=== PATIENT | female | born 1955 | race Caucasian/White ===

== ENCOUNTER 2022-09-10 12:12 | Outpatient (CLI) | payer MEDICARE, OTHER, SELFPAY ==
--- NOTE | 2022-09-10 12:33 | XR_ITS ---
WS: [id number] Lateral views of cervical spine in the flexion, extension and neutral positions. 09/10/2022 Clinical Data: CERVIALGIA Comparison: None. Findings: There is a posterior cervicothoracic fusion with pedicle screws at C4, C5, C6 T1 on T2 with connectin g rods. There is an anterior cervical fusion at C6-C7. On flexion and extension the fusion is stable. XR/XR cervical spine fl/ex [id number] Impression: 1. Intact anterior and posterior cervical fusions. 2. No instability on flexion or extension.
== END 2022-09-10 12:13 | disposition home or self-care (01) ==
PROVIDERS: PCP Family Medicine; Visit Provider Nurse Practitioner
DX: M54.2 Cervicalgia (principal)
CPT/HCPCS: 72040

== ENCOUNTER 2022-09-19 10:15 | Outpatient (CLI) | payer MEDICARE, OTHER, SELFPAY ==
--- NOTE | 2022-09-19 10:27 | XRR_ITS ---
PROCEDURE INFORMATION: Exam: XR Right Hand Exam date and time: 09/19/2022 10:33 AM Age: 66 years old Clinical indication: Pain and injury or trauma; Other: Jammed it; Blunt trauma (contusions or hematomas); Hand and finger; Right; Thumb; Finger(s) and hand; Additional info: Thumb injury TECHNIQUE: Imaging protocol: Radiologic exam of the Right hand. Views: 3 or more views. COMPARISON: No relevant prior studies available. FINDINGS: Bones/joints: Osseous structures are intact. No fracture or malalignment. Visualized joint surfaces are preserved. Soft tissues: Unremarkable. XR/XR hand RT min 3V* [id number] IMPRESSION: Negative exam. No acute bony abnormalities.
== END 2022-09-19 10:16 | disposition home or self-care (01) ==
LOC: RAD 10:19
PROVIDERS: PCP Family Medicine; Visit Provider Family Medicine
DX: S69.91XA Unspecified injury of right wrist, hand and finger(s), initial encounter (principal); X58.XXXA Exposure to other specified factors, initial encounter; F32.A Depression, unspecified; R61 Generalized hyperhidrosis
CPT/HCPCS: 73130; 80053; 82670; 84443; 85025

== ENCOUNTER → 2022-10-03 08:54 | Outpatient (BNVA) | payer MEDICARE, OTHER, SELFPAY | PROVIDERS: PCP Family Medicine; Visit Provider Internal Medicine Pulmonary Disease | DX: J44.9 Chronic obstructive pulmonary disease, unspecified (principal); F17.210 Nicotine dependence, cigarettes, uncomplicated; M54.2 Cervicalgia; G89.29 Other chronic pain; R06.09 Other forms of dyspnea; R91.1 Solitary pulmonary nodule | CPT/HCPCS: 99204 ==

== ENCOUNTER 2022-10-10 07:10 | Outpatient (CLI) | payer MEDICARE, OTHER, SELFPAY | END 2022-10-10 07:11 | disposition home or self-care (01) | LOC: RT 07:13 | PROVIDERS: PCP Family Medicine; Visit Provider Internal Medicine Pulmonary Disease | DX: F17.210 Nicotine dependence, cigarettes, uncomplicated (principal); J44.9 Chronic obstructive pulmonary disease, unspecified | CPT/HCPCS: 94060; 94618; 94726; 94729; J7613 ==

== ENCOUNTER → 2022-10-21 08:37 | Outpatient (BNVA) | payer MEDICARE, OTHER, SELFPAY | PROVIDERS: PCP Family Medicine; Visit Provider Anesthesiology Pain Medicine | DX: M47.812 Spondylosis without myelopathy or radiculopathy, cervical region (principal); M79.601 Pain in right arm; M79.602 Pain in left arm | CPT/HCPCS: 99204 ==

== ENCOUNTER → 2022-11-07 08:45 | Outpatient (BNVA) | payer MEDICARE, OTHER, SELFPAY | PROVIDERS: PCP Family Medicine; Visit Provider Anesthesiology Pain Medicine | DX: M47.812 Spondylosis without myelopathy or radiculopathy, cervical region (principal); R22.1 Localized swelling, mass and lump, neck; M79.18 Myalgia, other site | CPT/HCPCS: 20553; 99213; J1030; J3490 ==

== ENCOUNTER → 2022-11-12 14:36 | Outpatient (BNVA) | payer MEDICARE, OTHER, SELFPAY | PROVIDERS: PCP Family Medicine; Referring Provider Family Medicine; Visit Provider Internal Medicine | DX: R63.4 Abnormal weight loss (principal); R23.2 Flushing; Z68.1 Body mass index [BMI] 19.9 or less, adult | CPT/HCPCS: 99204 ==

== ENCOUNTER 2022-11-14 07:14 | Outpatient (CLI) | payer MEDICARE, OTHER, SELFPAY ==
--- NOTE | 2022-11-14 07:30 | CT_ITS ---
WS: [email or web address] CT CHEST TECHNIQUE: Noncontrast CT of the chest with coronal and sagittal reformatted images. CLINICAL INFORMATION: lung screening COMPARISON: None. DLP: 205.[address] scans at [facility] use at least one of these dose optimization techniques: automated e xposure control; mA and/or kV adjustment per patient size (includes targeted exams where dose is matc hed to clinical indication); or iterative reconstruction. FINDINGS: Normal caliber thoracic aorta. Aortic calcification. Coronary calcification. No mediastinal or hilar lymphadenopathy. No axillary lymphadenopathy. Adrenal glands are normal. RIGHT renal cyst measuring 1 2 mm. Adrenal glands are normal. Moderate chronic emphysematous changes. No focal pneumonia or pleura l fluid. Hazy groundglass opacity in the super segment LEFT lower lobe laterally may be infectious or inflamma tory. Recommend 3 month follow-up. This measures approximately 2.0 CM. Postoperative changes cervical thoracic junction. Tiny subpleural nodule RIGHT middle lobe measuring [address]/CT chest [facility] [id number] IMPRESSION: 1. Hazy 2.0 cm opacity in the super segment LEFT lower lobe laterally is nonsp ecific but may be infectious or inflammatory. Recommend [address] follow -up. 2. Tiny 3 mm nodule RIGHT middle lobe subpleural. 3. Moderate chronic emphysematous changes. 4. No other suspicious findings.
== END 2022-11-14 07:15 | disposition home or self-care (01) ==
LOC: RAD 07:16
PROVIDERS: PCP Family Medicine; Visit Provider Internal Medicine Pulmonary Disease
DX: F17.210 Nicotine dependence, cigarettes, uncomplicated (principal); J44.9 Chronic obstructive pulmonary disease, unspecified
CPT/HCPCS: 71250

== ENCOUNTER 2022-11-14 07:18 | Outpatient (CLI) | payer MEDICARE, OTHER, SELFPAY ==
[2022-11-14 08:04] LABS: Cortisol Random 8.18 ug/dL (2.47-19.5); Free T4 Free Thyroxine 1.19 ng/dL (0.82-1.77); Thyroid Stimulating Hormone 0.97 uIU/mL (0.27-4.20)
[2022-11-16 01:30] LABS: T3 Total 111 ng/dL (76-181)
== END 2022-11-14 07:19 | disposition home or self-care (01) ==
LOC: LAB 07:19
PROVIDERS: PCP Family Medicine; Visit Provider Internal Medicine
DX: R23.2 Flushing (principal); R63.4 Abnormal weight loss
CPT/HCPCS: 36415; 82533; 84439; 84443; 84480

== ENCOUNTER → 2022-11-26 13:02 | Outpatient (BNVA) | payer MEDICARE, OTHER, SELFPAY | PROVIDERS: PCP Family Medicine; Visit Provider Internal Medicine | DX: R63.4 Abnormal weight loss (principal); R23.2 Flushing; Z68.1 Body mass index [BMI] 19.9 or less, adult | CPT/HCPCS: 99214 ==

== ENCOUNTER → 2022-12-02 13:44 | Outpatient (BNVA) | payer MEDICARE, OTHER, SELFPAY | PROVIDERS: PCP Family Medicine; Visit Provider Internal Medicine Pulmonary Disease | DX: J44.9 Chronic obstructive pulmonary disease, unspecified (principal); M54.2 Cervicalgia; G89.29 Other chronic pain; R06.09 Other forms of dyspnea; R91.8 Other nonspecific abnormal finding of lung field; F17.210 Nicotine dependence, cigarettes, uncomplicated | CPT/HCPCS: 99214 ==

== ENCOUNTER → 2022-12-05 09:43 | Outpatient (BNVA) | payer MEDICARE, OTHER, SELFPAY | PROVIDERS: PCP Family Medicine; Visit Provider Anesthesiology Pain Medicine | DX: G89.29 Other chronic pain; Z98.1 Arthrodesis status; M47.812 Spondylosis without myelopathy or radiculopathy, cervical region; M43.6 Torticollis; M54.9 Dorsalgia, unspecified | CPT/HCPCS: 72074; 99214 ==

== ENCOUNTER → 2023-01-06 08:33 | Outpatient (BNVA) | payer MEDICARE, OTHER, SELFPAY | PROVIDERS: PCP Family Medicine; Visit Provider Anesthesiology Pain Medicine | DX: M79.18 Myalgia, other site (principal); M47.812 Spondylosis without myelopathy or radiculopathy, cervical region; M43.6 Torticollis; R22.1 Localized swelling, mass and lump, neck | CPT/HCPCS: 20553; 99213 ==

== ENCOUNTER 2023-01-28 07:49 | Outpatient (CLI) | payer MEDICARE, OTHER, SELFPAY ==
--- NOTE | 2023-01-28 08:00 | MR_ITS ---
WS: [id number] MRI THORACIC SPINE noncontrast HISTORY: Mid back pain for several months. No injury. COMPARISON: Radiographs 12/05/2022 TECHNIQUE: Multiplanar sequences are performed in sagittal and axial planes. Anterior cervical fusion at C6-7. Posterior thoracic alignment is normal. No fractures or marrow edema. Signal within the cord is tra l. No cord atrophy or enlargement. Conus tapers normally at L1. No disc protrusions or stenosis. Ther e is mild facet joint arthritis beginning at the T8-9 level without significant encroachment upon the thecal sac. Paraspinal soft tissues are normal. MR/MR thoracic spin wo con* [id number] IMPRESSION: 1. Unremarkable MRI thoracic spine. No significant stenosis and no disc protru anand. 2. Mild facet joint arthritis beginning at T8-9 through the lower thoracic spi ne. 3. Normal thoracic cord.
== END 2023-01-28 07:50 | disposition home or self-care (01) ==
PROVIDERS: PCP Family Medicine; Visit Provider Family Medicine
DX: M54.6 Pain in thoracic spine (principal); M47.814 Spondylosis without myelopathy or radiculopathy, thoracic region
CPT/HCPCS: 72146

== ENCOUNTER 2023-02-19 08:43 | Outpatient (CLI) | payer MEDICARE, OTHER, SELFPAY ==
--- NOTE | 2023-02-19 09:00 | CT_ITS ---
WS: [email or web address] CT chest wo con [id number] HISTORY: f/u Hazy 2.0 cm opacity TECHNIQUE: Axial imaging performed through the thorax. Coronal and sagittal reformats are submitted. All CT scans at [facility] use at least one of these dose optimization techniques: automated exposure control; mA and/or kV adjustment per patient size (includes targeted exams where dose is mat ched to clinical indication); or iterative reconstruction. CONTRAST: None DLP: 166.34 mGy.cm COMPARISON: 11/14/2022, 04/15/2022 Lungs and central airway: Mild pulmonary hyperexpansion. Reidentified is a 15 mm irregular shaped mahendra undglass attenuation superior segment LEFT lower lobe which is unchanged since 04/15/2022. Additional subpleural nodule in the RIGHT middle lobe 3 mm. Subpleural nodule LEFT upper lobe 3 mm also. No susp icious or enlarging masses are identified. Pleura: Normal. No pleural effusion. Heart and pericardium: Normal size heart with no pericardial effusion. Mediastinum and chidi: No mediastinum or hilar adenopathy. Vessels: Mild atherosclerosis aorta. Normal size pulmonary artery. Chest wall and lower neck: No soft tissue masses. Upper abdomen: Normal adrenal glands. Osseous structures: No destructive process. CT/CT chest wo con [id number] IMPRESSION: 1. No interval change in the hazy 15 mm opacification LEFT lower lobe since 08/2022. Recommend additional 6-[address] follow-up. 2. Additional subpleural nodules are stable. 3. Chronic emphysema.
== END 2023-02-19 08:44 | disposition home or self-care (01) ==
LOC: RAD 08:48
PROVIDERS: PCP Family Medicine; Visit Provider Internal Medicine Pulmonary Disease
DX: R91.8 Other nonspecific abnormal finding of lung field (principal); J43.9 Emphysema, unspecified
CPT/HCPCS: 71250

== ENCOUNTER 2023-02-26 12:23 | Outpatient (CLI) | payer MEDICARE, OTHER, SELFPAY ==
--- NOTE | 2023-02-26 13:14 | MM_ITS ---
WS: [email or web address] Bilateral screening 3D tomosynthesis digital mammogram, 02/26/2023 Clinical Data: Z78.0 - Asymptomatic menopausal state Comparison: 07/21/2021 Findings: The breast parenchymal pattern shows heterogeneous density. No spiculated masses or clustered calcifi cations are seen. There are no secondary signs of carcinoma. There is a benign calcification in the c entral portion of the right breast. MM/[place] [id number] Impression: 1. Negative bilateral mammogram unchanged. 2. Recommend annual screening mammograms. BIRADS: 1-Negative FOLLOW UP: 1 Year Follow-up The CAD fitting room checker was used.
--- NOTE | 2023-02-26 13:30 | XR_ITS ---
WS: [email or web address] SCREENING DEXA SCAN [employer] CLINICAL INFORMATION: Z78.0 - Asymptomatic menopausal state COMPARISON: None. FINDINGS: LEFT forearm bone mineral density measures 0.72. This corresponds to a T score score of -1.7 and Z sc ore of 0.0. Left femoral neck bone mineral density measures 0.773 g/cm2. This corresponds to a T score of -1.9 an d Z score of 0.1. Right femoral neck bone mineral density measures 0.794 g/cm2. This corresponds to a T score -1.7of an d Z score of 0.3. Mean femoral neck bone mineral density measures 0.784 g/cm2. This corresponds to a T score of -1.8 an d Z score of 0.2. XR/XR DEXA axial skeleton* [id number] IMPRESSION: Osteopenia LEFT forearm. Osteopenia femoral necks. Patient's FRAX calculated 10 year probability for major osteoporotic fracture is 9.5 % and osteoporotic hip fracture is 2.9%.
== END 2023-02-26 12:24 | disposition home or self-care (01) ==
PROVIDERS: PCP Family Medicine; Visit Provider Obstetrics & Gynecology
DX: Z13.820 Encounter for screening for osteoporosis (principal); Z78.0 Asymptomatic menopausal state; M85.832 Other specified disorders of bone density and structure, left forearm; Z12.31 Encounter for screening mammogram for malignant neoplasm of breast
CPT/HCPCS: 77063; 77067; 77080

== ENCOUNTER 2023-03-02 13:35 | Emergency (ER) | payer MEDICARE, SELFPAY ==
[2023-03-02 13:56] VITALS: BP 131/84; PULSE 92; RESP 16; TEMP 36.7; O2SAT 96; BMI 16.9
== END 2023-03-02 15:18 | disposition left against medical advice (07) ==
PROVIDERS: Emergency Provider Family Medicine; PCP Family Medicine
DX: Z53.21 Procedure and treatment not carried out due to patient leaving prior to being seen by health care provider (principal)

== ENCOUNTER → 2023-03-04 11:01 | Outpatient (BNVA) | payer MEDICARE, OTHER, SELFPAY | PROVIDERS: PCP Family Medicine; Visit Provider Obstetrics & Gynecology | DX: Z90.410 Acquired total absence of pancreas (principal); Z90.722 Acquired absence of ovaries, bilateral | CPT/HCPCS: 76830 ==

== ENCOUNTER → 2023-03-06 17:00 | Outpatient (BNVA) | payer MEDICARE, SELFPAY | PROVIDERS: PCP Family Medicine; Visit Provider Family Medicine | DX: M85.80 Other specified disorders of bone density and structure, unspecified site (principal); M54.2 Cervicalgia | CPT/HCPCS: 82306 ==

== ENCOUNTER → 2023-03-10 09:02 | Outpatient (BNVA) | payer MEDICARE, OTHER, SELFPAY | PROVIDERS: PCP Family Medicine; Visit Provider Anesthesiology Pain Medicine | DX: M54.12 Radiculopathy, cervical region (principal); M47.812 Spondylosis without myelopathy or radiculopathy, cervical region; M47.814 Spondylosis without myelopathy or radiculopathy, thoracic region | CPT/HCPCS: 99215 ==

== ENCOUNTER → 2023-03-19 08:41 | Outpatient (BNVA) | payer MEDICARE, OTHER, SELFPAY | PROVIDERS: PCP Family Medicine; Visit Provider Psychiatry & Neurology Neurology | DX: R25.1 Tremor, unspecified (principal); Z98.890 Other specified postprocedural states | CPT/HCPCS: 99203 ==

== ENCOUNTER → 2023-03-19 13:11 | Outpatient (BNVA) | payer MEDICARE, OTHER, SELFPAY | PROVIDERS: PCP Family Medicine; Visit Provider Anesthesiology Pain Medicine | DX: M47.812 Spondylosis without myelopathy or radiculopathy, cervical region (principal) | CPT/HCPCS: 64490; 64491; 64492; J3490 ==

== ENCOUNTER 2023-03-25 08:36 | Outpatient (CLI) | payer MEDICARE, OTHER, SELFPAY ==
--- NOTE | 2023-03-25 09:30 | MR_ITS ---
WS: [email or web address] MRI CERVICAL SPINE with and without contrast. HISTORY: M54.12 - Radiculopathy, cervical region, prior surgery. COMPARISON: None available. Technique: Multiplanar, multisequence pre and postcontrast imaging of the cervical spine. MultiHance 10 mL. Prior anterior cervical fusion at C6-7. Extensive posterior cervical fusion hardware extends from the upper cervical spine into the upper thoracic spine. Multilevel posterior laminectomy defects. There is significant artifact through the cervical spine secondary to the hardware. Disc spaces are narrowe d throughout the cervical spine. C3 anterolisthesis by 3.3 mm. No fracture or marrow edema. Signal within the cervical cord is normal. Visualized posterior fossa is unremarkable. Craniocervical junction, C1 and C2 relationship, odontoid process and soft tissues are normal. C2-C3: Normal. C3-C4: Moderate osteophytic ridging and facet arthritis. Facet joint arthritis encroaching into the p osterior thecal sac causing deformity and loss of CSF. There is mild central and moderate foraminal s tenosis. C4-C5: Mild osteophytic ridging and facet disease. There is significant artifact obscuring this disc level. C5-C6: Significant artifact on the axial imaging. There is no central stenosis or foraminal stenosis on the sagittal sequence. C6-C7: Significantly limited on the axial imaging by the artifact. No stenosis is apparent on the sag ittal sequence. C7-T1: Negative. There is a large amount of artifact throughout the cervical spine on the postcontrast imaging obscuri ng detail at multiple levels. MR/MR cervical spine wo/w [id number] IMPRESSION: 1. Prior anterior cervical fusion at C6-7 with extensive posterior fusion hard hernandez from the upper cervical spine to the upper thoracic spine. 2. C3 anterolisthesis by 3.3 mm. 3. Mild central and moderate bilateral foraminal stenosis at C3-4.
[2023-03-25] MEDS: gadobenate dimeglumine 20 mL vial IV (10:46)
== END 2023-03-25 08:37 | disposition home or self-care (01) ==
LOC: RAD 08:36
PROVIDERS: PCP Family Medicine; Visit Provider Anesthesiology Pain Medicine
DX: M47.22 Other spondylosis with radiculopathy, cervical region (principal); M48.02 Spinal stenosis, cervical region; Z98.1 Arthrodesis status
CPT/HCPCS: 72156; 99215; A9577

== ENCOUNTER → 2023-04-01 13:51 | Outpatient (BNVA) | payer MEDICARE, OTHER, SELFPAY | PROVIDERS: PCP Family Medicine; Visit Provider Anesthesiology Pain Medicine | DX: M47.812 Spondylosis without myelopathy or radiculopathy, cervical region (principal); R49.9 Unspecified voice and resonance disorder; R13.10 Dysphagia, unspecified; R63.4 Abnormal weight loss; Z68.1 Body mass index [BMI] 19.9 or less, adult; F17.210 Nicotine dependence, cigarettes, uncomplicated | CPT/HCPCS: 31575; 64490; 64491; 64492; 99204; J3490 ==

== ENCOUNTER 2023-04-04 08:25 | Outpatient (CLI) | payer MEDICARE, OTHER, SELFPAY ==
--- NOTE | 2023-04-04 08:45 | MR_ITS ---
WS: [email or web address] MRI HEAD WITH CONTRAST TECHNIQUE: Sagittal T1, T2 axial, T2 axial FLAIR, axial susceptibility weighted imaging, axial diffus ion weighted images, and coronal T2 images were obtained. Pre and post-T1 axial and post T1 coronal i mages. ADC and FSPGR images. CLINICAL INFORMATION: R25.1 - Tremor, unspecified COMPARISON: None. FINDINGS: No evidence of restricted diffusion to suggest acute ischemia. Ventricular system and basal cisterns are patent. Prior postoperative changes fusion partially visualized in the cervical spine. Slight ant erolisthesis C3 on C4. No hemosiderin on susceptibly weighted images. Normal optic chiasm and pituitary infundibulum. Temporal lobes and hippocampal formations are normal in appearance. Normal posterior fossa. Normal vascular flow voids at the skull base. No extra-axial f luid collections. No evidence of mass or mass effect. Paranasal sinuses and mastoid air cells are wel l aerated. Moderate patchy supratentorial white matter changes compatible small vessel disease in a patient this age. Mild parenchymal volume loss. No abnormal gadolinium enhancement. Normal visualized dural venou s sinuses. MR/MR head wo/w con [id number] IMPRESSION: 1. No evidence of restricted diffusion to suggest acute ischemia. 2. Moderate patchy small vessel changes. Mild parenchymal volume loss. 3. No hemosiderin on the susceptibly weighted images. 4. No abnormal gadolinium enhancement. 5. No other suspicious findings.
[2023-04-04] MEDS: gadobenate dimeglumine 20 mL vial IV (10:17)
== END 2023-04-04 08:26 | disposition home or self-care (01) ==
PROVIDERS: PCP Family Medicine; Visit Provider Psychiatry & Neurology Neurology
DX: R25.1 Tremor, unspecified (principal); I67.89 Other cerebrovascular disease
CPT/HCPCS: 64490; 70553; A9577; J3490

== ENCOUNTER → 2023-04-22 08:39 | Outpatient (BNVA) | payer MEDICARE, OTHER, SELFPAY | PROVIDERS: PCP Family Medicine; Visit Provider Anesthesiology Pain Medicine | DX: M47.812 Spondylosis without myelopathy or radiculopathy, cervical region (principal); M79.601 Pain in right arm; M79.602 Pain in left arm; R22.1 Localized swelling, mass and lump, neck; M43.6 Torticollis | CPT/HCPCS: 99214 ==

== ENCOUNTER → 2023-04-28 14:11 | Outpatient (BNVA) | payer MEDICARE, OTHER, SELFPAY | PROVIDERS: PCP Family Medicine; Visit Provider Psychiatry & Neurology Neurology | DX: R25.1 Tremor, unspecified (principal); Z98.890 Other specified postprocedural states | CPT/HCPCS: 99212 ==

== ENCOUNTER → 2023-05-29 11:18 | Outpatient (BNVA) | payer MEDICARE, OTHER, SELFPAY | PROVIDERS: PCP Family Medicine; Visit Provider Family Medicine | DX: E55.9 Vitamin D deficiency, unspecified (principal) | CPT/HCPCS: 82306 ==

== ENCOUNTER → 2023-06-02 10:24 | Outpatient (BNVA) | payer MEDICARE, OTHER, SELFPAY | PROVIDERS: PCP Family Medicine; Visit Provider Internal Medicine Pulmonary Disease | DX: J44.9 Chronic obstructive pulmonary disease, unspecified (principal); R91.8 Other nonspecific abnormal finding of lung field; F17.210 Nicotine dependence, cigarettes, uncomplicated | CPT/HCPCS: 99214 ==

== ENCOUNTER 2023-06-10 07:17 | Outpatient (CLI) | payer MEDICARE, OTHER, SELFPAY ==
[2023-06-10 08:07] VITALS: BMI 17.7
--- NOTE | 2023-06-10 08:15 | ECG_ITS ---
[facility] Test Date: 2023-06-10 Pat Name: Shayy Mann Department: Room: Gender: Female Wrister: : 1955 Requested By: Cecil Urena Order Number: [id number] Sandra MD: Rina Kay M.D. Interpretive Statements NAME OF STUDY: EXERCISE SESTAMIBI STRESS TEST INDICATION: Dyspnea on Exertion, PROCEDURE: The baseline electrocardiogram showed normal sinus rhythm with normal ST-Ts. Possible left atrial enlargement. At the baseline, the patient's blood pressure was 130/71 mm Hg with a heart rate of 80. The patient exercised for 4 minutes and 29 seconds on a standard Remy protocol. Patient attained a maximum heart rate of 133 beats per minute( 88 % of the maximum predicted heart rate) with a blood pressure at the peak exercise of 172/82 mm Hg. The EKG at the peak exercise revealed some nonspecific ST changes. Patient did not have any chest pain or any significant arrhythmis with the exercise Sestamibi was injected 1 minute prior to the peak exercise During the recovery phase, there were no new changes. Blood pressure at the end of the recovery phase was 132/80 mm Hg with a heart rate of 93 per minute. CONCLUSION: 1. Nonspecific EKG changes of the [treadmill exercise 2. No exercise-induced chest pain or cardiac arrhythmia 3. Impaired exercise tolerance, attained a maximum of 7.0 METs 4. Sestamibi/Sestamibi perfusion results pending; see separate report. Electronically Signed On 06-13-2023 9:47:40 CDT by Rina Kay M.D. [id number]
--- NOTE | 2023-06-10 08:16 | NMCV_ITS ---
NM khang perf SPECT r/s* [id number] Shayy Mann Age: 67 Gender: F : 1955 Exam Date: 06/10/2023 08:50 Ordering Phys: Cecil Miles MD Technologist: BECK Brantley Exam Location: [facility] Indications: SHORTNESS OF BREATH STRESS TEST Please see separate stress test report in [facility] for full findings IMAGE PROTOCOL Rest/Stress 1 Exercise Day Radiopharmaceutical Dose (mCi) Administration Site Administered by Rest: Tc-99m 10.8 IV BECK Brantley Sestamibi Stress:Tc-99m 32.6 IV BECK Mooney Sestamibi Rest: 10-Jun-2023 60 Discovery 630 Stress: 10-Jun-2023 15 Discovery 630 Radiopharmaceutical was injected at 85 % maximum heart rate. Images obtained in supine and prone position. SPECT RESULTS Technical Quality: Excellent Raw Data Analysis: Normal Image Corrections: No attenuation or motion correction applied Summed Stress Score: 1 Summed Rest Score: 0 Summed Difference Score: 1 PERFUSION FINDINGS A small area of slightly decreased tracer uptake was noted in the apical septal segment. Some reversibility was noted at rest. However with the SPECT imaging, no significant reversibility was noted FUNCTIONAL RESULTS (calculated via Gated SPECT) Stress Image LV EF (%): 77 Stress EDV (mL):48 TID: 0.92 Stress ESV (mL):11 FUNCTIONAL FINDINGS: Segmental wall motion analysis revealing no gross wall motion abnormalities IMPRESSIONS 1. Myocardial perfusion imaging revealing a small area of inconsistent reversible defect, in the apical septal region, most likely artifactual. 2. Normal LV ejection fraction 77%. 3. LV wall motion analysis revealing no gross wall motion abnormalities. 4. Normal LV volume Low probability for coronary ischemia, based on the above findings Dr Rina Kay MD FAC (Electronically Signed) Final Date: 10 June 2023 14:45 S
[2023-06-10 09:51] VITALS: BP 132/50; PULSE 89
== END 2023-06-10 07:18 | disposition home or self-care (01) ==
LOC: CDL 07:18
PROVIDERS: PCP Family Medicine; Visit Provider Internal Medicine Pulmonary Disease
DX: R06.00 Dyspnea, unspecified (principal); R06.02 Shortness of breath
CPT/HCPCS: 36415; 78452; 93017; A9500

== ENCOUNTER → 2023-06-30 11:49 | Outpatient (BNVA) | payer MEDICARE, SELFPAY | PROVIDERS: PCP Family Medicine; Visit Provider Family Medicine | DX: R53.83 Other fatigue (principal); M85.80 Other specified disorders of bone density and structure, unspecified site | CPT/HCPCS: 80053; 82306; 82607; 84443; 85025 ==

== ENCOUNTER 2023-07-25 12:17 | Outpatient (CLI) | payer MEDICARE, OTHER, SELFPAY ==
--- NOTE | 2023-07-25 13:00 | CTR_ITS ---
PROCEDURE INFORMATION: Exam: CT Chest Without Contrast; Diagnostic Exam date and time: 07/25/2023 12:38 PM Age: 67 years old Clinical indication: Abnormal findings; Abnormal radiologic exam of lung or chest; Additional info: 6 month f/u TECHNIQUE: Imaging protocol: Diagnostic computed tomography of the chest without contrast. Radiation optimization: All CT scans at this facility use at least one of these dose optimization techniques: automated exposure control; mA and/or kV adjustment per patient size (includes targeted exams where dose is matched to clinical indication); or iterative reconstruction. REPORTING DATA: Count of CT and Cardiac NM exams in prior 12 months: This patient has received 3 known CTs and 0 known cardiac nuclear medicine studies in the 12 months prior to the current study. COMPARISON: CT chest wo con [id number] 02/19/2023 9:12 AM RADIATION DOSE METRICS: Total DLP (mGy-cm): 221.03 FINDINGS: Lungs: Redemonstration of indistinct focal ground-glass opacity superior segment left lower lobe unchanged from April 2022 favoring benign etiology. COPD with scattered emphysematous changes, stable. Pleural spaces: Unremarkable. No pneumothorax. No pleural effusion. Heart: Heart is not significantly enlarged. There are mild calcifications of the coronary arteries. No significant pericardial effusion. Lymph nodes: Unremarkable. No enlarged lymph nodes. Vasculature: Scattered atherosclerotic changes of the abdominal aorta and iliac vessels. No aortic aneurysm. Bones/joints: Unremarkable. No acute fracture. Soft tissues: Unremarkable. CT/CT chest wo con [id number] IMPRESSION: Stable focal indistinct ground-glass opacity superior segment left lower lobe unchanged from April 2022 favoring benign etiology. Continued yearly surveillance suggested. COMMENTS: In the absence of a history or active diagnosis of lung cancer, it is recommended that this patient with emphysema be evaluated for enrollment in a low dose CT lung cancer screening program.
== END 2023-07-25 12:18 | disposition home or self-care (01) ==
LOC: RAD 12:17
PROVIDERS: PCP Family Medicine; Visit Provider Internal Medicine Pulmonary Disease
DX: R91.8 Other nonspecific abnormal finding of lung field (principal)
CPT/HCPCS: 71250

== ENCOUNTER → 2023-07-28 14:05 | Outpatient (BNVA) | payer MEDICARE, OTHER, SELFPAY | PROVIDERS: PCP Family Medicine; Visit Provider Psychiatry & Neurology Neurology | DX: G25.0 Essential tremor (principal) | CPT/HCPCS: 99212 ==

== ENCOUNTER 2023-09-15 10:19 | Outpatient (CLI) | payer MEDICARE, OTHER, SELFPAY ==
--- NOTE | 2023-09-15 10:30 | CT_ITS ---
WS: [email or web address] CT CHEST TECHNIQUE: Noncontrast CT of the chest with coronal and sagittal reformatted images. CLINICAL INFORMATION: J44.9 - Chronic obstructive pulmonary disease, unspecified COMPARISON: CT chest 07/25/2023 DLP: 214.[address] scans at [facility] use at least one of these dose optimization techniques: automated e xposure control; mA and/or kV adjustment per patient size (includes targeted exams where dose is matc hed to clinical indication); or iterative reconstruction. FINDINGS: Previously described hazy groundglass opacity in the superior segment LEFT lower lobe is un changed compared to 07/25/2023 and 02/19/2023. This measures approximately 15 mm unchanged. No new isac picious pulmonary parenchymal opacities. Chronic emphysematous changes. Aortic calcification. Coronary calcification. LEFT thyroid nodule akilah suring 8 mm. No mediastinal or hilar lymphadenopathy. No axillary lymphadenopathy. Adrenal glands are normal. Postoperative changes lower cervical and upper thoracic spine. IMPRESSION: Previously described groundglass opacity in the superior segment LEFT lower lobe is unchanged compare d to 07/25/2023 and 02/19/2023. Recommend 12-month follow-up.
== END 2023-09-15 10:20 | disposition home or self-care (01) ==
PROVIDERS: PCP Family Medicine; Visit Provider Internal Medicine Pulmonary Disease
DX: J44.9 Chronic obstructive pulmonary disease, unspecified (principal); R91.1 Solitary pulmonary nodule; R91.8 Other nonspecific abnormal finding of lung field
CPT/HCPCS: 71250

== ENCOUNTER → 2023-11-19 14:11 | Outpatient (BNVA) | payer MEDICARE, OTHER, SELFPAY | PROVIDERS: PCP Family Medicine; Visit Provider Psychiatry & Neurology Neurology | DX: G25.0 Essential tremor (principal) | CPT/HCPCS: 99212 ==

== ENCOUNTER → 2024-01-26 08:05 | Outpatient (BNVA) | payer MEDICARE, SELFPAY | PROVIDERS: PCP Family Medicine; Visit Provider Internal Medicine Pulmonary Disease | DX: J44.9 Chronic obstructive pulmonary disease, unspecified (principal); J43.2 Centrilobular emphysema; M54.2 Cervicalgia; G89.29 Other chronic pain; R06.09 Other forms of dyspnea; R91.1 Solitary pulmonary nodule; R91.8 Other nonspecific abnormal finding of lung field; F17.210 Nicotine dependence, cigarettes, uncomplicated | CPT/HCPCS: 99214 ==

== ENCOUNTER → 2024-02-04 13:57 | Outpatient (BNVA) | payer MEDICARE, OTHER, SELFPAY | PROVIDERS: PCP Family Medicine; Visit Provider Psychiatry & Neurology Neurology | DX: G25.0 Essential tremor (principal); F17.210 Nicotine dependence, cigarettes, uncomplicated | CPT/HCPCS: 99212 ==

== ENCOUNTER 2024-02-27 18:14 | Inpatient (IN) | payer MEDICARE, SELFPAY ==
[2024-02-27] VITALS (7 sets, daily range): BP systolic 125–151; BP diastolic 65–100; PULSE 83–107; RESP 20–30; TEMP 36.4–37.2; O2SAT 94–100; BMI 16.4
--- NOTE | 2024-02-27 18:22 | ECG_ITS ---
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 Measurements Intervals [place] Rate: 104 P: 83 NE: 142 QRS: 94 QRSD: 78 T: 64 QT: 326 QTc: 429 Interpretive Statements SINUS TACHYCARDIA POSSIBLE RIGHT ATRIAL ENLARGEMENT [0.25mV P-WAVE] POSSIBLE LEFT ATRIAL ENLARGEMENT [-0.1mV P-WAVE IN V1/V2] BORDERLINE RIGHT AXIS DEVIATION [QRS AXIS > 90] No previous ECG available for comparison Electronically Signed On 02-27-2024 20:19:49 CDT by Randy Lopez M.D. [id number]
--- NOTE | 2024-02-27 18:22 | XRR_ITS ---
PROCEDURE INFORMATION: Exam: XR Chest Exam date and time: 02/27/2024 7:05 PM Age: 68 years old Clinical indication: Dyspnea; Patient HX: Cervical 3-5 fusion surgery TECHNIQUE: Imaging protocol: Radiologic exam of the chest. Views: 1 view. COMPARISON: CT chest con [id number] 09/15/2023 10:39 AM FINDINGS: Lungs: Emphysematous changes. No focal consolidation. Pleural spaces: No pleural effusion. No pneumothorax. Heart/Mediastinum: No cardiomegaly. Bones/joints: No acute findings. XR/XR chest 1V portable [id number] IMPRESSION: No acute findings.
--- NOTE | 2024-02-27 18:25 | ED_ITS ---
HPI - SOB/Dyspnea 2 General: Chief Complaint: Shortness of Breath/Dyspnea Stated Complaint: shortness of breath Time Seen by Provider: 02/27/24 18:15 History of Present Illness: HPI Narrative: Patient resents to the ER by EMS with complaints of shortness of breath. Patient says she has been going downhill the last 2 to 3 days. But it got worse today. Patient denies any fever or chills, says today she has developed some chest tightness, does take multiple home nebulizers routinely. EMS gave her nebulizer en route. Patient does not wear oxygen at home nor does have oxygen at home. Patient requiring approximately 6 L of oxygen per oxime mask to keep her sat upwards of about 96%. Patient does have a diagnosis of COPD and still is a smoker. Review of Systems 2 General: Reports: 10 or more systems reviewed and unremarkable except in HPI and below PFSH ED 2 PFSH: Medical History Osteopenia History of colon polyps hyperplastic polyp x 2 in 2021 Depression Chronic back pain Weight loss, unintentional COPD (chronic obstructive pulmonary disease) Hyperlipidemia GERD (gastroesophageal reflux disease) Surgical History History of cataract extraction with lens replacement History of esophageal surgery benign polyp removed History of bunionectomy of both great toes History of hysterectomy still has one ovary History of cholecystectomy History of fusion of cervical spine History of lumbar spinal fusion Family History Other Adopted Social History Smoking and tobacco/nicotine status: current every day tobacco/nicotine user cigarettes Packs smoked per day: 0.5 [ Other cigarette details: started at 14; currently smokes 0.5 to 1 pack daily] Alcohol intake: current Alcohol intake frequency: holidays/special occasions only Substance/Drug Use: never Adopted: Yes Household members: spouse Marital status: Number of children: 1 Number of grandchildren: 2 Current occupational status: retired 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 [employer] Physical Exam 2 Const: COMMON NORMALS: no acute distress, average body habitus, patient oriented x3, no limitations, healthy appearing, alert and well nourished HENMT: COMMON NORMALS: normocephalic, atraumatic, hearing grossly normal bilaterally, external ears normal, Normal external nose present, moist oral mucous membranes and oropharynx normal HEAD & SCALP: normocephalic and atraumatic NOSE: Normal external nose present EXTERNAL EAR: Yes external ears normal Neck/C-Spine: COMMON NORMALS: full ROM, no lymphadenopathy, supple, no meningeal signs, no JVD and Thyroid normal THYROID: Thyroid normal Chest: COMMONS NORMALS: normal inspection of the chest and normal palpation of entire chest wall Resp: COMMON NORMALS: No retractions and No use of accessory muscles; negative for normal respiratory effort (Tachypneic with increased work of breathing no retractions) and negative for clear to auscultation bilaterally (Decreased breath sounds with wheezing bilaterally) AUSCULTATION: not clear to auscultation bilaterally (Decreased breath sounds with wheezing bilaterally) Cardio: COMMON NORMALS: no JVD, regular rate, regular rhythm, S1 normal heart sound present, S2 normal heart sound present, No gallops present (Cardio), No clicks present (Cardio), No murmurs present (Cardio) and No rub (Cardio) R ATE: regular rate RHYTHM: regular rhythm HEART SOUNDS: S1 normal heart sound present and S2 normal heart sound present GI: COMMON NORMALS: Normal to inspection, nondistended, normoactive bowel sounds present, Soft to palpation, non-tender, No hepatosplenomegaly present and no masses PALPATION: Yes Soft to palpation and Yes No hepatosplenomegaly present Neuro: COMMON NORMALS: patient oriented x3 SENSORIUM/ORIENTATION: Yes alert MENINGEAL SIGNS: Yes no meningeal signs Course 2 Vital Signs: Vital signs: Vital Signs Temperature 99.0 F 02/27/24 18:15 Pulse Rate 83 02/27/24 21:00 Respiratory Rate 30 H 02/27/24 18:15 Blood Pressure 125/81 02/27/24 21:00 Pulse Oximetry 94 02/27/24 21:00 Oxygen Delivery Me thod Nasal Cannula 02/27/24 21:00 Oxygen Flow Rate 2 02/27/24 21:00 MDM - SOB/Dyspnea Medical Decision Making Patient was worked up with chest x-ray, serial EKGs serial troponins and lab work, all of which started out as essentially benign. But when we get the 2- hour delta troponin back first troponin was 11-second troponin was approximate 97 for delta of approximately 86. Patient was not having chest pain at this time there is no significant EKG changes, patient is been weaned down to approximately 4 L per nasal cannula and her oxygen from 6 L of anoxia mask. Patient is given Solu-Medrol 125 mg IV. I discussed these labs with the patient and her need to stay due to her elevated troponin. Patient is willing. Hospitalist will be called anticipate admission to [facility]. Dr. Kay was consulted and he said he will do a cath in the morning and would like an echo ordered. Dr. Gan was consulted who agreed to place patient in [facility] for further evaluation and treatment. Differential Diagnosis Likely acute exacerbation of chronic obstructive airways disease; Unlikely congestive heart failure, community acquired pneumonia, asthma with exacerbation or pulmonary embolism Medical Records I reviewed the patient's medical records. Lab Data I reviewed the patient's lab results. 02/27/24 18:00 02/27/24 18:00 Labs/Radiology: Radiology Impressions Chest X-Ray 02/27/24 18:22 IMPRESSION: No acute findings. Laboratory Results WBC 6.98 10^3/uL (3.29-11.43) 02/27/24 18:00 RBC 4.96 10^6/uL (3.85-5.65) 02/27/24 18:00 Hgb 15.10 g/dL (11.27-16.99) 02/27/24 18:00 Hct 46.2 % (36-47) 02/27/24 18:00 MCV 93.1 fl (85-98) 02/27/24 18:00 MCH 30.4 pg (27-33) 02/27/24 18:00 MCHC 32.7 g/dL (30-55) 02/27/24 18:00 RDW 12.7 % (12.1-15.1) 02/27/24 18:00 Plt Count 302 10^3/cmm (157-399) 02/27/24 18:00 MPV 10.0 fL (7.4-10.4) 02/27/24 18:00 Neut % (Auto) 52.7 % 02/27/24 18:00 Lymph % (Auto) 34.2 % 02/27/24 18:00 [place] % (Auto) 9.7 % 02/27/24 18:00 Eos % (Auto) 2.4 % 02/27/24 18:00 Baso % (Auto) 0.9 % 02/27/24 18:00 Neut # (Auto) 3.67 10^3/uL (1.8-7.7) 02/27/24 18:00 Lymph # (Auto) 2.4 10^3/uL (0.8-4.8) 02/27/24 18:00 [place] # (Auto) 0.7 10^3/uL (0.2-0.9) 02/27/24 18:00 Eos # (Auto) 0.2 10^3/uL (0.0-0.8) 02/27/24 18:00 Baso # (Auto) 0.1 10^3/uL (0.0-0.1) 02/27/24 18:00 Nucleated RBC % (auto) 0 % 02/27/24 18:00 Nucleated RBCs # 0.0 /100WBC 02/27/24 18:00 Specimen Type Arterial 02/27/24 18:29 Sample Site Brachial, right 02/27/24 18:29 ABG pH 7.36 (7.35-7.45) 02/27/24 18: ABG pCO2 43.5 mmHg (35-45) 02/27/24 18: ABG pO2 160.0 mmHg (80.0-100.0) H 02/27/24 18: ABG PO2/FiO2 Ratio 0 02/27/24: ABG HCO3 24.5 mmol/L (22-26) 02/27/24 18: ABG O2 Saturation 99.7 02/27/24 18: ABG Base Excess -1.2 mmol/L (-2.0-2.0) 02/27/24 18: Sumit Test Pos 02/27/24 18: A-a O2 Gradient 13.2 mmHg (5-10) H 02/27/24 18: Hematocrit 44.9 % (37-47) 02/27/24 18: Hgb O2 Saturation 94.2 % (95-100) L 02/27/24 18: Carboxyhemoglobin 5.2 %THgb (0.4-20.1) 02/27/24 18: Methemoglobin 0.3 % (0.4-1.5) L 02/27/24 18:29 Total Hemoglobin 14.6 g/dL (12-16) 02/27/24 18:29 Sodium 143.0 mmol/L (131-143) 02/27/24 18:29 Potassium 3.7 mmol/L (3.5-5.0) 02/27/24 18:29 Glucose 95.0 mg/dL (70-115) 02/27/24 18:29 Ionized Calcium 1.3 mmol/L (1.1-1.4) 02/27/24 18:29 O2 Delivery Device Simple mask 02/27/24 18:29 O2 Liters/Min 5.0 % 02/27/24 18:29 FiO2 45.0 % 02/27/24 18: Range Conservationist ID Calderonro 02/27/24 18:29 Sodium 137 mmol/L (136-145) 02/27/24 18:00 Potassium 3.8 mmol/L (3.5-5.1) 02/27/24 18:00 Chloride 101 mmol/L (98-107) 02/27/24 18:00 Carbon Dioxide 24 mmol/L (22-29) 02/27/24 18:00 Anion Gap 15.8 (5-19) 02/27/24 18:00 BUN 8 mg/dL (8-23) 02/27/24 18:00 Creatinine 0.9 mg/dL (0.5-0.9) 02/27/24 18:00 GFR Calculation 61.9 mL/min (90-130) L 02/27/24 18:00 Glucose 94 mg/dL (65-115) 02/27/24 18:00 Calculated Osmolality 282 mOsm/kg (285-295) L 02/27/24 18:00 Lactic Acid 1.3 mmol/L (0.5-2.2) 02/27/24 18:00 Calcium 9.2 mg/dL (8.5-10.5) 02/27/24 18:00 Total Bilirubin 0.2 mg/dL (0.15-1.2) 02/27/24 18:00 AST 17 U/L (0-32) 02/27/24 18:00 ALT 12 U/L (0-33) 02/27/24 18:00 Alkaline Phosphatase 91 U/L (35-105) 02/27/24 18:00 Troponin T Baseline 11 ng/L (0-10) H 02/27/24 18:00 Troponin T 120 Minute 97.35 ng/L (0-10) H 02/27/24 20:03 Delta Troponin T 86.35 ABS# (0-10) H* 02/27/24 20:03 NT-Pro-B Natriuret Pep 140 pg/mL (0-125) H 02/27/24 18:00 Total Protein 7.4 g/dL (6.6-8.7) 02/27/24 18:00 Albumin 4.5 g/dL (3.5-5.2) 02/27/24 18:00 Globulin 2.9 g/dL (1.3-4.6) 02/27/24 18:00 Procalcitonin 0.03 ng/mL (0-0.5) 02/27/24 18:00 Influenza Type A Ag negative (Negative) 02/27/24 18:35 Influenza Type B Ag negative (Negative) 02/27/24 18:35 SARS-CoV-2 Ag (Rapid) negative (Negative) 02/27/24 18:35 All radiology interpretation(s) finalized by discharge EKG Data EKG 1: I personally reviewed and interpreted this EKG as follows: EKG Interpretation Date: 02/27/24 EKG interpretation time: 14:00 Interpretation: Ventricular rate 104 bpm, DC interval 142, QRS duration 78, QTc of 386, sinus tach Discharge Plan Discharge Patient Disposition: Admitted As Inpatient Admit Provider: Analia Gan Clinical Impression: Acute non-ST elevation myocardial infarction (NSTEMI), Acute exacerbation of chronic obstructive pulmonary disease Condition: Stable Coding Level of Care Code ED Dispatcher Maintenance Service for Chg Deng
[2024-02-27 18:38] LABS: ABG PCO2 43.5 mmHg (35-45); ABG PH Result 7.36 (7.35-7.45); Arterial Blood Gas Hematocrit 44.9 % (37-47); Base Excess ABG -1.2 mmol/L (-2.0-2.0); Blood Gas Allen Test Pos; Blood Gas Sample Type Arterial; Carboxyhemoglobin 5.2 %THgb (0.4-20.1); HCO3 ABG 24.5 mmol/L (22-26); HGB O2 Sat 94.2 % (95-100); Ionized Calcium Level - ABG 1.3 mmol/L (1.1-1.4); Methemoglobin 0.3 % (0.4-1.5); Oxygen Saturation ABG 99.7; Potassium Level - ABG 3.7 mmol/L (3.5-5.0); Total Hemoglobin 14.6 g/dL (12-16)
[2024-02-27 18:39] LABS: Alveolar-Arterial Oxygen Gradi 13.2 mmHg (5-10); Blood Gas Operator Identificat MONRO; Blood Gas Sample Site Brachial, right; Oxygen Device SIMPLE MASK; PO2 FiO2 Ratio Arterial Blood 0
[2024-02-27 18:52] LABS: Basophils # 0.1 10^3/uL (0.0-0.1); Basophils % 0.9 %; Eosinophils # 0.2 10^3/uL (0.0-0.8); Eosinophils % 2.4 %; Hematocrit 46.2 % (36-47); Lymphocytes # 2.4 10^3/uL (0.8-4.8); Lymphocytes % 34.2 %; Mean Corpuscular HGB Conc 32.7 g/dL (30-55); Mean Corpuscular Hemoglobin 30.4 pg (27-33); Mean Corpuscular Volume 93.1 fl (85-98); Monocytes # 0.7 10^3/uL (0.2-0.9); Monocytes % 9.7 %; Neutrophils # 3.67 10^3/uL (1.8-7.7); Neutrophils % 52.7 %; Nucleated Red Blood Cells % 0 %; Platelet Count 302 10^3/cmm (157-399); Red Blood Count 4.96 10^6/uL (3.85-5.65); Red Cell Distribution Width 12.7 % (12.1-15.1); White Blood Count 6.98 10^3/uL (3.29-11.43)
[2024-02-27] MEDS: methylPREDNISolone sod succ 125 mg/2 mL INJ IVP (18:57)
[2024-02-27 18:58] LABS: Influenza A by IFA negative (Negative); Influenza B by IFA negative (Negative); SARS Covid-2 Antigen negative (Negative)
[2024-02-27] MEDS: sodium chloride 0.9% 1,000 ML 999 ML IV (18:59)
[2024-02-27 19:02] LABS: Lactic Sepsis W/Reflex 1.3 mmol/L (0.5-2.2)
[2024-02-27 19:04] LABS: Troponin(5th) Baseline 11 ng/L (0-10)
[2024-02-27 19:13] LABS: NT Pro B Type Natriuretic Pept 140 pg/mL (0-125); Procalcitonin 0.03 ng/mL (0-0.5)
[2024-02-27 19:25] LABS: Alanine Aminotransferase 12 U/L (0-33); Albumin Level 4.5 g/dL (3.5-5.2); Alkaline Phosphatase 91 U/L (35-105); Anion Gap 15.8 (5-19); Aspartate Amino Transferase 17 U/L (0-32); Blood Urea Nitrogen 8 mg/dL (8-23); Calcium 9.2 mg/dL (8.5-10.5); Carbon Dioxide 24 mmol/L (22-29); Chloride 101 mmol/L (98-107); Creatinine Clr Calc Pharmacy 39.0614; Globulin 2.9 g/dL (1.3-4.6); Glomerular Filtration Rate 61.9 mL/min (90-130); Glucose 94 mg/dL (65-115); Osmolality Calculated 282 mOsm/kg (285-295); Potassium 3.8 mmol/L (3.5-5.1); Sodium 137 mmol/L (136-145); Total Bilirubin 0.2 mg/dL (0.15-1.2); Total Protein 7.4 g/dL (6.6-8.7)
--- NOTE | 2024-02-27 20:22 | ECG_ITS ---
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 Measurements Intervals [place] Rate: 86 P: 81 [place]: 138 QRS: 85 QRSD: 80 T: 76 QT: 360 QTc: 433 Interpretive Statements SINUS RHYTHM POSSIBLE LEFT ATRIAL ENLARGEMENT [-0.1mV P-WAVE IN V1/V2] Compared to ECG 02/27/2024 18:24:14 Sinus tachycardia no longer present Electronically Signed On 02-28-2024 20:26:12 CDT by Rina Kay M.D. [email or web address] [id number]
[2024-02-27 20:38] LABS: Troponin 5 2HR 97.35 ng/L (0-10)
[2024-02-27 20:42] LABS: Troponin 5 2HR Delta 86.35 ABS# (0-10)
[2024-02-27] MEDS: ketorolac 30 mg/mL INJ IVP (21:13)
[2024-02-27] MEDS: aspirin 81 mg Chew Tablet 324 MG PO (21:13)
[2024-02-27] MEDS: heparin 5,000 unit/mL INJ 1 mL 2700 UNIT IVP (21:18)
--- NOTE | 2024-02-27 21:40 | P.HP_ITS ---
Providers/Chief Complaint 2 Primary Care Provider: Peyton Gibson MD Chief Complaint: shortness of breath History of Present Illness Shayy Mann is a 68 year old female With past medical history of cervical and lumbar disc disease, smoker, COPD, hyperlipidemia, GERD who presented to the hospital today with complaint of shortness of breath. She says she has been going downhill since last 2 to 3 days and today she has worsened. She has developed chest tightness which feels like a pressure and difficulty breathing. She says she is taking multiple nebulizers at home however is not getting better. She is requiring 6 L nasal cannula on arrival to ER and was titrated down to 4 L after getting steroids and a DuoNeb. Initial troponin 11, normal troponin 97.35 with a delta of 86.35. BNP 140. Patient states she was adopted does not know any biological family history of heart disease. Does not know chronological parents. Patient says she would like to be DNR/DNI because she does not want to live on machines however he is okay with going for cardiac angiogram. At the time of my evaluation she says her chest pain has improved however still feels tightness in her chest. Lactic acid 1.3, sodium 143, potassium 3.7, creatinine 0.9, hemoglobin 15.0. Medications/Allergies Home Medications Medication Instructions Recorded Confirmed Last Taken Type albuterol sulfate 90 mcg/actuation 2 puff inhalation 6XD PRN 09/19/22 02/04/24 Unknown Rx aerosol inhaler shortness of breath or wheezing 30 days #17 grams lidocaine 5 % topical patch 1 patch topical DAILY PRN pain #30 04/04/23 02/04/24 Unknown Rx ea ipratropium 0.5 mg-albuterol 3 mg 3 ml inhalation Q6H PRN COPD J44.9 06/20/23 02/04/24 Unknown Rx (2.5 mg base)/3 mL nebulization #180 mL soln ibuprofen 800 mg tablet See Rx Instructions .Route 01/15/24 02/04/24 Unknown Rx .COMPLEX #30 tabs budesonide 160 mcg-glycopyr 9 2 inh inhalation BID 30 days #10.7 02/02/24 02/04/24 Unknown Rx mcg-formot 4.8 mcg/actuation HFA grams inhaler (Breztri Aerosphere) lamotrigine 150 mg tablet 150 mg PO BID #60 tabs 02/04/24 02/04/24 Unknown Rx baclofen 5 mg tablet See Rx Instructions .Route 02/09/24 Unknown Rx .COMPLEX #60 tabs duloxetine 20 mg capsule,delayed 20 mg PO BID #60 caps 02/17/24 Unknown Rx release (Cymbalta) Allergies Allergy/AdvReac Type Severity Reaction Status Date / Time gabapentin Allergy Intermediate Unknown Verified 02/27/24 18:25 Opioids - Morphine Analogues Allergy Unknown Unknown Verified 02/27/24 18:25 pregabalin [From Lyrica] Allergy Unknown Unknown Verified 02/27/24 18:25 tramadol Allergy Unknown Unknown Verified 02/27/24 18:25 venlafaxine Allergy tremor Verified 02/27/24 18:25 PFSH Acute 2 PFSH: Medical History Osteopenia History of colon polyps hyperplastic polyp x 2 in 2021 Depression Chronic back pain Weight loss, unintentional COPD (chronic obstructive pulmonary disease) Hyperlipidemia GERD (gastroesophageal reflux disease) Surgical History History of cataract extraction with lens replacement History of esophageal surgery benign polyp removed History of bunionectomy of both great toes History of hysterectomy still has one ovary History of cholecystectomy History of fusion of cervical spine History of lumbar spinal fusion Family History Other Adopted Social History Smoking and tobacco/nicotine status: current every day tobacco/nicotine user cigarettes Packs smoked per day: 0.5 [ Other cigarette details: started at 14; currently smokes 0.5 to 1 pack daily] Alcohol intake: current Alcohol intake frequency: holidays/special occasions only Substance/Drug Use: never Adopted: Yes Household members: spouse Marital status: Number of children: 1 Number of grandchildren: 2 Current occupational status: retired 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 Frail-appearing female HEENT: Normocephalic, atraumatic, EOMI, breathing comfortably on room air. Nasal cannula present morning 4 L however it is by patient's cheek and not in the nose. She is saturating 95%. Cardio: Regular rate rhythm, normal S1-S2 Respiratory: Fair bilateral air entry, no gross wheezes or rhonchi. GI: Abdomen soft, nontender, nondistended, bowel sounds + Extremities: No edema bilateral lower extremities Data 02/27/24 18:00 02/27/24 18:00 A&P Assessment and plan (1) Depression: (2) Acute non-ST elevation myocardial infarction (NSTEMI): (3) Hyperlipidemia: (4) GERD (gastroesophageal reflux disease): (5) Chronic back pain: (6) Cervical pain (neck): (7) COPD (chronic obstructive pulmonary disease): Qualifiers: COPD type: emphysema Emphysema type: centrilobular Qualified Code(s): J43.2 - Centrilobular emphysema (8) Smoker: Plan #NSTEMI, chest pain #Hyperlipidemia #GERD # COPD #Chronic cervical lumbar disc disease #Former smoker ? Check echo ? Start ACS protocol aspirin, loaded Plavix, atorvastatin 80, ? Start heparin drip ? DuoNeb every 6 hours as needed ? Solu-Medrol 40 IV twice daily ? Morphine 4 mg every 4 hours as needed for pain ? Protonix 40 IV daily ? Check hemoglobin A1c, TSH, lipid profile ? Admit patient to csu -Ordered Nitropaste half inch every 6 hours DNR/DNI DVT prophylaxis: SCDs, on heparin drip Attestations 2 Medical Necessity Statement*: Greater than 2 midnight stay for management of NSTEMI Diagnoses Depression F32.A Acute non-ST elevation myocardial infarction (NSTEMI) I21.4 Hyperlipidemia E78.5 GERD (gastroesophageal reflux disease) K21.9 Chronic back pain M54.9; G89.29 Cervical pain (neck) M54.2 Centrilobular emphysema J43.2 COPD type: emphysema Emphysema type: centrilobular Smoker F17.200
[2024-02-27 22:17] LABS: Estmated Average Glucose 117; Hemoglobin A1C 5.7 % (4.0-6.0)
[2024-02-27 22:23] LABS: Procalcitonin 0.03 ng/mL (0-0.5)
[2024-02-27 22:34] LABS: Chol HDL Ratio 2.63 mg/dL (0.0-4.40); Cholesterol 231 mg/dL (0-200); HDL Cholesterol 88 mg/dL (60-100); LDL Cholesterol Calculated 111 mg/dL (50-129); LDL HDL Ratio 1.26 RATIO (0.00-3.22); Triglycerides 158 mg/dL (0-150)
--- NOTE | 2024-02-27 22:50 | P.CONIM_ITS ---
Providers/Reason For Consult 2 Consulting Physician/Specialty*: DAVID Kay MD/cardiology Reason for Consult*: Patient with chest pain and elevated troponin T Requesting Physician: Dr. Gan Attending Physician: Analia Gan MD Primary Care Provider: Peyton Gibson MD History of Present Illness History of Present Illness Shayy Mann is a 68 year old female with a history of COPD and smoking abuse, presenting with complaints of worsening shortness of breath. She was found an elevated troponin T with a Significant delta at 2 hours. Cardiology consult is requested for further cardiac evaluation recommendations. This patient has no previous history for any cardiac illness. She has a history of severe COPD. She been smoking a pack a day for the last 50 years or so. She continues to smoke. She has been using inhalers including nebulizer at home. For the last 3 days, she been having increasing shortness of breath. Today she also started having some heaviness in the chest. Denies any palpitation, dizziness or syncopal episode. No fever or chills. She does not use any home oxygen. She was found to be requiring around 6 L of oxygen to maintain the oxygen saturation in the emergency room. Her initial troponin T was 11 which went up to 97 at 2 hours with a delta of 86. He has no history for any hypertension, diabetes or dyslipidemia. She has a history of GERD/gastric ulcer. No history of early GI bleed. She had multiple back surgeries and cervical spine surgeries. She has chronic pain and has been taking pain medications. She is adopted and does not know the family history. She denies any alcohol abuse or any other substance abuse. She is and has 1 son, who is healthy. Review of Systems 2 Narrative: CONSTITUTIONAL: No fever or chills. EYES: No blurring of vision or other visual disturbances lately. ENT: No hoarseness of voice, auditory disturbances or sore throat. CARDIOVASCULAR: As mentioned above. RESPIRATORY: Shortness of breath as mentioned above. GASTROINTESTINAL: No hematemesis or melena. GENITOURINARY: No dysuria or hematuria. INTEGUMENTARY: No skin rashes or history of skin cancer. NEURO: No transient ischemic attacks or amaurosis. PSYCHIATRIC: No history of psychosis or major depression. HEMATOLOGIC: No bleeding disorders or significant anemia. ENDOCRINE: No history of polyuria or polydipsia. MUSCULOSKELETAL: Multiple back surgeries/cervical spine surgery and chronic pain ALLERGY/IMMUNOLOGY: As mentioned above. Medications/Allergies Home Medications Medication Instructions Recorded Confirmed Last Taken Type albuterol sulfate 90 mcg/actuation 2 puff inhalation 6XD PRN 09/19/22 02/27/24 Unknown Rx aerosol inhaler shortness of breath or wheezing 30 days #17 grams lidocaine 5 % topical patch 1 patch topical DAILY PRN pain #30 04/04/23 02/04/24 Unknown Rx ea ipratropium 0.5 mg-albuterol 3 mg 3 ml inhalation Q6H PRN COPD J44.9 06/20/23 02/27/24 Unknown Rx (2.5 mg base)/3 mL nebulization #180 mL soln ibuprofen 800 mg tablet See Rx Instructions .Route 01/15/24 02/27/24 Unknown Rx .COMPLEX #30 tabs budesonide 160 mcg-glycopyr 9 2 inh inhalation BID 30 days #10.7 02/02/24 02/27/24 Unknown Rx mcg-formot 4.8 mcg/actuation HFA grams inhaler (Breztri Aerosphere) lamotrigine 150 mg tablet 150 mg PO BID #60 tabs 02/04/24 02/27/24 Unknown Rx baclofen 5 mg tablet See Rx Instructions .Route 02/09/24 02/27/24 Unknown Rx .COMPLEX #60 tabs duloxetine 20 mg capsule,delayed 20 mg PO BID #60 caps 02/17/24 02/27/24 Unknown Rx release (Cymbalta) estradiol 1 mg tablet 1 mg PO DAILY 02/27/24 02/27/24 Unknown History Allergies Allergy/AdvReac Type Severity Reaction Status Date / Time gabapentin Allergy Intermediate Unknown Verified 02/27/24 18:25 Opioids - Morphine Analogues Allergy Unknown Unknown Verified 02/27/24 18:25 pregabalin [From Lyrica] Allergy Unknown Unknown Verified 02/27/24 18:25 tramadol Allergy Unknown Unknown Verified 02/27/24 18:25 venlafaxine Allergy tremor Verified 02/27/24 18:25 PFSH Acute 2 PFSH: Medical History Osteopenia History of colon polyps hyperplastic polyp x 2 in 2021 Depression Chronic back pain Weight loss, unintentional COPD (chronic obstructive pulmonary disease) Hyperlipidemia GERD (gastroesophageal reflux disease) Surgical History History of cataract extraction with lens replacement History of esophageal surgery benign polyp removed History of bunionectomy of both great toes History of hysterectomy still has one ovary History of cholecystectomy History of fusion of cervical spine History of lumbar spinal fusion Family History Other Adopted Social History Smoking and tobacco/nicotine status: current every day tobacco/nicotine user cigarettes Packs smoked per day: 0.5 [ Other cigarette details: started at 14; currently smokes 0.5 to 1 pack daily] Alcohol intake: current Alcohol intake frequency: holidays/special occasions only Substance/Drug Use: never Adopted: Yes Household members: spouse Marital status: Number of children: 1 Number of grandchildren: 2 Current occupational status: retired 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 . Patient is in minimal respiratory distress. She is using accessory muscles. Thin frame somewhat emaciated HEENT: No significant pallor, icterus or lymphadenopathy.Oral cavity: There are no mucous membrane lesions. NECK: Trachea appears to be central. No masses noted. No JVD or thyromegaly appreciated. RESPIRATORY: Chest is symmetrical. Chest is emphysematous. Expiratory wheezing and coarse crackles bilaterally. BREASTS: Deferred. HEART: The heart sounds are normal. No S3 or S4. No significant murmurs. No pericardial rub ABDOMEN: No vessel pulsations or distention. No tenderness. No organomegaly appreciated. Bowel sounds are normally heard. : Deferred. RECTAL: Deferred. LYMPHATIC: No lymphadenopathy noted in the neck. EXTREMITIES: No edema or cyanosis. No clubbing. The peripheral pulses are palpable but of low amplitude bilaterally. MUSCULOSKELETAL: No acute joint deformities or swelling SKIN: There are no significant rashes or ecchymosis NEUROPSYCHIATRIC: The patient is alert and oriented x3. Appears to be in a good mood. No tremors or rigidity noted. Data 02/27/24 18:00 02/27/24 18:00 Other Labs: Laboratory Last Values WBC 6.98 10^3/uL (3.29-11.43) 02/27/24 18:00 RBC 4.96 10^6/uL (3.85-5.65) 02/27/24 18:00 Hgb 15.10 g/dL (11.27-16.99) 02/27/24 18:00 Hct 46.2 % (36-47) 02/27/24 18:00 MCV 93.1 fl (85-98) 02/27/24 18:00 MCH 30.4 pg (27-33) 02/27/24 18:00 MCHC 32.7 g/dL (30-55) 02/27/24 18:00 RDW 12.7 % (12.1-15.1) 02/27/24 18:00 Plt Count 302 10^3/cmm (157-399) 02/27/24 18:00 MPV 10.0 fL (7.4-10.4) 02/27/24 18:00 Neut % (Auto) 52.7 % 02/27/24 18:00 Lymph % (Auto) 34.2 % 02/27/24 18:00 [place] % (Auto) 9.7 % 02/27/24 18:00 Eos % (Auto) 2.4 % 02/27/24 18:00 Baso % (Auto) 0.9 % 02/27/24 18:00 Neut # (Auto) 3.67 10^3/uL (1.8-7.7) 02/27/24 18:00 Lymph # (Auto) 2.4 10^3/uL (0.8-4.8) 02/27/24 18:00 [place] # (Auto) 0.7 10^3/uL (0.2-0.9) 02/27/24 18:00 Eos # (Auto) 0.2 10^3/uL (0.0-0.8) 02/27/24 18:00 Baso # (Auto) 0.1 10^3/uL (0.0-0.1) 02/27/24 18:00 Nucleated RBC % (auto) 0 % 02/27/24 18:00 Nucleated RBCs # 0.0 /100WBC 02/27/24 18:00 Specimen Type Arterial 02/27/24 18:29 Sample Site Brachial, right 02/27/24 18: ABG pH 7.36 (7.35-7.45) 02/27/24 18: ABG pCO2 43.5 mmHg (35-45) 02/27/24 18: ABG pO2 160.0 mmHg (80.0-100.0) H 02/27/24 18: ABG PO2/FiO2 Ratio 0 02/27/24 18: ABG HCO3 24.5 mmol/L (22-26) 02/27/24 18: ABG O2 Saturation 99.7 02/27/24 18: ABG Base Excess -1.2 mmol/L (-2.0-2.0) 02/27/24 18: Sumit Test Pos 02/27/24 18: A-a O2 Gradient 13.2 mmHg (5-10) H 02/27/24 18:29 Hematocrit 44.9 % (37-47) 02/27/24 18: Hgb O2 Saturation 94.2 % (95-100) L 02/27/24 18: Carboxyhemoglobin 5.2 %THgb (0.4-20.1) 02/27/24 18: Methemoglobin 0.3 % (0.4-1.5) L 02/27/24 18: Total Hemoglobin 14.6 g/dL (12-16) 02/27/24 18: Sodium 143.0 mmol/L (131-143) 02/27/24 18: Potassium 3.7 mmol/L (3.5-5.0) 02/27/24 18: Glucose 95.0 mg/dL (70-115) 02/27/24 18: Ionized Calcium 1.3 mmol/L (1.1-1.4) 02/27/24 18:29 O2 Delivery Device Simple mask 02/27/24 18:29 O2 Liters/Min 5.0 % 02/27/24 18:29 FiO2 45.0 % 02/27/24 18:29 School Photograph Editor ID Madelyn 02/27/24 18:29 Sodium 137 mmol/L (136-145) 02/27/24 18:00 Potassium 3.8 mmol/L (3.5-5.1) 02/27/24 18:00 Chloride 101 mmol/L (98-107) 02/27/24 18:00 Carbon Dioxide 24 mmol/L (22-29) 02/27/24 18:00 Anion Gap 15.8 (5-19) 02/27/24 18:00 BUN 8 mg/dL (8-23) 02/27/24 18:00 Creatinine 0.9 mg/dL (0.5-0.9) 02/27/24 18:00 GFR Calculation 61.9 mL/min (90-130) L 02/27/24 18:00 Glucose 94 mg/dL (65-115) 02/27/24 18:00 Estimat Average Glucose 117 02/27/24 18:00 Hemoglobin A1c 5.7 % (4.0-6.0) 02/27/24 18:00 Calculated Osmolality 282 mOsm/kg (285-295) L 02/27/24 18:00 Lactic Acid 1.3 mmol/L (0.5-2.2) 02/27/24 18:00 Calcium 9.2 mg/dL (8.5-10.5) 02/27/24 18:00 Total Bilirubin 0.2 mg/dL (0.15-1.2) 02/27/24 18:00 AST 17 U/L (0-32) 02/27/24 18:00 ALT 12 U/L (0-33) 02/27/24 18:00 Alkaline Phosphatase 91 U/L (35-105) 02/27/24 18:00 Troponin T Baseline 11 ng/L (0-10) H 02/27/24 18:00 Troponin T 120 Minute 97.35 ng/L (0-10) H 02/27/24 20:03 Delta Troponin T 86.35 ABS# (0-10) H* 02/27/24 20:03 NT-Pro-B Natriuret Pep 140 pg/mL (0-125) H 02/27/24 18:00 Total Protein 7.4 g/dL (6.6-8.7) 02/27/24 18:00 Albumin 4.5 g/dL (3.5-5.2) 02/27/24 18:00 Globulin 2.9 g/dL (1.3-4.6) 02/27/24 18:00 Triglycerides 158 mg/dL (0-150) H 02/27/24 18:00 Cholesterol 231 mg/dL (0-200) H 02/27/24 18:00 LDL Cholesterol, Calc 111 mg/dL (50-129) 02/27/24 18:00 HDL Cholesterol 88 mg/dL (60-100) 02/27/24 18:00 LDL/HDL Ratio 1.26 RATIO (0.00-3.22) 02/27/24 18:00 Cholesterol/HDL Ratio 2.63 mg/dL (0.0-4.40) 02/27/24 18:00 Procalcitonin 0.03 ng/mL (0-0.5) 02/27/24 18:00 Procalcitonin 0.03 ng/mL (0-0.5) 02/27/24 18:00 TSH 1.70 uIU/mL (0.27-4.20) 02/27/24 18:00 Influenza Type A Ag negative (Negative) 02/27/24 18:35 Influenza Type B Ag negative (Negative) 02/27/24 18:35 SARS-CoV-2 Ag (Rapid) negative (Negative) 02/27/24 18:35 EKG 1: My Interpretation: The EKG showed a normal sinus rhythm with poor R wave progression. Possible left atrial enlargement. Other data: Chest x-ray from today Normal cardiac silhouette with no lung infiltrate Myocardial perfusion imaging on 06/10/2023 showed 1. Myocardial perfusion imaging revealing a small area of inconsistent reversible defect, in the apical septal region, most likely artifactual. 2. Normal LV ejection fraction 77%. 3. LV wall motion analysis revealing no gross wall motion abnormalities. 4. Normal LV volume Low probability for coronary ischemia, based on the above findings A&P Assessment and plan (1) Acute non-ST elevation myocardial infarction (NSTEMI): The EKG is unremarkable. Patient be treated with subcu Lovenox, aspirin, Plavix, beta-terry and statin. Also may start her on a statin. (2) Heavy cigarette smoker (20-39 per day): The cardiovascular implications of smoking abuse were discussed with the patient. She is strongly advised to quit smoking. (3) Acute diastolic heart failure: Patient may be carefully treated with IV diuretics. (4) Acute exacerbation of chronic obstructive pulmonary disease: Management as per the primary. Plan Echocardiogram would be helpful to evaluate LV function and rule out renal pathology. Currently respiratory status is stable, we may consider doing a cardiac catheterization to further evaluate the coronary status and decide on further management. I may start the patient on metoprolol 25 mg p.o. twice daily, aspirin 81 mg p.o. daily, Plavix 70 mg p.o. now followed by 75 mg p.o. daily and statin. Based on the clinical progress, further recommendations will be made. Patient may benefit from a cardiac catheterization which will be decided once her respiratory status is stable. Consult Attestations 2 Medical Necessity Statement: Patient requires continued hospital stay for close monitoring and further management Coding Level of Care Code 67648 Diagnoses Acute non-ST elevation myocardial infarction (NSTEMI) I21.4 Heavy cigarette smoker (20-39 per day) F17.210 Acute diastolic heart failure I50.31 Acute exacerbation of chronic obstructive pulmonary disease J44.1
[2024-02-27] MEDS: acetaminophen 325 mg Tablet 650 MG PO (22:53)
[2024-02-27] MEDS: clopidogrel 300 mg Tablet PO (22:54)
[2024-02-27] MEDS: atorvastatin 40 mg Tablet 80 MG PO (22:54)
[2024-02-27] MEDS: sodium chloride 0.9% 1,000 ML 75 ML IV (22:56)
[2024-02-27] MEDS: pantoprazole 40 mg SDV IVP (23:15)
[2024-02-27] MEDS: FUROsemide 10 mg/mL SDV 4mL 40 MG IVP (23:20)
[2024-02-27] MEDS: azithromycin 500 MG in sodium chloride 0.9% 250 ML 250 MG IV (23:22)
[2024-02-27] MEDS: nitroglycerin 1 gm/inch oint Pkt 0.5 INCH TOPICAL (23:25)
[2024-02-27] MEDS: heparin drip 25,000 UNIT/500 ML PREMIX 11 UNIT IV (23:33)
[2024-02-28] VITALS (57 sets, daily range): BP systolic 89–130; BP diastolic 55–92; PULSE 72–94; RESP 13–31; TEMP 36.4–36.7; O2SAT 93–100
[2024-02-28] MEDS: ipratropium-albuterol 3 mL Neb INHALATION ×4 (00:14→19:45)
--- NOTE | 2024-02-28 00:22 | ECG_ITS ---
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 Measurements Intervals [place] Rate: 87 P: 83 WV: 137 QRS: 86 QRSD: 83 T: 78 QT: 382 QTc: 460 Interpretive Statements SINUS RHYTHM POSSIBLE ANTERIOR MYOCARDIAL INFARCTION , OF INDETERMINATE AGE [30 ms Q WAVE IN V3/V4, OR R < 0.2 mV IN V4] Compared to ECG 02/27/2024 20:46:51 Myocardial infarct finding now present Electronically Signed On 02-28-2024 20:26:23 CDT by Rina Kay M.D. [email or web address]
[2024-02-28 01:30] LABS: Troponin 5 6HR 122.7 ng/L (0-10); Troponin 5 6HR Delta 111.7 ng/L (0-12)
[2024-02-28] MEDS: nitroglycerin 1 gm/inch oint Pkt 0.5 INCH TOPICAL (05:28)
[2024-02-28] MEDS: methylPREDNISolone sod succ 40 mg/mL INJ IVP ×2 (05:30→17:28)
[2024-02-28] MEDS: ketorolac 30 mg/mL INJ 15 MG IVP (05:36)
[2024-02-28 05:45] LABS: Basophils % 0.2 %; Hematocrit 38.5 % (36-47); Lymphocytes # 0.4 10^3/uL (0.8-4.8); Lymphocytes % 8.3 %; Mean Corpuscular HGB Conc 32.7 g/dL (30-55); Mean Corpuscular Hemoglobin 30.7 pg (27-33); Mean Corpuscular Volume 93.7 fl (85-98); Monocytes # 0.1 10^3/uL (0.2-0.9); Monocytes % 1.4 %; Neutrophils # 4.57 10^3/uL (1.8-7.7); Neutrophils % 89.7 %; Nucleated Red Blood Cells % 0 %; Platelet Count 331 10^3/cmm (157-399); Red Blood Count 4.11 10^6/uL (3.85-5.65); Red Cell Distribution Width 12.8 % (12.1-15.1); White Blood Count 5.09 10^3/uL (3.29-11.43)
[2024-02-28 06:03] LABS: INR 1.03 (0.8-1.2)
[2024-02-28 07:53] LABS: Partial Thromboplastin Time 96.7 SECONDS (23.9-36.7)
[2024-02-28 07:54] LABS: Albumin Level 3.9 g/dL (3.5-5.2); Alkaline Phosphatase 81 U/L (35-105); Blood Urea Nitrogen 9 mg/dL (8-23); Calcium 8.8 mg/dL (8.5-10.5); Carbon Dioxide 21 mmol/L (22-29); Chloride 105 mmol/L (98-107); Creatinine Clr Calc Pharmacy 44.8436; Globulin 2.2 g/dL (1.3-4.6); Glomerular Filtration Rate 70.9 mL/min (90-130); Glucose 133 mg/dL (65-115); Magnesium 1.9 mg/dL (1.7-2.3); Osmolality Calculated 289 mOsm/kg (285-295); Sodium 139 mmol/L (136-145); Total Bilirubin 0.4 mg/dL (0.15-1.2); Total Protein 6.1 g/dL (6.6-8.7)
[2024-02-28 07:58] LABS: Alanine Aminotransferase 12 U/L (0-33); Anion Gap 17.6 (5-19); Aspartate Amino Transferase 22 U/L (0-32); Potassium 4.6 mmol/L (3.5-5.1)
[2024-02-28] MEDS: baclofen 10 mg Tablet 5 MG PO ×2 (08:43→17:28)
[2024-02-28] MEDS: atorvastatin 40 mg Tablet 80 MG PO (08:44)
[2024-02-28] MEDS: aspirin 81 mg EC Tablet PO (08:44)
[2024-02-28] MEDS: clopidogrel 75 mg Tablet PO (08:44)
[2024-02-28] MEDS: duloxetine 20 mg Capsule PO ×2 (08:45→17:29)
--- NOTE | 2024-02-28 10:54 | P.PN_ITS ---
Subjective 2 Subjective: The patient is feeling okay. Her breathing is much better this morning. Denies any chest pain. Medications: Medication Review Details: Current Medications Acetaminophen (Acetaminophen 325 Mg Tablet) 650 mg PO Q6H PRN PRN Reason: Mild/Mod Pain Or Temp >/= 101 Last Admin: 02/27/24 22:53 Dose: 650 mg Albuterol/Ipratropium (Ipratropium-Albuterol 3 Ml Neb) 3 ml INHALATION Q6H.RESP [facility] Last Admin: 02/28/24 08:09 Dose: 3 ml Aspirin (Aspirin 81 Mg Ec Tablet) 81 mg PO DAILY [facility] Last Admin: 02/28/24 08:44 Dose: 81 mg Atorvastatin Calcium (Atorvastatin 40 Mg Tablet) 80 mg PO DAILY [facility] Last Admin: 02/28/24 08:44 Dose: 80 mg Baclofen (Baclofen 10 Mg Tablet) 5 mg PO BID [facility] Last Admin: 02/28/24 08:43 Dose: 5 mg Clopidogrel Bisulfate (Clopidogrel 75 Mg Tablet) 75 mg PO DAILY [facility] Last Admin: 02/28/24 08:44 Dose: 75 mg Docusate Sodium (Docusate Sodium 100 Mg Capsule) 100 mg PO BID [facility] Last Admin: 02/28/24 08:45 Dose: Not Given Duloxetine HCl (Duloxetine 20 Mg Capsule) 20 mg PO BID [facility] Last Admin: 02/28/24 08:45 Dose: 20 mg Heparin Sodium (Porcine) (Heparin 5,000 Unit/Ml Inj 1 Ml) 0 unit IV PRN PRN; Protocol PRN Reason: Heparin weight-base protocol Heparin Sodium/Sodium Chloride (Heparin Drip) 25,000 unit in 500 mls @ 0 mls/hr IV .Q0M [facility]; Protocol Last Titration: 02/28/24 08:02 Dose: 11.81 unit/kg/hr, 9 mls/hr Azithromycin 500 mg/ Sodium (Chloride) 250 mls @ 250 mls/hr IV Q24H [facility]; Protocol Last Titration: 02/28/24 00:23 Dose: 0 mls/hr Sodium Chloride (Sodium Chloride 0.9%) 1,000 mls @ 75 mls/hr IV .[id number] [facility] Last Admin: 02/27/24 22:56 Dose: 75 mls/hr Ketorolac Tromethamine (Ketorolac 30 Mg/Ml Inj) 15 mg IVP Q6H PRN PRN Reason: MODERATE PAIN Stop: 03/03/24 21:44 Last Admin: 02/28/24 05:36 Dose: 15 mg Methylprednisolone Sodium Succinate (Methylprednisolone Sod Succ 40 Mg/Ml Inj) 40 mg IVP Q12H [facility] Last Admin: 02/28/24 05:30 Dose: 40 mg Nitroglycerin (Nitroglycerin 1 Gm/Inch Oint Pkt) 0.5 inch TOPICAL Q6H [facility] Last Admin: 02/28/24 10:24 Dose: Not Given Ondansetron HCl (Ondansetron 2 Mg/Ml Sdv 2 Ml) 4 mg IVP Q8H PRN PRN Reason: vomiting, or N/V if npo Pantoprazole Sodium (Pantoprazole 40 Mg Sdv) 40 mg IVP Q24H [facility] Last Admin: 02/27/24 23:15 Dose: 40 mg Vitals/I&O/Wt Last Vital Signs Temp 97.9 F 02/28/24 07:23 Pulse 72 02/28/24 08:18 Resp 22 H 02/28/24 08:09 BP 93/62 02/28/24 07:23 Pulse Ox 96 02/28/24 08:09 O2 Del Method Oxymask 02/28/24 08:09 O2 Flow Rate 2 02/28/24 08:09 02/27/24 02/28/24 02/28/24 22:59 06:59 14:59 Intake Total 1000 / 1000 500 / 1500 93.317 / 93.317 Output Total 800 / 800 Balance 1000 / 1000 -300 / 700 93.317 / 93.317 Weight last 48 hrs Weight 88 lb 12.8 oz Weight 84 lb Weight 84 lb Physical Exam 2 Narrative: GENERAL: The patient is alert and oriented times three. . Not in any distress. HEENT: No significant pallor, icterus or lymphadenopathy.Oral cavity: There are no mucous membrane lesions. NECK: Trachea appears to be central. No masses noted. No JVD or thyromegaly appreciated. RESPIRATORY: Chest is symmetrical. Chest is emphysematous. Occasional expiratory wheezing. BREASTS: Deferred. HEART: The heart sounds are normal. No S3 or S4. No significant murmurs. No pericardial rub ABDOMEN: No vessel pulsations or distention. No tenderness. No organomegaly appreciated. Bowel sounds are normally heard. : Deferred. RECTAL: Deferred. LYMPHATIC: No lymphadenopathy noted in the neck. EXTREMITIES: No edema or cyanosis. No clubbing. The peripheral pulses are palpable but of low amplitude bilaterally. MUSCULOSKELETAL: No acute joint deformities or swelling SKIN: There are no significant rashes or ecchymosis NEUROPSYCHIATRIC: The patient is alert and oriented x3. Appears to be in a good mood. No tremors or rigidity noted. Data 02/28/24 03:56 02/28/24 07:00 Other Labs: Laboratory Last Values WBC 5.09 10^3/uL (3.29-11.43) 02/28/24 03:56 RBC 4.11 10^6/uL (3.85-5.65) 02/28/24 03:56 Hgb 12.60 g/dL (11.27-16.99) 02/28/24 03:56 Hct 38.5 % (36-47) 02/28/24 03:56 MCV 93.7 fl (85-98) 02/28/24 03:56 MCH 30.7 pg (27-33) 02/28/24 03:56 MCHC 32.7 g/dL (30-55) 02/28/24 03:56 RDW 12.8 % (12.1-15.1) 02/28/24 03:56 Plt Count 331 10^3/cmm (157-399) 02/28/24 03:56 MPV 11.0 fL (7.4-10.4) H 02/28/24 03:56 Neut % (Auto) 89.7 % 02/28/24 03:56 Lymph % (Auto) 8.3 % 02/28/24 03:56 [place] % (Auto) 1.4 % 02/28/24 03:56 Eos % (Auto) 0.0 % 02/28/24 03:56 Baso % (Auto) 0.2 % 02/28/24 03:56 Neut # (Auto) 4.57 10^3/uL (1.8-7.7) 02/28/24 03:56 Lymph # (Auto) 0.4 10^3/uL (0.8-4.8) L 02/28/24 03:56 [place] # (Auto) 0.1 10^3/uL (0.2-0.9) L 02/28/24 03:56 Eos # (Auto) 0.0 10^3/uL (0.0-0.8) 02/28/24 03:56 Baso # (Auto) 0.0 10^3/uL (0.0-0.1) 02/28/24 03:56 Nucleated RBC % (auto) 0 % 02/28/24 03:56 Nucleated RBCs # 0.0 /100WBC 02/28/24 03:56 PT 13.80 SECONDS (12.1-14.9) 02/28/24 03:56 INR 1.03 (0.8-1.2) 02/28/24 03:56 APTT 96.7 SECONDS (23.9-36.7) H 02/28/24 07:00 Specimen Type Arterial 02/27/24 18:29 Sample Site Brachial, right 02/27/24 18:29 ABG pH 7.36 (7.35-7.45) 02/27/24 18:29 ABG pCO2 43.5 mmHg (35-45) 02/27/24 18:29 ABG pO2 160.0 mmHg (80.0-100.0) H 02/27/24 18:29 ABG PO2/FiO2 Ratio 0 02/27/24 18:29 ABG HCO3 24.5 mmol/L (22-26) 02/27/24 18:29 ABG O2 Saturation 99.7 02/27/24 18:29 ABG Base Excess -1.2 mmol/L (-2.0-2.0) 02/27/24 18:29 Sumit Test Pos 02/27/24 18:29 A-a O2 Gradient 13.2 mmHg (5-10) H 02/27/24 18:29 Hematocrit 44.9 % (37-47) 02/27/24 18:29 Hgb O2 Saturation 94.2 % (95-100) L 02/27/24 18:29 Carboxyhemoglobin 5.2 %THgb (0.4-20.1) 02/27/24 18:29 Methemoglobin 0.3 % (0.4-1.5) L 02/27/24 18:29 Total Hemoglobin 14.6 g/dL (12-16) 02/27/24 18:29 Sodium 143.0 mmol/L (131-143) 02/27/24 18:29 Potassium 3.7 mmol/L (3.5-5.0) 02/27/24 18:29 Glucose 95.0 mg/dL (70-115) 02/27/24 18:29 Ionized Calcium 1.3 mmol/L (1.1-1.4) 02/27/24 18:29 O2 Delivery Device Simple mask 02/27/24 18: O2 Liters/Min 5.0 % 02/27/24 18: FiO2 45.0 % 02/27/24 18:29 Faucet Polisher ID [place] 02/27/24 18:29 Sodium 139 mmol/L (136-145) 02/28/24 07:00 Potassium 4.6 mmol/L (3.5-5.1) 02/28/24 07:00 Chloride 105 mmol/L (98-107) 02/28/24 07:00 Carbon Dioxide 21 mmol/L (22-29) L 02/28/24 07:00 Anion Gap 17.6 (5-19) 02/28/24 07:00 BUN 9 mg/dL (8-23) 02/28/24 07:00 Creatinine 0.8 mg/dL (0.5-0.9) 02/28/24 07:00 GFR Calculation 70.9 mL/min (90-130) L 02/28/24 07:00 Glucose 133 mg/dL (65-115) H 02/28/24 07:00 Estimat Average Glucose 117 02/27/24 18:00 Hemoglobin A1c 5.7 % (4.0-6.0) 02/27/24 18:00 Calculated Osmolality 289 mOsm/kg (285-295) 02/28/24 07:00 Lactic Acid 1.3 mmol/L (0.5-2.2) 02/27/24 18:00 Calcium 8.8 mg/dL (8.5-10.5) 02/28/24 07:00 Magnesium 1.9 mg/dL (1.7-2.3) 02/28/24 07:00 Total Bilirubin 0.4 mg/dL (0.15-1.2) 02/28/24 07:00 AST 22 U/L (0-32) 02/28/24 07:00 ALT 12 U/L (0-33) 02/28/24 07:00 Alkaline Phosphatase 81 U/L (35-105) 02/28/24 07:00 Troponin T Baseline 11 ng/L (0-10) H 02/27/24 18:00 Troponin T 120 Minute 97.35 ng/L (0-10) H 02/27/24 20:03 Delta Troponin T 86.35 ABS# (0-10) H* 02/27/24 20:03 Troponin T Hi Sens 6Hr 122.7 ng/L (0-10) H 02/28/24 00:59 Troponin T Hi Sens 6Hr Delta 111.7 ng/L (0-12) H* 02/28/24 00:59 NT-Pro-B Natriuret Pep 140 pg/mL (0-125) H 02/27/24 18:00 Total Protein 6.1 g/dL (6.6-8.7) L 02/28/24 07:00 Albumin 3.9 g/dL (3.5-5.2) 02/28/24 07:00 Globulin 2.2 g/dL (1.3-4.6) 02/28/24 07:00 Triglycerides 158 mg/dL (0-150) H 02/27/24 18:00 Cholesterol 231 mg/dL (0-200) H 02/27/24 18:00 LDL Cholesterol, Calc 111 mg/dL (50-129) 02/27/24 18:00 HDL Cholesterol 88 mg/dL (60-100) 02/27/24 18:00 LDL/HDL Ratio 1.26 RATIO (0.00-3.22) 02/27/24 18:00 Cholesterol/HDL Ratio 2.63 mg/dL (0.0-4.40) 02/27/24 18:00 Procalcitonin 0.03 ng/mL (0-0.5) 02/27/24 18:00 Procalcitonin 0.03 ng/mL (0-0.5) 02/27/24 18:00 TSH 1.70 uIU/mL (0.27-4.20) 02/27/24 18:00 Influenza Type A Ag negative (Negative) 02/27/24 18:35 Influenza Type B Ag negative (Negative) 02/27/24 18:35 SARS-CoV-2 Ag (Rapid) negative (Negative) 05/24/24 18:35 A&P Assessment and plan (1) Acute non-ST elevation myocardial infarction (NSTEMI): The EKG is unremarkable. Patient be treated with subcu Lovenox, aspirin, Plavix, beta-terry and statin. Also may start her on a statin. In view of the patient's presenting symptoms and the abnormal objective findings, in order to further evaluate the coronary status, a cardiac catheterization would be appropriate. (2) Heavy cigarette smoker (20-39 per day): The cardiovascular implications of smoking abuse were discussed with the patient. She is strongly advised to quit smoking. (3) Acute diastolic heart failure: Patient may be carefully treated with IV diuretics. Currently the heart failure is compensated. (4) Acute exacerbation of chronic obstructive pulmonary disease: Management as per the primary. Clinically improving. She is currently on 2 L of oxygen by nasal cannula. Plan The risk and benefits of the cardiac catheterization were discussed in detail with the patient. The risk of bleeding, hematoma, vascular injury, myocardial infarction, myocardial perforation, malignant cardiac arrhythmias ,CVA, renal failure and other concomitant complications were explained in detail. Patient understood this well and consented to proceed. Based on the angiogram findings, further recommendations will be made. Attestations 2 Medical Necessity Statement*: Patient requires continued hospital stay for close monitoring and further management Coding Level of Care Code 83741 Diagnoses Acute non-ST elevation myocardial infarction (NSTEMI) I21.4 Heavy cigarette smoker (20-39 per day) F17.210 Acute diastolic heart failure I50.31 Acute exacerbation of chronic obstructive pulmonary disease J44.1
--- NOTE | 2024-02-28 10:57 | XACV_ITS ---
Exam Room: 2 Ht: 152 cm Wt: 40 kg BSA: 1.29 m2 Gender: Female : 1955 Any Known Allergies: Other Exam Priority: Routine Procedure(s): Procedure Description: Diagnostic procedure Procedure Description: PCI procedure Procedure Description: Left Heart Catheterization Procedure Description: Left ventriculography Procedure Description: Drug Eluting Coronary Stent Procedure Description: PTCA Procedure Description: Miscellaneous Procedure Description: ACT Procedure Description: Coronary Angiography Procedure Description: Pressure Wire Rahul DIAZ; Diagnostic Cath Status: Urgent Diagnostic Findings * The left main is a medium caliber vessel with a 20 to 30% eccentric narrowing. * The left anterior descending artery is a medium caliber vessel which appears to wraparound the LV apex. The proximal LAD was found to have a segment of ectasia followed by 30% stenosis just before the takeoff of the first diagonal branch. The first diagonal branch is of equal caliber as the LAD and was found to have minimal intimal irregularities.. * The left circumflex artery is a small to medium caliber nondominant vessel. The mid circumflex artery was found to have severe diffuse disease of 70 to 99%. It continues as the third obtuse marginal branch. The proximal circumflex artery gives of multiple small obtuse marginal branches with no significant stenotic lesions.. * The right coronary artery is a medium to large caliber dominant vessel which was found to have diffuse to bumpy lumpy lesions throughout the proximal and mid segment. Right after the first artery branch, there was a 50% stenosis. Just before its terminal bifurcation, there was another 50 to 60% lesion. The PDA branche is a relatively small caliber vessel with a 50 to 60% diffuse narrowing in the midsegment. The PLV branch was found to have minimal intimal irregularities.. PCI Status: Urgent PCI Indication: NSTE - ACS Interventional Findings * Mid Circumflex: 99% stenosis treated with a AB TREK 2.25X15 RX BALLOON, and BC Clement GRETEL 2.5X30 YESENIA. 0% residual stenosis, CECI: 3 flow. * Procedure detail: We engaged left main artery with XB 3.0 guide catheter. IV heparin was administered to maintain anticoagulation. 0.04 run-through guidewire was used to cross the subtotally occluded left circumflex artery. We predilated the circumflex artery stenosis with 2.25 x 15 mm semicompliant balloon. This was followed by placement of a 2.5 x 30 mm resolute Gretel drug-eluting stent. At this time final angiogram was performed that showed excellent stent expansion and no residual stenosis. Guidewire and guide catheter were removed. We then turned attention to RCA. JR4 guide catheter was used to engage the vessel. After normalization, IFR wire was advanced into distal vessel that showed IFR value was 0.92. As this was nonischemic, medical therapy for RCA was decided. Patient left the Customer Service Cashier in a stable condition. Conclusions 1. 68-year-old white female with history of smoking abuse, COPD, presenting with acute COPD exacerbation and some chest tightness. She has clinical features of a non-ST elevation myocardial infarction. For further evaluation of the coronary status, a cardiac catheterization was recommended. Patient underwent left heart catheterization with a left and right coronary angiogram and LV angiogram today. The findings are as follows. 2. 20 to 30% left main stenosis. 30% proximal LAD lesion. Subtotal occlusion of the mid circumflex artery. Dominant right coronary artery with 50 to 60% lesion in the distal segment and in the mid PDA. LV ejection fraction of 45%. LVEDP of 16 mmHg. LV gram. Revealing mid cavity ballooning. 3. I reviewed and discussed the cardiac catheterization data with Dr. Lopez. It was thought to be appropriate to consider PCI of the circumflex lesion and possible IFR of the distal RCA lesion. Dr. Lopez took over further management of this patient at this point. 4. Successful revascularization of left circumflex artery with 1 stent. 5. iFR is non ischemic for RCA. Medical therapy. 6. Mid Circumflex was treated with a Balloon, and Drug Eluting Stent. Recommendations * Dual antiplatelet therapy with aspirin and plavix for atleast 1 year. * High intensity statin therapy. * Outpatient cardiology follow up in 2 weeks. Interventional RX Recommendation: PCI w/o planned CABG Diagnostic RX Recommendation: PCI w/o planned CABG Anticoagulation: Heparin Ventriculography Ejection Fraction: 45.0 % Left Ventriculography Findings: * LV gram was performed in the VEGAS projection. The mid cavity of the ventricle was found to be hypokinetic and mildly dilated with good contractility of the apex and the base of the heart. LVEDP of 16 mmHg. LV ejection fraction was around 45%. Pressures Phase:Rest AO : 104 / 57 ( 77 ) @ 12:22:00 PM 111 / 56 ( 77 ) @ 12:28:00 PM 112 / 56 ( 79 ) @ 12:46:00 PM 113 / 56 ( 79 ) @ 12:46:00 PM 122 / 69 ( 87 ) @ 12:58:00 PM 128 / 65 ( 91 ) @ 1:11:00 PM 132 / 62 ( 89 ) @ 1:17:00 PM LV : 116 / -5 / 13 @ 12:44:00 PM 110 / -2 / 16 @ 12:46:00 PM 114 / -2 / 14 @ 12:46:00 PM Valves Phase:DefaultPhase AV : 3.0 @ 12:36:34 PM 3.0 @ 12:36:34 PM AV Mean Gradient: 8.0 @ 12:36:34 PM 8.0 @ 12:36:34 PM Clinical Evaluation EBL: 5mL-10mL Procedural Details Procedure Consent Obtained. Pre-Procedure Time Out. Identified patient by full name and date of as verbalized by the patient/guarantor. Does the consent match the physician's order: Yes. Accurate & Complete Informed Consent: Yes. Inpatient/Outpatient History & Physical on Chart: Yes. If H&P is completed, is and addenduem needed: No; If yes, is the addendum complete: N/A. Visualize and Verify Site with Patient/Guarantor: N/A. Relevant Radiology Images available: Yes. The risks, benefits, and alternatives of sedation and/or procedure were discussed by physician. The patient agrees to continue. Procedure started. [facility] Clinical Fraility Score: 4: Vulnerable. Customer Service Cashier Indications: ACS > 24 hours. Chest Pain Symptom Assessment: Typical Angina Symptoms. Correct patient, site and procedure confirmed by cath team. Current diagnosis: NSTEMI. PERRLA. Strong, equal hand penology teacher bilaterally. Lungs clear x 5 lobes. IV Site on Arrival: 18 gauge in the left anticubital. IV Fluids: Diprivan drip at 75ml/hr. 800 mL infused prior to cardiac catheterization technician. Pre Procedural Pulses: bilateral radial was 3+. Pre Procedural Pulses: bilateral posterior tibial was 3+. Pre Procedural Pulses: bilateral dorsalis pedis was 3+. Oxygen started at 2liters/min via oxy mask. bilateral groins was prepped with chloroprep then draped in the usual sterile fashion. Physician notified. Baseline sample Acquired. HR: 73 BPM. Admit Source: In Patient. Physician arrived. Physician scrubbed in. Immediate Pre-Procedure Time Out. Correct Patient: Yes; Correct Procedure: Yes; Correct Site: Yes; Correct Patient Position: Yes; Correct Supplies: Yes; Dried Flammable Prep: Yes; Blood Products Available: No;. Lidocaine 1% infiltrated to the right groin. Arterial access obtained with micropuncture set. ACT drawn. Results 175 seconds. Therapeutic limits - pre-heparin administration 90-150 seconds and monitoring heparin during a vascular procedure >250 seconds. A 5 uzbek JL4 catheter in over standard wire. Multiple views taken of left coronary artery. Catheter removed over the standard wire. A 5 uzbek JR4 catheter in over wire. Multiple views taken of right coronary artery. Dr. Lopez called to lab to review films. Catheter removed over the standard wire. A 5 uzbek Angled Pig catheter in over wire. EDP Sample taken: LV 116/-6,13; HR: 76 BPM; SpO2: 99%. LV gram performed in VEGAS @ 10 mL/second for a total of 30 mL. EDP Sample taken: LV 110/-3,16; HR: 79 BPM; SpO2: 99%. Pullback taken: LV 114/-3,14; AO 112/56(79); Mean: 8mmHg, Peak to Peak: 3mmHg, SEP: 20sec/min; HR: 75 BPM; SpO2: 100%. Catheter removed over the standard wire. Physician scrubbed out. Patient family updated. PCI Indication: NSTE. Dr. Lopez scrubbed in to perform intervention. 6 uzbek XB 3 guide catheter was inserted over the wire. Runthrough guidewire was advanced through the guide catheter to lesion in the mid Circ. Guidewire advanced across lesion. Balloon inserted to lesion in the mid Circ. Inflation number : 1 A AB TREK 2.25X15 RX BALLOON was prepped and advanced across the Mid CX , then inflated to 12 JACK for 0:08 seconds. Inflation number: 2 The AB TREK 2.25X15 RX BALLOON was reinflated across the Mid CX, to 12 JACK for 0:05 seconds. Inflation number: 3 The AB TREK 2.25X15 RX BALLOON was reinflated across the Mid CX, to 12 JACK for 0:04 seconds. Balloon out. Results checked. Stent inserted to lesion in the mid Circ. Inflation Number : 4 A BC R GRETEL 2.5X30 YESENIA -Lot Number# [id number] EXP 08-30-2026 was prepped and advanced across the Mid CX. The stent was deployed at 12 JACK for 0:23 seconds. Stent balloon out over wire. Results checked. ACT drawn. Results -out of range high result s. Therapeutic limits - pre-heparin administration 90-150 seconds and monitoring heparin during a vascular procedure >250 seconds. Results checked. Wire out. Guide catheter out. 6 uzbek JR 4 guide catheter was inserted over the wire. iFR guidewire was advanced through the guide catheter to lesion in the mid RCA. Guidewire advanced across lesion. iFR mid RCA 0.92 mmHg. iFR pullback mid RCA 0.89 mmHg. IFR wire out. Results checked. Guide catheter out. A Right femoral angiogram was performed to determine safe placement of closure device. Lidocaine 1% infiltrated to the right groin. ACT drawn. Results 271 seconds. Therapeutic limits - pre-heparin administration 90-150 seconds and monitoring heparin during a vascular procedure >250 seconds. A Angio-Seal VIP ([employer] [facility]) was successful obtaining hemostatsis at the Right Femoral artery insertion site. EXP 10-12-2024 LOT # [id number]. Post Procedure: Pulses reassessed and unchanged. PERRLA. Strong, equal hand penology teacher bilaterally. No VTE prophylaxis required. Medication's Wasted: Lidocaine 1% = 3 mL. Medication's Wasted: Nitro = 49.8 mg. Medication's Wasted: Heparin = 3000 units. Medication's Wasted: Other = Versed 1 mg. Total IV fluids: 95 mL. Post-op diagnosis: Severe mid circumflex stenosis status post PCI placement of 1 stent. Moderate mid RCA stenosis, confirmed with IFR. Complications: None. Estimated blood loss: 5mL-10mL. Responsiveness - Normal response to verbal stimuli; alert and oriented, PERRLA. Airway - Unaffected, no intervention required; spontaneous ventilation. Circulation: W/N/L, pulses unchanged. Nausea/Vomiting: No. Procedure completed. Patient transferred by bed to 1st floor. Vital chart was stopped. Access Site Site: Right Femoral artery Sheath Size: 6 Fr Hemostasis Method: Angio-Seal VIP ([employer] [facility]) Hemostasis Success: Successful Procedure Medications Start: 11:11 AM Stop: 11:11 AM Medication: Versed Amount: 1 mg Route: I.V. Start: 11:13 AM Stop: 11:13 AM Medication: Fentanyl Amount: 25 mcg Route: I.V. Start: 11: AM Stop: : AM Medication: Versed Amount: 0.5 mg Route: I.V. Start: 11:28 AM Stop: 11:28 AM Medication: Heparin Amount: 1000 units Route: I.V. Start: 11:56 AM Stop: 11:56 AM Medication: Versed Amount: 0.5 mg Route: I.V. Start: 11:56 AM Stop: 11:56 AM Medication: Fentanyl Amount: 25 mcg Route: I.V. Start: 11:57 AM Stop: 11:57 AM Medication: Heparin Amount: 2000 units Route: I.V. Start: 12:01 PM Stop: 12:01 PM Medication: Versed Amount: 0.5 mg Route: I.V. Start: 12:11 PM Stop: 12:11 PM Medication: Nitrogylcerin Amount: 200 mcg Route: I.C. Start: 12:12 PM Stop: 12:12 PM Medication: Versed Amount: 0.5 mg Route: I.V. Start: 12:17 PM Stop: 12:17 PM Medication: Fentanyl Amount: 25 mcg Route: I.V. Start: 12:29 PM Stop: 12:29 PM Medication: Fentanyl Amount: 25 mcg Route: I.V. Start: 12:34 PM Stop: 12:34 PM Medication: Plavix Amount: 300 mg Route: P.O. I, the attending physician, have reviewed and verified all procedure medications. Yes, all medications given per verbal order History/Risk Factors Hypertension: No Dyslipidemia: Yes Peripheral Arterial Disease (PAD): No Myocardial Infarction ([place]): No Obesity: No Renal Disease: No Tobacco Use: Current/Recent(w/in 1 year) Prior Interventions PCI: No CABG: No Valve Surgery: No Report Signatures Interventional Workflow Finalized by Randy Lopez MD on 03/01/2024 02:48 PM Diagnostic Workflow Finalized by Dr Rina Kay MD [facility] on 02/28/2024 06:23 PM
--- NOTE | 2024-02-28 10:59 | W.PM.OPSUD ---
Surgery/Procedure H&P Update DATE OF PROCEDURE: February 28, 2024 DATE H&P PERFORMED: 02/27/24 H&P UPDATE INFORMATION: I have reviewed H&P completed within last 30 days, I have examined patient prior to procedure and Changes to prior documentation as noted here CHANGES TO PREVIOUS DOCUMENTATION: She has occasional expiratory wheezing. No crackles. PREOP DIAGNOSIS: ASHD PRIMARY INDICATION FOR PROCEDURE: Non-ST relation myocardial infarction PLANNED PROCEDURE: Left heart catheterization with the left and right coronary angiogram and possible PCI PATIENT REASSESSED PRIOR TO SEDATION, WITH NO CHANGE NOTED: Yes PHYSICAL EXAM: alert, oriented x 3 and clear to auscultation bilaterally (Patient has bilateral expiratory wheezings, scattered. No evidence of cons) AIRWAY EVAL/ANESTHESIA PLAN: normal airway, see other exam findings, ASA IV, Monitored Anesthesia, Local Anesthesia, Risks, benefits & alternatives of sedation and/or procedure discussed and Patient agrees to continue as planned
--- NOTE | 2024-02-28 11:01 | PC.NURSE ---
to cardiac blood bank laboratory professional at this time.
--- NOTE | 2024-02-28 12:02 | PM.PN ---
Subjective Subjective: Patient reports ongoing chest tightness. Her blood pressure was noted to be soft. Denies fevers, chills, nausea or emesis. Patient discussed with cardiology, planning for cardiac catheterization. Medications: Reviewed: Yes Vitals/I&O/Wt Last Vital Signs Temp 97.9 F 02/28/24 07:23 Pulse 72 02/28/24 08:18 Resp 22 H 02/28/24 08:09 BP 93/62 02/28/24 07:23 Pulse Ox 96 02/28/24 08:09 O2 Del Method Oxymask 02/28/24 08:09 O2 Flow Rate 2 02/28/24 08:09 02/27/24 02/28/24 02/28/24 22:59 06:59 14:59 Intake Total 1000 / 1000 500 / 1500 93.317 / 93.317 Output Total 800 / 800 Balance 1000 / 1000 -300 / 700 93.317 / 93.317 Weight last 48 hrs Weight 40.279 kg Weight 38.102 kg Weight 38.102 kg Physical Exam Narrative: General: Patient is awake. Pleasant. Head: Normocephalic. Atraumatic. EOM intact. Neck: No JVD. Cardiovascular: RRR. No gallops. No murmurs. Lungs: Clear to auscultation, no use of accessory muscles, no crackles or wheezes. Skin: No jaundice. No rashes. Abdomen: Normal bowel sounds, abdomen soft and nontender. Genito Urinary: Genital exam not performed since complaints not related. Rectal: Rectal exam not performed since no symptoms indicated blood loss. Extremities: No cyanosis or clubbing. Musculoskeletal: No erythematous joints. Neurological: Moves all 4 extremities. No myoclonus. Data 02/28/24 03:56 02/28/24 07:00 A&P Assessment and plan (1) Acute non-ST elevation myocardial infarction (NSTEMI): Cardiology consulted, appreciate recommendations Continue heparin drip Continue with dual antiplatelet therapy Continue high intensity statin Removing Nitropaste due to soft blood pressure Morphine for breakthrough pain Follow-up echocardiogram Continuous telemetry monitoring Hold NSAIDs (2) COPD (chronic obstructive pulmonary disease): COPD with acute exacerbation Continue IV steroids Continue breathing treatments Continuous pulse oximetry Pulmonary toilet Qualifiers: COPD type: emphysema Emphysema type: centrilobular Qualified Code(s): J43.2 - Centrilobular emphysema (3) Depression: Continue home duloxetine (4) Hyperlipidemia: Statin as above (5) GERD (gastroesophageal reflux disease): Continue PPI (6) Chronic back pain: Baclofen as needed (7) Cervical pain (neck): Baclofen as needed (8) Smoker: Patient would benefit from smoking cessation Plan DVT prophylaxis: Heparin drip CODE STATUS: DNR Attestations Medical Necessity Statement*: Patient with active NSTEMI requiring ACS protocol for acute coronary syndrome and ischemic workup for which she requires ongoing hospitalization. Coding Level of Care Code Acute Code for [facility] Diagnoses Acute non-ST elevation myocardial infarction (NSTEMI) I21.4 Centrilobular emphysema J43.2 COPD type: emphysema Emphysema type: centrilobular Depression F32.A Hyperlipidemia E78.5 GERD (gastroesophageal reflux disease) K21.9 Chronic back pain M54.9; G89.29 Cervical pain (neck) M54.2 Smoker F17.200
--- NOTE | 2024-02-28 13:35 | PC.NURSE ---
received from cardiac catheter builder via bed at 1245.report received.pt is drowsy,but easily awakened.sr on monitor.denies pain.right femoral arterial cath site with drsg dry and intact.(angioseal in catheter builder).right leg is warm to touch and with brisk capillary refill.palpable dp pulse noted.pt instructed in activity restrictions and instructed to notify staff for any bleeding,numbness,pain..or for any concerns at all.pt verb understanding of instructions.
[2024-02-28] MEDS: sodium chloride 0.9% 1,000 ML 75 ML IV (15:50)
--- NOTE | 2024-02-28 19:27 | PC.NURSE ---
small amt of bleeding noted from right groin cath site at approx 1400 .(pt had moved right leg and elevated head of bed).no hematoma noted.pressure held x 5 min and sandbag applied.it appeared to be a tract ooze.bleeding subsided...but reappeared after echo had been done.small amt which saturated a 2x2 gauze.again..no hematoma noted.pressure held and sandbag applied.
[2024-02-28] MEDS: acetaminophen 325 mg Tablet 650 MG PO (20:50)
--- NOTE | 2024-02-28 21:51 | USCV_ITS ---
Shayy Mann Age: 68 Gender: F : 1955 Exam Date: 02/28/2024 18:30 Ordering Phys: Analia Gan MD Technologist: LESLYE Exam Location: [facility] [place] Indication: chest pain BP: 93 / 62 HR: 85 Rhythm: Sinus Technical Quality: Adequate MEASUREMENTS (Male / Female) Normal Values 2D ECHO LV Diastolic Diameter PLAX 4.1 cm 4.2 - 5.9 / 3.9 - 5.3 cm IVS Diastolic Thickness 0.6 cm 0.6 - 1.0 / 0.6 - 0.9 cm IVS Systolic Thickness 0.9 cm LVPW Diastolic Thickness 1.0 cm 0.6 - 1.0 / 0.6 - 0.9 cm LVPW Systolic Thickness 1.3 cm LVOT Diameter 2.0 cm LV Ejection Fraction 2D Teich 74.1 % LV Ejection Fraction MOD 2C 52.5 % LV Ejection Fraction 2C AL 55.9 % LA Diameter 3.0 cm RA Systolic Volume 4C AL 8.9 ml RA Systolic Volume 4C MOD 8.9 ml LA Sys Volume AL 9.3 cm cubed LA Sys Volume Index AL 7.2 cm cubed/m squared Aorta at Sinotubular Diameter 1.8 cm IVC Diameter 2.2 cm M-MODE LA Ao Ratio MM 1.2 AV Cusp Separation MM 1.4 cm DOPPLER AV Peak Velocity 172.0 cm/s LVOT Peak Velocity 56.0 cm/s AV Area Cont Eq vti 1.3 cm squared AV Area Cont Eq pk 1.0 cm squared MV Peak Velocity 139.0 cm/s MV Area PHT 7.3 cm squared Mitral E to A Ratio 1.2 TV Peak Velocity 204.5 cm/s TR Peak Velocity 243.0 cm/s TR Peak Gradient 23.6 mmHg TR Mean Velocity 169.0 cm/s TR Mean Gradient 12.7 mmHg TR Velocity Time Integral 54.5 cm PV Peak Velocity 147.0 cm/s RV Ejection Time 0.3 s FINDINGS Left Ventricle Possibly normal LV size and ejection fraction of 55 %. No gross wall motion abnormalities noted Right Ventricle The right ventricle is normal in size and function. Right Atrium The right atrium is normal in size. Left Atrium The left atrium is normal in size. Mitral Valve Thickened mitral valve. Aortic Valve Thickened aortic valve. Tricuspid Valve Mild tricuspid valve regurgitation. Estimated pulmonary artery peak systolic pressure within normal limits Pulmonic Valve No gross abnormalities noted Pericardium Normal pericardium without effusion. Aorta Normal ascending aorta dimension. IVC Normal IVC dimension with <50% respiratory change of the inferior vena cava. CONCLUSIONS Possibly normal LV size and ejection fraction of 55 %. No gross wall motion abnormalities noted. Mild tricuspid valve regurgitation. Estimated pulmonary artery peak systolic pressure within normal limits. Thickened aortic and mitral valves. Mild tricuspid valve regurgitation. Estimated pulmonary artery peak systolic pressure within normal limits. There is no pericardial effusion. There are no intracardiac masses. No similar previous studies are available for comparison Dr Rina Kay MD FACC (Electronically Signed) Final Date: 28 Feb 2024 19:11 S
[2024-02-28] MEDS: azithromycin 500 MG in sodium chloride 0.9% 250 ML 250 MG IV (23:01)
[2024-02-29] VITALS (14 sets, daily range): BP systolic 122–135; BP diastolic 69–80; PULSE 74–105; RESP 17–26; TEMP 36.6–37.1; O2SAT 91–98
[2024-02-29] MEDS: sodium chloride 0.9% 1,000 ML 75 ML IV (01:15)
[2024-02-29] MEDS: ipratropium-albuterol 3 mL Neb INHALATION ×4 (02:15→20:41)
[2024-02-29 04:18] LABS: Hematocrit 35.9 % (36-47); Lymphocytes # 0.6 10^3/uL (0.8-4.8); Lymphocytes % 6.9 %; Mean Corpuscular HGB Conc 32.6 g/dL (30-55); Mean Corpuscular Hemoglobin 30.7 pg (27-33); Mean Corpuscular Volume 94.2 fl (85-98); Mean Platelet Volume 11.3 fL (7.4-10.4); Monocytes # 0.6 10^3/uL (0.2-0.9); Neutrophils # 7.89 10^3/uL (1.8-7.7); Neutrophils % 86.8 %; Nucleated Red Blood Cells % 0 %; Platelet Count 378 10^3/cmm (157-399); Red Blood Count 3.81 10^6/uL (3.85-5.65); Red Cell Distribution Width 13.4 % (12.1-15.1)
[2024-02-29 05:11] LABS: Albumin Level 3.5 g/dL (3.5-5.2); Anion Gap 15.2 (5-19); Blood Urea Nitrogen 13 mg/dL (8-23); Calcium 7.9 mg/dL (8.5-10.5); Carbon Dioxide 19 mmol/L (22-29); Chloride 108 mmol/L (98-107); Creatinine Clr Calc Pharmacy 44.8436; Glomerular Filtration Rate 82.7 mL/min (90-130); Glucose 119 mg/dL (65-115); Magnesium 1.9 mg/dL (1.7-2.3); Phosphorus 2.9 mg/dL (2.5-4.5); Potassium 4.2 mmol/L (3.5-5.1); Sodium 138 mmol/L (136-145)
[2024-02-29] MEDS: methylPREDNISolone sod succ 40 mg/mL INJ IVP ×2 (06:29→17:09)
--- NOTE | 2024-02-29 08:51 | P.PN_ITS ---
Subjective 2 Subjective: Patient was having some respiratory difficulty last night. Seems to be getting better. No chest pain. No other specific complaints. Medications: Medication Review Details: Current Medications Acetaminophen (Acetaminophen 325 Mg Tablet) 650 mg PO Q6H PRN PRN Reason: Mild/Mod Pain Or Temp >/= 101 Last Admin: 02/28/24 20:50 Dose: 650 mg Albuterol/Ipratropium (Ipratropium-Albuterol 3 Ml Neb) 3 ml INHALATION Q6H.RESP [facility] Last Admin: 02/29/24 07:38 Dose: 3 ml Aspirin (Aspirin 81 Mg Ec Tablet) 81 mg PO DAILY [facility] Last Admin: 02/28/24 08:44 Dose: 81 mg Atorvastatin Calcium (Atorvastatin 40 Mg Tablet) 80 mg PO DAILY [facility] Last Admin: 02/28/24 08:44 Dose: 80 mg Baclofen (Baclofen 10 Mg Tablet) 5 mg PO BID [facility] Last Admin: 02/28/24 17:28 Dose: 5 mg Clopidogrel Bisulfate (Clopidogrel 75 Mg Tablet) 75 mg PO DAILY [facility] Last Admin: 02/28/24 08:44 Dose: 75 mg Docusate Sodium (Docusate Sodium 100 Mg Capsule) 100 mg PO BID [facility] Last Admin: 02/28/24 17:29 Dose: Not Given Duloxetine HCl (Duloxetine 20 Mg Capsule) 20 mg PO BID [facility] Last Admin: 02/28/24 17:29 Dose: 20 mg Heparin Sodium (Porcine) (Heparin 5,000 Unit/Ml Inj 1 Ml) 0 unit IV PRN PRN; Protocol PRN Reason: Heparin weight-base protocol Heparin Sodium/Sodium Chloride (Heparin Drip) 25,000 unit in 500 mls @ 0 mls/hr IV .Q0M [facility]; Protocol Last Titration: 02/28/24 08:02 Dose: 11.81 unit/kg/hr, 9 mls/hr Azithromycin 500 mg/ Sodium (Chloride) 250 mls @ 250 mls/hr IV Q24H [facility]; Protocol Last Infusion: 02/29/24 01:15 Dose: Infused Sodium Chloride (Sodium Chloride 0.9%) 1,000 mls @ 75 mls/hr IV .[id number] [facility] Last Infusion: 02/29/24 07:12 Dose: 0 mls/hr Methylprednisolone Sodium Succinate (Methylprednisolone Sod Succ 40 Mg/Ml Inj) 40 mg IVP Q12H [facility] Last Admin: 02/29/24 06:29 Dose: 40 mg Ondansetron HCl (Ondansetron 2 Mg/Ml Sdv 2 Ml) 4 mg IVP Q8H PRN PRN Reason: vomiting, or N/V if npo Pantoprazole Sodium (Pantoprazole Dr 40 Mg Tablet) 40 mg PO DAILY [facility] Vitals/I&O/Wt Last Vital Signs Temp 97.9 F 02/29/24 03:35 Pulse 105 H 02/29/24 07:47 Resp 22 H 02/29/24 07:38 BP 129/70 02/29/24 03:35 Pulse Ox 98 02/29/24 07:38 O2 Del Method Oxymask 02/29/24 07:38 O2 Flow Rate 2 02/29/24 07:38 02/28/24 02/29/24 02/29/24 22:59 06:59 14:59 Intake Total 240 / 1573.317 956.25 / 2529.567 446.25 / 446.25 Output Total 750 / 1250 200 / 1450 Balance -510 / 323.317 756.25 / 1079.567 446.25 / 446.25 Weight last 48 hrs Weight 93 lb Weight 88 lb 12.8 oz Weight 84 lb Weight 84 lb Physical Exam 2 Narrative: GENERAL: The patient is alert and oriented times three. . Not in any distress. HEENT: No significant pallor, icterus or lymphadenopathy.Oral cavity: There are no mucous membrane lesions. NECK: Trachea appears to be central. No masses noted. No JVD or thyromegaly appreciated. RESPIRATORY: Chest is symmetrical. Chest is emphysematous. Occasional expiratory wheezing. BREASTS: Deferred. HEART: The heart sounds are normal. No S3 or S4. No significant murmurs. No pericardial rub ABDOMEN: No vessel pulsations or distention. No tenderness. No organomegaly appreciated. Bowel sounds are normally heard. : Deferred. RECTAL: Deferred. LYMPHATIC: No lymphadenopathy noted in the neck. EXTREMITIES: No edema or cyanosis. No clubbing. The peripheral pulses are palpable but of low amplitude bilaterally. MUSCULOSKELETAL: No acute joint deformities or swelling SKIN: There are no significant rashes or ecchymosis NEUROPSYCHIATRIC: The patient is alert and oriented x3. Appears to be in a good mood. No tremors or rigidity noted. Data 02/29/24 03:48 02/29/24 03:48 Other Labs: Laboratory Last Values WBC 9.10 10^3/uL (3.29-11.43) 02/29/24 03:48 RBC 3.81 10^6/uL (3.85-5.65) L 02/29/24 03:48 Hgb 11.70 g/dL (11.27-16.99) 02/29/24 03:48 Hct 35.9 % (36-47) L 02/29/24 03:48 MCV 94.2 fl (85-98) 02/29/24 03:48 MCH 30.7 pg (27-33) 02/29/24 03:48 MCHC 32.6 g/dL (30-55) 02/29/24 03:48 RDW 13.4 % (12.1-15.1) 02/29/24 03:48 Plt Count 378 10^3/cmm (157-399) 02/29/24 03:48 MPV 11.3 fL (7.4-10.4) H 02/29/24 03:48 Neut % (Auto) 86.8 % 02/29/24 03:48 Lymph % (Auto) 6.9 % 02/29/24 03:48 [place] % (Auto) 6.0 % 02/29/24 03:48 Eos % (Auto) 0.0 % 02/29/24 03:48 Baso % (Auto) 0.0 % 02/29/24 03:48 Neut # (Auto) 7.89 10^3/uL (1.8-7.7) H 02/29/24 03:48 Lymph # (Auto) 0.6 10^3/uL (0.8-4.8) L 02/29/24 03:48 [place] # (Auto) 0.6 10^3/uL (0.2-0.9) 02/29/24 03:48 Eos # (Auto) 0.0 10^3/uL (0.0-0.8) 02/29/24 03:48 Baso # (Auto) 0.0 10^3/uL (0.0-0.1) 02/29/24 03:48 Nucleated RBC % (auto) 0 % 02/29/24 03:48 Nucleated RBCs # 0.0 /100WBC 02/29/24 03:48 PT 13.80 SECONDS (12.1-14.9) 02/28/24 03:56 INR 1.03 (0.8-1.2) 02/28/24 03:56 APTT Cancelled 02/28/24 14:00 Specimen Type Arterial 02/27/24 18:29 Sample Site Brachial, right 02/27/24 18:29 ABG pH 7.36 (7.35-7.45) 02/27/24 18:29 ABG pCO2 43.5 mmHg (35-45) 02/27/24 18:29 ABG pO2 160.0 mmHg (80.0-100.0) H 02/27/24 18:29 ABG PO2/FiO2 Ratio 0 02/27/24 18:29 ABG HCO3 24.5 mmol/L (22-26) 02/27/24 18:29 ABG O2 Saturation 99.7 02/27/24 18:29 ABG Base Excess -1.2 mmol/L (-2.0-2.0) 02/27/24 18:29 Sumit Test Pos 02/27/24 18:29 A-a O2 Gradient 13.2 mmHg (5-10) H 02/27/24 18:29 Hematocrit 44.9 % (37-47) 02/27/24 18:29 Hgb O2 Saturation 94.2 % (95-100) L 02/27/24 18:29 Carboxyhemoglobin 5.2 %THgb (0.4-20.1) 02/27/24 18:29 Methemoglobin 0.3 % (0.4-1.5) L 02/27/24 18:29 Total Hemoglobin 14.6 g/dL (12-16) 02/27/24 18:29 Sodium 143.0 mmol/L (131-143) 02/27/24 18:29 Potassium 3.7 mmol/L (3.5-5.0) 02/27/24 18:29 Glucose 95.0 mg/dL (70-115) 02/27/24 18:29 Ionized Calcium 1.3 mmol/L (1.1-1.4) 02/27/24 18:29 O2 Delivery Device Simple mask 02/27/24 18:29 O2 Liters/Min 5.0 % 02/27/24 18:29 FiO2 45.0 % 02/27/24 18:29 [employer] Production Manager ID Madelyn 02/27/24 18:29 Sodium 138 mmol/L (136-145) 02/29/24 03:48 Potassium 4.2 mmol/L (3.5-5.1) 02/29/24 03:48 Chloride 108 mmol/L (98-107) H 02/29/24 03:48 Carbon Dioxide 19 mmol/L (22-29) L 02/29/24 03:48 Anion Gap 15.2 (5-19) 02/29/24 03:48 BUN 13 mg/dL (8-23) 02/29/24 03:48 Creatinine 0.7 mg/dL (0.5-0.9) 02/29/24 03:48 GFR Calculation 82.7 mL/min (90-130) L 02/29/24 03:48 Glucose 119 mg/dL (65-115) H 02/29/24 03:48 Estimat Average Glucose 117 02/27/24 18:00 Hemoglobin A1c 5.7 % (4.0-6.0) 02/27/24 18:00 Calculated Osmolality 289 mOsm/kg (285-295) 02/28/24 07:00 Lactic Acid 1.3 mmol/L (0.5-2.2) 02/27/24 18:00 Calcium 7.9 mg/dL (8.5-10.5) L 02/29/24 03:48 Phosphorus 2.9 mg/dL (2.5-4.5) 02/29/24 03:48 Magnesium 1.9 mg/dL (1.7-2.3) 02/29/24 03:48 Total Bilirubin 0.4 mg/dL (0.15-1.2) 02/28/24 07:00 AST 22 U/L (0-32) 02/28/24 07:00 ALT 12 U/L (0-33) 02/28/24 07:00 Alkaline Phosphatase 81 U/L (35-105) 02/28/24 07:00 Troponin T Baseline 11 ng/L (0-10) H 02/27/24 18:00 Troponin T 120 Minute 97.35 ng/L (0-10) H 02/27/24 20:03 Delta Troponin T 86.35 ABS# (0-10) H* 02/27/24 20:03 Troponin T Hi Sens 6Hr 122.7 ng/L (0-10) H 02/28/24 00:59 Troponin T Hi Sens 6Hr Delta 111.7 ng/L (0-12) H* 02/28/24 00:59 NT-Pro-B Natriuret Pep 140 pg/mL (0-125) H 02/27/24 18:00 Total Protein 6.1 g/dL (6.6-8.7) L 02/28/24 07:00 Albumin 3.5 g/dL (3.5-5.2) 02/29/24 03:48 Globulin 2.2 g/dL (1.3-4.6) 02/28/24 07:00 Triglycerides 158 mg/dL (0-150) H 02/27/24 18:00 Cholesterol 231 mg/dL (0-200) H 02/27/24 18:00 LDL Cholesterol, Calc 111 mg/dL (50-129) 02/27/24 18:00 HDL Cholesterol 88 mg/dL (60-100) 02/27/24 18:00 LDL/HDL Ratio 1.26 RATIO (0.00-3.22) 02/27/24 18:00 Cholesterol/HDL Ratio 2.63 mg/dL (0.0-4.40) 02/27/24 18:00 Procalcitonin 0.03 ng/mL (0-0.5) 02/27/24 18:00 Procalcitonin 0.03 ng/mL (0-0.5) 02/27/24 18:00 TSH 1.70 uIU/mL (0.27-4.20) 02/27/24 18:00 Influenza Type A Ag negative (Negative) 02/27/24 18:35 Influenza Type B Ag negative (Negative) 02/27/24 18:35 SARS-CoV-2 Ag (Rapid) negative (Negative) 02/27/24 18:35 A&P Assessment and plan (1) Acute non-ST elevation myocardial infarction (NSTEMI): Status post categorization, status post PCI of the circumflex lesion, currently stable. (2) Heavy cigarette smoker (20-39 per day): The cardiovascular implications of smoking abuse were discussed with the patient. She is strongly advised to quit smoking. (3) Acute diastolic heart failure: The heart failure seems to be fairly compensated. (4) Acute exacerbation of chronic obstructive pulmonary disease: Continue management as per the primary service. Plan May continue on the Plavix, aspirin and other current medications Attestations 2 Medical Necessity Statement*: Deferred to primary Coding Level of Care Code 21508 Diagnoses Acute non-ST elevation myocardial infarction (NSTEMI) I21.4 Heavy cigarette smoker (20-39 per day) F17.210 Acute diastolic heart failure I50.31 Acute exacerbation of chronic obstructive pulmonary disease J44.1
--- NOTE | 2024-02-29 09:25 | PM.PN ---
Subjective Subjective: Per report, patient episode of shortness of breath earlier this morning. She remains on supplemental oxygen support. She denies prior home oxygen needs. She reports continued chest tightness and shortness of breath this morning. Blood pressure had improved, even hypertensive overnight. She does have chronic neck pain which may be contributing to her pressures. Medications: Reviewed: Yes Vitals/I&O/Wt Last Vital Signs Temp 97.9 F 02/29/24 03:35 Pulse 105 H 02/29/24 07:47 Resp 22 H 02/29/24 07:38 BP 129/70 02/29/24 03:35 Pulse Ox 98 02/29/24 07:38 O2 Del Method Oxymask 02/29/24 07:38 O2 Flow Rate 2 02/29/24 07:38 02/28/24 02/29/24 02/29/24 22:59 06:59 14:59 Intake Total 240 / 1573.317 956.25 / 2529.567 446.25 / 446.25 Output Total 750 / 1250 200 / 1450 Balance -510 / 323.317 756.25 / 1079.567 446.25 / 446.25 Weight last 48 hrs Weight 42.184 kg Weight 40.279 kg Weight 38.102 kg Weight 38.102 kg Physical Exam Narrative: General: Patient is awake. Appears fatigued but pleasant. Head: Normocephalic. Atraumatic. EOM intact. Neck: No JVD. Cardiovascular: RRR. No gallops. No murmurs. Lungs: Moderate air movement. Prolonged expiratory phase. Slight conversational dyspnea. Supplemental oxygen support. Skin: No jaundice. No rashes. Abdomen: Normal bowel sounds, abdomen soft and nontender. Genito Urinary: Genital exam not performed since complaints not related. Rectal: Rectal exam not performed since no symptoms indicated blood loss. Extremities: No cyanosis or clubbing. Musculoskeletal: No erythematous joints. Neurological: Moves all 4 extremities. No myoclonus. Data 02/29/24 03:48 02/29/24 03:48 A&P Assessment and plan (1) Acute non-ST elevation myocardial infarction (NSTEMI): Status postcardiac catheterization with PCI, cath reports pending Continue with dual antiplatelet therapy Continue high intensity statin Morphine for breakthrough pain Echo reviewed, preserved EF noted Continuous telemetry monitoring Hold NSAIDs Consider ongoing benefit versus risk of chronic estradiol at discharge (2) COPD (chronic obstructive pulmonary disease): COPD with acute exacerbation Continue IV steroids Continue Zithromax Continue breathing treatments Continuous pulse oximetry Pulmonary toilet Patient still requiring supplemental oxygen support, wean as tolerated Qualifiers: COPD type: emphysema Emphysema type: centrilobular Qualified Code(s): J43.2 - Centrilobular emphysema (3) Depression: Continue home duloxetine (4) Acute diastolic heart failure: Acute heart failure with preserved ejection fraction Strict I's and O's Daily weights Stop IV fluids IV Lasix ordered (5) Hyperlipidemia: Statin as above (6) GERD (gastroesophageal reflux disease): Continue PPI (7) Chronic back pain: Baclofen as needed Restart home lidocaine patch (8) Cervical pain (neck): Baclofen as needed (9) Smoker: Patient would benefit from smoking cessation Plan DVT prophylaxis: Lovenox CODE STATUS: DNR Attestations Medical Necessity Statement*: Patient requires ongoing hospitalization for supplemental oxygen support, IV diuresis, mobilization, and supportive care. Coding Level of Care Code Acute Code for [facility] Fwd Diagnoses Acute non-ST elevation myocardial infarction (NSTEMI) I21.4 Centrilobular emphysema J43.2 COPD type: emphysema Emphysema type: centrilobular Depression F32.A Acute diastolic heart failure I50.31 Hyperlipidemia E78.5 GERD (gastroesophageal reflux disease) K21.9 Chronic back pain M54.9; G89.29 Cervical pain (neck) M54.2 Smoker F17.200
[2024-02-29] MEDS: atorvastatin 40 mg Tablet 80 MG PO (10:18)
[2024-02-29] MEDS: lidocaine 5% Patch 1 PATCH TOPICAL (10:18)
[2024-02-29] MEDS: aspirin 81 mg EC Tablet PO (10:19)
[2024-02-29] MEDS: pantoprazole DR 40 mg Tablet PO (10:19)
[2024-02-29] MEDS: docusate sodium 100 mg Capsule PO ×2 (10:19→17:09)
[2024-02-29] MEDS: duloxetine 20 mg Capsule PO ×2 (10:19→17:11)
[2024-02-29] MEDS: clopidogrel 75 mg Tablet PO (10:19)
[2024-02-29] MEDS: baclofen 10 mg Tablet 5 MG PO ×2 (10:19→17:08)
[2024-02-29] MEDS: FUROsemide 10 mg/mL SDV 2mL 20 MG IVP (10:20)
[2024-02-29] MEDS: lamoTRIgine 100 mg Tablet 150 MG PO (17:09)
[2024-02-29] MEDS: enoxaparin 40 mg/0.4 mL Syringe SUBCUT (20:42)
[2024-02-29] MEDS: azithromycin 500 MG in sodium chloride 0.9% 250 ML 250 MG IV (22:49)
[2024-02-29] MEDS: acetaminophen 325 mg Tablet 650 MG PO (22:52)
[2024-03-01] VITALS (12 sets, daily range): BP systolic 122–149; BP diastolic 75–88; PULSE 79–96; RESP 16–25; TEMP 36.6–36.8; O2SAT 2–94
[2024-03-01] MEDS: ipratropium-albuterol 3 mL Neb INHALATION ×3 (01:59→14:06)
[2024-03-01] MEDS: methylPREDNISolone sod succ 40 mg/mL INJ IVP (05:23)
--- NOTE | 2024-03-01 07:35 | P.PN_ITS ---
Subjective 2 Subjective: Patient denies any chest pain. The respiratory status seems to be improving. She still has significant shortness of breath at rest. According to the patient, this is her baseline. Denies any fever or chills. No significant cough. No other specific complaints. No arrhythmias on the monitor. Vital signs are remaining stable. Medications: Medication Review Details: Current Medications Acetaminophen (Acetaminophen 325 Mg Tablet) 650 mg PO Q6H PRN PRN Reason: Mild/Mod Pain Or Temp >/= 101 Last Admin: 02/29/24 22:52 Dose: 650 mg Albuterol/Ipratropium (Ipratropium-Albuterol 3 Ml Neb) 3 ml INHALATION Q6H.RESP [facility] Last Admin: 03/01/24 07:33 Dose: 3 ml Aspirin (Aspirin 81 Mg Ec Tablet) 81 mg PO DAILY [facility] Last Admin: 02/29/24 10:19 Dose: 81 mg Atorvastatin Calcium (Atorvastatin 40 Mg Tablet) 80 mg PO DAILY [facility] Last Admin: 02/29/24 10:18 Dose: 80 mg Baclofen (Baclofen 10 Mg Tablet) 5 mg PO BID [facility] Last Admin: 02/29/24 17:08 Dose: 5 mg Clopidogrel Bisulfate (Clopidogrel 75 Mg Tablet) 75 mg PO DAILY [facility] Last Admin: 02/29/24 10:19 Dose: 75 mg Docusate Sodium (Docusate Sodium 100 Mg Capsule) 100 mg PO BID [facility] Last Admin: 02/29/24 17:09 Dose: 100 mg Duloxetine HCl (Duloxetine 20 Mg Capsule) 20 mg PO BID [facility] Last Admin: 02/29/24 17:11 Dose: 20 mg Enoxaparin Sodium (Enoxaparin 40 Mg/0.4 Ml Syringe) 40 mg SUBCUT BEDTIME [facility] Last Admin: 02/29/24 20:42 Dose: 40 mg Azithromycin 500 mg/ Sodium (Chloride) 250 mls @ 250 mls/hr IV Q24H [facility]; Protocol Last Infusion: 03/01/24 00:02 Dose: Infused Lamotrigine (Lamotrigine 100 Mg Tablet) 150 mg PO BID [facility] Last Admin: 02/29/24 17:09 Dose: 150 mg Lidocaine (Lidocaine 5% Patch) 1 patch TOPICAL [id number] [facility] Last Admin: 02/29/24 22:50 Dose: Not Given Methylprednisolone Sodium Succinate (Methylprednisolone Sod Succ 40 Mg/Ml Inj) 40 mg IVP Q12H [facility] Last Admin: 03/01/24 05:23 Dose: 40 mg Ondansetron HCl (Ondansetron 2 Mg/Ml Sdv 2 Ml) 4 mg IVP Q8H PRN PRN Reason: vomiting, or N/V if npo Pantoprazole Sodium (Pantoprazole Dr 40 Mg Tablet) 40 mg PO DAILY [facility] Last Admin: 02/29/24 10:19 Dose: 40 mg Vitals/I&O/Wt Last Vital Signs Temp 98.2 F 03/01/24 07:26 Pulse 93 03/01/24 07:34 Resp 16 03/01/24 07:34 BP 143/85 03/01/24 07:26 Pulse Ox 92 03/01/24 07:34 O2 Del Method Room Air 03/01/24 07:34 O2 Flow Rate 1 02/29/24 14:26 02/29/24 03/01/24 03/01/24 22:59 06:59 14:59 Intake Total 250 / 1970.00 Output Total 450 / 2350 0 / 2350 Balance -450 / -630.00 250 / -380.00 Weight last 48 hrs Weight 95 lb Weight 93 lb Physical Exam 2 Narrative: GENERAL: The patient is alert and oriented times three. . Not in any distress. HEENT: No significant pallor, icterus or lymphadenopathy.Oral cavity: There are no mucous membrane lesions. NECK: Trachea appears to be central. No masses noted. No JVD or thyromegaly appreciated. RESPIRATORY: Chest is symmetrical. Chest is emphysematous. Occasional expiratory wheezing. BREASTS: Deferred. HEART: The heart sounds are normal. No S3 or S4. No significant murmurs. No pericardial rub ABDOMEN: No vessel pulsations or distention. No tenderness. No organomegaly appreciated. Bowel sounds are normally heard. : Deferred. RECTAL: Deferred. LYMPHATIC: No lymphadenopathy noted in the neck. EXTREMITIES: No edema or cyanosis. No clubbing. The peripheral pulses are palpable but of low amplitude bilaterally. MUSCULOSKELETAL: No acute joint deformities or swelling SKIN: There are no significant rashes or ecchymosis NEUROPSYCHIATRIC: The patient is alert and oriented x3. Appears to be in a good mood. No tremors or rigidity noted. Data 02/29/24 03:48 02/29/24 03:48 Other Labs: Laboratory Last Values WBC 9.10 10^3/uL (3.29-11.43) 02/29/24 03:48 RBC 3.81 10^6/uL (3.85-5.65) L 02/29/24 03:48 Hgb 11.70 g/dL (11.27-16.99) 02/29/24 03:48 Hct 35.9 % (36-47) L 02/29/24 03:48 MCV 94.2 fl (85-98) 02/29/24 03:48 MCH 30.7 pg (27-33) 02/29/24 03:48 MCHC 32.6 g/dL (30-55) 02/29/24 03:48 RDW 13.4 % (12.1-15.1) 02/29/24 03:48 Plt Count 378 10^3/cmm (157-399) 02/29/24 03:48 MPV 11.3 fL (7.4-10.4) H 02/29/24 03:48 Neut % (Auto) 86.8 % 02/29/24 03:48 Lymph % (Auto) 6.9 % 02/29/24 03:48 [place] % (Auto) 6.0 % 02/29/24 03:48 Eos % (Auto) 0.0 % 02/29/24 03:48 Baso % (Auto) 0.0 % 02/29/24 03:48 Neut # (Auto) 7.89 10^3/uL (1.8-7.7) H 02/29/24 03:48 Lymph # (Auto) 0.6 10^3/uL (0.8-4.8) L 02/29/24 03:48 [place] # (Auto) 0.6 10^3/uL (0.2-0.9) 02/29/24 03:48 Eos # (Auto) 0.0 10^3/uL (0.0-0.8) 02/29/24 03:48 Baso # (Auto) 0.0 10^3/uL (0.0-0.1) 02/29/24 03:48 Nucleated RBC % (auto) 0 % 02/29/24 03:48 Nucleated RBCs # 0.0 /100WBC 02/29/24 03:48 PT 13.80 SECONDS (12.1-14.9) 02/28/24 03:56 INR 1.03 (0.8-1.2) 02/28/24 03:56 APTT Cancelled 02/28/24 14:00 Specimen Type Arterial 02/27/24 18:29 Sample Site Brachial, right 02/27/24 18:29 ABG pH 7.36 (7.35-7.45) 02/27/24 18: ABG pCO2 43.5 mmHg (35-45) 02/27/24 18: ABG pO2 160.0 mmHg (80.0-100.0) H 02/27/24 18:29 ABG PO2/FiO2 Ratio 0 02/27/24 18: ABG HCO3 24.5 mmol/L (22-26) 02/27/24 18: ABG O2 Saturation 99.7 02/27/24 18: ABG Base Excess -1.2 mmol/L (-2.0-2.0) 02/27/24 18:29 Sumit Test Pos 02/27/24 18:29 A-a O2 Gradient 13.2 mmHg (5-10) H 02/27/24 18:29 Hematocrit 44.9 % (37-47) 02/27/24 18:29 Hgb O2 Saturation 94.2 % (95-100) L 02/27/24 18: Carboxyhemoglobin 5.2 %THgb (0.4-20.1) 02/27/24 18: Methemoglobin 0.3 % (0.4-1.5) L 02/27/24 18:29 Total Hemoglobin 14.6 g/dL (12-16) 02/27/24 18:29 Sodium 143.0 mmol/L (131-143) 02/27/24 18:29 Potassium 3.7 mmol/L (3.5-5.0) 02/27/24 18: Glucose 95.0 mg/dL (70-115) 02/27/24 18: Ionized Calcium 1.3 mmol/L (1.1-1.4) 02/27/24 18:29 O2 Delivery Device Simple mask 02/27/24 18: O2 Liters/Min 5.0 % 02/27/24 18:29 FiO2 45.0 % 05/24/24 18:29 Instrumentation Technologist ID Madelyn 02/27/24 18:29 Sodium 138 mmol/L (136-145) 02/29/24 03:48 Potassium 4.2 mmol/L (3.5-5.1) 02/29/24 03:48 Chloride 108 mmol/L (98-107) H 02/29/24 03:48 Carbon Dioxide 19 mmol/L (22-29) L 02/29/24 03:48 Anion Gap 15.2 (5-19) 02/29/24 03:48 BUN 13 mg/dL (8-23) 02/29/24 03:48 Creatinine 0.7 mg/dL (0.5-0.9) 02/29/24 03:48 GFR Calculation 82.7 mL/min (90-130) L 02/29/24 03:48 Glucose 119 mg/dL (65-115) H 02/29/24 03:48 Estimat Average Glucose 117 02/27/24 18:00 Hemoglobin A1c 5.7 % (4.0-6.0) 02/27/24 18:00 Calculated Osmolality 289 mOsm/kg (285-295) 02/28/24 07:00 Lactic Acid 1.3 mmol/L (0.5-2.2) 02/27/24 18:00 Calcium 7.9 mg/dL (8.5-10.5) L 02/29/24 03:48 Phosphorus 2.9 mg/dL (2.5-4.5) 02/29/24 03:48 Magnesium 1.9 mg/dL (1.7-2.3) 02/29/24 03:48 Total Bilirubin 0.4 mg/dL (0.15-1.2) 02/28/24 07:00 AST 22 U/L (0-32) 02/28/24 07:00 ALT 12 U/L (0-33) 02/28/24 07:00 Alkaline Phosphatase 81 U/L (35-105) 02/28/24 07:00 Troponin T Baseline 11 ng/L (0-10) H 02/27/24 18:00 Troponin T 120 Minute 97.35 ng/L (0-10) H 02/27/24 20:03 Delta Troponin T 86.35 ABS# (0-10) H* 02/27/24 20:03 Troponin T Hi Sens 6Hr 122.7 ng/L (0-10) H 02/28/24 00:59 Troponin T Hi Sens 6Hr Delta 111.7 ng/L (0-12) H* 02/28/24 00:59 NT-Pro-B Natriuret Pep 140 pg/mL (0-125) H 02/27/24 18:00 Total Protein 6.1 g/dL (6.6-8.7) L 02/28/24 07:00 Albumin 3.5 g/dL (3.5-5.2) 02/29/24 03:48 Globulin 2.2 g/dL (1.3-4.6) 02/28/24 07:00 Triglycerides 158 mg/dL (0-150) H 02/27/24 18:00 Cholesterol 231 mg/dL (0-200) H 02/27/24 18:00 LDL Cholesterol, Calc 111 mg/dL (50-129) 02/27/24 18:00 HDL Cholesterol 88 mg/dL (60-100) 02/27/24 18:00 LDL/HDL Ratio 1.26 RATIO (0.00-3.22) 02/27/24 18:00 Cholesterol/HDL Ratio 2.63 mg/dL (0.0-4.40) 02/27/24 18:00 Procalcitonin 0.03 ng/mL (0-0.5) 02/27/24 18:00 Procalcitonin 0.03 ng/mL (0-0.5) 02/27/24 18:00 TSH 1.70 uIU/mL (0.27-4.20) 02/27/24 18:00 Influenza Type A Ag negative (Negative) 02/27/24 18:35 Influenza Type B Ag negative (Negative) 02/27/24 18:35 SARS-CoV-2 Ag (Rapid) negative (Negative) 02/27/24 18:35 A&P Assessment and plan (1) Acute non-ST elevation myocardial infarction (NSTEMI): Status post cardiac catheterization . status post PCI of the circumflex lesion, currently stable. (2) Heavy cigarette smoker (20-39 per day): The cardiovascular implications of smoking abuse were discussed with the patient. She is strongly advised to quit smoking. Patient is willing to try (3) Acute diastolic heart failure: The heart failure seems to be fairly compensated. We may keep the patient on a low-dose of p.o. Lasix 20 mg p.o. daily with potassium 10 mg p.o. daily. This may change in the as needed dose after a week. (4) Acute exacerbation of chronic obstructive pulmonary disease: Continue management as per the primary service. Plan May continue on the Plavix, aspirin and other current medications. If the patient continues to remain stable, may be discharged home from a cardiac standpoint. Appointment [facility] in 1 to 2 weeks. Appointment with me in the office in 2 months. Attestations 2 Medical Necessity Statement*: Deferred to the primary Coding Level of Care Code 33660 Diagnoses Acute non-ST elevation myocardial infarction (NSTEMI) I21.4 Heavy cigarette smoker (20-39 per day) F17.210 Acute diastolic heart failure I50.31 Acute exacerbation of chronic obstructive pulmonary disease J44.1
[2024-03-01] MEDS: docusate sodium 100 mg Capsule PO (09:05)
[2024-03-01] MEDS: lamoTRIgine 100 mg Tablet 150 MG PO (09:06)
[2024-03-01] MEDS: atorvastatin 40 mg Tablet 80 MG PO (09:06)
[2024-03-01] MEDS: pantoprazole DR 40 mg Tablet PO (09:07)
[2024-03-01] MEDS: aspirin 81 mg EC Tablet PO (09:07)
[2024-03-01] MEDS: baclofen 10 mg Tablet 5 MG PO (09:07)
[2024-03-01] MEDS: clopidogrel 75 mg Tablet PO (09:07)
[2024-03-01] MEDS: lidocaine 5% Patch 1 PATCH TOPICAL (09:07)
[2024-03-01] MEDS: duloxetine 20 mg Capsule PO (09:07)
[2024-03-01] MEDS: FUROsemide 20 mg Tablet PO (09:15)
[2024-03-01] MEDS: potassium chloride ER 10 mEq Tablet PO (09:15)
--- NOTE | 2024-03-01 12:00 | PC.SOCIAL ---
IMM Update Pg. 2 of IMM updated and reviewed with patient who verbalized understanding. Copy provided.
--- NOTE | 2024-03-01 12:23 | P.DS_ITS ---
Discharge Providers Date of Admission: 02/27/24 21:11 Date of Discharge: March 01, 2024 Attending Provider at Admission: Analia Gan MD Attending Provider at Discharge: Tomasz Pérez MD Consults: Cardiology Primary Care Provider: Peyton Gibson MD Diagnoses at Discharge Discharge Diagnosis (1) Acute non-ST elevation myocardial infarction (NSTEMI): Status: Acute (2) Heavy cigarette smoker (20-39 per day): Status: Acute (3) Acute diastolic heart failure: Status: Acute (4) Acute exacerbation of chronic obstructive pulmonary disease: Status: Acute Reason for Visit Reason for Visit: shortness of breath Hospital Course Hospital Course Shayy Mann is a very pleasant 68-year-old female with past medical history significant for COPD, tobacco use disorder, hyperlipidemia, GERD, and chronic cervical pain who presented with shortness of breath, found to have acute NSTEMI. Cardiology consulted and patient underwent cardiac catheterization with PCI to circumflex lesion. She was treated with dual antiplatelet therapy, high intensity statin, and as needed nitroglycerin for chest pain. She was found to have acute COPD exacerbation treated with azithromycin, steroids, and breathing treatments. Patient was not started on beta-terry due to reactive airway disease exacerbation. Beta-terry could be considered later in the future pending clinical course. Patient symptomatology improved. She was noted to require oxygen with ambulation due to her acute COPD exacerbation. Home oxygen was established. Patient was rotated to oral steroids and azithromycin at discharge. Patient was discharged home in stable condition. She will follow-up cardiology clinic for consideration of cardiac rehab as well as primary care provider follow-up. Patient was provided with tobacco cessation counseling during this admission. Physical Exam Narrative: General: Patient is awake. Pleasant. Head: Normocephalic. Atraumatic. EOM intact. Neck: No JVD. Cardiovascular: RRR. No gallops. No murmurs. Lungs: Improved air movement. Faint end expiratory wheezing is present. Skin: No jaundice. No rashes. Abdomen: Normal bowel sounds, abdomen soft and nontender. Extremities: No cyanosis or clubbing. Musculoskeletal: No erythematous joints. Neurological: Moves all 4 extremities. No myoclonus. Discharge Data Studies Completed and Pending Completed Studies During Hospitalization Category Date Time Status XR chest 1V portable [id number] Stat Exams 02/27/24 18:22 Completed CV. echo complete* [id number] Stat Ultrasound 02/28/24 21:51 Completed Pending at discharge Category Date Time Status CA echo doppler complete Stat Exams 02/27/24 21:11 Ordered DISASTER RESPONSE DIRECTOR request for service Routine Exams 02/28/24 10:57 Taken Radiology Impressions Chest X-Ray 02/27/24 18:22 IMPRESSION: No acute findings. Laboratory Results WBC 9.10 10^3/uL (3.29-11.43) 02/29/24 03:48 RBC 3.81 10^6/uL (3.85-5.65) L 02/29/24 03:48 Hgb 11.70 g/dL (11.27-16.99) 02/29/24 03:48 Hct 35.9 % (36-47) L 02/29/24 03:48 MCV 94.2 fl (85-98) 02/29/24 03:48 MCH 30.7 pg (27-33) 02/29/24 03:48 MCHC 32.6 g/dL (30-55) 02/29/24 03:48 RDW 13.4 % (12.1-15.1) 02/29/24 03:48 Plt Count 378 10^3/cmm (157-399) 02/29/24 03:48 MPV 11.3 fL (7.4-10.4) H 02/29/24 03:48 Neut % (Auto) 86.8 % 02/29/24 03:48 Lymph % (Auto) 6.9 % 02/29/24 03:48 [place] % (Auto) 6.0 % 02/29/24 03:48 Eos % (Auto) 0.0 % 02/29/24 03:48 Baso % (Auto) 0.0 % 02/29/24 03:48 Neut # (Auto) 7.89 10^3/uL (1.8-7.7) H 02/29/24 03:48 Lymph # (Auto) 0.6 10^3/uL (0.8-4.8) L 02/29/24 03:48 [place] # (Auto) 0.6 10^3/uL (0.2-0.9) 02/29/24 03:48 Eos # (Auto) 0.0 10^3/uL (0.0-0.8) 02/29/24 03:48 Baso # (Auto) 0.0 10^3/uL (0.0-0.1) 02/29/24 03:48 Nucleated RBC % (auto) 0 % 02/29/24 03:48 Nucleated RBCs # 0.0 /100WBC 02/29/24 03:48 PT 13.80 SECONDS (12.1-14.9) 02/28/24 03:56 INR 1.03 (0.8-1.2) 02/28/24 03:56 APTT Cancelled 02/28/24 14:00 Specimen Type Arterial 02/27/24 18:29 Sample Site Brachial, right 02/27/24 18:29 ABG pH 7.36 (7.35-7.45) 02/27/24 18:29 ABG pCO2 43.5 mmHg (35-45) 02/27/24 18: ABG pO2 160.0 mmHg (80.0-100.0) H 02/27/24 18:29 ABG PO2/FiO2 Ratio 0 02/27/24 18:29 ABG HCO3 24.5 mmol/L (22-26) 02/27/24 18:29 ABG O2 Saturation 99.7 02/27/24 18:29 ABG Base Excess -1.2 mmol/L (-2.0-2.0) 02/27/24 18:29 Sumit Test Pos 02/27/24 18:29 A-a O2 Gradient 13.2 mmHg (5-10) H 02/27/24 18:29 Hematocrit 44.9 % (37-47) 02/27/24 18:29 Hgb O2 Saturation 94.2 % (95-100) L 02/27/24 18:29 Carboxyhemoglobin 5.2 %THgb (0.4-20.1) 02/27/24 18:29 Methemoglobin 0.3 % (0.4-1.5) L 02/27/24 18:29 Total Hemoglobin 14.6 g/dL (12-16) 02/27/24 18:29 Sodium 143.0 mmol/L (131-143) 02/27/24 18:29 Potassium 3.7 mmol/L (3.5-5.0) 02/27/24 18:29 Glucose 95.0 mg/dL (70-115) 02/27/24 18:29 Ionized Calcium 1.3 mmol/L (1.1-1.4) 02/27/24 18:29 O2 Delivery Device Simple mask 02/27/24 18:29 O2 Liters/Min 5.0 % 02/27/24 18:29 FiO2 45.0 % 02/27/24 18:29 Orthopedic Mechanic ID Madelyn 02/27/24 18:29 Sodium 138 mmol/L (136-145) 02/29/24 03:48 Potassium 4.2 mmol/L (3.5-5.1) 02/29/24 03:48 Chloride 108 mmol/L (98-107) H 02/29/24 03:48 Carbon Dioxide 19 mmol/L (22-29) L 02/29/24 03:48 Anion Gap 15.2 (5-19) 02/29/24 03:48 BUN 13 mg/dL (8-23) 02/29/24 03:48 Creatinine 0.7 mg/dL (0.5-0.9) 02/29/24 03:48 GFR Calculation 82.7 mL/min (90-130) L 02/29/24 03:48 Glucose 119 mg/dL (65-115) H 02/29/24 03:48 Estimat Average Glucose 117 02/27/24 18:00 Hemoglobin A1c 5.7 % (4.0-6.0) 02/27/24 18:00 Calculated Osmolality 289 mOsm/kg (285-295) 02/28/24 07:00 Lactic Acid 1.3 mmol/L (0.5-2.2) 02/27/24 18:00 Calcium 7.9 mg/dL (8.5-10.5) L 02/29/24 03:48 Phosphorus 2.9 mg/dL (2.5-4.5) 02/29/24 03:48 Magnesium 1.9 mg/dL (1.7-2.3) 02/29/24 03:48 Total Bilirubin 0.4 mg/dL (0.15-1.2) 02/28/24 07:00 AST 22 U/L (0-32) 02/28/24 07:00 ALT 12 U/L (0-33) 02/28/24 07:00 Alkaline Phosphatase 81 U/L (35-105) 02/28/24 07:00 Troponin T Baseline 11 ng/L (0-10) H 02/27/24 18:00 Troponin T 120 Minute 97.35 ng/L (0-10) H 02/27/24 20:03 Delta Troponin T 86.35 ABS# (0-10) H* 02/27/24 20:03 Troponin T Hi Sens 6Hr 122.7 ng/L (0-10) H 02/28/24 00:59 Troponin T Hi Sens 6Hr Delta 111.7 ng/L (0-12) H* 02/28/24 00:59 NT-Pro-B Natriuret Pep 140 pg/mL (0-125) H 02/27/24 18:00 Total Protein 6.1 g/dL (6.6-8.7) L 02/28/24 07:00 Albumin 3.5 g/dL (3.5-5.2) 02/29/24 03:48 Globulin 2.2 g/dL (1.3-4.6) 02/28/24 07:00 Triglycerides 158 mg/dL (0-150) H 02/27/24 18:00 Cholesterol 231 mg/dL (0-200) H 02/27/24 18:00 LDL Cholesterol, Calc 111 mg/dL (50-129) 02/27/24 18:00 HDL Cholesterol 88 mg/dL (60-100) 02/27/24 18:00 LDL/HDL Ratio 1.26 RATIO (0.00-3.22) 02/27/24 18:00 Cholesterol/HDL Ratio 2.63 mg/dL (0.0-4.40) 02/27/24 18:00 Procalcitonin 0.03 ng/mL (0-0.5) 02/27/24 18:00 Procalcitonin 0.03 ng/mL (0-0.5) 02/27/24 18:00 TSH 1.70 uIU/mL (0.27-4.20) 02/27/24 18:00 Influenza Type A Ag negative (Negative) 02/27/24 18:35 Influenza Type B Ag negative (Negative) 02/27/24 18:35 SARS-CoV-2 Ag (Rapid) negative (Negative) 02/27/24 18:35 Vitals Last Vital Signs Temp 97.9 F 03/01/24 11:11 Pulse 91 03/01/24 11:11 Resp 22 H 03/01/24 11:11 BP 149/88 03/01/24 11:11 Pulse Ox 94 03/01/24 09:05 O2 Del Method Room Air 03/01/24 07:34 O2 Flow Rate 94 03/01/24 09:05 Discharge Plan Discharge Patient Disposition: Home Condition: Stable Prescriptions: New furosemide 20 mg Tablet 20 mg PO DAILY@0800 30 Days Qty: 30 0RF azithromycin 250 mg tablet 250 mg PO DAILY 5 Days Qty: 5 0RF nitroglycerin 0.4 mg tablet, sublingual 0.4 mg sublingual Q5M PRN (Reason: chest pain) Qty: 90 0RF Rx Instructions: do not exceed 3 doses per episode aspirin 81 mg Tablet,Delayed Release (Dr/Ec) 81 mg PO DAILY Qty: 90 3RF atorvastatin 40 mg Tablet 80 mg PO DAILY Qty: 90 3RF clopidogrel 75 mg Tablet 75 mg PO DAILY Qty: 90 3RF prednisone 50 mg tablet 50 mg PO DAILY 5 Days Qty: 5 0RF Continued albuterol sulfate 90 mcg/actuation HFA aerosol inhaler 2 puff inhalation 6XD PRN (Reason: shortness of breath or wheezing) 30 Days Qty: 17 3RF lamotrigine 150 mg tablet 150 mg PO BID Qty: 60 5RF lidocaine 5 % adhesive patch,medicated 1 patch topical DAILY PRN (Reason: pain) Qty: 30 0RF Rx Instructions: leave on most painful area for up to 12 hrs ipratropium-albuterol 0.5 mg-3 mg(2.5 mg base)/3 mL solution for nebulization 3 ml inhalation Q6H PRN (Reason: COPD J44.9) Qty: 180 6RF Breztri Aerosphere 160-9-4.8 mcg/actuation HFA aerosol inhaler 2 inh inhalation BID 30 Days Qty: 10.7 6RF baclofen 5 mg tablet See Rx Instructions .ROUTE .COMPLEX Qty: 60 0RF Dose Instruction: TAKE 1 TABLET BY MOUTH TWICE DAILY Rx Instructions: TAKE 1 TABLET BY MOUTH TWICE DAILY duloxetine [Cymbalta] 20 mg capsule,delayed release(DR/EC) 20 mg PO BID Qty: 60 3RF estradiol 1 mg tablet 1 mg PO DAILY Discontinued ibuprofen 800 mg tablet See Rx Instructions .ROUTE .COMPLEX Qty: 30 0RF Dose Instruction: TAKE 1 TABLET BY MOUTH EVERY 8 HOURS NEEDED FOR PAIN, 30 DAYS Rx Instructions: TAKE 1 TABLET BY MOUTH EVERY 8 HOURS NEEDED FOR PAIN, 30 DAYS Discharge Orders: Discharge Order (Routine); Ordered 03/01/24 Ordered By: Tomasz Pérez Other Ambulatory Orders: DME: Oxygen (Order) Location: None Selected Ordered By: Tomasz Pérez Referrals: Peyton Gibson MD [Primary Care Provider] - 4-7 days (We have notified your physician's clinic of the need for a follow-up appointment to be scheduled. If you have not heard from them within the next 2 business days, please call them directly. ) Claudine Mcdonough FNP [Nurse Practitioner] - (Claudine Mcdonough's Office has your information and will be calling you to schedule a follow up appointment. You can call them if you have any questions or concerns. Thank you.) Discharge Diet: Advance as tolerated, Cardiac, Low Salt and Low Cholesterol Discharge Activity: Limit activity as instructed and As per cardiac/pulm rehab instructions Patient Instructions: Furosemide (By mouth) (Lasix), Prednisone (By mouth), Aspirin (By mouth), Azithromycin (By mouth), Atorvastatin (By mouth) (Lipitor, Atorvaliq), Clopidogrel (By mouth) (Plavix), Heart Failure (DC), Coronary Angioplasty (DC), CHF Stoplight, Opioid Safety, Post Angiogram Home Care Instructions, Post Heart Attack Stoplight Activity Restrictions/Additional Instructions: 1. No strenuous activity for 3 weeks 2. Take medications as prescribed. 3. Cardiology and primary care provider follow-up 4. Discuss pros and cons of continued unopposed estrogen replacement with outpatient prescriber. 5. Discontinue all NSAIDs including ibuprofen. May use [id number]-[id number] Tylenol as replacement. 6. Stop smoking. Discharge Attestations Time Spent in Discharge Care*: greater than 30 min Quality Metrics Clinical Quality Measures [ No reported AMI, CVA or VTE this stay] Coding Level of Care Code Acute Code for [facility] Fwd Diagnoses Acute non-ST elevation myocardial infarction (NSTEMI) I21.4 Heavy cigarette smoker (20-39 per day) F17.210 Acute diastolic heart failure I50.31 Acute exacerbation of chronic obstructive pulmonary disease J44.1
== END 2024-03-01 15:05 | disposition home or self-care (01) | DRG 321 ==
LOC: ER 21:11 → CSU 21:49
PROVIDERS: Internal Medicine; Internal Medicine Cardiovascular Disease; Admitting Provider Internal Medicine; Emergency Provider Emergency Medicine; PCP Family Medicine; Visit Provider Internal Medicine
PROC: 4A023N7 Measurement of Cardiac Sampling and Pressure, Left Heart, Percutaneous Approach (ICD-10-PCS; principal; 2024-02-28 11:00)
DX: I21.4 Non-ST elevation (NSTEMI) myocardial infarction (principal); I50.31 Acute diastolic (congestive) heart failure; J44.1 Chronic obstructive pulmonary disease with (acute) exacerbation; Z87.891 Personal history of nicotine dependence; E78.5 Hyperlipidemia, unspecified; K21.9 Gastro-esophageal reflux disease without esophagitis; F32.A Depression, unspecified; Z66 Do not resuscitate; G89.29 Other chronic pain; M54.9 Dorsalgia, unspecified
CPT/HCPCS: 36415; 36600; 71045; 80051; 80053; 80061; 80069; 82330; 82805; 83036; 83605; 83735; 83880; 84145; 84443; 84484; 85025; 85347; 85610; 85730; 87426; 87804; 93005; 93306; 93458; 93571; 94640; 94760; 96365; 96372; 96374; 96375; 96376; 97110; 97162; 97530; 99152; 99153; 99285; C1725; C1760; C1769; C1874; C1887; C1894; C9113; C9600; G0269; J0456; J1644; J1650; J1885; J1940; J2250; J2919; J3010; J3490; J7030; J7050; Q9967

== ENCOUNTER 2024-03-15 12:08 | Inpatient (IN) | payer MEDICARE, SELFPAY ==
[2024-03-15] VITALS (14 sets, daily range): BP systolic 90–126; BP diastolic 54–72; PULSE 79–123; RESP 16–20; TEMP 36.5–36.6; O2SAT 96–100; BMI 16.2
--- NOTE | 2024-03-15 12:10 | ECG_ITS ---
[facility] Test Date: 2024-03-15 Pat Name: Shayy Mann Department: Room: Gender: Female Exhauster: : 1955 Requested By: Jayme Hopson Order Number: [id number] Sandra MD: Rina Kay M.D. Measurements Intervals [place] Rate: 120 P: 86 MS: 108 QRS: 96 QRSD: 82 T: 77 QT: 335 QTc: 475 Interpretive Statements SINUS TACHYCARDIA WITH SHORT MS INTERVAL BORDERLINE RIGHT AXIS DEVIATION [QRS AXIS > 90] NONSPECIFIC ST & T-WAVE ABNORMALITY ABNORMAL RHYTHM ECG Compared to ECG 02/28/2024 00:18:12 Short MS interval now present T-wave abnormality now present Sinus rhythm no longer present Myocardial infarct finding no longer present Electronically Signed On 03-15-2024 19:03:22 CDT by Rina Kay M.D. [id number]
--- NOTE | 2024-03-15 12:35 | W.ED.CHESTPA ---
HPI - Chest Pain General: Chief Complaint: Chest Pain Stated Complaint: Chest Pains Time Seen by Provider: 03/15/24 12:30 Source: patient Mode of arrival: ambulatory History of Present Illness: 68-year-old female who presents to the emergency room with complaint of chest pain and shortness of breath. She states that any activity she gets short of breath is on the left side of her chest radiates up into her shoulder. She was followed up with her primary care today and referred to the emergency room. She was seen last month with episodes of chest pain and had a stent placed. She states she is intermittently had chest pain since she was discharged home on 527. complaint: chest pain Onset (ago): minute(s) Timing of current episode: episodic Onset: during exertion Pain location: left chest Pain radiation: none Severity: moderate Quality: aching and heaviness Relieving factors: nothing Exacerbating factors: nothing Associated symptoms: Deny abdominal pain, diaphoresis, dyspnea, fever(s), leg edema, nausea, palpitations, sense of impending doom, syncope or vomiting Treatment prior to arrival: none Review of Systems Const: Denies: fever(s), chills or diaphoresis Card: Denies: chest pain, palpitations or syncope Resp: Denies: dyspnea GI: Denies: abdominal pain, nausea or vomiting : Denies: dysuria, urinary frequency or urinary urgency Musc: Denies: neck pain or back pain Skin/Breast: Denies: rash PFSH ED PFSH: Medical History Acute diastolic heart failure Acute exacerbation of chronic obstructive pulmonary disease Acute non-ST elevation myocardial infarction (NSTEMI) Osteopenia History of colon polyps hyperplastic polyp x 2 in 2021 Depression Chronic back pain Weight loss, unintentional COPD (chronic obstructive pulmonary disease) Hyperlipidemia GERD (gastroesophageal reflux disease) Surgical History History of cataract extraction with lens replacement History of esophageal surgery benign polyp removed History of bunionectomy of both great toes History of hysterectomy still has one ovary History of cholecystectomy History of fusion of cervical spine History of lumbar spinal fusion Family History Other Adopted Social History Smoking and tobacco/nicotine status: current every day tobacco/nicotine user cigarettes Packs smoked per day: 0.5 [ Other cigarette details: started at 14; currently smokes 0.5 to 1 pack daily] Alcohol intake: current Alcohol intake frequency: holidays/special occasions only Substance/Drug Use: never Adopted: Yes Household members: spouse Marital status: Number of children: 1 Number of grandchildren: 2 Current occupational status: retired 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 [employer] Physical Exam Const: COMMON NORMALS: no acute distress GENERAL APPEARANCE: cooperative and comfortable ORIENTATION/CONSCIOUSNESS: Yes awake, Yes oriented to person, Yes oriented to place and Yes oriented to time HENMT: COMMON NORMALS: normocephalic, atraumatic and hearing grossly normal bilaterally HEAD & SCALP: normocephalic and atraumatic Resp: COMMON NORMALS: normal respiratory effort, No retractions, No use of accessory muscles and clear to auscultation bilaterally AUSCULTATION: clear to auscultation bilaterally Cardio: COMMON NORMALS: regular rate, regular rhythm and No murmurs present (Cardio) RATE: regular rate RHYTHM: regular rhythm GI: COMMON NORMALS: Soft to palpation and No hepatosplenomegaly present AUSCULTATION: Yes normoactive bowel sounds PALPATION: Yes Soft to palpation, No Tenderness to palpation present (GI), No Guarding due to palpation present (GI) and Yes No hepatosplenomegaly present Extremity: COMMON NORMALS: normal to inspection, capillary refill normal, no clubbing, cyanosis or edema, no calf tenderness and no pedal edema Neuro: SENSORIUM/ORIENTATION: Yes oriented to person, Yes oriented to place and Yes oriented to time Skin: COMMON NORMALS: no rashes or lesions noted GENERAL SKIN EXAM: no rashes or lesions noted Course Vital Signs: Vital signs: Vital Signs Temperature 97.7 F 03/15/24 12:16 Pulse Rate 104 H 03/15/24 17:28 Respiratory Rate 18 03/15/24 16:33 Blood Pressure 96/62 03/15/24 17:28 Pulse Oximetry 100 03/15/24 17:28 Oxygen Delivery Me thod Room Air 03/15/24 17:28 MDM - Chest Pain Medical Decision Making Patient's hemoglobin is dropped a point half in the last week since starting the Plavix she has markedly heme positive stools or melanic maroonish color on exam. She states she had a colonoscopy done a couple of years ago but on exam I was able to feel what feels like a stricture in the rectum and may just be she has short rectal vault and a sharp sigmoid flexure. CT did not show any masses. Will admit to the hospitalist consult GI patient given IV Protonix. Per surgery he can have clear liquid diet. Discussed with hospitalist. Orders written. Medical Records I reviewed the patient's medical records. Lab Data I reviewed the patient's lab results. 03/15/24 12:30 03/15/24 12:30 Radiology Impressions Chest X-Ray 03/15/24 12:42 IMPRESSION: No acute findings. Chest CTA 03/15/24 15:12 IMPRESSION: There are no acute concerning abnormalities. No significant change when compared with 09/15/2023. Abdomen/Pelvis CT 03/15/24 16:34 IMPRESSION: Findings are suggestive of small bowel enteritis. There is stool throughout colon.Clinical correlation is advised. COMMENTS: Consistent with the [employer]'s Incidental Findings Committee white paper (J Am Agusto Radiol 2018): Any incidental renal lesion less than 1 cm or classified as too small to characterize, or any incidental cystic renal lesion characterized as simple-appearing, is likely benign. No follow-up imaging is recommended for these lesions per consensus recommendations based on imaging criteria. Laboratory Results WBC 12.60 10^3/uL (3.29-11.43) H 03/15/24 12:30 RBC 3.33 10^6/uL (3.85-5.65) L 03/15/24 12:30 Hgb 10.30 g/dL (11.27-16.99) L 03/15/24 12:30 Hct 31.1 % (36-47) L 03/15/24 12:30 MCV 93.4 fl (85-98) 03/15/24 12:30 MCH 30.9 pg (27-33) 03/15/24 12:30 MCHC 33.1 g/dL (30-55) 03/15/24 12:30 RDW 13.1 % (12.1-15.1) 03/15/24 12:30 Plt Count 374 10^3/cmm (157-399) 03/15/24 12:30 MPV 8.9 fL (7.4-10.4) 03/15/24 12:30 Neut % (Auto) 83.9 % 03/15/24 12:30 Lymph % (Auto) 9.2 % 03/15/24 12:30 Baxter % (Auto) 5.2 % 03/15/24 12:30 Eos % (Auto) 0.6 % 03/15/24 12:30 Baso % (Auto) 0.5 % 03/15/24 12:30 Neut # (Auto) 10.57 10^3/uL (1.8-7.7) H 03/15/24 12:30 Lymph # (Auto) 1.2 10^3/uL (0.8-4.8) 03/15/24 12:30 Baxter # (Auto) 0.7 10^3/uL (0.2-0.9) 03/15/24 12:30 Eos # (Auto) 0.1 10^3/uL (0.0-0.8) 03/15/24 12:30 Baso # (Auto) 0.1 10^3/uL (0.0-0.1) 03/15/24 12:30 Nucleated RBC % (auto) 0 % 03/15/24 12: Nucleated RBCs # 0.0 /100WBC 03/15/24 12:30 D-Dimer 0.36 ug/mLFEU (0-0.59) 03/15/24 12:30 Sodium 136 mmol/L (136-145) 03/15/24 12:30 Potassium 3.8 mmol/L (3.5-5.1) 03/15/24 12:30 Chloride 101 mmol/L (98-107) 03/15/24 12:30 Carbon Dioxide 21 mmol/L (22-29) L 03/15/24 12:30 Anion Gap 17.8 (5-19) 03/15/24 12:30 BUN 19 mg/dL (8-23) 03/15/24 12:30 Creatinine 0.9 mg/dL (0.5-0.9) 03/15/24 12:30 GFR Calculation 61.9 mL/min (90-130) L 03/15/24 12:30 Glucose 145 mg/dL (65-115) H 03/15/24 12:30 Calculated Osmolality 287 mOsm/kg (285-295) 03/15/24 12:30 Calcium 8.9 mg/dL (8.5-10.5) 03/15/24 12:30 Total Bilirubin 0.4 mg/dL (0.15-1.2) 03/15/24 12:30 AST 36 U/L (0-32) H 03/15/24 12:30 ALT 28 U/L (0-33) 03/15/24 12:30 Alkaline Phosphatase 76 U/L (35-105) 03/15/24 12:30 Troponin T Baseline 20 ng/L (0-10) H 03/15/24 12:30 Troponin T 120 Minute 16.67 ng/L (0-10) H 03/15/24 15:42 Delta Troponin T -3.33 ABS# (0-10) L 03/15/24 15:42 NT-Pro-B Natriuret Pep 287 pg/mL (0-125) H 03/15/24 12:30 Total Protein 6.2 g/dL (6.6-8.7) L 03/15/24 12:30 Albumin 4.2 g/dL (3.5-5.2) 03/15/24 12:30 Globulin 2.0 g/dL (1.3-4.6) 03/15/24 12:30 All radiology interpretation(s) finalized by discharge Discharge Plan Discharge Patient Disposition: Admitted As Inpatient Clinical Impression: Acute upper GI bleed, COPD (chronic obstructive pulmonary disease) Condition: Stable Prescriptions: No Action albuterol sulfate 90 mcg/actuation HFA aerosol inhaler 2 puff inhalation 6XD PRN (Reason: shortness of breath or wheezing) 30 Days Qty: 17 3RF lidocaine 5 % adhesive patch,medicated 1 patch topical DAILY PRN (Reason: pain) Qty: 30 0RF Rx Instructions: leave on most painful area for up to 12 hrs ipratropium-albuterol 0.5 mg-3 mg(2.5 mg base)/3 mL solution for nebulization 3 ml inhalation Q6H PRN (Reason: COPD J44.9) Qty: 180 6RF Breztri Aerosphere 160-9-4.8 mcg/actuation HFA aerosol inhaler 2 inh inhalation BID 30 Days Qty: 10.7 6RF duloxetine [Cymbalta] 20 mg capsule,delayed release(DR/EC) 20 mg PO BID Qty: 60 3RF acetaminophen 500 mg Tablet 1,000 mg PO Q6H PRN (Reason: Pain) atorvastatin 40 mg tablet 40 mg PO BID lamotrigine 150 mg tablet 150 mg PO DAILY baclofen 5 mg tablet 5 mg PO BID estradiol 1 mg tablet 1 mg PO DAILY clopidogrel 75 mg Tablet 75 mg PO DAILY Qty: 90 3RF aspirin 81 mg Tablet,Delayed Release (Dr/Ec) 81 mg PO DAILY Qty: 90 3RF furosemide 20 mg Tablet 20 mg PO DAILY@0800 30 Days Qty: 30 0RF nitroglycerin 0.4 mg tablet, sublingual 0.4 mg sublingual Q5M PRN (Reason: chest pain) Qty: 90 0RF Rx Instructions: do not exceed 3 doses per episode Referrals: Peyton Gibson MD [Primary Care Provider] - Coding Level of Care Code ED 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
--- NOTE | 2024-03-15 12:42 | XRR_ITS ---
PROCEDURE INFORMATION: Exam: XR Chest Exam date and time: 03/15/2024 12:45 PM Age: 68 years old Clinical indication: Cough and dyspnea; Additional info: Dyspnea/cough TECHNIQUE: Imaging protocol: Radiologic exam of the chest. Views: 1 view. COMPARISON: CR (CHEST, ) 02/27/2024 7:05 PM FINDINGS: Lungs: Unremarkable. No consolidation. Pleural spaces: Unremarkable. No pleural effusion. No pneumothorax. Heart/Mediastinum: Unremarkable. No cardiomegaly. Bones/joints: Unremarkable. XR/XR chest 1V portable [id number] IMPRESSION: No acute findings.
[2024-03-15 12:43] LABS: Basophils # 0.1 10^3/uL (0.0-0.1); Basophils % 0.5 %; Eosinophils # 0.1 10^3/uL (0.0-0.8); Eosinophils % 0.6 %; Hematocrit 31.1 % (36-47); Lymphocytes # 1.2 10^3/uL (0.8-4.8); Lymphocytes % 9.2 %; Mean Corpuscular HGB Conc 33.1 g/dL (30-55); Mean Corpuscular Hemoglobin 30.9 pg (27-33); Mean Corpuscular Volume 93.4 fl (85-98); Mean Platelet Volume 8.9 fL (7.4-10.4); Monocytes # 0.7 10^3/uL (0.2-0.9); Monocytes % 5.2 %; Neutrophils # 10.57 10^3/uL (1.8-7.7); Neutrophils % 83.9 %; Nucleated Red Blood Cells % 0 %; Platelet Count 374 10^3/cmm (157-399); Red Blood Count 3.33 10^6/uL (3.85-5.65); Red Cell Distribution Width 13.1 % (12.1-15.1)
[2024-03-15 12:56] LABS: Troponin(5th) Baseline 20 ng/L (0-10)
[2024-03-15 13:05] LABS: Alanine Aminotransferase 28 U/L (0-33); Albumin Level 4.2 g/dL (3.5-5.2); Alkaline Phosphatase 76 U/L (35-105); Aspartate Amino Transferase 36 U/L (0-32); Blood Urea Nitrogen 19 mg/dL (8-23); Calcium 8.9 mg/dL (8.5-10.5); Carbon Dioxide 21 mmol/L (22-29); Chloride 101 mmol/L (98-107); Creatinine Clr Calc Pharmacy 33.3191; Glomerular Filtration Rate 61.9 mL/min (90-130); Glucose 145 mg/dL (65-115); Osmolality Calculated 287 mOsm/kg (285-295); Sodium 136 mmol/L (136-145); Total Bilirubin 0.4 mg/dL (0.15-1.2); Total Protein 6.2 g/dL (6.6-8.7)
[2024-03-15 13:07] LABS: Anion Gap 17.8 (5-19); Potassium 3.8 mmol/L (3.5-5.1)
--- NOTE | 2024-03-15 14:30 | ECG_ITS ---
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 Measurements Intervals [place] Rate: 90 P: 85 OR: 131 QRS: 92 QRSD: 88 T: 83 QT: 362 QTc: 445 Interpretive Statements SINUS RHYTHM BORDERLINE RIGHT AXIS DEVIATION [QRS AXIS > 90] Compared to ECG 03/15/2024 12:10:21 Sinus tachycardia no longer present Short OR interval no longer present T-wave abnormality no longer present Electronically Signed On 03-15-2024 19:08:23 CDT by Rina Kay M.D. [email or web address] general [email or web address] health dayton.[email or web address]/[id number]
--- NOTE | 2024-03-15 15:12 | CTR_ITS ---
PROCEDURE INFORMATION: Exam: CTA Chest With Contrast Exam date and time: 03/15/2024 3:21 PM Age: 68 years old Clinical indication: Shortness of breath; Prior surgery; Surgery date: <1 month; Surgery type: 03/06/24 stents; Additional info: Dyspnea TECHNIQUE: Imaging protocol: Computed tomographic angiography of the chest with contrast. Exam focused on the arteries. 3D rendering (Not supervised by radiologist): MIP and/or 3D reconstructed images were created by the technologist. Radiation optimization: All CT scans at this facility use at least one of these dose optimization techniques: automated exposure control; mA and/or kV adjustment per patient size (includes targeted exams where dose is matched to clinical indication); or iterative reconstruction. Contrast material: OMNI 350; Contrast volume: 62 ml; Contrast route: INTRAVENOUS (IV); COM[id number] 09/15/2023 10:39 AM RADIATION DOSE METRICS: Total DLP (mGy-cm): 126.93 FINDINGS: Pulmonary arteries: Normal. No pulmonary emboli. Aorta: Unremarkable. No aortic aneurysm. No aortic dissection. Lungs: There is a 0.3 cm nodule in the left upper lobe on series 4, image 23, 0.4 cm nodule in the left lower lobe on image 50 and mild ground-glass opacification in the left lower lobe on image 36 which are unchanged. No new areas of lung consolidation. Pleural spaces: Unremarkable. No pneumothorax. No pleural effusion. Heart: There is coronary artery calcification. No cardiomegaly. No pericardial effusion. Lymph nodes: Unremarkable. No enlarged lymph nodes. Bones/joints: Degenerative change is identified in the spine. There is no evidence for acute fracture or malalignment. Soft tissues: Unremarkable. CT/CT angio chest PE protcl [id number] IMPRESSION: There are no acute concerning abnormalities. No significant change when compared with 09/15/2023.
[2024-03-15] MEDS: iohexol 350 mg/mL 500 mL Btl (per mL) IV ×2 (15:25→16:48)
[2024-03-15] MEDS: ipratropium-albuterol 3 mL Neb INHALATION (15:34)
[2024-03-15] MEDS: dexamethasone 10 mg/mL INJ IM (15:49)
[2024-03-15 16:07] LABS: Troponin 5 2HR 16.67 ng/L (0-10)
[2024-03-15 16:09] LABS: Troponin 5 2HR Delta -3.33 ABS# (0-10)
[2024-03-15 16:13] LABS: D Dimer 0.36 ug/mLFEU (0-0.59)
[2024-03-15 16:28] LABS: NT Pro B Type Natriuretic Pept 287 pg/mL (0-125)
--- NOTE | 2024-03-15 16:34 | CTR_ITS ---
PROCEDURE INFORMATION: Exam: CT Abdomen And Pelvis With Contrast Exam date and time: 03/15/2024 4:46 PM Age: 68 years old Clinical indication: Screening exam; Other: Gi bleed; Prior surgery; Surgery date: 6+ months; Surgery type: Back TECHNIQUE: Imaging protocol: Computed tomography of the abdomen and pelvis with contrast. Contrast material: OMNI 350; Contrast volume: 80 ml; Contrast route: INTRAVENOUS (IV); COMPARISON: CT angio chest PE protcl [id number] 03/15/2024 3:21 PM RADIATION DOSE METRICS: Total DLP (mGy-cm): 287.2 FINDINGS: Liver: Findings consistent with fatty infiltration of the liver are identified. Gallbladder and bile ducts: There has been a cholecystectomy. Pancreas: Normal. No ductal dilation. Spleen: Normal. No splenomegaly. Adrenal glands: Normal. No mass. Kidneys and ureters: There is a 1.8 cm cyst in the mid right kidney. No hydronephrosis. Stomach and bowel: There are air-fluid levels in mildly dilated small bowel with a maximal diameter of 3 cm. No definite bowel wall thickening or pneumatosis. There is stool throughout colon. Appendix: No evidence of appendicitis. Intraperitoneal space: Unremarkable. No free air. No significant fluid collection. Vasculature: There is vascular atherosclerotic calcification. Lymph nodes: Unremarkable. No enlarged lymph nodes. Urinary bladder: Unremarkable as visualized. Reproductive: There has been hysterectomy. Bones/joints: There is postsurgical change at L4 and L5. Degenerative change is identified in the spine. Soft tissues: Unremarkable. CT/CT abdomen pelvis w con* [id number] IMPRESSION: Findings are suggestive of small bowel enteritis. There is stool throughout colon.Clinical correlation is advised. COMMENTS: Consistent with the [place] [employer]'s Incidental Findings Committee white paper (J Am Agusto Radiol 2018): Any incidental renal lesion less than 1 cm or classified as too small to characterize, or any incidental cystic renal lesion characterized as simple-appearing, is likely benign. No follow-up imaging is recommended for these lesions per consensus recommendations based on imaging criteria.
[2024-03-15] MEDS: pantoprazole 40 mg SDV 80 MG IVP (17:13)
[2024-03-15] MEDS: sodium chloride 0.9% 1,000 ML 999 ML IV (17:13)
--- NOTE | 2024-03-15 17:35 | P.HP_ITS ---
Providers/Chief Complaint 2 Primary Care Provider: Peyton Gibson MD Chief Complaint: Chest Pains History of Present Illness Shayy Mann is a 68 year old female was recently discharged from the hospital after PCI, she was discharged on steroids for COPD along aspirin and Plavix Patient is presenting today with chief complaint of shortness of breath not able to lay flat and abdominal pain. Patient is stating that since her stent placement she has not been able to lay flat, she has not noticed any chest pain but endorses palpitations, stating that her heart rate would go fast, she has not noticed any fever. Of note, patient has been experiencing loose stools, she has been noticing dark-colored stools which she is describing is that dark brown she has not noticed any fresh blood Per rectum. In 2021 patient had EGD which showed duodenal ulcer, colonoscopy was unremarkable as per the patient. Patient stating that she had these tests done in [place] before she moved to [place]. She has been compliant with her medications no active chest pain she is hypotensive, hemoglobin is stable CT abdomen pelvis consistent with enteritis and constipation Review of Systems 2 Const: Denies: fever(s) Eyes: Denies: change in vision ENMT: Denies: throat pain Card: Denies: chest pain Resp: Reports: dyspnea GI: Reports: nausea Medications/Allergies Home Medications Medication Instructions Recorded Confirmed Last Taken Type albuterol sulfate 90 mcg/actuation 2 puff inhalation 6XD PRN 09/19/22 03/15/24 Unknown Rx aerosol inhaler shortness of breath or wheezing 30 days #17 grams lidocaine 5 % topical patch 1 patch topical DAILY PRN pain #30 04/04/23 03/15/24 Unknown Rx ea ipratropium 0.5 mg-albuterol 3 mg 3 ml inhalation Q6H PRN COPD J44.9 06/20/23 03/15/24 Unknown Rx (2.5 mg base)/3 mL nebulization #180 mL soln budesonide 160 mcg-glycopyr 9 2 inh inhalation BID 30 days #10.7 02/02/24 03/15/24 03/14/24 Rx mcg-formot 4.8 mcg/actuation HFA grams inhaler (Breztri Aerosphere) duloxetine 20 mg capsule,delayed 20 mg PO BID #60 caps 02/17/24 03/15/24 03/15/24 Rx release (Cymbalta) estradiol 1 mg tablet 1 mg PO DAILY 02/27/24 03/15/24 Unknown History aspirin 81 mg tablet,delayed 81 mg PO DAILY #90 tabs 03/01/24 03/15/24 03/15/24 Rx release clopidogrel 75 mg tablet 75 mg PO DAILY #90 tabs 03/01/24 03/15/24 03/15/24 Rx furosemide 20 mg tablet 20 mg PO DAILY@0800 30 days #30 03/01/24 03/15/24 03/15/24 Rx tabs nitroglycerin 0.4 mg sublingual 0.4 mg sublingual Q5M PRN chest 03/01/24 03/15/24 Unknown Rx tablet pain #90 tabs acetaminophen 500 mg tablet 1,000 mg PO Q6H PRN Pain 03/15/24 03/15/24 Unknown History atorvastatin 40 mg tablet 40 mg PO BID 03/15/24 03/15/24 03/15/24 History baclofen 5 mg tablet 5 mg PO BID 03/15/24 03/15/24 03/15/24 History lamotrigine 150 mg tablet 150 mg PO DAILY 03/15/24 03/15/24 03/15/24 History Allergies Allergy/AdvReac Type Severity Reaction Status Date / Time gabapentin Allergy Intermediate Unknown Verified 02/27/24 18:25 Opioids - Morphine Analogues Allergy Unknown Unknown Verified 02/27/24 18:25 pregabalin [From Lyrica] Allergy Unknown Unknown Verified 02/27/24 18:25 tramadol Allergy Unknown Unknown Verified 02/27/24 18:25 venlafaxine Allergy tremor Verified 02/27/24 18:25 PFSH Acute 2 PFSH: Medical History Acute diastolic heart failure Acute exacerbation of chronic obstructive pulmonary disease Acute non-ST elevation myocardial infarction (NSTEMI) Osteopenia History of colon polyps hyperplastic polyp x 2 in 2021 Depression Chronic back pain Weight loss, unintentional COPD (chronic obstructive pulmonary disease) Hyperlipidemia GERD (gastroesophageal reflux disease) Surgical History History of cataract extraction with lens replacement History of esophageal surgery benign polyp removed History of bunionectomy of both great toes History of hysterectomy still has one ovary History of cholecystectomy History of fusion of cervical spine History of lumbar spinal fusion Family History Other Adopted Social History Smoking and tobacco/nicotine status: current every day tobacco/nicotine user cigarettes Packs smoked per day: 0.5 [ Other cigarette details: started at 14; currently smokes 0.5 to 1 pack daily] Alcohol intake: current Alcohol intake frequency: holidays/special occasions only Substance/Drug Use: never Adopted: Yes Household members: spouse Marital status: Number of children: 1 Number of grandchildren: 2 Current occupational status: retired 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 [employer] Last Vital Signs Temp 97.7 F 03/15/24 12:16 Pulse 104 H 03/15/24 17:28 Resp 18 03/15/24 16:33 BP 96/62 03/15/24 17:28 Pulse Ox 100 03/15/24 17:28 O2 Del Method Room Air 03/15/24 17:28 Weight last 48 hrs Weight 36.287 kg Physical Exam 2 Narrative: Awake and alert Nonfocal neuroexam Euvolemic Cachectic Malnourished No signs of heart failure Currently on room air Hypotensive S1, S2 sinus rhythm Anxious appearing Nonfocal neuroexam Data 03/15/24 12:30 03/15/24 12:30 A&P Assessment and plan (1) Depression: (2) Exertional dyspnea: (3) Weight loss, unintentional: (4) GERD (gastroesophageal reflux disease): (5) Acute upper GI bleed: (6) Duodenal ulcer: (7) Smoker: Plan Exertional dyspnea Diastolic CHF without significant exacerbation BNP less than 400 Clinically does not look fluid overloaded Patient recently quit smoking Has underlying COPD I do believe there is mild exacerbation of COPD underlying She is afebrile No significant wheezing patient has received treatment in the ER reportedly she had wheezing on arrival Dark-colored stools, melanotic Reported by the ER staff I will start patient on sucralfate and Protonix Considering recent PCI we cannot hold aspirin and Plavix which I would continue for now Her hemoglobin is stable Asymptomatic low blood pressure Monitor closely for now Continue IV fluids Clear liquid for now n.p.o. at midnight Dr. Agarwal consulted from the ER Patient may need outpatient EGD in case hemoglobin remained stable by tomorrow Patient is full code DVT prophylaxis: SCDs Stating that she recently quit smoking She is not using oxygen at home Attestations 2 Medical Necessity Statement*: Anticipate discharge within 48 hours Diagnoses Depression F32.A Exertional dyspnea R06.09 Weight loss, unintentional R63.4 GERD (gastroesophageal reflux disease) K21.9 Acute upper GI bleed K92.2 Duodenal ulcer K26.9 Smoker F17.200
--- NOTE | 2024-03-15 18:24 | ECG_ITS ---
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 Measurements Intervals [place] Rate: 87 P: 88 NJ: 108 QRS: 91 QRSD: 89 T: 82 QT: 382 QTc: 462 Interpretive Statements SINUS RHYTHM WITH SHORT [place] INTERVAL BORDERLINE RIGHT AXIS DEVIATION [QRS AXIS > 90] Compared to ECG 03/15/2024 14:29:26 Short [place] interval now present Electronically Signed On 03-15-2024 19:09:22 CDT by Rina Kay M.D. [email or web address] [facility] [email or web address] [facility].[employer]/store/OM/[id number]
[2024-03-15] MEDS: duloxetine 20 mg Capsule PO (20:36)
[2024-03-15] MEDS: lactulose oral liq 20 gm/30 mL UDC PO (20:36)
[2024-03-15] MEDS: atorvastatin 40 mg Tablet PO (20:36)
[2024-03-15] MEDS: magnesium citrate Btl 296 mL PO (20:37)
[2024-03-15] MEDS: sucralfate 1 gm/10 mL Oral Liq UDC PO (20:37)
[2024-03-15] MEDS: pantoprazole 40 mg SDV IVP (20:37)
[2024-03-15] MEDS: sodium chloride 0.9% 1,000 ML 75 ML IV (20:38)
[2024-03-15] MEDS: piperacillin-tazobactam 3.375 GM in sodium chloride 0.9% (plus) 50 ML IV (20:39)
[2024-03-15] MEDS: acetaminophen 500 mg Tablet 1000 MG PO (21:04)
[2024-03-15 22:54] LABS: Estmated Average Glucose 111; Hemoglobin A1C 5.5 % (4.0-6.0)
[2024-03-16] VITALS (23 sets, daily range): BP systolic 94–146; BP diastolic 42–78; PULSE 79–103; RESP 14–20; TEMP 36.5–37.2; O2SAT 96–100; BMI 17.0
[2024-03-16] MEDS: piperacillin-tazobactam 3.375 GM in sodium chloride 0.9% (plus) 50 ML IV ×2 (05:19→15:10)
[2024-03-16 06:00] LABS: Basophils % 0.1 %; Hematocrit 24.2 % (36-47); Lymphocytes # 0.5 10^3/uL (0.8-4.8); Mean Corpuscular HGB Conc 32.2 g/dL (30-55); Mean Corpuscular Hemoglobin 30.8 pg (27-33); Mean Corpuscular Volume 95.7 fl (85-98); Mean Platelet Volume 9.1 fL (7.4-10.4); Monocytes # 0.5 10^3/uL (0.2-0.9); Neutrophils # 8.54 10^3/uL (1.8-7.7); Neutrophils % 89.5 %; Nucleated Red Blood Cells % 0 %; Platelet Count 284 10^3/cmm (157-399); Red Blood Count 2.53 10^6/uL (3.85-5.65); Red Cell Distribution Width 13.5 % (12.1-15.1); White Blood Count 9.55 10^3/uL (3.29-11.43)
[2024-03-16 06:18] LABS: Anion Gap 13.9 (5-19); Blood Urea Nitrogen 13 mg/dL (8-23); Calcium 8.5 mg/dL (8.5-10.5); Carbon Dioxide 20 mmol/L (22-29); Chloride 106 mmol/L (98-107); Creatinine Clr Calc Pharmacy 46.5059; Glomerular Filtration Rate 98.8 mL/min (90-130); Glucose 117 mg/dL (65-115); Magnesium 2.9 mg/dL (1.7-2.3); Osmolality Calculated 283 mOsm/kg (285-295); Potassium 3.9 mmol/L (3.5-5.1); Sodium 136 mmol/L (136-145)
--- NOTE | 2024-03-16 06:49 | PC.NURSE ---
Patient completed mag citrate bowel prep, but only had one small loose black bowel movement.
[2024-03-16] MEDS: clopidogrel 75 mg Tablet PO (08:38)
[2024-03-16] MEDS: aspirin 81 mg EC Tablet PO (08:38)
[2024-03-16] MEDS: lamoTRIgine 100 mg Tablet 150 MG PO (08:38)
[2024-03-16] MEDS: duloxetine 20 mg Capsule PO ×2 (08:38→17:37)
[2024-03-16] MEDS: lactulose oral liq 20 gm/30 mL UDC PO (08:39)
[2024-03-16] MEDS: sucralfate 1 gm/10 mL Oral Liq UDC PO ×3 (08:39→20:53)
[2024-03-16] MEDS: atorvastatin 40 mg Tablet PO ×2 (08:39→17:37)
[2024-03-16] MEDS: sodium chloride 0.9% 1,000 ML 75 ML IV (08:41)
[2024-03-16] MEDS: pantoprazole 40 mg SDV IVP ×2 (08:49→17:38)
[2024-03-16] MEDS: albuterol 2.5 mg/3 mL Neb INHALATION (08:59)
[2024-03-16] MEDS: budesonide 0.5 mg/2 mL Neb INHALATION ×2 (08:59→20:26)
--- NOTE | 2024-03-16 09:24 | PC.CHAP ---
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 [] Patient/Family/Request visit [] Outpatient visit [] Follow-up visit [] Physician referral [] Code/Alert [x] Routine visit [] Staff referral [] Actively dying [] Patient sleeping [] Family support [] [] Out of room [] Palliative care [] [] Receiving care in room [] Pre-surgical visit [] Trauma [] Long length of stay [] ICU visit [] Other: Relational/Emotional Strength [x] Patient feels connected with others/family/visitors/staff [] Distress [] Loneliness/isolation [] Abandonment Spirituality of Patient [x] Person of [place] [] Attends Temple of their [place] [x] Believes in Prayer [] Reads Bible or Episcopal materials [] There are Spiritual issues to be addressed 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 Interventions [x] Prayer [] Active listening [] Non-anxious presence [x] Spiritual/emotional support [] Crisis/trauma care [] Spiritual counseling [] Bereavement support [] Provided bereavement packet [] Provided Bible/devotional materials [] Provided toy/stuffed animal, coloring book to patient or family member [] Provided Communion [] Anointing/Diagonal [] Salvation [x] Completed spiritual assessment [] Other: Impact on Illness or Injury [] Angry [] Fearful [] Anxious [] Often cries [] Exhaustion [] Unable to work [] Unable to attend christianity [] Unable to walk/stand [] Unable to read [] Unable to drive [] Unable to eat/drink [] Unable to sleep [] Unable to be with family [] Patient intubated [] Other: Summary Time spent with patient 5 min
[2024-03-16 09:57] LABS: Iron 33 ug/dL (37-145); Percent Saturation 9.7 % (20-50); Total Iron Binding Capacity 339 mcg/dl; Unsaturated Iron Binding 306 ug/dL (112-347)
[2024-03-16 10:10] LABS: Vitamin B12 341 pg/mL (232-1245)
[2024-03-16 10:50] LABS: Hematocrit 20.6 % (36-47)
--- NOTE | 2024-03-16 11:09 | P.PN_ITS ---
Subjective 2 Subjective: Hemoglobin dropped significantly Patient will need colonoscopy She will need bowel prep Will request 2 unit PRBC Had multiple bowel movement this morning, patient stating that she noticed dark brown stool color Vitals/I&O/Wt Last Vital Signs Temp 98 F 03/16/24 07:33 Pulse 90 03/16/24 09:02 Resp 16 03/16/24 09:02 BP 94/42 03/16/24 07:33 Pulse Ox 99 03/16/24 09:02 O2 Del Method Room Air 03/16/24 09:02 O2 Flow Rate 2 03/16/24 08:00 03/15/24 03/16/24 03/16/24 22:59 06:59 14:59 Intake Total 1360 / 1360 50 / 1410 953.75 / 953.75 Balance 1360 / 1360 50 / 1410 953.75 / 953.75 Weight last 48 hrs Weight 40.852 kg Weight 38.964 kg Weight 36.287 kg Physical Exam 2 Narrative: Pleasant cooperative Laying supine Blood pressure still in 90s Nonfocal neuroexam GCS 15 S1, S2 Abdomen soft Data 03/16/24 10:10 03/16/24 05:44 A&P Assessment and plan (1) Duodenal ulcer: (2) Acute upper GI bleed: (3) Dysphagia: (4) GERD (gastroesophageal reflux disease): (5) Weight loss, unintentional: Plan GI bleed Profuse drop in hemoglobin blood pressure 90/42mmhg Continue IV fluids Requested unit PRBC Will request CT abdomen pelvis with contrast to rule out active profuse GI bleed Acute GI blood loss anemia Low iron Normocytic anemia Recent PCI unfortunately at this point we are not able to hold off on aspirin and Plavix until we do EGD and colonoscopy Gastroenteritis: Continue Zosyn Constipation: Patient has had multiple bowel movements in the hospital Clear liquid diet today N.p.o. after midnight Plan for EGD and colonoscopy by tomorrow Attestations 2 Medical Necessity Statement*: Continue medical management Diagnoses Duodenal ulcer K26.9 Acute upper GI bleed K92.2 Dysphagia R13.10 GERD (gastroesophageal reflux disease) K21.9 Weight loss, unintentional R63.4
--- NOTE | 2024-03-16 11:11 | CTR_ITS ---
PROCEDURE INFORMATION: Exam: CTA Abdomen and Pelvis With Contrast Exam date and time: 03/16/2024 3:43 PM Age: 68 years old Clinical indication: Screening exam; Other screening; Purpose: Gi bleeding; Additional info: Gi bleed TECHNIQUE: Imaging protocol: Computed tomographic angiography of the abdomen and pelvis with contrast. Exam focused on the arteries. 3D rendering (Not supervised by radiologist): MIP and/or 3D reconstructed images were created by the technologist. Radiation optimization: All CT scans at this facility use at least one of these dose optimization techniques: automated exposure control; mA and/or kV adjustment per patient size (includes targeted exams where dose is matched to clinical indication); or iterative reconstruction. Contrast material: OMNI 350; Contrast volume: 100 ml; Contrast route: INTRAVENOUS (IV); COMPARISON: CT abdomen pelvis w con* [id number] 03/15/2024 4:46 PM RADIATION DOSE METRICS: Total DLP (mGy-cm): 184.39 FINDINGS: Lungs: Lung bases are clear. Aorta: There is moderate aortic atherosclerotic disease. There is no aortic dissection or aneurysm. Celiac trunk and mesenteric arteries: Inferior mesenteric artery is patent. Superior mesenteric artery and visible branches are patent. There is minimal calcific plaque at the origin of the superior mesenteric artery without significant stenosis. The celiac, common hepatic, and splenic arteries are patent. There is minimal calcific plaque was without stenosis at the celiac artery origin. Renal arteries: The right renal artery is widely patent and there is minimal calcific plaque at the origin. The left renal artery is widely patent and there is minimal calcific plaque at the origin. Right iliac arteries: Moderate calcific plaque in the right common and external iliac arteries with less than 50% stenosis. Right internal iliac artery is patent. Right femoral/popliteal arteries: Moderate calcific plaque in the right common femoral artery with 50-60% stenosis. Left iliac arteries: Moderate calcific plaque in the left common and external iliac arteries with less than 50% stenosis. Left internal iliac artery is patent. Left femoral/popliteal arteries: Moderate calcific plaque in the left common femoral artery with less than 50% stenosis. Liver: The liver is normal. Gallbladder and bile ducts: The gallbladder is absent. There is ectasia of the common bile duct and central intrahepatic ducts. Pancreas: There are scattered pancreatic parenchymal calcifications suggesting chronic pancreatitis. No sign of acute pancreatitis. No ductal dilation. Spleen: The spleen is unremarkable. Adrenal glands: Mild bilateral adrenal hypertrophy. Kidneys and ureters: There is multifocal right renal cortical scarring. The left kidney is morphologically normal. 3 mm nonobstructive stone in lower pole of the right kidney. No stones on the left. There is no hydronephrosis or ureteral dilation. Stomach and bowel: The stomach is nondistended, limiting assessment of wall thickness. The small bowel is nondilated. Fluid distension of distal small bowel is decreased since yesterday. The cecum and ascending colon is thin walled and fluid distended, containing air-fluid levels. The transverse and descending colon is predominantly gas distended, containing minimal fluid and demonstrating a thin wall. The sigmoid colon is tortuous, nondistended and fluid-filled. The rectum is distended and contains an air-fluid level. There is no pericolonic edema or wall thickening. No sign of active gastrointestinal bleeding. Appendix: The appendix is normal. Intraperitoneal space: There is no free air or significant intraperitoneal free fluid. Lymph nodes: There is no lymphadenopathy in the retroperitoneum, mesentery, pelvis or inguinal regions. Urinary bladder: The bladder is contrast filled. No focal filling defect or mass is visible in the bladder. Reproductive: The uterus is absent. There is no adnexal mass or large cyst. Bones/joints: Intact anterior fusion at L5-S1. There is moderate degenerative disease in the lower lumbar spine. The pelvis and hips are unremarkable. Soft tissues: The abdominal wall is intact. CT/CT angio abdomen pelvis [id number] IMPRESSION: 1. The site of gastrointestinal bleeding is not identified. No active arterial contrast extravasation is seen. CT is relatively insensitive for the detection of gastrointestinal bleeding compared to radiolabeled red blood cell scintigraphy. 2. Decreased fluid distension of distal small bowel and increased gas and fluid distension of the colon since 03/15/2024. Probable colonic ileus. No definitive sign of colitis. 3. Moderate aortoiliac atherosclerotic disease without hemodynamically significant stenosis or aneurysm. 4. No visceral arterial stenosis or occlusion. 5. Incidental findings above.
[2024-03-16 11:47] LABS: Ferritin 23 ng/mL (15-150)
--- NOTE | 2024-03-16 14:35 | P.CONIM_ITS ---
Providers/Reason For Consult 2 Consulting Physician/Specialty*: Dr. Hang Agarwal, DO/General surgery Reason for Consult*: GI bleed Attending Physician: Danny Riojas MD Primary Care Provider: Peyton Gibson MD History of Present Illness History of Present Illness Shayy Mann is a 68 year old female who presented to the hospital with exertional dyspnea. She was recently in the hospital and received PCI and was put on Plavix. She has a history of duodenal ulcer several years ago, per the patient. She reports that she is having right lower quadrant abdominal pain to palpation. She is unsure if the pain radiates because she frequently has back pain. She denies any nausea or emesis. She denies seeing any blood in her stool, however the emergency room physician said there was swathi blood on exam. CT of the abdomen pelvis showed possible small bowel enteritis. CTA of the abdomen pelvis did not reveal any site of bleeding. Review of Systems 2 General: Reports: 10 or more systems reviewed and unremarkable except in HPI and below Medications/Allergies Home Medications Medication Instructions Recorded Confirmed Last Taken Type albuterol sulfate 90 mcg/actuation 2 puff inhalation 6XD PRN 09/19/22 03/15/24 Unknown Rx aerosol inhaler shortness of breath or wheezing 30 days #17 grams lidocaine 5 % topical patch 1 patch topical DAILY PRN pain #30 04/04/23 03/15/24 Unknown Rx ea ipratropium 0.5 mg-albuterol 3 mg 3 ml inhalation Q6H PRN COPD J44.9 06/20/23 03/15/24 Unknown Rx (2.5 mg base)/3 mL nebulization #180 mL soln budesonide 160 mcg-glycopyr 9 2 inh inhalation BID 30 days #10.7 02/02/24 03/15/24 03/14/24 Rx mcg-formot 4.8 mcg/actuation HFA grams inhaler (Breztri Aerosphere) duloxetine 20 mg capsule,delayed 20 mg PO BID #60 caps 02/17/24 03/15/24 03/15/24 Rx release (Cymbalta) estradiol 1 mg tablet 1 mg PO DAILY 02/27/24 03/15/24 Unknown History aspirin 81 mg tablet,delayed 81 mg PO DAILY #90 tabs 03/01/24 03/15/24 03/15/24 Rx release clopidogrel 75 mg tablet 75 mg PO DAILY #90 tabs 03/01/24 03/15/24 03/15/24 Rx furosemide 20 mg tablet 20 mg PO DAILY@0800 30 days #30 03/01/24 03/15/24 03/15/24 Rx tabs nitroglycerin 0.4 mg sublingual 0.4 mg sublingual Q5M PRN chest 03/01/24 03/15/24 Unknown Rx tablet pain #90 tabs acetaminophen 500 mg tablet 1,000 mg PO Q6H PRN Pain 03/15/24 03/15/24 Unknown History atorvastatin 40 mg tablet 40 mg PO BID 03/15/24 03/15/24 03/15/24 History baclofen 5 mg tablet 5 mg PO BID 03/15/24 03/15/24 03/15/24 History lamotrigine 150 mg tablet 150 mg PO DAILY 03/15/24 03/15/24 03/15/24 History Allergies Allergy/AdvReac Type Severity Reaction Status Date / Time gabapentin Allergy Intermediate Unknown Verified 02/27/24 18:25 Opioids - Morphine Analogues Allergy Unknown Unknown Verified 02/27/24 18:25 pregabalin [From Lyrica] Allergy Unknown Unknown Verified 02/27/24 18:25 tramadol Allergy Unknown Unknown Verified 02/27/24 18:25 venlafaxine Allergy tremor Verified 02/27/24 18:25 Current Medications Generic Name Dose Route Start Last Admin Trade Name Freq PRN Reason Stop Dose Admin Acetaminophen 1,000 mg 03/15/24 19:40 03/16/24 17:37 Acetaminophen 500 Mg Tablet PO 1,000 mg Q6H PRN Administration Pain Albuterol Sulfate 2.5 mg 03/15/24 19:44 03/17/24 08:01 Albuterol 2.5 Mg/3 Ml Neb INHALATION 2.5 mg Q4H.RESPIRATORY PRN Administration shortness of breath or wheezing Albuterol/Ipratropium 3 ml 03/15/24 19:40 03/16/24 20:26 Ipratropium-Albuterol 3 Ml Neb INHALATION 3 ml Q6H PRN Administration COPD J44.9 Aspirin 81 mg 03/16/24 09:00 03/16/24 08:38 Aspirin 81 Mg Ec Tablet PO 81 mg DAILY [facility] Administration Atorvastatin Calcium 40 mg 03/15/24 19:40 03/16/24 17:37 Atorvastatin 40 Mg Tablet PO 40 mg BID [facility] Administration Budesonide 0.5 mg 03/16/24 09:00 03/17/24 08:01 Budesonide 0.5 Mg/2 Ml Neb INHALATION 0.5 mg BID [facility] Administration Clopidogrel Bisulfate 75 mg 03/16/24 09:00 03/16/24 08:38 Clopidogrel 75 Mg Tablet PO 75 mg DAILY [facility] Administration Duloxetine HCl 20 mg 03/15/24 19:40 03/16/24 17:37 Duloxetine 20 Mg Capsule PO 20 mg BID [facility] Administration Sodium Chloride 1,000 mls @ 75 mls/hr 03/15/24 19:40 03/16/24 08:41 Sodium Chloride 0.9% IV 75 mls/hr .[id number] [facility] Administration Piperacillin Sod/Tazobactam 50 mls @ 12.5 mls/hr 03/15/24 20:00 03/17/24 09:08 Sod 3.375 gm/ Sodium Chloride IV 12.5 mls/hr Q8H [facility] Administration Lactulose 20 gm 03/15/24 19:40 03/16/24 08:39 Lactulose Oral Liq 20 Gm/30 Ml Udc PO 20 gm DAILY [facility] Administration Lamotrigine 150 mg 03/16/24 09:00 03/16/24 08:38 Lamotrigine 100 Mg Tablet PO 150 mg DAILY [facility] Administration Pantoprazole Sodium 40 mg 03/15/24 19:40 03/17/24 09:08 Pantoprazole 40 Mg Sdv IVP 40 mg BID [facility] Administration Sucralfate 1 gm 03/15/24 21:00 03/16/24 20:53 Sucralfate 1 Gm/10 Ml Oral Liq Udc PO 1 gm TID [facility] Administration PFSH Acute 2 PFSH: Medical History (Updated 03/17/24 @ 10:39 by Hang Agarwal DO) History of duodenal ulcer Acute diastolic heart failure Acute exacerbation of chronic obstructive pulmonary disease Acute non-ST elevation myocardial infarction (NSTEMI) Osteopenia History of colon polyps hyperplastic polyp x 2 in 2021 Depression Chronic back pain Weight loss, unintentional COPD (chronic obstructive pulmonary disease) Hyperlipidemia GERD (gastroesophageal reflux disease) Surgical History History of cataract extraction with lens replacement History of esophageal surgery benign polyp removed History of bunionectomy of both great toes History of hysterectomy still has one ovary History of cholecystectomy History of fusion of cervical spine History of lumbar spinal fusion Family History Other Adopted Social History Smoking and tobacco/nicotine status: current every day tobacco/nicotine user cigarettes Packs smoked per day: 0.5 [ Other cigarette details: started at 14; currently smokes 0.5 to 1 pack daily] Alcohol intake: current Alcohol intake frequency: holidays/special occasions only Substance/Drug Use: never Adopted: Yes Household members: spouse Marital status: Number of children: 1 Number of grandchildren: 2 Current occupational status: retired 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 Ears : Pinnae and external canal are normal. Hearing is normal. Eyes : PERRLA, Sclera and injection are normal. No conjunctival discharge. Nose : Mucous membranes are without erythema. Throat : buccal mucosa is normal, gums are without significant recession or hypertrophy. Lungs : Equal chest rise bilaterally, no use of accessory muscles, trachea is midline. Cor : Rate and rhythm are normal. Abdomen : Soft, ND, tender to palpation right lower quadrant, negative Rovsing's, no g/r/m Extremities : No edema, no cyanosis or clubbing, dorsalis pedis pulses are present bilaterally, non-tender to palpation of calves. Upper extremities are normal bilaterally. Back : non-tender to palpation, no CVA tenderness. Neuro : CN II - XII intact, Upper and lower extremities have equal and full strength Data 03/17/24 05:17 03/17/24 05:17 A&P Assessment and plan (1) GI bleed: (2) Abdominal pain: (3) Acute blood loss anemia: (4) History of duodenal ulcer: Plan IV Protonix twice daily Sucralfate Bowel prep Tomorrow for EGD and colonoscopy The risks and benefits of the procedure, including bleeding, infection, intestinal perforation requiring surgery, missed lesion were explained to the patient. The patient is understanding of the risks and wishes to proceed. Medical management per hospitalist Coding Level of Care Code 39301 Diagnoses GI bleed K92.2 Abdominal pain R10.9 Acute blood loss anemia D62 History of duodenal ulcer Z87.19
[2024-03-16] MEDS: iohexol 350 mg/mL 500 mL Btl (per mL) IV (15:49)
[2024-03-16] MEDS: acetaminophen 500 mg Tablet 1000 MG PO (17:37)
[2024-03-16] MEDS: bisacodyl 5 mg Tablet 40 MG PO (18:46)
[2024-03-16] MEDS: magnesium citrate Btl 296 mL PO (18:46)
[2024-03-16] MEDS: ipratropium-albuterol 3 mL Neb INHALATION (20:26)
[2024-03-16 22:34] LABS: Basophils % 0.2 %; Eosinophils % 0.2 %; Hematocrit 33.8 % (36-47); Lymphocytes # 0.9 10^3/uL (0.8-4.8); Lymphocytes % 8.9 %; Mean Corpuscular HGB Conc 32.8 g/dL (30-55); Mean Corpuscular Hemoglobin 30.5 pg (27-33); Mean Corpuscular Volume 92.9 fl (85-98); Mean Platelet Volume 9.1 fL (7.4-10.4); Monocytes # 0.5 10^3/uL (0.2-0.9); Monocytes % 4.7 %; Neutrophils # 8.92 10^3/uL (1.8-7.7); Neutrophils % 85.8 %; Nucleated Red Blood Cells % 0 %; Platelet Count 219 10^3/cmm (157-399); Red Blood Count 3.64 10^6/uL (3.85-5.65); Red Cell Distribution Width 15.2 % (12.1-15.1); White Blood Count 10.39 10^3/uL (3.29-11.43)
[2024-03-17] VITALS (17 sets, daily range): BP systolic 110–149; BP diastolic 61–82; PULSE 77–93; RESP 16–81; TEMP 36.1–36.8; O2SAT 93–100
[2024-03-17] MEDS: piperacillin-tazobactam 3.375 GM in sodium chloride 0.9% (plus) 50 ML IV ×3 (00:08→16:41)
[2024-03-17 05:44] LABS: Basophils % 0.4 %; Eosinophils # 0.1 10^3/uL (0.0-0.8); Eosinophils % 0.8 %; Hematocrit 33.2 % (36-47); Lymphocytes % 10.2 %; Mean Corpuscular HGB Conc 33.4 g/dL (30-55); Mean Corpuscular Volume 89.7 fl (85-98); Mean Platelet Volume 9.3 fL (7.4-10.4); Monocytes # 0.5 10^3/uL (0.2-0.9); Neutrophils # 8.25 10^3/uL (1.8-7.7); Neutrophils % 83.1 %; Nucleated Red Blood Cells % 0 %; Platelet Count 246 10^3/cmm (157-399); Red Cell Distribution Width 15.8 % (12.1-15.1); White Blood Count 9.93 10^3/uL (3.29-11.43)
[2024-03-17 06:02] LABS: Anion Gap 13.8 (5-19); Blood Urea Nitrogen 12 mg/dL (8-23); Calcium 8.4 mg/dL (8.5-10.5); Carbon Dioxide 25 mmol/L (22-29); Chloride 107 mmol/L (98-107); Creatinine Clr Calc Pharmacy 47.3186; Glomerular Filtration Rate 82.7 mL/min (90-130); Glucose 89 mg/dL (65-115); Osmolality Calculated 293 mOsm/kg (285-295); Potassium 3.8 mmol/L (3.5-5.1); Sodium 142 mmol/L (136-145)
[2024-03-17] MEDS: albuterol 2.5 mg/3 mL Neb INHALATION (08:01)
[2024-03-17] MEDS: budesonide 0.5 mg/2 mL Neb INHALATION ×2 (08:01→20:45)
[2024-03-17] MEDS: pantoprazole 40 mg SDV IVP ×2 (09:08→18:11)
--- NOTE | 2024-03-17 11:18 | P.PN_ITS ---
Subjective 2 Subjective: Patient is dehydrated Active pain Hemoglobin stable at 11 Hemodynamically stable blood pressure has improved after 2 unit PRBC Plan for EGD and colonoscopy today Has had multiple bowel movements as per the patient CTA abdomen pelvis unremarkable Vitals/I&O/Wt Last Vital Signs Temp 98 F 03/17/24 08:00 Pulse 89 03/17/24 08:08 Resp 16 03/17/24 08:02 BP 121/61 03/17/24 08:00 Pulse Ox 97 03/17/24 08:02 O2 Del Method Room Air 03/17/24 08:02 O2 Flow Rate 2 03/16/24 08:00 03/16/24 03/17/24 03/17/24 22:59 06:59 14:59 Intake Total 1680.000 / 2633.750 50 / 2683.750 Balance 1680.000 / 2633.750 50 / 2683.750 Weight last 48 hrs Weight 42.819 kg Weight 40.852 kg Weight 38.964 kg Weight 36.287 kg Physical Exam 2 Narrative: Pleasant cooperative GCS 15 Normotensive Dehydrated Abdomen soft Currently on room air Pleasant cooperative Malnourished Data 03/17/24 05:17 03/17/24 05:17 A&P Assessment and plan (1) Depression: (2) Weight loss, unintentional: (3) GERD (gastroesophageal reflux disease): (4) Acute upper GI bleed: (5) History of duodenal ulcer: (6) GI bleed: (7) Abdominal pain: (8) Acute blood loss anemia: (9) COPD (chronic obstructive pulmonary disease): Qualifiers: COPD type: emphysema Emphysema type: centrilobular Qualified Code(s): J43.2 - Centrilobular emphysema (10) Smoker: Plan Palpitations: EKG showed sinus rhythm, short AR intervals No sign of WPW syndrome Acute GI blood loss anemia Status post 2 units Blood pressure and hemoglobin improved dark melanotic stools Bowel prep has been done Going for EGD and colonoscopy today Recent PCI to establish coronary disease I would continue aspirin and Plavix on daily basis until we know more about source of bleeding after EGD and colonoscopy CT abdomen pelvis unremarkable Hypotension related to blood loss anemia: Improved Dehydration: Will resume her diet after scope today Disposition: Home, further decision will be made after reviewing colonoscopy report Will touch base with general surgery today Attestations 2 Medical Necessity Statement*: Continue medical management Diagnoses Depression F32.A Weight loss, unintentional R63.4 GERD (gastroesophageal reflux disease) K21.9 Acute upper GI bleed K92.2 History of duodenal ulcer Z87.19 GI bleed K92.2 Abdominal pain R10.9 Acute blood loss anemia D62 Centrilobular emphysema J43.2 COPD type: emphysema Emphysema type: centrilobular Smoker F17.200
--- NOTE | 2024-03-17 12:49 | P.ANESASSM_ITS ---
Pre-Anesthetic Assessment Height/Weight: Height 1.55 m Weight 42.819 kg Temp Pulse Resp BP Pulse Ox O2 Del Method O2 Flow Rate 98.2 F 84 16 118/63 95 Room Air 2 03/17/24 11:45 03/17/24 11:45 03/17/24 11:45 03/17/24 11:45 03/17/24 11:45 03/17/24 11:45 03/16/24 08:00 Preop Diagnosis: Anemia, GI Bleed Operation Date: 03/17/24 12:30 Proposed Procedures p EGD(Not Applicable) - Hang Agarwal DO s Colonoscopy(Not Applicable) - Hang Agarwal DO Familial anesthetic complications: none Last intake: Meal- 03/15/24 09 Liquids/Clears- 222903/16/24 Social Tobacco 1.5ppd hx now 5 cig. per day since IN 03/06/24 pack(s) per day Exam alert, oriented x 3, clear to auscultation bilaterally and regular rate & rhythm Airway Submandibular: within normal limits Cervical ROM: Other (ACDF and PCDF very limited ROM) Mallampati: Class I Dentition: false (upper plate removed lower front teeth missing.) Pulmonary Chronic Obstructive Pulmonary Disease and Shortness of Breath Home O2 PRN 2L wearing during day ( 1-2 times per day) 95% on room air currently. CV/HEM Anemia (2 U PRBC administered.), Coronary Artery Disease and Myocardial Infarction (March 06 cardiac stent placed by Dr. Kay.) Echo 02/2024 Possibly normal LV size and ejection fraction of 55 %. No gross wall motion abnormalities noted. Mild tricuspid valve regurgitation. Estimated pulmonary artery peak systolic pressure within normal limits. Thickened aortic and mitral valves. Mild tricuspid valve regurgitation. Estimated pulmonary artery peak systolic pressure within normal limits. There is no pericardial effusion. There are no intracardiac masses. No similar previous studies are available for comparison Stress Test 06/2023 CONCLUSION: 1. Nonspecific EKG changes of the [treadmill exercise 2. No exercise-induced chest pain or cardiac arrhythmia 3. Impaired exercise tolerance, attained a maximum of 7.0 METs 4. Sestamibi/Sestamibi perfusion results pending; see separate report. None reported Hepatic None reported GI Gastroesophageal Reflux Disease history of duodenal ulcer denies vomiting blood or nausea. Metabolic Hyperlipidemia Musc/skel Lower Back Pain Neuropsych Depression Anesthetic Plan ASA status: 3 Anesthesia: MAC Other: Recent cardiac stents discussed with Dr. Torres. Medications/Allergies Home Medications Medication Instructions Recorded Confirmed Last Taken Type albuterol sulfate 90 mcg/actuation 2 puff inhalation 6XD PRN 09/19/22 03/15/24 Unknown Rx aerosol inhaler shortness of breath or wheezing 30 days #17 grams lidocaine 5 % topical patch 1 patch topical DAILY PRN pain #30 04/04/23 03/15/24 Unknown Rx ea ipratropium 0.5 mg-albuterol 3 mg 3 ml inhalation Q6H PRN COPD J44.9 06/20/23 03/15/24 Unknown Rx (2.5 mg base)/3 mL nebulization #180 mL soln budesonide 160 mcg-glycopyr 9 2 inh inhalation BID 30 days #10.7 02/02/24 03/15/24 03/14/24 Rx mcg-formot 4.8 mcg/actuation HFA grams inhaler (Breztri Aerosphere) duloxetine 20 mg capsule,delayed 20 mg PO BID #60 caps 02/17/24 03/15/24 03/15/24 Rx release (Cymbalta) estradiol 1 mg tablet 1 mg PO DAILY 02/27/24 03/15/24 Unknown History aspirin 81 mg tablet,delayed 81 mg PO DAILY #90 tabs 03/01/24 03/15/24 03/15/24 Rx release clopidogrel 75 mg tablet 75 mg PO DAILY #90 tabs 03/01/24 03/15/24 03/15/24 Rx furosemide 20 mg tablet 20 mg PO DAILY@0800 30 days #30 03/01/24 03/15/24 03/15/24 Rx tabs nitroglycerin 0.4 mg sublingual 0.4 mg sublingual Q5M PRN chest 03/01/24 03/15/24 Unknown Rx tablet pain #90 tabs acetaminophen 500 mg tablet 1,000 mg PO Q6H PRN Pain 03/15/24 03/15/24 Unknown History atorvastatin 40 mg tablet 40 mg PO BID 03/15/24 03/15/24 03/15/24 History baclofen 5 mg tablet 5 mg PO BID 03/15/24 03/15/24 03/15/24 History lamotrigine 150 mg tablet 150 mg PO DAILY 03/15/24 03/15/2403/15/24 History Allergies Allergy/AdvReac Type Severity Reaction Status Date / Time Opioids - Morphine Analogues Allergy Severe Unknown Verified 03/17/24 13:18 pregabalin [From Lyrica] Allergy Severe syncope Verified 03/17/24 13:18 venlafaxine Allergy tremor Verified 02/27/24 18:25 gabapentin AdvReac Intermediate Unknown Verified 03/17/24 13:18 tramadol AdvReac Unknown ADR-Vomitin Verified 03/17/24 13:18 g Current Medications Generic Name Dose Route Start Last Admin Trade Name Freq PRN Reason Stop Dose Admin Acetaminophen 1,000 mg 03/15/24 19:40 03/16/24 17:37 Acetaminophen 500 Mg Tablet PO 1,000 mg Q6H PRN Administration Pain Albuterol Sulfate 2.5 mg 03/15/24 19:44 03/17/24 08:01 Albuterol 2.5 Mg/3 Ml Neb INHALATION 2.5 mg Q4H.RESPIRATORY PRN Administration shortness of breath or wheezing Albuterol/Ipratropium 3 ml 03/15/24 19:40 03/16/24 20:26 Ipratropium-Albuterol 3 Ml Neb INHALATION 3 ml Q6H PRN Administration COPD J44.9 Aspirin 81 mg 03/16/24 09:00 03/16/24 08:38 Aspirin 81 Mg Ec Tablet PO 81 mg DAILY EVENS Administration Atorvastatin Calcium 40 mg 03/15/24 19:40 03/16/24 17:37 Atorvastatin 40 Mg Tablet PO 40 mg BID EVENS Administration Budesonide 0.5 mg 03/16/24 09:00 03/17/24 08:01 Budesonide 0.5 Mg/2 Ml Neb INHALATION 0.5 mg BID EVENS Administration Clopidogrel Bisulfate 75 mg 03/16/24 09:00 03/16/24 08:38 Clopidogrel 75 Mg Tablet PO 75 mg DAILY EVENS Administration Duloxetine HCl 20 mg 03/15/24 19:40 03/16/24 17:37 Duloxetine 20 Mg Capsule PO 20 mg BID EVENS Administration Sodium Chloride 1,000 mls @ 75 mls/hr 03/15/24 19:40 03/16/24 08:41 Sodium Chloride 0.9% IV 75 mls/hr .[id number] EVENS Administration Piperacillin Sod/Tazobactam 50 mls @ 12.5 mls/hr 03/15/24 20:00 03/17/24 09:08 Sod 3.375 gm/ Sodium Chloride IV 12.5 mls/hr Q8H EVENS Administration Lamotrigine 150 mg 03/16/24 09:00 03/16/24 08:38 Lamotrigine 100 Mg Tablet PO 150 mg DAILY EVENS Administration Pantoprazole Sodium 40 mg 03/15/24 19:40 03/17/24 09:08 Pantoprazole 40 Mg Sdv IVP 40 mg BID EVENS Administration PFSH Anesthesia Medical History (Updated 03/17/24 @ 10:39 by Hang Agarwal DO) History of duodenal ulcer Acute diastolic heart failure Acute exacerbation of chronic obstructive pulmonary disease Acute non-ST elevation myocardial infarction (NSTEMI) Osteopenia History of colon polyps hyperplastic polyp x 2 in 2021 Depression Chronic back pain Weight loss, unintentional COPD (chronic obstructive pulmonary disease) Hyperlipidemia GERD (gastroesophageal reflux disease) Surgical History History of cataract extraction with lens replacement History of esophageal surgery benign polyp removed History of bunionectomy of both great toes History of hysterectomy still has one ovary History of cholecystectomy History of fusion of cervical spine History of lumbar spinal fusion Family History Other Adopted Social History Smoking and tobacco/nicotine status: current every day tobacco/nicotine user cigarettes Packs smoked per day: 0.5 [ Other cigarette details: started at 14; currently smokes 0.5 to 1 pack daily] Alcohol intake: current Alcohol intake frequency: holidays/special occasions only Substance/Drug Use: never Adopted: Yes Household members: spouse Marital status: Number of children: 1 Number of grandchildren: 2 Current occupational status: retired 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 [employer] Anesthesia 03/17/24 05:17 03/17/24 05:17 Short CBC 03/16/24 03/16/24 03/16/24 Range/Units 05:44 10:10 22:25 WBC 9.55 10.39 (3.29-11.43) 10^3/uL Hgb 7.80 L 6.70 L 11.10 L D (11.27-16.99) g/dL Hct 24.2 L 20.6 L* 33.8 L D (36-47) % MCV 95.7 92.9 (85-98) fl Plt Count 284 219 (157-399) 10^3/cmm Neut % (Auto) 89.5 85.8 % Neut # (Auto) 8.54 H 8.92 H (1.8-7.7) 10^3/uL 03/17/24 Range/Units 05:17 WBC 9.93 (3.29-11.43) 10^3/uL Hgb 11.10 L (11.27-16.99) g/dL Hct 33.2 L (36-47) % MCV 89.7 (85-98) fl Plt Count 246 (157-399) 10^3/cmm Neut % (Auto) 83.1 % Neut # (Auto) 8.25 H (1.8-7.7) 10^3/uL BMP 03/15/24 03/16/24 03/17/24 12:30 05:44 05:17 Sodium 136 136 142 Potassium 3.8 3.9 3.8 Chloride 101 106 107 Carbon Dioxide 21 L 20 L 25 BUN 19 13 12 Creatinine 0.9 0.6 0.7 Glucose 145 H 117 H 89 Calcium 8.9 8.5 8.4 L Cardiac Enzymes 03/15/24 03/15/24 03/15/24 Range/Units 12:30 15:42 18:15 Troponin T Baseline 20 H (0-10) ng/L Troponin T 120 Minute 16.67 H (0-10) ng/L Delta Troponin T -3.33 L (0-10) ABS# Troponin T Hi Sens 6Hr 13.60 H (0-10) ng/L Troponin T Hi Sens 6Hr Delta -6.40 L (0-12) ng/L NT-Pro-B Natriuret Pep 287 H (0-125) pg/mL Liver Function 03/15/24 Range/Units 12:30 Total Bilirubin 0.4 (0.15-1.2) mg/dL AST 36 H (0-32) U/L ALT 28 (0-33) U/L Alkaline Phosphatase 76 (35-105) U/L Albumin 4.2 (3.5-5.2) g/dL Blood Bank 03/15/24 18:14 Blood Type O Negative Rho(D) Type Rh negative Antibody Screen Negative Coags 03/15/24 12:30 D-Dimer 0.36 Cardiac Studies: 2 Echocardiogram 02/28/24 Sestamibi Stress Test (Cardiology) 06/10
[2024-03-17] MEDS: sodium chloride 0.9% 1,000 ML 30 ML IV (13:02)
--- NOTE | 2024-03-17 13:13 | P.PN_ITS ---
Vitals/I&O/Wt Last Vital Signs Temp 97 F L 03/17/24 12:53 Pulse 85 03/17/24 12:53 Resp 16 03/17/24 12:53 BP 131/70 03/17/24 12:53 Pulse Ox 93 03/17/24 12:53 O2 Del Method Room Air 03/17/24 12:53 O2 Flow Rate 2 03/16/24 08:00 03/16/24 03/17/24 03/17/24 22:59 06:59 14:59 Intake Total 1680.000 / 2633.750 50 / 2683.750 Balance 1680.000 / 2633.750 50 / 2683.750 Weight last 48 hrs Weight 94 lb 6.4 oz Weight 90 lb 1 oz Weight 85 lb 14.4 oz Data 03/17/24 05:17 03/17/24 05:17 A&P Assessment and plan (1) GI bleed: (2) Abdominal pain: (3) Acute blood loss anemia: (4) History of duodenal ulcer: Plan IV Protonix twice daily Sucralfate EGD and colonoscopy The risks and benefits of the procedure, including bleeding, infection, intestinal perforation requiring surgery, missed lesion were explained to the patient. The patient is understanding of the risks and wishes to proceed. Medical management per hospitalist Attestations 2 Medical Necessity Statement*: per primary Coding Level of Care Code Acute Code for Chg Fwd Diagnoses GI bleed K92.2 Abdominal pain R10.9 Acute blood loss anemia D62 History of duodenal ulcer Z87.19
[2024-03-17] MEDS: EPINEPHrine 1 mg/mL INJ XX (13:39)
--- NOTE | 2024-03-17 15:42 | ANE.PACU2 ---
Inpatient post-anesthesia follow up: Airway intact: Yes Vital signs: Temperature 98.3 F Pulse Rate 90 Respiratory Rate 16 Blood Pressure 132/80 Pulse Oximetry 94 Oxygen Delivery Me thod Room Air Oxygen Flow Rate 3 Fraction of Inspir ed Oxygen Hydration adequate: Yes Nausea and vomiting: No Pain level: 2 Mental status: Baseline
[2024-03-17] MEDS: clopidogrel 75 mg Tablet PO (16:41)
[2024-03-17] MEDS: aspirin 81 mg EC Tablet PO (16:41)
[2024-03-17] MEDS: atorvastatin 40 mg Tablet PO (18:11)
[2024-03-17] MEDS: duloxetine 20 mg Capsule PO (18:11)
[2024-03-17] MEDS: ipratropium-albuterol 3 mL Neb INHALATION (20:45)
[2024-03-18] VITALS: BP 104/51; PULSE 80; RESP 18; TEMP 36.8; O2SAT 95
[2024-03-18] MEDS: piperacillin-tazobactam 3.375 GM in sodium chloride 0.9% (plus) 50 ML IV ×2 (00:14→07:57)
[2024-03-18] MEDS: sodium chloride 0.9% 1,000 ML 75 ML IV (00:15)
[2024-03-18 02:00] VITALS: BP 123/71; PULSE 90; RESP 16; TEMP 36.7; O2SAT 97
[2024-03-18 05:01] VITALS: BMI 17.4
[2024-03-18 06:27] LABS: Basophils % 0.4 %; Eosinophils # 0.1 10^3/uL (0.0-0.8); Hematocrit 31.6 % (36-47); Lymphocytes # 0.6 10^3/uL (0.8-4.8); Lymphocytes % 11.4 %; Mean Corpuscular HGB Conc 32.9 g/dL (30-55); Mean Corpuscular Hemoglobin 30.8 pg (27-33); Mean Corpuscular Volume 93.5 fl (85-98); Mean Platelet Volume 9.2 fL (7.4-10.4); Monocytes # 0.3 10^3/uL (0.2-0.9); Monocytes % 5.5 %; Neutrophils # 4.54 10^3/uL (1.8-7.7); Neutrophils % 80.5 %; Nucleated Red Blood Cells % 0 %; Platelet Count 202 10^3/cmm (157-399); Red Blood Count 3.38 10^6/uL (3.85-5.65); Red Cell Distribution Width 15.9 % (12.1-15.1); White Blood Count 5.63 10^3/uL (3.29-11.43)
[2024-03-18 06:44] LABS: Anion Gap 13.7 (5-19); Blood Urea Nitrogen 14 mg/dL (8-23); Calcium 8.3 mg/dL (8.5-10.5); Carbon Dioxide 23 mmol/L (22-29); Chloride 108 mmol/L (98-107); Creatinine Clr Calc Pharmacy 46.9273; Glomerular Filtration Rate 98.8 mL/min (90-130); Glucose 81 mg/dL (65-115); Osmolality Calculated 292 mOsm/kg (285-295); Potassium 3.7 mmol/L (3.5-5.1); Sodium 141 mmol/L (136-145)
[2024-03-18 07:39] VITALS: BP 131/67; PULSE 87; RESP 17; TEMP 36.8; O2SAT 95
[2024-03-18] MEDS: pantoprazole 40 mg SDV IVP (07:56)
[2024-03-18] MEDS: duloxetine 20 mg Capsule PO (07:57)
[2024-03-18] MEDS: atorvastatin 40 mg Tablet PO (07:57)
[2024-03-18] MEDS: clopidogrel 75 mg Tablet PO (07:57)
[2024-03-18] MEDS: lamoTRIgine 100 mg Tablet 150 MG PO (07:57)
[2024-03-18] MEDS: aspirin 81 mg EC Tablet PO (07:58)
[2024-03-18 08:20] VITALS: PULSE 85; RESP 20; O2SAT 98
[2024-03-18] MEDS: budesonide 0.5 mg/2 mL Neb INHALATION (08:20)
[2024-03-18] MEDS: albuterol 2.5 mg/3 mL Neb INHALATION (08:20)
--- NOTE | 2024-03-18 09:25 | PM.DCS ---
Discharge Providers Date of Admission: 03/16/24 11:09 Date of Discharge: March 18, 2024 Attending Provider at Admission: Danny Riojas MD Attending Provider at Discharge: Danny Riojas MD Primary Care Provider: Peyton Gibson MD Diagnoses at Discharge Discharge Diagnosis (1) GI bleed: Status: Acute (2) Abdominal pain: Status: Acute (3) Acute blood loss anemia: Status: Acute (4) History of duodenal ulcer: Status: Acute Reason for Visit Reason for Visit: Chest Pains Hospital Course Hospital Course 68-year-old female who was admitted for management evaluation of dark melanotic stools, patient carries a history of duodenal ulcer in the past which was done in [place], general surgery was consulted, patient went for EGD and colonoscopy after the prep, she was given 2 unit PRBC for significant drop in hemoglobin of 6.7 her blood pressure improved after getting 2 units, hemoglobin at the time of discharge is 10.4. 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 She also has sigmoid polyp which needs to be addressed with colonoscopy within a year because of her recent stent placement. EGD was unremarkable Patient was counseled on continuation of dual antiplatelet therapy aspirin and Plavix. She is in agreement. Patient had PCI to circumflex on 02/27 on last admission Physical Exam Narrative: Awake and alert Euvolemic Abdomen soft Nonfocal neuroexam S1, S2 Currently on IV fluids Nonfocal neuroexam Pleasant and cooperative Discharge Data Studies Completed and Pending Completed Studies During Hospitalization Category Date Time Status CT abdomen pelvis w con* [id number] Stat Cat Scan 03/15/24 16:[address] angio chest PE protcl [id number] Stat Cat Scan 03/15/24 15:12 Completed CTA abdomen pelvis [CT angio abdomen pelvis [id number]] Cat Scan 03/16/24 11:11 Completed Routine XR chest 1V portable [id number] Stat Exams 03/15/24 12:42 Completed Pending at discharge Category Date Time Status Fecal Occult Blood [Immunochemical Fecal OCB] Routine Lab 03/15/24 16:33 Ordered Pathology: Surgical [PTH] Routine Pth 03/17/24 13:56 Received Radiology Impressions Chest X-Ray 03/15/24 12:42 IMPRESSION: No acute findings. Chest CTA 03/15/24 15:12 IMPRESSION: There are no acute concerning abnormalities. No significant change when compared with 09/15/2023. Abdomen/Pelvis CT 03/15/24 16:34 IMPRESSION: Findings are suggestive of small bowel enteritis. There is stool throughout colon.Clinical correlation is advised. COMMENTS: Consistent with the [employer]'s Incidental Findings Committee white paper (J Am Agusto Radiol 2018): Any incidental renal lesion less than 1 cm or classified as too small to characterize, or any incidental cystic renal lesion characterized as simple-appearing, is likely benign. No follow-up imaging is recommended for these lesions per consensus recommendations based on imaging criteria. Abdomen/Pelvis CTA 03/16/24 11:11 IMPRESSION: 1. The site of gastrointestinal bleeding is not identified. No active arterial contrast extravasation is seen. CT is relatively insensitive for the detection of gastrointestinal bleeding compared to radiolabeled red blood cell scintigraphy. 2. Decreased fluid distension of distal small bowel and increased gas and fluid distension of the colon since 03/15/2024. Probable colonic ileus. No definitive sign of colitis. 3. Moderate aortoiliac atherosclerotic disease without hemodynamically significant stenosis or aneurysm. 4. No visceral arterial stenosis or occlusion. 5. Incidental findings above. ADDENDUM: 03/16/24 1703 Additional clinical information has become available. Upper GI bleeding is suspected. Laboratory Results WBC 5.63 10^3/uL (3.29-11.43) 03/18/24 06:10 RBC 3.38 10^6/uL (3.85-5.65) L 03/18/24 06:10 Hgb 10.40 g/dL (11.27-16.99) L 03/18/24 06:10 Hct 31.6 % (36-47) L 03/18/24 06:10 MCV 93.5 fl (85-98) 03/18/24 06:10 MCH 30.8 pg (27-33) 03/18/24 06:10 MCHC 32.9 g/dL (30-55) 03/18/24 06:10 RDW 15.9 % (12.1-15.1) H 03/18/24 06:10 Plt Count 202 10^3/cmm (157-399) 03/18/24 06:10 MPV 9.2 fL (7.4-10.4) 03/18/24 06:10 Neut % (Auto) 80.5 % 03/18/24 06:10 Lymph % (Auto) 11.4 % 03/18/24 06:10 [place] % (Auto) 5.5 % 03/18/24 06:10 Eos % (Auto) 2.0 % 03/18/24 06:10 Baso % (Auto) 0.4 % 03/18/24 06:10 Neut # (Auto) 4.54 10^3/uL (1.8-7.7) 03/18/24 06:10 Lymph # (Auto) 0.6 10^3/uL (0.8-4.8) L 03/18/24 06:10 [place] # (Auto) 0.3 10^3/uL (0.2-0.9) 03/18/24 06:10 Eos # (Auto) 0.1 10^3/uL (0.0-0.8) 03/18/24 06:10 Baso # (Auto) 0.0 10^3/uL (0.0-0.1) 03/18/24 06:10 Nucleated RBC % (auto) 0 % 03/18/24 06:10 Nucleated RBCs # 0.0 /100WBC 03/18/24 06:10 D-Dimer 0.36 ug/mLFEU (0-0.59) 03/15/24 12:30 Sodium 141 mmol/L (136-145) 03/18/24 06:10 Potassium 3.7 mmol/L (3.5-5.1) 03/18/24 06:10 Chloride 108 mmol/L (98-107) H 03/18/24 06:10 Carbon Dioxide 23 mmol/L (22-29) 03/18/24 06:10 Anion Gap 13.7 (5-19) 03/18/24 06:10 BUN 14 mg/dL (8-23) 03/18/24 06:10 Creatinine 0.6 mg/dL (0.5-0.9) 03/18/24 06:10 GFR Calculation 98.8 mL/min (90-130) 03/18/24 06:10 Glucose 81 mg/dL (65-115) 03/18/24 06:10 Estimat Average Glucose 111 03/15/24 12:31 Hemoglobin A1c 5.5 % (4.0-6.0) 03/15/24 12:31 Calculated Osmolality 292 mOsm/kg (285-295) 03/18/24 06:10 Calcium 8.3 mg/dL (8.5-10.5) L 03/18/24 06:10 Magnesium 2.9 mg/dL (1.7-2.3) H 03/16/24 05:44 Iron 33 ug/dL (37-145) L 03/16/24 05:44 TIBC 339 mcg/dl 03/16/24 05:44 % Saturation 9.7 % (20-50) L 03/16/24 05:44 Unsat Iron Binding 306 ug/dL (112-347) 03/16/24 05:44 Ferritin 23 ng/mL (15-150) 03/16/24 05:44 Total Bilirubin 0.4 mg/dL (0.15-1.2) 03/15/24 12:30 AST 36 U/L (0-32) H 03/15/24 12:30 ALT 28 U/L (0-33) 03/15/24 12:30 Alkaline Phosphatase 76 U/L (35-105) 03/15/24 12:30 Troponin T Baseline 20 ng/L (0-10) H 03/15/24 12:30 Troponin T 120 Minute 16.67 ng/L (0-10) H 03/15/24 15:42 Delta Troponin T -3.33 ABS# (0-10) L 03/15/24 15:42 Troponin T Hi Sens 6Hr 13.60 ng/L (0-10) H 03/15/24 18:15 Troponin T Hi Sens 6Hr Delta -6.40 ng/L (0-12) L 03/15/24 18:15 NT-Pro-B Natriuret Pep 287 pg/mL (0-125) H 03/15/24 12:30 Total Protein 6.2 g/dL (6.6-8.7) L 03/15/24 12:30 Albumin 4.2 g/dL (3.5-5.2) 03/15/24 12:30 Globulin 2.0 g/dL (1.3-4.6) 03/15/24 12:30 Vitamin B12 341 pg/mL (232-1245) 03/16/24 05:44 Blood Type O Negative 03/15/24 18:14 Rho(D) Type Rh negative 03/15/24 18:14 Antibody Screen Negative 03/15/24 18:14 Crossmatch See Detail 03/15/24 18:14 Vitals Last Vital Signs Temp 98.2 F 03/18/24 07:39 Pulse 85 03/18/24 08:20 Resp 20 H 03/18/24 08:20 BP 131/67 03/18/24 07:39 Pulse Ox 98 03/18/24 08:20 O2 Del Method Room Air 03/18/24 08:20 O2 Flow Rate 3 03/17/24 14:02 Discharge Plan Discharge Patient Disposition: Home Condition: Stable Prescriptions: New pantoprazole [Protonix] 40 mg tablet,delayed release (DR/EC) 40 mg PO DAILY Qty: 90 3RF Continued albuterol sulfate 90 mcg/actuation HFA aerosol inhaler 2 puff inhalation 6XD PRN (Reason: shortness of breath or wheezing) 30 Days Qty: 17 3RF lidocaine 5 % adhesive patch,medicated 1 patch topical DAILY PRN (Reason: pain) Qty: 30 0RF Rx Instructions: leave on most painful area for up to 12 hrs ipratropium-albuterol 0.5 mg-3 mg(2.5 mg base)/3 mL solution for nebulization 3 ml inhalation Q6H PRN (Reason: COPD J44.9) Qty: 180 6RF Breztri Aerosphere 160-9-4.8 mcg/actuation HFA aerosol inhaler 2 inh inhalation BID 30 Days Qty: 10.7 6RF duloxetine [Cymbalta] 20 mg capsule,delayed release(DR/EC) 20 mg PO BID Qty: 60 3RF acetaminophen 500 mg Tablet 1,000 mg PO Q6H PRN (Reason: Pain) atorvastatin 40 mg tablet 40 mg PO BID lamotrigine 150 mg tablet 150 mg PO DAILY estradiol 1 mg tablet 1 mg PO DAILY clopidogrel 75 mg Tablet 75 mg PO DAILY Qty: 90 3RF aspirin 81 mg Tablet,Delayed Release (Dr/Ec) 81 mg PO DAILY Qty: 90 3RF nitroglycerin 0.4 mg tablet, sublingual 0.4 mg sublingual Q5M PRN (Reason: chest pain) Qty: 90 0RF Rx Instructions: do not exceed 3 doses per episode Changed furosemide 20 mg Tablet 20 mg PO DAILY@0800 PRN (Reason: Weight gain or edema) 30 Days Qty: 30 0RF Held baclofen 5 mg tablet 5 mg PO BID Hold Instructions: Resume on 03/20/24. Discharge Orders: Discharge Order (Routine); Ordered 03/18/24 Ordered By: Danny Riojas Referrals: Hang Agarwal DO [Physician] - 03/29/24 2:35 pm Peyton Gibson MD [Primary Care Provider] - 03/23/24 11:20 am Patient Instructions: GI Discharge Instructions, Opioid Safety Discharge Attestations Time Spent in Discharge Care*: greater than 30 min Quality Metrics Clinical Quality Measures [ No reported AMI, CVA or VTE this stay] Coding Level of Care Code Acute Code for Chg Fwd Diagnoses GI bleed K92.2 Abdominal pain R10.9 Acute blood loss anemia D62 History of duodenal ulcer Z87.19
[2024-03-18 10:49] VITALS: PULSE 85; RESP 20; O2SAT 98
--- NOTE | 2024-03-18 11:07 | PC.NURSE ---
Discharge instructions provided to pt. No questions or concerns at this time. here to drive her home. To private vehicle with all belongings.
== END 2024-03-18 11:08 | disposition home or self-care (01) | DRG 378 ==
LOC: ER 18:08 → MEDSURG 21:14
PROVIDERS: Surgery; Admitting Provider Internal Medicine; Emergency Provider Family Medicine; PCP Family Medicine; Visit Provider Internal Medicine
PROC: 0DJ08ZZ Inspection of Upper Intestinal Tract, Via Natural or Artificial Opening Endoscopic (ICD-10-PCS; CPT 43235; principal; 2024-03-17 12:30)
PROC: 0DJD8ZZ Inspection of Lower Intestinal Tract, Via Natural or Artificial Opening Endoscopic (ICD-10-PCS; CPT 45378; 2024-03-17 12:30)
DX: K92.2 Gastrointestinal hemorrhage, unspecified (principal); D62 Acute posthemorrhagic anemia; I50.32 Chronic diastolic (congestive) heart failure; K55.21 Angiodysplasia of colon with hemorrhage; F17.210 Nicotine dependence, cigarettes, uncomplicated; K52.9 Noninfective gastroenteritis and colitis, unspecified; K59.00 Constipation, unspecified; J44.9 Chronic obstructive pulmonary disease, unspecified; K21.9 Gastro-esophageal reflux disease without esophagitis; Z79.82 Long term (current) use of aspirin; Z79.02 Long term (current) use of antithrombotics/antiplatelets; Z95.5 Presence of coronary angioplasty implant and graft; E86.0 Dehydration; I95.9 Hypotension, unspecified; R00.2 Palpitations; D12.6 Benign neoplasm of colon, unspecified; F32.A Depression, unspecified; E78.5 Hyperlipidemia, unspecified
CPT/HCPCS: 36415; 36430; 45382; 71045; 71275; 74174; 74177; 80048; 80053; 82607; 82728; 83036; 83540; 83550; 83735; 83880; 84484; 85014; 85018; 85025; 85378; 86850; 86900; 86920; 88305; 93005; 94640; 99285; C9113; G0378; J0171; J1100; J2543; J2704; J7030; J7613; J7626; P9016; P9040; Q9967

== ENCOUNTER → 2024-03-23 11:50 | Outpatient (BNVA) | payer MEDICARE, SELFPAY | PROVIDERS: PCP Family Medicine; Visit Provider Family Medicine | DX: K92.2 Gastrointestinal hemorrhage, unspecified (principal); Z09 Encounter for follow-up examination after completed treatment for conditions other than malignant neoplasm; I21.4 Non-ST elevation (NSTEMI) myocardial infarction; Z95.5 Presence of coronary angioplasty implant and graft; K55.20 Angiodysplasia of colon without hemorrhage; K63.5 Polyp of colon; J44.1 Chronic obstructive pulmonary disease with (acute) exacerbation | CPT/HCPCS: 85025 ==

== ENCOUNTER → 2024-03-29 14:15 | Outpatient (BNVA) | payer MEDICARE, SELFPAY | PROVIDERS: PCP Family Medicine; Visit Provider Surgery | DX: Z09 Encounter for follow-up examination after completed treatment for conditions other than malignant neoplasm (principal); K21.9 Gastro-esophageal reflux disease without esophagitis; K63.5 Polyp of colon | CPT/HCPCS: 99204 ==

== ENCOUNTER → 2024-03-30 13:52 | Outpatient (BNVA) | payer MEDICARE, SELFPAY | PROVIDERS: PCP Family Medicine; Visit Provider Nurse Practitioner Family | DX: I25.10 Atherosclerotic heart disease of native coronary artery without angina pectoris (principal); Z72.0 Tobacco use | CPT/HCPCS: 99214 ==

== ENCOUNTER 2024-04-09 12:23 | Outpatient (CLI) | payer MEDICARE, SELFPAY ==
--- NOTE | 2024-04-09 12:45 | USCV_ITS ---
Shayy Mann Age: 68 Gender: F : 1955 Exam Date: 04/09/2024 12:50 Ordering Phys: Claudine Mcdonough Technologist: ABEL [place] [facility] [place]: Dizziness Risk Factors: Previous Vascular Surgery: Right Brachial BP: / Left Brachial BP: / Right Left Velocity (cm/s) Spectral Plaque Velocity (cm/s) Spectral Plaque Syst/Diast Broadening Syst/Diast Broadening 136.20/45.30 Prox CCA 115.90/ 41.10 117.70/42.60 Mid CCA 134.20/ 52.40 132.70/44.80 Distal CCA 127.00/ 42.20 134.10/41.50 Prox ICA 135.40/ 38.80 117.40/45.10 Hetro Mid ICA 144.40/ 57.60 94.20/ 47.00 Distal ICA 109.60/ 36.40 165.80 ECA 125.30 1.00 ICA/CCA 1.10 Antegrade Vertebral Antegrade 104.8/ 36.50 cm/s 61.50/ 22.80 cm/s 0 Tri Subclavian Tri 139.0 114.5 0 0 CONCLUSIONS Right ICA stenosis 50-69% at the lower end of range. Mild atheromatous plaque right carotid bulb/ICA. Left ICA stenosis 50-69%. at the lower end of range. Mild atheromatous plaque left carotid bulb/ICA. Intimal thickening in the common carotid arteries and internal carotid arteries bilaterally. Normal antegrade Doppler flow noted in the right vertebral artery. Normal antegrade Doppler flow noted in the left vertebral artery. A few small thyroid nodules partially visualized, Recommend thryoid US Hang Tolbert MD (Electronically Signed) Final Date: 09 April 2024 14:20 S
== END 2024-04-09 12:24 | disposition home or self-care (01) ==
LOC: RAD 12:26
PROVIDERS: PCP Family Medicine; Visit Provider Nurse Practitioner Family
DX: Z09 Encounter for follow-up examination after completed treatment for conditions other than malignant neoplasm (principal); I65.23 Occlusion and stenosis of bilateral carotid arteries; E04.2 Nontoxic multinodular goiter
CPT/HCPCS: 93880

== ENCOUNTER 2024-04-11 05:46 | Inpatient (IN) | payer MEDICARE, SELFPAY ==
[2024-04-11] VITALS (114 sets, daily range): BP systolic 90–171; BP diastolic 58–97; PULSE 72–114; RESP 15–39; TEMP 36.4–37.2; O2SAT 70–100; BMI 16.0
--- NOTE | 2024-04-11 05:51 | ECG_ITS ---
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 Measurements Intervals [place] Rate: 103 P: 78 MA: 123 QRS: 82 QRSD: 93 T: 12 QT: 342 QTc: 448 Interpretive Statements SINUS TACHYCARDIA NONSPECIFIC ST & T-WAVE ABNORMALITY Compared to ECG 03/15/2024 18:24:41 T-wave abnormality now present Sinus rhythm no longer present Short MA interval no longer present Electronically Signed On 04-11-2024 19:20:13 CDT by Randy Lopez M.D. [id number]
--- NOTE | 2024-04-11 05:51 | XRR_ITS ---
PROCEDURE INFORMATION: Exam: XR Chest Exam date and time: 04/11/2024 5:57 AM Age: 68 years old Clinical indication: Shortness of breath; Additional info: SOB TECHNIQUE: Imaging protocol: Radiologic exam of the chest. Views: 1 view. COMPARISON: CT angio chest PE protcl [id number] 03/15/2024 3:21 PM FINDINGS: Lungs: Unremarkable. No consolidation. Pleural spaces: Unremarkable. No pleural effusion. No pneumothorax. Heart/Mediastinum: Unremarkable. No cardiomegaly. Bones/joints: Unremarkable. XR/XR chest 1V portable [id number] IMPRESSION: No acute findings.
--- NOTE | 2024-04-11 05:55 | ED_ITS ---
HPI - SOB/Dyspnea 2 General: Chief Complaint: Shortness of Breath/Dyspnea Stated Complaint: SOB Time Seen by Provider: 04/11/24 05:50 Source: patient Mode of arrival: ambulatory Limitations: no limitations History of Present Illness: HPI Narrative: 68-year-old female with a history of ENTRY LEVEL D states that she woke up this morning and was feeling extremely short of breath patient is on oxygen at home she is mid 90s here on her home oxygen EMS states she was extremely anxious she still appears very anxious here with tachypnea. She denies any chest pain denies any cough or fever Associated symptoms: Deny abdominal pain, chest pain, fever(s), nausea or vomiting Review of Systems 2 Const: Denies: fever(s), chills, body aches or change in appetite Eyes: Denies: blurry vision or eye discomfort ENMT: Denies: throat pain or dental pain Card: Denies: chest pain Resp: Reports: dyspnea GI: Denies: abdominal pain, nausea, vomiting or diarrhea : Denies: dysuria Musc: Denies: neck pain or back pain Skin/Breast: Denies: rash Neuro: Denies: headache(s) PFSH ED 2 PFSH: Medical History Atherosclerosis of [place] coronary artery without angina pectoris GERD (gastroesophageal reflux disease) Acute blood loss anemia Abdominal pain GI bleed Duodenal ulcer Acute upper GI bleed Dysphagia Exertional dyspnea Smoker History of duodenal ulcer Acute diastolic heart failure Acute exacerbation of chronic obstructive pulmonary disease Acute non-ST elevation myocardial infarction (NSTEMI) Osteopenia History of colon polyps hyperplastic polyp x 2 in 2021 Depression Chronic back pain Weight loss, unintentional COPD (chronic obstructive pulmonary disease) Hyperlipidemia Surgical History History of cataract extraction with lens replacement History of esophageal surgery benign polyp removed History of bunionectomy of both great toes History of hysterectomy still has one ovary History of cholecystectomy History of fusion of cervical spine History of lumbar spinal fusion Family History Other Adopted Social History Smoking and tobacco/nicotine status: current every day tobacco/nicotine user cigarettes Packs smoked per day: 0.5 [ Other cigarette details: started at 14; currently smokes 0.5 to 1 pack daily] Alcohol intake: current Alcohol intake frequency: holidays/special occasions only Substance/Drug Use: never Adopted: Yes Household members: spouse Marital status: Number of children: 1 Number of grandchildren: 2 Current occupational status: retired 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 [employer] Physical Exam 2 Const: COMMON NORMALS: patient oriented x3 HENMT: COMMON NORMALS: normocephalic and atraumatic HEAD & SCALP: n ormocephalic and atraumatic Eye: COMMON NORMALS: Equal, round and reactive pupils present and EOMs intact bilaterally PUPIL: Yes Equal, round and reactive pupils present Neck/C-Spine: COMMON NORMALS: full ROM and supple Chest: COMMONS NORMALS: normal inspection of the chest and normal palpation of entire chest wall Resp: COMMON NORMALS: normal respiratory effort, No retractions, No use of accessory muscles and clear to auscultation bilaterally EFFORT & INSPECTION: Yes tachypneic AUSCULTATION: clear to auscultation bilaterally Cardio: COMMON NORMALS: regular rhythm and No murmurs present (Cardio) R ATE: tachycardic RHYTHM: regular rhythm GI: COMMON NORMALS: Normal to inspection, nondistended, normoactive bowel sounds present, Soft to palpation, non-tender and no masses PALPATION: Yes Soft to palpation Extremity: COMMON NORMALS: normal to inspection and full ROM Neuro: COMMON NORMALS: patient oriented x3, moves all extremities and no focal motor deficits Psych: COMMON NORMALS: mental status grossly normal, Normal thought process present and cooperative MOOD & AFFECT: Yes anxious THOUGHT PROCESS: Normal thought process present Skin: COMMON NORMALS: no rashes or lesions noted and no wounds GENERAL SKIN EXAM: no rashes or lesions noted Course 2 Vital Signs: Vital signs: Vital Signs Temperature 98.9 F 04/11/24 09:01 Pulse Rate 109 H 04/11/24 09:01 Respiratory Rate 24 H 04/11/24 09:01 Blood Pressure 152/91 04/11/24 09:01 Pulse Oximetry 96 04/11/24 09:01 Oxygen Delivery Me thod Room Air 04/11/24 07:26 MDM - SOB/Dyspnea Medical Decision Making Patient presented here originally for shortness of breath look like an anxiety attack blood work she is found to be anemic she had a history of GI bleed recently required transfusion she denies any blood in her stools her rectal exam here did show brown stools but was Hemoccult positive her BUN to creatinine ratio was normal is likely had a slow leak did speak to the hospitalist along with surgery will transfuse and admit Medical Records I reviewed the patient's medical records. Lab Data I reviewed the patient's lab results. 04/11/24 06:16 04/11/24 05:32 Labs/Radiology: Radiology Impressions Chest X-Ray 04/11/24 05:51 IMPRESSION: No acute findings. Abdomen/Pelvis CT 04/11/24 06:43 IMPRESSION: 1. There are no acute abdominal findings. 2. Nonobstructing 2.2 mm lower pole calculus within the right kidney. Laboratory Results WBC 6.37 10^3/uL (3.29-11.43) 04/11/24 05:32 RBC 1.64 10^6/uL (3.85-5.65) L 04/11/24 05:32 Hgb 4.10 g/dL (11.27-16.99) L* 04/11/24 06:16 Hct 14.0 % (36-47) L* 04/11/24 06:16 MCV 88.4 fl (85-98) 04/11/24 05:32 MCH 25.6 pg (27-33) L 04/11/24 05:32 MCHC 29.0 g/dL (30-55) L 04/11/24 05:32 RDW 18.7 % (12.1-15.1) H 04/11/24 05:32 Plt Count 402 10^3/cmm (157-399) H 04/11/24 05:32 MPV 10.4 fL (7.4-10.4) 04/11/24 05:32 Neut % (Auto) 64.9 % 04/11/24 05:32 Lymph % (Auto) 24.3 % 04/11/24 05:32 [place] % (Auto) 8.6 % 04/11/24 05:32 Eos % (Auto) 1.4 % 04/11/24 05:32 Baso % (Auto) 0.3 % 04/11/24 05:32 Neut # (Auto) 4.13 10^3/uL (1.8-7.7) 04/11/24 05:32 Lymph # (Auto) 1.6 10^3/uL (0.8-4.8) 04/11/24 05:32 [place]ern # (Auto) 0.6 10^3/uL (0.2-0.9) 04/11/24 05:32 Eos # (Auto) 0.1 10^3/uL (0.0-0.8) 04/11/24 05:32 Baso # (Auto) 0.0 10^3/uL (0.0-0.1) 04/11/24 05:32 Nucleated RBC % (auto) 0.9 % 04/11/24 05:32 Nucleated RBCs # 0.1 /100WBC 04/11/24 05:32 D-Dimer Cancelled 04/11/24 05:32 Specimen Type Arterial 04/11/24 06:22 Sample Site Brachial, right 04/11/24 06:22 ABG pH 7.40 (7.35-7.45) 04/11/24 06:22 ABG pCO2 33.0 mmHg (35-45) L 04/11/24 06:22 ABG pO2 91.1 mmHg (80.0-100.0) 04/11/24 06:22 ABG HCO3 20.3 mmol/L (22-26) L 04/11/24 06:22 ABG Base Excess -4.2 mmol/L (-2.0-2.0) L 04/11/24 06:22 Sumit Test N/a 04/11/24 06:22 Hematocrit 12.7 % (37-47) L 04/11/24 06:22 Hgb O2 Saturation 94.9 % (95-100) L 04/11/24 06:22 Carboxyhemoglobin 3.5 %THgb (0.4-20.1) 04/11/24 06:22 Methemoglobin 0.8 % (0.4-1.5) 04/11/24 06:22 Total Hemoglobin 4.2 g/dL (12-16) L 04/11/24 06:22 O2 Delivery Device Room air 04/11/24 06:22 Stockroom Keeper ID [email or web address] 04/11/24 06:22 Sodium 137 mmol/L (136-145) 04/11/24 05:32 Potassium 4.0 mmol/L (3.5-5.1) 04/11/24 05:32 Chloride 103 mmol/L (98-107) 04/11/24 05:32 Carbon Dioxide 17 mmol/L (22-29) L 04/11/24 05:32 Anion Gap 21.0 (5-19) H 04/11/24 05:32 BUN 17 mg/dL (8-23) 04/11/24 05:32 Creatinine 0.8 mg/dL (0.5-0.9) 04/11/24 05:32 GFR Calculation 70.9 mL/min (90-130) L 04/11/24 05:32 Glucose 197 mg/dL (65-115) H 04/11/24 05:32 Calculated Osmolality 291 mOsm/kg (285-295) 04/11/24 05:32 Calcium 8.2 mg/dL (8.5-10.5) L 04/11/24 05:32 Total Bilirubin 0.2 mg/dL (0.15-1.2) 04/11/24 05:32 AST 16 U/L (0-32) 04/11/24 05:32 ALT 13 U/L (0-33) 04/11/24 05:32 Alkaline Phosphatase 90 U/L (35-105) 04/11/24 05:32 NT-Pro-B Natriuret Pep 624 pg/mL (0-125) H 04/11/24 05:32 Total Protein 5.6 g/dL (6.6-8.7) L 04/11/24 05:32 Albumin 3.6 g/dL (3.5-5.2) 04/11/24 05:32 Globulin 2.0 g/dL (1.3-4.6) 04/11/24 05:32 Blood Type O Negative 04/11/24 06:16 Rho(D) Type Rh negative 04/11/24 06:16 Antibody Screen Negative 04/11/24 06:16 Crossmatch See Detail 04/11/24 06:16 All radiology interpretation(s) finalized by discharge Critical Care Time 2 Critical Care Time: Critical Care Time: Yes Total Critical Care Time: 40 Attestation: The high probability of a clinically significant, sudden or life threatening deterioration of the patient's gi system(s) required my full and direct attention, intervention and personal management. The critical care time is as shown. This time is in addition to time spent performing any reported procedures but includes the following: [x] Data and vital sign review and interpretation [x] Patient assessment, examination and intervention [x] Documentation [x] Medication orders and management Discharge Plan Discharge Patient Disposition: Admitted As Inpatient Admit Provider: Ivan Figueroa Clinical Impression: Anemia, GI bleed Condition: Stable Coding Level of Care Code ED [employer] Line Examiner for Angle Vilchis
[2024-04-11 05:57] LABS: Basophils % 0.3 %; Eosinophils # 0.1 10^3/uL (0.0-0.8); Eosinophils % 1.4 %; Lymphocytes # 1.6 10^3/uL (0.8-4.8); Lymphocytes % 24.3 %; Mean Corpuscular Hemoglobin 25.6 pg (27-33); Mean Corpuscular Volume 88.4 fl (85-98); Mean Platelet Volume 10.4 fL (7.4-10.4); Monocytes # 0.6 10^3/uL (0.2-0.9); Monocytes % 8.6 %; Neutrophils # 4.13 10^3/uL (1.8-7.7); Neutrophils % 64.9 %; Nucleated Red Blood Cells # 0.1 /100WBC; Nucleated Red Blood Cells % 0.9 %; Platelet Count 402 10^3/cmm (157-399); Red Blood Count 1.64 10^6/uL (3.85-5.65); Red Cell Distribution Width 18.7 % (12.1-15.1); White Blood Count 6.37 10^3/uL (3.29-11.43)
[2024-04-11 06:09] LABS: Hematocrit 14.5 % (36-47)
[2024-04-11] MEDS: ipratropium-albuterol 3 mL Neb INHALATION ×3 (06:14→20:06)
[2024-04-11] MEDS: sodium chloride 0.9% 1,000 ML 999 ML IV (06:16)
[2024-04-11] MEDS: methylPREDNISolone sod succ 125 mg/2 mL INJ IV (06:17)
[2024-04-11 06:19] LABS: Alanine Aminotransferase 13 U/L (0-33); Albumin Level 3.6 g/dL (3.5-5.2); Alkaline Phosphatase 90 U/L (35-105); Aspartate Amino Transferase 16 U/L (0-32); Blood Urea Nitrogen 17 mg/dL (8-23); Calcium 8.2 mg/dL (8.5-10.5); Carbon Dioxide 17 mmol/L (22-29); Chloride 103 mmol/L (98-107); Creatinine Clr Calc Pharmacy 39.8268; Glomerular Filtration Rate 70.9 mL/min (90-130); Glucose 197 mg/dL (65-115); Osmolality Calculated 291 mOsm/kg (285-295); Sodium 137 mmol/L (136-145); Total Bilirubin 0.2 mg/dL (0.15-1.2); Total Protein 5.6 g/dL (6.6-8.7)
[2024-04-11] MEDS: LORazepam 2 mg/mL INJ 1 mL 0.5 MG IVP (06:19)
[2024-04-11 06:33] LABS: Arterial Blood Gas Hematocrit 12.7 % (37-47); Base Excess ABG -4.2 mmol/L (-2.0-2.0); Blood Gas Sample Site Brachial, right; Blood Gas Sample Type Arterial; Carboxyhemoglobin 3.5 %THgb (0.4-20.1); HCO3 ABG 20.3 mmol/L (22-26); HGB O2 Sat 94.9 % (95-100); Methemoglobin 0.8 % (0.4-1.5); Oxygen Device ROOM AIR; PO2 ABG 91.1 mmHg (80.0-100.0); Total Hemoglobin 4.2 g/dL (12-16)
[2024-04-11 06:39] LABS: NT Pro B Type Natriuretic Pept 624 pg/mL (0-125)
--- NOTE | 2024-04-11 06:43 | CTR_ITS ---
PROCEDURE INFORMATION: Exam: CT Abdomen And Pelvis With Contrast Exam date and time: 04/11/2024 6:55 AM Age: 68 years old Clinical indication: Abnormal findings; Abnormal lab test; Other: Low hgb; Additional info: Abd pain TECHNIQUE: Imaging protocol: Computed tomography of the abdomen and pelvis with contrast. Radiation optimization: All CT scans at this facility use at least one of these dose optimization techniques: automated exposure control; mA and/or kV adjustment per patient size (includes targeted exams where dose is matched to clinical indication); or iterative reconstruction. Contrast material: OMNI 350; Contrast volume: 75 ml; Contrast route: INTRAVENOUS (IV); COMPARISON: CT angio abdomen pelvis [id number] 03/16/2024 3:43 PM RADIATION DOSE METRICS: Total DLP (mGy-cm): 295.14 FINDINGS: Liver: Normal. No mass. Gallbladder and biliary ducts: Normal. No calcified stones. No ductal dilation. Pancreas: Normal. No ductal dilation. Spleen: Normal. No splenomegaly. Adrenal glands: Normal. No mass. Kidneys and ureters: There is 2.2 mm nonobstructing calculus seen lower pole of the right kidney. A stable tiny simple appearing cysts are seen on the upper pole of the left kidney posteriorly measuring 3.4 mm. No further workup needed. Stomach and bowel: Unremarkable. No obstruction. No mucosal thickening. Appendix: No evidence of appendicitis. Intraperitoneal space: Unremarkable. No free air. No significant fluid collection. Vasculature: Unremarkable. No abdominal aortic aneurysm. Lymph nodes: Unremarkable. No enlarged lymph nodes. Urinary bladder: Unremarkable as visualized. Reproductive: Status post hysterectomy. Bones/joints: There is anterior fixation the L5-S1 vertebral bodies. Soft tissues: Unremarkable. CT/CT abdomen pelvis w con* [id number] IMPRESSION: 1. There are no acute abdominal findings. 2. Nonobstructing 2.2 mm lower pole calculus within the right kidney.
[2024-04-11] MEDS: iohexol 350 mg/mL 500 mL Btl (per mL) IV (06:58)
[2024-04-11] MEDS: ondansetron 2 mg/ML SDV 2 mL 4 MG IVP (07:15)
[2024-04-11] MEDS: morphine 4 mg/mL SDV 1 mL IVP (07:17)
[2024-04-11] MEDS: pantoprazole 40 mg SDV 80 MG IVP (07:23)
[2024-04-11] MEDS: sodium chloride 0.9% 100 mL Bag 50 ML IV (09:05)
--- NOTE | 2024-04-11 10:36 | PC.NURSE ---
Patient arrived in ICU at 0900 via ER juaquin with unit of RBC infusing. Patient vital signs stable. Patient alert to person, place, and situation. Unclear on time.
--- NOTE | 2024-04-11 10:41 | P.CONIM_ITS ---
Providers/Reason For Consult 2 Consulting Physician/Specialty*: General surgery Reason for Consult*: GI bleeding Attending Physician: Ivan Figueroa Primary Care Provider: Peyton Gibson MD History of Present Illness History of Present Illness Shayy Mann is a 68 year old female who presented to the hospital with symptoms concerning for anxiety and during workup was noted to have a very low hemoglobin. Additional workup including CAT scan of the abdomen was unremarkable had a positive Hemoccult test. 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 These were attempted to be managed with clips as well as epinephrine injection. Patient has not had any abdominal pain on other symptoms. Review of Systems 2 General: Reports: 10 or more systems reviewed and unremarkable except in HPI and below Medications/Allergies Home Medications Medication Instructions Recorded Confirmed Last Taken Type albuterol sulfate 90 mcg/actuation 2 puff inhalation 6XD PRN 09/19/22 03/30/24 Unknown Rx aerosol inhaler shortness of breath or wheezing 30 days #17 grams lidocaine 5 % topical patch 1 patch topical DAILY PRN pain #30 04/04/23 03/30/24 Unknown Rx ea ipratropium 0.5 mg-albuterol 3 mg 3 ml inhalation Q6H PRN COPD J44.9 06/20/23 03/30/24 Unknown Rx (2.5 mg base)/3 mL nebulization #180 mL soln budesonide 160 mcg-glycopyr 9 2 inh inhalation BID 30 days #10.7 02/02/24 03/30/24 03/14/24 Rx mcg-formot 4.8 mcg/actuation HFA grams inhaler (Breztri Aerosphere) duloxetine 20 mg capsule,delayed 20 mg PO BID #60 caps 02/17/24 03/30/24 03/15/24 Rx release (Cymbalta) estradiol 1 mg tablet 1 mg PO DAILY 02/27/24 03/30/24 Unknown History aspirin 81 mg tablet,delayed 81 mg PO DAILY #90 tabs 03/01/24 03/30/24 03/15/24 Rx release clopidogrel 75 mg tablet 75 mg PO DAILY #90 tabs 03/01/24 03/30/24 03/15/24 Rx nitroglycerin 0.4 mg sublingual 0.4 mg sublingual Q5M PRN chest 03/01/24 03/30/24 Unknown Rx tablet pain #90 tabs acetaminophen 500 mg tablet 1,000 mg PO Q6H PRN Pain 03/15/24 03/30/24 Unknown History atorvastatin 40 mg tablet 40 mg PO BID 03/15/24 03/30/24 03/15/24 History lamotrigine 150 mg tablet 150 mg PO DAILY 03/15/24 03/30/24 03/15/24 History fluticasone furoate 50 1 inh inhalation Q24H #60 ea 03/18/24 03/30/24 Unknown Rx mcg-vilanterol 25 mcg/dose inhalation powder (Breo Ellipta) pantoprazole 40 mg tablet,delayed 40 mg PO DAILY #90 tabs 03/18/24 03/30/24 Unknown Rx release (Protonix) tiotropium bromide 18 mcg capsule 1 cap inhalation DAILY #60 03/18/24 03/30/24 Unknown Rx with inhalation device (Spiriva inhalations with HandiHaler) Allergies Allergy/AdvReac Type Severity Reaction Status Date / Time Opioids - Morphine Analogues Allergy Severe Unknown Verified 03/30/24 14:00 pregabalin [From Lyrica] Allergy Severe syncope Verified 03/30/24 14:00 venlafaxine Allergy tremor Verified 03/30/24 14:00 gabapentin AdvReac Intermediate Unknown Verified 03/30/24 14:00 tramadol AdvReac Unknown ADR-Vomitin Verified 03/30/24 14:00 g Current Medications Generic Name Dose Route Start Last Admin Trade Name Freq PRN Reason Stop Dose Admin Sodium Chloride 50 ml 04/11/24 06:10 04/11/24 09:05 Sodium Chloride 0.9% 100 Ml Bag IV 04/12/24 06:10 50 ml PRN PRN Administration Blood transfusion prime and flush PFSH Acute 2 PFSH: Medical History Atherosclerosis of [place] coronary artery without angina pectoris GERD (gastroesophageal reflux disease) Acute blood loss anemia Abdominal pain GI bleed Duodenal ulcer Acute upper GI bleed Dysphagia Exertional dyspnea Smoker History of duodenal ulcer Acute diastolic heart failure Acute exacerbation of chronic obstructive pulmonary disease Acute non-ST elevation myocardial infarction (NSTEMI) Osteopenia History of colon polyps hyperplastic polyp x 2 in 2022 Depression Chronic back pain Weight loss, unintentional COPD (chronic obstructive pulmonary disease) Hyperlipidemia Surgical History History of cataract extraction with lens replacement History of esophageal surgery benign polyp removed History of bunionectomy of both great toes History of hysterectomy still has one ovary History of cholecystectomy History of fusion of cervical spine History of lumbar spinal fusion Family History Other Adopted Social History Smoking and tobacco/nicotine status: current every day tobacco/nicotine user cigarettes Packs smoked per day: 0.5 [ Other cigarette details: started at 14; currently smokes 0.5 to 1 pack daily] Alcohol intake: current Alcohol intake frequency: holidays/special occasions only Substance/Drug Use: never Adopted: Yes Household members: spouse Marital status: Number of children: 1 Number of grandchildren: 2 Current occupational status: retired 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 Nose : Mucous membranes are without erythema. Lungs : Equal chest rise bilaterally, no use of accessory muscles, trachea is midline. CV : Rate and rhythm are normal. Abdomen : Soft, ND, NT, no g/r/m Extremities : No edema. Upper extremities are normal bilaterally. Back : non-tender to palpation, no CVA tenderness. Data 04/11/24 06:16 04/11/24 05:32 A&P Assessment and plan (1) GI bleed: Plan After a complete history, physical examination and review of all available clinical data the following is my assessment. Is a 68-year-old female presenting with a suspected as low GI bleed due to AVMs at the level of the cecum. Patient is being admitted to the ICU for resuscitation and blood transfusion. I was consulted to evaluate for the need of additional endoscopy and therapy. I Reviewed endoscopy report from the last visit, there is multiple medium to large AVMs at the level of the cecum, at the time of previous intervention to whether address with epinephrine injection and clips, unfortunately patient appears to continue to bleed. I made recommendation at this point is to stop all anticoagulation provide supportive care and blood transfusions and in the case of further downtrend of the hemoglobin or evidence of acute bleeding patient will need to be transferred to higher level of care for GI evaluation, as we do not processed the adequate tools to provide treatment of arteriovenous malformations of the colon, these need to be treated either with sclerotherapy or argon beam coagulation, which is not available to us. If the patient remains stable and there is no changes in clinical status my recommendation will be to have the patient follow-up with GI as outpatient for him to schedule colonoscopy and treatment of her arteriovenous malformations. Coding Level of Care Code 02650 Diagnoses GI bleed K92.2
--- NOTE | 2024-04-11 12:12 | P.HP_ITS ---
Providers/Chief Complaint 2 Admitting Physician: Ivan Figueroa Primary Care Provider: Peyton Gibson MD Chief Complaint: SOB History of Present Illness 68-year-old lady with CAD, with stenting of LCx in February 2024, EF 45%, COPD, blood loss anemia with AV malformation for which he underwent EGD and colonoscopy during last admission back in March presented due to shortness of breath, dyspnea on exertion, anxiety, chest x-ray was unremarkable, continued oxygen support and was given a breathing treatment as well as Ativan, on workup he is found to have worsened anemia with hemoglobin down to 4.1. He received 80 mg IV PPI. Admission was requested, discussed with ER physician to discuss with surgery transfer versus admission here due to recent upper and lower endoscopy with finding of AVM bleeding with recurrence. Surgery was consulted. She started on blood transfusion. She did not experience any outward bleeding, has not had this, hematochezia, hematuria. Hemoccult was positive in ER. She is on aspirin and Plavix after her cardiac stent in February. She is also bothered by arthritis pain in her neck. Review of Systems 2 Const: Reports: fatigue; Denies: fever(s), chills, body aches or malaise ENMT: Denies: throat pain Card: Reports: dyspnea on exertion; Denies: chest pain, edema or pre-syncope Resp: Denies: dyspnea, productive cough, change in phlegm color or hemoptysis GI: Denies: abdominal pain, nausea, vomiting, diarrhea, constipation, hematochezia or melena : Denies: flank pain, urinary frequency or hematuria Musc: Denies: back pain, joint swelling or joint redness Skin/Breast: Denies: rash or new lesions Neuro: Denies: headache(s) Medications/Allergies Home Medications Medication Instructions Recorded Confirmed Last Taken Type albuterol sulfate 90 mcg/actuation 2 puff inhalation 6XD PRN 09/19/22 03/30/24 Unknown Rx aerosol inhaler shortness of breath or wheezing 30 days #17 grams lidocaine 5 % topical patch 1 patch topical DAILY PRN pain #30 04/04/23 03/30/24 Unknown Rx ea ipratropium 0.5 mg-albuterol 3 mg 3 ml inhalation Q6H PRN COPD J44.9 06/20/23 03/30/24 Unknown Rx (2.5 mg base)/3 mL nebulization #180 mL soln budesonide 160 mcg-glycopyr 9 2 inh inhalation BID 30 days #10.7 02/02/24 03/30/24 03/14/24 Rx mcg-formot 4.8 mcg/actuation HFA grams inhaler (Breztri Aerosphere) duloxetine 20 mg capsule,delayed 20 mg PO BID #60 caps 02/17/24 03/30/24 03/15/24 Rx release (Cymbalta) estradiol 1 mg tablet 1 mg PO DAILY 02/27/24 03/30/24 Unknown History aspirin 81 mg tablet,delayed 81 mg PO DAILY #90 tabs 03/01/24 03/30/24 03/15/24 Rx release clopidogrel 75 mg tablet 75 mg PO DAILY #90 tabs 03/01/24 03/30/24 03/15/24 Rx nitroglycerin 0.4 mg sublingual 0.4 mg sublingual Q5M PRN chest 03/01/24 03/30/24 Unknown Rx tablet pain #90 tabs acetaminophen 500 mg tablet 1,000 mg PO Q6H PRN Pain 03/15/24 03/30/24 Unknown History atorvastatin 40 mg tablet 40 mg PO BID 03/15/24 03/30/24 03/15/24 History lamotrigine 150 mg tablet 150 mg PO DAILY 03/15/24 03/30/24 03/15/24 History fluticasone furoate 50 1 inh inhalation Q24H #60 ea 03/18/24 03/30/24 Unknown Rx mcg-vilanterol 25 mcg/dose inhalation powder (Breo Ellipta) pantoprazole 40 mg tablet,delayed 40 mg PO DAILY #90 tabs 03/18/24 03/30/24 Unknown Rx release (Protonix) tiotropium bromide 18 mcg capsule 1 cap inhalation DAILY #60 03/18/24 03/30/24 Unknown Rx with inhalation device (Spiriva inhalations with HandiHaler) Allergies Allergy/AdvReac Type Severity Reaction Status Date / Time Opioids - Morphine Analogues Allergy Severe Unknown Verified 03/30/24 14:00 pregabalin [From Lyrica] Allergy Severe syncope Verified 03/30/24 14:00 venlafaxine Allergy tremor Verified 03/30/24 14:00 gabapentin AdvReac Intermediate Unknown Verified 03/30/24 14:00 tramadol AdvReac Unknown ADR-Vomitin Verified 03/30/24 14:00 g PFSH Acute 2 PFSH: Medical History Atherosclerosis of [place] coronary artery without angina pectoris GERD (gastroesophageal reflux disease) Acute blood loss anemia Abdominal pain GI bleed Duodenal ulcer Acute upper GI bleed Dysphagia Exertional dyspnea Smoker History of duodenal ulcer Acute diastolic heart failure Acute exacerbation of chronic obstructive pulmonary disease Acute non-ST elevation myocardial infarction (NSTEMI) Osteopenia History of colon polyps hyperplastic polyp x 2 in 2021 Depression Chronic back pain Weight loss, unintentional COPD (chronic obstructive pulmonary disease) Hyperlipidemia Surgical History History of cataract extraction with lens replacement History of esophageal surgery benign polyp removed History of bunionectomy of both great toes History of hysterectomy still has one ovary History of cholecystectomy History of fusion of cervical spine History of lumbar spinal fusion Family History Other Adopted Social History Smoking and tobacco/nicotine status: current every day tobacco/nicotine user cigarettes Packs smoked per day: 0.5 [ Other cigarette details: started at 14; currently smokes 0.5 to 1 pack daily] Alcohol intake: current Alcohol intake frequency: holidays/special occasions only Substance/Drug Use: never Adopted: Yes Household members: spouse Marital status: Number of children: 1 Number of grandchildren: 2 Current occupational status: retired 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 [employer] Vitals/I&O/Wt Last Vital Signs Temp 98.2 F 04/11/24 11:31 Pulse 89 04/11/24 11:31 Resp 21 H 04/11/24 11:31 BP 125/71 04/11/24 11:31 Pulse Ox 95 04/11/24 10:31 O2 Del Method Nasal Cannula 04/11/24 09:12 04/10/24 04/11/24 04/11/24 22:59 06:59 14:59 Intake Total 1000 / 1000 Balance 1000 / 1000 Weight last 48 hrs Weight 39.689 kg Weight 38.555 kg Physical Exam 2 Const: COMMON NORMALS: patient oriented x3 and alert GENERAL APPEARANCE: c ooperative ORIENTATION/CONSCIOUSNESS: Yes awake HENMT: COMMON NORMALS: oropharynx normal Neck/C-Spine: COMMON NORMALS: no JVD Resp: COMMON NORMALS: normal respiratory effort and clear to auscultation bilaterally AUSCULTATION: diminished lung sounds Cardio: COMMON NORMALS: no JVD, regular rhythm, S1 normal heart sound present, S2 normal heart sound present and No murmurs present (Cardio) RHYTHM: regular rhythm HEART SOUNDS: S1 normal heart sound present and S2 normal heart sound present GI: COMMON NORMALS: Normal to inspection, nondistended, normoactive bowel sounds present, Soft to palpation and non-tender PALPATION: Yes Soft to palpation Extremity: COMMON NORMALS: no joint enlargement and no pedal edema Neuro: COMMON NORMALS: patient oriented x3 and moves all extremities S ENSORIUM/ORIENTATION: Yes alert Skin: COMMON NORMALS: no rashes or lesions noted GENERAL SKIN EXAM: no rashes or lesions noted Data 04/11/24 06:16 04/11/24 05:32 A&P Assessment and plan (1) Anemia: Severe symptomatic blood loss anemia with GI bleeding, hemoglobin down to 4.1, symptomatic with dyspnea, fatigability, decreased blood pressure down to as low as 90/70. Reviewed platelets, ABG, CMP, medications. Hold duloxetine. Reviewed ER note, discussed with ER provider. IV twice daily PPI. Reviewed surgery note, held aspirin, Plavix for now. Discussed with surgery, given recent stent at high risk of thrombosis of the stent. Discussed with patient. As per discussion with surgery and patient for now aspirin is on hold but we will recheck counts, in case there is not further precipitous drop/reasonable response to transfusion resume at least Plavix. Recheck blood counts requested. Monitor in ICU. In case of lack of stabilization will need transfer to higher level care facility for treatment of AVM. Otherwise follow-up as outpatient. (2) GI bleed: Recurrent GI bleed with AVM, as above. (3) Cervical pain (neck): Discussed with her adding lidocaine patch Plan COPD: Diminished air entry on exam. With moderate exacerbation with dyspnea. Breathing treatments with DuoNebs, no antibiotic at the moment. Not a good candidate for systemic steroids at current time with GI bleeding anemia, will give inhaled steroid. Continue current support, wean down as tolerating. CAD: LCx stent in February 2024. Smoking: Encourage cessation. Nicotine replacement as needed. Attestations 2 Medical Necessity Statement*: Admission of over 2 midnights anticipated for assessment of management of GI bleeding with severe symptomatic recurrent GI blood loss anemia, COPD exacerbation. Coding Level of Care Code Critical Care >/= 30 minutes Critical care time (in minutes): 40 The high probability of a clinically significant, sudden or life threatening deterioration, as referenced in this documentation, required my full and direct attention, intervention and personal management. The critical care time shown is in addition to time spent performing any reported separately billable procedures and includes the following: [x] Data and vital sign review and interpretation [x ] Patient assessment, examination and intervention [x] Medication orders and management [x] Patient/Family updates as able [x] Care Coordination and Documentation. Diagnoses Anemia D64.9 GI bleed K92.2 Cervical pain (neck) M54.2
[2024-04-11] MEDS: lidocaine 5% Patch 1 PATCH TOPICAL (12:53)
[2024-04-11] MEDS: acetaminophen 325 mg Tablet 650 MG PO (16:13)
[2024-04-11] MEDS: pantoprazole 40 mg SDV IVP (17:35)
[2024-04-11] MEDS: budesonide 0.5 mg/2 mL Neb INHALATION (20:06)
[2024-04-12] VITALS (53 sets, daily range): BP systolic 92–135; BP diastolic 51–102; PULSE 65–116; RESP 15–32; TEMP 36.6–37.2; O2SAT 94–99; BMI 17.1
[2024-04-12] MEDS: ipratropium-albuterol 3 mL Neb INHALATION ×4 (01:16→19:52)
[2024-04-12 04:01] LABS: Basophils % 0.4 %; Hematocrit 24.3 % (36-47); Lymphocytes # 0.8 10^3/uL (0.8-4.8); Lymphocytes % 14.1 %; Mean Corpuscular HGB Conc 32.5 g/dL (30-55); Mean Corpuscular Hemoglobin 28.4 pg (27-33); Mean Corpuscular Volume 87.4 fl (85-98); Mean Platelet Volume 10.7 fL (7.4-10.4); Monocytes # 0.7 10^3/uL (0.2-0.9); Monocytes % 13.2 %; Neutrophils # 3.87 10^3/uL (1.8-7.7); Neutrophils % 71.7 %; Nucleated Red Blood Cells # 0.1 /100WBC; Nucleated Red Blood Cells % 1.3 %; Platelet Count 297 10^3/cmm (157-399); Red Blood Count 2.78 10^6/uL (3.85-5.65); Red Cell Distribution Width 16.2 % (12.1-15.1); White Blood Count 5.39 10^3/uL (3.29-11.43)
[2024-04-12 04:31] LABS: Alanine Aminotransferase 13 U/L (0-33); Albumin Level 3.4 g/dL (3.5-5.2); Alkaline Phosphatase 94 U/L (35-105); Blood Urea Nitrogen 19 mg/dL (8-23); Calcium 8.3 mg/dL (8.5-10.5); Carbon Dioxide 23 mmol/L (22-29); Chloride 108 mmol/L (98-107); Creatinine Clr Calc Pharmacy 40.9982; Glomerular Filtration Rate 82.7 mL/min (90-130); Glucose 99 mg/dL (65-115); Osmolality Calculated 286 mOsm/kg (285-295); Sodium 137 mmol/L (136-145); Total Bilirubin 0.5 mg/dL (0.15-1.2); Total Protein 5.4 g/dL (6.6-8.7)
[2024-04-12 04:35] LABS: Anion Gap 10.7 (5-19); Aspartate Amino Transferase 18 U/L (0-32); Potassium 4.7 mmol/L (3.5-5.1)
[2024-04-12] MEDS: pantoprazole 40 mg SDV IVP ×2 (05:35→17:18)
[2024-04-12] MEDS: budesonide 0.5 mg/2 mL Neb INHALATION ×2 (07:59→19:52)
[2024-04-12] MEDS: lidocaine 5% Patch 1 PATCH TOPICAL (08:47)
[2024-04-12] MEDS: ALPRAZolam 0.5 mg Tablet PO (08:47)
[2024-04-12] MEDS: FUROsemide 10 mg/mL SDV 4mL 40 MG IVP (08:47)
--- NOTE | 2024-04-12 09:31 | P.PN_ITS ---
Subjective 2 Subjective: Patient was evaluated today at the bedside, she is feeling better, still had some bouts of anxiety where she feels like she is not able to take a deep breath. Denies blood in the stool denies abdominal pain. Vitals/I&O/Wt Last Vital Signs Temp 98.9 F 04/12/24 04:00 Pulse 105 H 04/12/24 07:59 Resp 32 H 04/12/24 07:59 BP 105/57 04/12/24 06:00 Pulse Ox 97 04/12/24 07:59 O2 Del Method Nasal Cannula 04/12/24 07:59 O2 Flow Rate 2 04/12/24 07:59 04/11/24 04/12/24 04/12/24 22:59 06:59 14:59 Intake Total 500 / 1500 0 / 1500 Output Total 750 / 750 250 / 1000 Balance -250 / 750 -250 / 500 Weight last 48 hrs Weight 90 lb 9.6 oz Weight 90 lb 9.6 oz Weight 87 lb 8 oz Weight 85 lb Physical Exam 2 GI: OTHER: Abdominal exam is benign abdomen is soft and nontender. Data 04/12/24 03:26 04/12/24 03:26 A&P Assessment and plan (1) GI bleed: Plan Patient appears to be improving, labs hemoglobin level is 7.9. This is a significant improvement from yesterday, she also appears less pale and in better spirits. I discussed the case with primary team yesterday we agree that due to patient high risk for cardiac events even anticoagulation. We will just hold the aspirin but continue Plavix to prevent her stents to thrombose. If the patient presents persistent decline of the hemoglobin she will need to be transferred to higher level of care for sclerotherapy or coagulation of the known arteriovenous malformations at the level of the cecum. Otherwise she can follow-up with us outpatient with GI. No additional surgical intervention is suspected at this time. Attestations 2 Medical Necessity Statement*: Per medical team. Coding Level of Care Code Acute Code for [facility] Diagnoses GI bleed K92.2
[2024-04-12] MEDS: duloxetine 20 mg Capsule PO ×2 (12:14→17:18)
[2024-04-12] MEDS: sucralfate 1 gm/10 mL Oral Liq UDC PO ×3 (12:14→21:05)
[2024-04-12] MEDS: iron sucrose 200 MG in sodium chloride 0.9% (100 ml) 100 ML 220 MG IV (12:17)
[2024-04-12] MEDS: metoprolol tartrate 25 mg Tablet PO ×2 (13:01→21:05)
[2024-04-12] MEDS: acetaminophen 325 mg Tablet 650 MG PO (14:58)
--- NOTE | 2024-04-12 16:31 | PM.PN ---
Subjective Subjective: Hospital course, labs appreciated. Patient states he is feeling comfortable. Denies any nausea or vomiting. Complaining of feeling weak and tired. Has remained hemodynamically stable. Did have episode of anxiety with difficulty breathing earlier today morning which resolved with IV Lasix. Vitals/I&O/Wt Last Vital Signs Temp 98.5 F 04/12/24 08:00 Pulse 90 04/12/24 14:00 Resp 19 H 04/12/24 14:00 BP 100/59 04/12/24 14:30 Pulse Ox 96 04/12/24 14:00 O2 Del Method Nasal Cannula 04/12/24 13:36 O2 Flow Rate 1 04/12/24 13:36 04/12/24 04/12/24 04/12/24 06:59 14:59 22:59 Intake Total 0 / 1500 760 / 760 Output Total 250 / 1000 1900 / 1900 Balance -250 / 500 -1140 / -1140 Weight last 48 hrs Weight 41.095 kg Weight 41.095 kg Weight 39.689 kg Weight 38.555 kg Physical Exam Narrative: Weak and chronically sick appearing, tremors present Const: COMMON NORMALS: patient oriented x3 and alert GENERAL APPEARANCE: cooperative ORIENTATION/CONSCIOUSNESS: Yes awake HENMT: COMMON NORMALS: oropharynx normal Neck/C-Spine: COMMON NORMALS: no JVD Resp: COMMON NORMALS: normal respiratory effort and clear to auscultation bilaterally AUSCULTATION: clear to auscultation bilaterally and diminished lung sounds Cardio: COMMON NORMALS: no JVD, regular rhythm, S1 normal heart sound present, S2 normal heart sound present and No murmurs present (Cardio) RHYTHM: regular rhythm HEART SOUNDS: S1 normal heart sound present and S2 normal heart sound present GI: COMMON NORMALS: Normal to inspection, nondistended, normoactive bowel sounds present, Soft to palpation and non-tender PALPATION: Yes Soft to palpation Extremity: COMMON NORMALS: no joint enlargement and no pedal edema Neuro: COMMON NORMALS: patient oriented x3 and moves all extremities SENSORIUM/ORIENTATION: Yes alert Skin: COMMON NORMALS: no rashes or lesions noted GENERAL SKIN EXAM: no rashes or lesions noted Data 04/12/24 03:26 04/12/24 03:26 A&P Assessment and plan (1) Anemia: Recent EGD on recent admission showing AVMs. Recent history of PCI on CAD. Patient on dual antibiotic therapy at home. Currently on hold. Target hemoglobin around 8. Patient did have difficulty in breathing today morning resolved with Lasix. Appreciate surgical recommendations. Monitor hemoglobin every 12 hourly for now. If hemoglobin stable will plan to start on Plavix at least given recent stenting. If hemoglobin trending down or any chest pain we will plan to transfer patient to a higher center for further management under technology applications consultant. Patient made aware and is agreeable. She would like to try going to [place] first. Continue with Protonix 40 mg twice daily. Add Carafate before meals and at bedtime. Patient complaining of anxiety. Will restart home dose of duloxetine for now. Patient does have higher risk of bleeding in setting of duloxetine but given anxiety would be beneficial for now. Appreciate iron panel. Start on IV iron supplementation. (2) GI bleed: Recurrent GI bleed with AVM, as above. (3) Cervical pain (neck): Discussed with her adding lidocaine patch Plan COPD: Currently no exacerbation. Continue with DuoNeb every 6 hour, Pulmicort twice daily. CAD: LCx stent in February 2024. Last echocardiogram showed an EF of 55% without RWMA. Given difficulty in breathing today morning for now we will continue with Lasix 20 mg oral daily. Holding off on dual antiplatelet therapy for now. Add metoprolol 25 mg oral twice daily. Monitor hemodynamics. Goal blood pressure less than 140/90 mmHg with mean over 65. Smoking: Encourage cessation. Nicotine replacement as needed. Full code Clear liquid diet Protonix 40 mg twice daily. SCDs for DVT prophylaxis Attestations Medical Necessity Statement*: Requires further hospitalization for management of acute on chronic anemia in setting of GI bleed in setting of AV malformation in a patient with recent CAD post PCI within the last 2 months. Diagnoses Anemia D64.9 GI bleed K92.2 Cervical pain (neck) M54.2
[2024-04-12 16:38] LABS: Hematocrit 24.9 % (36-47)
[2024-04-13] VITALS (45 sets, daily range): BP systolic 87–123; BP diastolic 47–70; PULSE 62–87; RESP 15–25; TEMP 36.6–36.8; O2SAT 92–98; BMI 16.0
[2024-04-13] MEDS: ipratropium-albuterol 3 mL Neb INHALATION ×4 (01:54→19:40)
[2024-04-13 04:51] LABS: Basophils % 0.6 %; Eosinophils # 0.1 10^3/uL (0.0-0.8); Eosinophils % 2.1 %; Lymphocytes # 0.9 10^3/uL (0.8-4.8); Lymphocytes % 18.2 %; Mean Corpuscular HGB Conc 31.5 g/dL (30-55); Mean Corpuscular Hemoglobin 27.9 pg (27-33); Mean Corpuscular Volume 88.4 fl (85-98); Mean Platelet Volume 10.4 fL (7.4-10.4); Monocytes # 0.5 10^3/uL (0.2-0.9); Monocytes % 10.7 %; Neutrophils # 3.17 10^3/uL (1.8-7.7); Nucleated Red Blood Cells # 0.1 /100WBC; Nucleated Red Blood Cells % 1.5 %; Platelet Count 275 10^3/cmm (157-399); Red Blood Count 2.94 10^6/uL (3.85-5.65); Red Cell Distribution Width 16.9 % (12.1-15.1); White Blood Count 4.67 10^3/uL (3.29-11.43)
[2024-04-13 05:26] LABS: Alanine Aminotransferase 12 U/L (0-33); Albumin Level 3.4 g/dL (3.5-5.2); Alkaline Phosphatase 95 U/L (35-105); Anion Gap 12.7 (5-19); Aspartate Amino Transferase 13 U/L (0-32); Blood Urea Nitrogen 13 mg/dL (8-23); Calcium 8.6 mg/dL (8.5-10.5); Carbon Dioxide 27 mmol/L (22-29); Chloride 107 mmol/L (98-107); Creatinine Clr Calc Pharmacy 46.6063; Globulin 1.9 g/dL (1.3-4.6); Glomerular Filtration Rate 82.7 mL/min (90-130); Glucose 87 mg/dL (65-115); Osmolality Calculated 295 mOsm/kg (285-295); Potassium 3.7 mmol/L (3.5-5.1); Sodium 143 mmol/L (136-145); Total Bilirubin 0.5 mg/dL (0.15-1.2); Total Protein 5.3 g/dL (6.6-8.7)
[2024-04-13] MEDS: pantoprazole 40 mg SDV IVP ×2 (06:14→16:41)
[2024-04-13] MEDS: sucralfate 1 gm/10 mL Oral Liq UDC PO ×4 (06:14→21:41)
[2024-04-13] MEDS: budesonide 0.5 mg/2 mL Neb INHALATION ×2 (07:39→19:40)
[2024-04-13] MEDS: metoprolol tartrate 25 mg Tablet PO ×2 (08:01→21:41)
[2024-04-13] MEDS: duloxetine 20 mg Capsule PO ×2 (08:01→16:41)
[2024-04-13] MEDS: atorvastatin 40 mg Tablet 80 MG PO (08:01)
[2024-04-13] MEDS: FUROsemide 20 mg Tablet PO (08:01)
[2024-04-13] MEDS: lidocaine 5% Patch 1 PATCH TOPICAL (08:02)
[2024-04-13] MEDS: clopidogrel 75 mg Tablet PO (08:16)
[2024-04-13] MEDS: iron sucrose 200 MG in sodium chloride 0.9% (100 ml) 100 ML 220 MG IV (11:38)
--- NOTE | 2024-04-13 15:18 | P.PN_ITS ---
Subjective 2 Subjective: No acute vents overnight. Seen with at bedside. Patient has not had any further episodes of diarrhea or bleeding with bowel movements. Vitals/I&O/Wt Last Vital Signs Temp 98.3 F 04/13/24 12:00 Pulse 75 04/13/24 14:30 Resp 18 04/13/24 14:30 BP 91/47 04/13/24 14:30 Pulse Ox 97 04/13/24 14:30 O2 Del Method Nasal Cannula 04/13/24 13:03 O2 Flow Rate 0.5 04/13/24 13:03 04/13/24 04/13/24 04/13/24 06:59 14:59 22:59 Intake Total 0 / 910 1170 / 1170 480 / 1650 Output Total 275 / 2425 450 / 450 100 / 550 Balance -275 / -1515 720 / 720 380 / 1100 Weight last 48 hrs Weight 38.465 kg Weight 38.465 kg Weight 41.095 kg Weight 41.095 kg Physical Exam 2 Narrative: Weak and chronically sick appearing, tremors present Const: COMMON NORMALS: patient oriented x3 and alert GENERAL APPEARANCE: c ooperative ORIENTATION/CONSCIOUSNESS: Yes awake HENMT: COMMON NORMALS: oropharynx normal Neck/C-Spine: COMMON NORMALS: no JVD Resp: COMMON NORMALS: normal respiratory effort and clear to auscultation bilaterally AUSCULTATION: clear to auscultation bilaterally and diminished lung sounds Cardio: COMMON NORMALS: no JVD, regular rhythm, S1 normal heart sound present, S2 normal heart sound present and No murmurs present (Cardio) RHYTHM: regular rhythm HEART SOUNDS: S1 normal heart sound present and S2 normal heart sound present GI: COMMON NORMALS: Normal to inspection, nondistended, normoactive bowel sounds present, Soft to palpation and non-tender PALPATION: Yes Soft to palpation Extremity: COMMON NORMALS: no joint enlargement and no pedal edema Neuro: COMMON NORMALS: patient oriented x3 and moves all extremities S ENSORIUM/ORIENTATION: Yes alert Skin: COMMON NORMALS: no rashes or lesions noted GENERAL SKIN EXAM: no rashes or lesions noted Data 04/13/24 04:40 04/13/24 04:40 A&P Assessment and plan (1) Anemia: Recent EGD on recent admission showing AVMs. Recent history of PCI on CAD. Patient on dual antibiotic therapy at home. Currently on hold. Target hemoglobin around 8. Patient did have difficulty in breathing today morning resolved with Lasix. Appreciate surgical recommendations. Monitor hemoglobin every 12 hourly for now. If hemoglobin stable will plan to start on Plavix at least given recent stenting. If hemoglobin trending down or any chest pain we will plan to transfer patient to a higher center for further management under fast food services manager. Patient made aware and is agreeable. She would like to try going to [place] first. Continue with Protonix 40 mg twice daily. Add Carafate before meals and at bedtime. Patient complaining of anxiety. Will restart home dose of duloxetine for now. Patient does have higher risk of bleeding in setting of duloxetine but given anxiety would be beneficial for now. Appreciate iron panel. Start on IV iron supplementation. (2) GI bleed: Recurrent GI bleed with AVM, as above. (3) Cervical pain (neck): Discussed with her adding lidocaine patch Plan COPD: Currently no exacerbation. Continue with DuoNeb every 6 hour, Pulmicort twice daily. CAD: LCx stent in February 2024. Last echocardiogram showed an EF of 55% without RWMA. Given difficulty in breathing today morning for now we will continue with Lasix 20 mg oral daily. Holding off on dual antiplatelet therapy for now. Add metoprolol 25 mg oral twice daily. Monitor hemodynamics. Goal blood pressure less than 140/90 mmHg with mean over 65. Smoking: Encourage cessation. Nicotine replacement as needed. Plan for the day: Advance to full liquid diet. Hemoglobin stable. Started on Plavix. C/w Protonix and carafate Continue to monitor hemoglobin every 12 hours. If hemoglobin remained stable within next 24 hours we will plan to discharge home. If any concerns for drop in hemoglobin will have to transfer to higher center for further management with the gastroenterology team. Oxygen supplementation keeping saturation 90%. Transfer to med/surg Full code Clear liquid diet Protonix 40 mg twice daily. SCDs for DVT prophylaxis Attestations 2 Medical Necessity Statement*: Requires further hospitalization for management of anemia in setting of GI bleed in setting of AVM in a patient recently underwent PCI on DAPT while plavix is restarted Diagnoses Anemia D64.9 GI bleed K92.2 Cervical pain (neck) M54.2
[2024-04-13 15:59] LABS: Hematocrit 27.6 % (36-47)
--- NOTE | 2024-04-13 17:24 | P.PN_ITS ---
Subjective 2 Subjective: Patient was evaluated at the bedside this morning, she is doing very well no significant issues was restarted on Plavix. Her hemoglobin this morning was stable. Vitals/I&O/Wt Last Vital Signs Temp 98.3 F 04/13/24 12:00 Pulse 72 04/13/24 16:00 Resp 23 H 04/13/24 16:00 BP 111/60 04/13/24 16:00 Pulse Ox 97 04/13/24 15:30 O2 Del Method Nasal Cannula 04/13/24 13:03 O2 Flow Rate 0.5 04/13/24 13:03 04/13/24 04/13/24 04/13/24 06:59 14:59 22:59 Intake Total 0 / 910 1170 / 1170 480 / 1650 Output Total 275 / 2425 450 / 450 100 / 550 Balance -275 / -1515 720 / 720 380 / 1100 Weight last 48 hrs Weight 84 lb 12.8 oz Weight 84 lb 12.8 oz Weight 90 lb 9.6 oz Weight 90 lb 9.6 oz Physical Exam 2 GI: OTHER: Abdominal exam is benign abdomen soft nontender nondistended. No bloody stools Data 04/13/24 15:38 04/13/24 04:40 A&P Assessment and plan (1) GI bleed: (2) Polyp of colon: Plan Very good progression after suspected lower GI bleeding due to arterial malformation of the cecum. The patient hemoglobin continues to be stable she will be discharged home, she will require a GI follow-up as outpatient for repeat colonoscopy and endoscopy mild management of arteriovenous malformations of the cecum. In the case of clinical deterioration downtrending of the hemoglobin this referral will be needed to be done in an inpatient basis. Patient shows understanding agrees with the plan. Attestations 2 Medical Necessity Statement*: Per medical team Coding Level of Care Code Acute Code for [facility] Fwd Diagnoses GI bleed K92.2 Polyp of colon K63.5
--- NOTE | 2024-04-13 18:26 | PC.NURSE ---
Patient transferred patient to [facility]. Report given to TIMO Messina. Patient taken by wheelchair. Patient tolerated well.
[2024-04-14] VITALS (9 sets, daily range): BP systolic 121–127; BP diastolic 60–69; PULSE 57–81; RESP 14–20; TEMP 36.7–36.9; O2SAT 95–97
[2024-04-14] MEDS: ipratropium-albuterol 3 mL Neb INHALATION ×2 (01:52→07:29)
[2024-04-14 05:14] LABS: Basophils % 0.7 %; Eosinophils # 0.2 10^3/uL (0.0-0.8); Eosinophils % 2.9 %; Hematocrit 28.9 % (36-47); Lymphocytes # 0.9 10^3/uL (0.8-4.8); Lymphocytes % 16.9 %; Mean Corpuscular HGB Conc 30.4 g/dL (30-55); Mean Corpuscular Hemoglobin 27.4 pg (27-33); Mean Platelet Volume 10.2 fL (7.4-10.4); Monocytes # 0.5 10^3/uL (0.2-0.9); Monocytes % 9.2 %; Neutrophils % 69.9 %; Nucleated Red Blood Cells # 0.1 /100WBC; Nucleated Red Blood Cells % 1.3 %; Platelet Count 278 10^3/cmm (157-399); Red Blood Count 3.21 10^6/uL (3.85-5.65); Red Cell Distribution Width 16.8 % (12.1-15.1); White Blood Count 5.57 10^3/uL (3.29-11.43)
[2024-04-14 05:48] LABS: Alanine Aminotransferase 14 U/L (0-33); Albumin Level 3.5 g/dL (3.5-5.2); Alkaline Phosphatase 104 U/L (35-105); Anion Gap 12.6 (5-19); Aspartate Amino Transferase 18 U/L (0-32); Blood Urea Nitrogen 10 mg/dL (8-23); Calcium 8.7 mg/dL (8.5-10.5); Carbon Dioxide 26 mmol/L (22-29); Chloride 107 mmol/L (98-107); Creatinine Clr Calc Pharmacy 38.1874; Glomerular Filtration Rate 82.7 mL/min (90-130); Glucose 91 mg/dL (65-115); Osmolality Calculated 293 mOsm/kg (285-295); Potassium 3.6 mmol/L (3.5-5.1); Sodium 142 mmol/L (136-145); Total Bilirubin 0.5 mg/dL (0.15-1.2); Total Protein 5.5 g/dL (6.6-8.7)
[2024-04-14] MEDS: sucralfate 1 gm/10 mL Oral Liq UDC PO ×2 (06:09→12:13)
[2024-04-14] MEDS: pantoprazole 40 mg SDV IVP (06:09)
[2024-04-14] MEDS: budesonide 0.5 mg/2 mL Neb INHALATION (07:29)
[2024-04-14] MEDS: atorvastatin 40 mg Tablet 80 MG PO (08:48)
[2024-04-14] MEDS: duloxetine 20 mg Capsule PO (08:48)
[2024-04-14] MEDS: clopidogrel 75 mg Tablet PO (08:48)
[2024-04-14] MEDS: metoprolol tartrate 25 mg Tablet PO (08:48)
--- NOTE | 2024-04-14 10:07 | PC.SOCIAL ---
IMM Update pg 2 of IMM updated and reviewed w/ patient. Copy provided and copy dated, initialed and placed in chart.
--- NOTE | 2024-04-14 11:29 | PM.DCS ---
Discharge Providers Date of Admission: 04/11/24 07:32 Date of Discharge: April 14, 2024 Attending Provider at Admission: Ivan Figueroa Attending Provider at Discharge: Kody Rene MD Primary Care Provider: Peyton Gibson MD Diagnoses at Discharge Discharge Diagnosis (1) GI bleed: Status: Acute (2) Polyp of colon: Status: Acute (3) AVM (arteriovenous malformation) of small bowel, acquired: Status: Acute Reason for Visit Reason for Visit: SOB Brief History: History as per HPI: 68-year-old lady with CAD, with stenting of LCx in February 2024, EF 45%, COPD, blood loss anemia with AV malformation for which he underwent EGD and colonoscopy during last admission back in March presented due to shortness of breath, dyspnea on exertion, anxiety, chest x-ray was unremarkable, continued oxygen support and was given a breathing treatment as well as Ativan, on workup he is found to have worsened anemia with hemoglobin down to 4.1. He received 80 mg IV PPI. Admission was requested, discussed with ER physician to discuss with surgery transfer versus admission here due to recent upper and lower endoscopy with finding of AVM bleeding with recurrence. Surgery was consulted. She started on blood transfusion. She did not experience any outward bleeding, has not had this, hematochezia, hematuria. Hemoccult was positive in ER. She is on aspirin and Plavix after her cardiac stent in February. She is also bothered by arthritis pain in her neck. Hospital Course Hospital Course Patient was admitted to the hospital further evaluation and management of severe anemia with concerns for GI bleeding in setting of recent endoscopy showing AVM. Surgery was consulted. Given her recent history of PCI tentatively her dual antiplatelet therapy was withheld. She was transfused 2 unit of PRBC. Given her recent endoscopy showing AVM it was decided to monitor the patient for any drop in hemoglobin as worsening anemia would have needed patient to be transferred to a tertiary center for further management with possible sclerotherapy under gastroenterology. Once her hemoglobin remained stable she was started on Plavix. Patient's hemoglobin has remained stable for 24 hours after starting Plavix. She is been discharged in hemodynamically stable condition on Protonix twice daily, Carafate before meals and at bedtime on Plavix with advised to hold aspirin for next 4 weeks. She is also advised to follow-up with a primary care provider within next 1 week for repeat CBC. Patient is also advised to follow-up with a college or university faculty member as an outpatient for further evaluation and management of AVMs Physical Exam Narrative: Weak and chronically sick appearing, tremors present Const: COMMON NORMALS: patient oriented x3 and alert GENERAL APPEARANCE: cooperative ORIENTATION/CONSCIOUSNESS: Yes awake HENMT: COMMON NORMALS: oropharynx normal Neck/C-Spine: COMMON NORMALS: no JVD Resp: COMMON NORMALS: normal respiratory effort and clear to auscultation bilaterally AUSCULTATION: clear to auscultation bilaterally and diminished lung sounds Cardio: COMMON NORMALS: no JVD, regular rhythm, S1 normal heart sound present, S2 normal heart sound present and No murmurs present (Cardio) RHYTHM: regular rhythm HEART SOUNDS: S1 normal heart sound present and S2 normal heart sound present GI: COMMON NORMALS: Normal to inspection, nondistended, normoactive bowel sounds present, Soft to palpation and non-tender PALPATION: Yes Soft to palpation Extremity: COMMON NORMALS: no joint enlargement and no pedal edema Neuro: COMMON NORMALS: patient oriented x3 and moves all extremities SENSORIUM/ORIENTATION: Yes alert Skin: COMMON NORMALS: no rashes or lesions noted GENERAL SKIN EXAM: no rashes or lesions noted Discharge Data Studies Completed and Pending Completed Studies During Hospitalization Category Date Time Status CT abdomen pelvis w con* [id number] Stat Cat Scan 04/11/24 06:43 Completed XR chest 1V portable [id number] Stat Exams 04/11/24 05:51 Completed Pending at discharge Category Date Time Status Hemoglobin and Hematocrit Q12H Lab 04/14/24 16:00 Ordered PRBC [Leukocyte Reduced RBC] Routine Lab 04/11/24 06:16 Results Type and Screen Routine Lab 04/11/24 06:16 Results Radiology Impressions Chest X-Ray 04/11/24 05:51 IMPRESSION: No acute findings. Abdomen/Pelvis CT 04/11/24 06:43 IMPRESSION: 1. There are no acute abdominal findings. 2. Nonobstructing 2.2 mm lower pole calculus within the right kidney. Laboratory Results WBC 5.57 10^3/uL (3.29-11.43) 04/14/24 04:57 RBC 3.21 10^6/uL (3.85-5.65) L 04/14/24 04:57 Hgb 8.80 g/dL (11.27-16.99) L 04/14/24 04:57 Hct 28.9 % (36-47) L 04/14/24 04:57 MCV 90.0 fl (85-98) 04/14/24 04:57 MCH 27.4 pg (27-33) 04/14/24 04:57 MCHC 30.4 g/dL (30-55) 04/14/24 04:57 RDW 16.8 % (12.1-15.1) H 04/14/24 04:57 Plt Count 278 10^3/cmm (157-399) 04/14/24 04:57 MPV 10.2 fL (7.4-10.4) 04/14/24 04:57 Neut % (Auto) 69.9 % 04/14/24 04:57 Lymph % (Auto) 16.9 % 04/14/24 04:57 Lander % (Auto) 9.2 % 04/14/24 04:57 Eos % (Auto) 2.9 % 04/14/24 04:57 Baso % (Auto) 0.7 % 04/14/24 04:57 Neut # (Auto) 3.90 10^3/uL (1.8-7.7) 04/14/24 04:57 Lymph # (Auto) 0.9 10^3/uL (0.8-4.8) 04/14/24 04:57 Lander # (Auto) 0.5 10^3/uL (0.2-0.9) 04/14/24 04:57 Eos # (Auto) 0.2 10^3/uL (0.0-0.8) 04/14/24 04:57 Baso # (Auto) 0.0 10^3/uL (0.0-0.1) 04/14/24 04:57 Nucleated RBC % (auto) 1.3 % 04/14/24 04:57 Nucleated RBCs # 0.1 /100WBC 04/14/24 04:57 D-Dimer Cancelled 04/11/24 05:32 Specimen Type Arterial 04/11/24 06:22 Sample Site Brachial, right 04/11/24 06:22 ABG pH 7.40 (7.35-7.45) 04/11/24 06:22 ABG pCO2 33.0 mmHg (35-45) L 04/11/24 06:22 ABG pO2 91.1 mmHg (80.0-100.0) 04/11/24 06:22 ABG HCO3 20.3 mmol/L (22-26) L 04/11/24 06:22 ABG Base Excess -4.2 mmol/L (-2.0-2.0) L 04/11/24 06:22 Sumit Test N/a 04/11/24 06:22 Hematocrit 12.7 % (37-47) L 04/11/24 06:22 Hgb O2 Saturation 94.9 % (95-100) L 04/11/24 06:22 Carboxyhemoglobin 3.5 %THgb (0.4-20.1) 04/11/24 06:22 Methemoglobin 0.8 % (0.4-1.5) 04/11/24 06:22 Total Hemoglobin 4.2 g/dL (12-16) L 04/11/24 06:22 O2 Delivery Device Room air 04/11/24 06:22 Carver And Checkerer Specials ID [email or web address] 04/11/24 06:22 Sodium 142 mmol/L (136-145) 04/14/24 04:57 Potassium 3.6 mmol/L (3.5-5.1) 04/14/24 04:57 Chloride 107 mmol/L (98-107) 04/14/24 04:57 Carbon Dioxide 26 mmol/L (22-29) 04/14/24 04:57 Anion Gap 12.6 (5-19) 04/14/24 04:57 BUN 10 mg/dL (8-23) 04/14/24 04:57 Creatinine 0.7 mg/dL (0.5-0.9) 04/14/24 04:57 GFR Calculation 82.7 mL/min (90-130) L 04/14/24 04:57 Glucose 91 mg/dL (65-115) 04/14/24 04:57 Calculated Osmolality 293 mOsm/kg (285-295) 04/14/24 04:57 Calcium 8.7 mg/dL (8.5-10.5) 04/14/24 04:57 Total Bilirubin 0.5 mg/dL (0.15-1.2) 04/14/24 04:57 AST 18 U/L (0-32) 04/14/24 04:57 ALT 14 U/L (0-33) 04/14/24 04:57 Alkaline Phosphatase 104 U/L (35-105) 04/14/24 04:57 NT-Pro-B Natriuret Pep 624 pg/mL (0-125) H 04/11/24 05:32 Total Protein 5.5 g/dL (6.6-8.7) L 04/14/24 04:57 Albumin 3.5 g/dL (3.5-5.2) 04/14/24 04:57 Globulin 2.0 g/dL (1.3-4.6) 04/14/24 04:57 Blood Type O Negative 04/11/24 06:16 Rho(D) Type Rh negative 04/11/24 06:16 Antibody Screen Negative 04/11/24 06:16 Crossmatch See Detail 04/11/24 06:16 Vitals Last Vital Signs Temp 98.3 F 04/14/24 08:00 Pulse 71 04/14/24 08:00 Resp 14 04/14/24 08:00 BP 127/69 04/14/24 08:00 Pulse Ox 96 04/14/24 08:00 O2 Del Method Nasal Cannula 04/14/24 08:00 O2 Flow Rate 0 04/13/24 20:00 Discharge Plan Discharge Patient Disposition: Home Condition: Stable Prescriptions: New sucralfate 100 mg/mL Suspension 1 g PO AC&BEDTIME Qty: 1000 0RF Continued albuterol sulfate 90 mcg/actuation HFA aerosol inhaler 2 puff inhalation 6XD PRN (Reason: shortness of breath or wheezing) 30 Days Qty: 17 3RF ipratropium-albuterol 0.5 mg-3 mg(2.5 mg base)/3 mL solution for nebulization 3 ml inhalation Q6H PRN (Reason: COPD J44.9) Qty: 180 6RF Breztri Aerosphere 160-9-4.8 mcg/actuation HFA aerosol inhaler 2 inh inhalation BID 30 Days Qty: 10.7 6RF duloxetine [Cymbalta] 20 mg capsule,delayed release(DR/EC) 20 mg PO BID Qty: 60 3RF acetaminophen 500 mg Tablet 1,000 mg PO Q6H PRN (Reason: Pain) tiotropium bromide [Spiriva with HandiHaler] 18 mcg capsule, w/inhalation device 1 cap inhalation DAILY Qty: 60 3RF Rx Instructions: puncture 1 cap using device; one dose = 2 inhalations lamotrigine 100 mg tablet See Rx Instructions .ROUTE .COMPLEX Rx Instructions: TAKE 1 TABLET BY MOUTH DAILY AND 2 TABLETS AT BEDTIME. atorvastatin 80 mg tablet 80 mg PO DAILY clopidogrel 75 mg Tablet 75 mg PO DAILY Qty: 90 3RF nitroglycerin 0.4 mg tablet, sublingual 0.4 mg sublingual Q5M PRN (Reason: chest pain) Qty: 90 0RF Rx Instructions: do not exceed 3 doses per episode Changed pantoprazole [Protonix] 40 mg tablet,delayed release (DR/EC) 40 mg PO BIDWMEAL Qty: 90 3RF Held aspirin 81 mg Tablet,Delayed Release (Dr/Ec) 81 mg PO DAILY Qty: 90 3RF Hold Instructions: Resume on 05/05/24. Discharge Orders: Discharge Order (Routine); Ordered 04/14/24 Ordered By: Kody Rene Referrals: Peyton Gibson MD [Primary Care Provider] - 7-10 days Discharge Diet: Advance as tolerated and Soft Mechanical Discharge Activity: Resume usual activity and Increase activity as tolerated Patient Instructions: Opioid Safety Activity Restrictions/Additional Instructions: Please follow-up with a primary care provider within next 1 week for repeat CBC. Hold off on taking aspirin for next 4 weeks. Continue with Protonix twice daily and Carafate before meals and at bedtime going forward. You should follow-up with a college or university faculty member as well given high risk of GI bleeding with AVM while being on dual antiplatelet therapy for recent stenting to the heart Discharge Attestations Time Spent in Discharge Care*: greater than 30 min Specific Discharge Activities: educating patient, educating and/or supporting family/caregiver, discussing with pcp/other providers, discussing with director case management/social workers/dc planners, documenting/other paperwork and evaluating patient/reviewing data Status at Discharge: Cognitive status at discharge: cognitively intact, Behavioral status at discharge: cooperative, Functional status at discharge: independent ambulation, Overall status at discharge: patient is back to baseline Quality Metrics Clinical Quality Measures [ No reported AMI, CVA or VTE this stay] Coding Level of Care Code 21970 Total time (in minutes) for Discharge: 60 Diagnoses GI bleed K92.2 Polyp of colon K63.5 AVM (arteriovenous malformation) of small bowel, acquired K55.20
== END 2024-04-14 12:20 | disposition home or self-care (01) | DRG 812 ==
LOC: ER 07:23 → ICU 07:52 → MEDSURG 04-13 18:20
PROVIDERS: Emergency Medicine; Admitting Provider Internal Medicine; Emergency Provider Emergency Medicine; PCP Family Medicine; Visit Provider Student in an Organized Health Care Education/Training Program
DX: D50.0 Iron deficiency anemia secondary to blood loss (chronic) (principal); K92.2 Gastrointestinal hemorrhage, unspecified; J44.1 Chronic obstructive pulmonary disease with (acute) exacerbation; K63.5 Polyp of colon; K55.20 Angiodysplasia of colon without hemorrhage; Z99.81 Dependence on supplemental oxygen; M54.2 Cervicalgia; Z79.82 Long term (current) use of aspirin; Z79.02 Long term (current) use of antithrombotics/antiplatelets; F17.210 Nicotine dependence, cigarettes, uncomplicated; I25.10 Atherosclerotic heart disease of native coronary artery without angina pectoris; Z95.5 Presence of coronary angioplasty implant and graft; F41.9 Anxiety disorder, unspecified; F32.A Depression, unspecified; E78.5 Hyperlipidemia, unspecified; K21.9 Gastro-esophageal reflux disease without esophagitis
CPT/HCPCS: 36415; 36430; 36600; 71045; 74177; 80053; 82805; 83880; 85014; 85018; 85025; 86850; 86900; 86920; 93005; 93880; 94640; 96374; 96375; 96376; 99285; C9113; J1756; J1940; J2060; J2270; J2405; J2919; J7030; J7626; P9016; Q9967

== ENCOUNTER 2024-04-16 12:40 | Emergency (ER) | payer MEDICARE, OTHER, SELFPAY ==
[2024-04-16 12:54] VITALS: BP 118/72; PULSE 99; RESP 16; TEMP 36.7; O2SAT 100; BMI 15.5
--- NOTE | 2024-04-16 13:17 | ED_ITS ---
HPI - Extremity Problem General: Chief complaint: Extremity Problem,Nontraumatic Stated complaint: left foot swelling Time Seen by Provider: 04/16/24 13:09 Source: patient and family Mode of arrival: ambulatory Limitations: no limitations History of Present Illness: Patient is a 68-year-old female with an extensive past medical history here for concerns of swelling to the top of her left foot over the past 1 to 2 days. She was recently hospitalized at our facility and was profoundly anemic during that visit. She states she was given fluids as well as blood transfusions. She states she began noticing the swelling to the top of her left foot reached out to her PCP, Dr. Gibson who recommended coming to the emergency department to rule out DVT. She has not noticed any color/temperature changes to the extremity. Pain seems to be worse with walking-slight calf discomfort as well. Denies chest pain/SOB/difficulty breathing. States she seems to be doing okay since discharge overall. MD Complaint: extremity pain and extremity swelling Onset (ago): day(s) Location: left and lower extremity Radiation: none Relieving factors: immobilization Exacerbating factors: walking Associated symptoms: Reports no associated symptoms; Deny chest pain or fever(s) Context: other (recent hospitalization) Review of Systems Const: Reports: other (anxious/scared she might have a blood clot); Denies: fever(s), chills, body aches, fatigue or malaise Card: Denies: chest pain Resp: Denies: dyspnea GI: Denies: nausea or vomiting Musc: Reports: extremity pain and extremity swelling (L foot); Denies: neck pain, back pain, joint pain or joint swelling Neuro: Denies: headache(s), numbness in extremities, weakness in extremities or sensory changes PFS ED PFSH: Medical History Cervical pain (neck) Atherosclerosis of [place] coronary artery without angina pectoris GERD (gastroesophageal reflux disease) Acute blood loss anemia Abdominal pain GI bleed Duodenal ulcer Acute upper GI bleed Dysphagia Exertional dyspnea Smoker History of duodenal ulcer Acute diastolic heart failure Acute exacerbation of chronic obstructive pulmonary disease Acute non-ST elevation myocardial infarction (NSTEMI) Osteopenia History of colon polyps hyperplastic polyp x 2 in 2021 Depression Chronic back pain Weight loss, unintentional COPD (chronic obstructive pulmonary disease) Hyperlipidemia Surgical History History of cataract extraction with lens replacement History of esophageal surgery benign polyp removed History of bunionectomy of both great toes History of hysterectomy still has one ovary History of cholecystectomy History of fusion of cervical spine History of lumbar spinal fusion Family History Other Adopted Social History Smoking and tobacco/nicotine status: current every day tobacco/nicotine user cigarettes Packs smoked per day: 0.5 [ Other cigarette details: started at 14; currently smokes 0.5 to 1 pack daily] Alcohol intake: current Alcohol intake frequency: holidays/special occasions only Substance/Drug Use: never Adopted: Yes Household members: spouse Marital status: Number of children: 1 Number of grandchildren: 2 Current occupational status: retired 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 [employer] Physical Exam Const: COMMON NORMALS: no acute distress, no limitations and alert GENERAL APPEARANCE: cooperative NUTRITIONAL APPEARANCE: underweight ORIENTATION/CONSCIOUSNESS: Yes awake, Yes oriented to person, Yes oriented to place and Yes oriented to time OTHER: anxious/scared she might have a DVT Resp: COMMON NORMALS: normal respiratory effort and clear to auscultation bilaterally AUSCULTATION: clear to auscultation bilaterally Cardio: COMMON NORMALS: regular rate and regular rhythm RATE: regular rate RHYTHM: regular rhythm Extremity: COMMON NORMALS: full ROM GENERAL: Yes normal exam except as noted OTHER: pt is overall frail appearing-BMI is only 15.5; her bilateral LEs are extremely thin-she has mild bilateral LE edema as she has indentations from her sock line- this seems to be equally bilaterally; she complains of edema to the dorsum of her L foot which is hard to appreciate clinically; does report some L calf pain with palpation; equivocal Blanche's; DP/PT pulses appreciated bilaterally Neuro: COMMON NORMALS: moves all extremities, no focal motor deficits and no sensory deficits noted SENSORIUM/ORIENTATION: Yes alert, Yes oriented to person, Yes oriented to place and Yes oriented to time Skin: COMMON NORMALS: no rashes or lesions noted GENERAL SKIN EXAM: no rashes or lesions noted Course Vital Signs: Vital signs: Vital Signs Temperature 98.1 F 04/16/24 12:54 Pulse Rate 99 07/12/24 12:54 Respiratory Rate 16 04/16/24 12:54 Blood Pressure 118/72 04/16/24 12:54 Pulse Oximetry 100 04/16/24 12:54 Oxygen Delivery Me thod Room Air 04/16/24 12:54 MDM - Extremity (Nontraumatic) Medical Decision Making US negative. She will be allowed discharge with return precautions. Medical Records I reviewed the patient's medical records. XR interpretation done by ED provider, pending radiology final review (per Jc/US tech-negative for DVT) Discharge Plan Discharge Patient Disposition: Home Clinical Impression: Swelling of left foot Condition: Stable Prescriptions: No Action albuterol sulfate 90 mcg/actuation HFA aerosol inhaler 2 puff inhalation 6XD PRN (Reason: shortness of breath or wheezing) 30 Days Qty: 17 3RF ipratropium-albuterol 0.5 mg-3 mg(2.5 mg base)/3 mL solution for nebulization 3 ml inhalation Q6H PRN (Reason: COPD J44.9) Qty: 180 6RF Breztri Aerosphere 160-9-4.8 mcg/actuation HFA aerosol inhaler 2 inh inhalation BID 30 Days Qty: 10.7 6RF duloxetine [Cymbalta] 20 mg capsule,delayed release(DR/EC) 20 mg PO BID Qty: 60 3RF acetaminophen 500 mg Tablet 1,000 mg PO Q6H PRN (Reason: Pain) tiotropium bromide [Spiriva with HandiHaler] 18 mcg capsule, w/inhalation device 1 cap inhalation DAILY Qty: 60 3RF Rx Instructions: puncture 1 cap using device; one dose = 2 inhalations lamotrigine 100 mg tablet See Rx Instructions .ROUTE .COMPLEX Rx Instructions: TAKE 1 TABLET BY MOUTH DAILY AND 2 TABLETS AT BEDTIME. atorvastatin 80 mg tablet 80 mg PO DAILY sucralfate 100 mg/mL Suspension 1 g PO AC&BEDTIME Qty: 1000 0RF Protonix 40 mg tablet,delayed release (DR/EC) 40 mg PO BIDWMEAL Qty: 90 3RF clopidogrel 75 mg Tablet 75 mg PO DAILY Qty: 90 3RF aspirin 81 mg Tablet,Delayed Release (Dr/Ec) 81 mg PO DAILY Qty: 90 3RF Hold Instructions: Resume on 05/05/24. nitroglycerin 0.4 mg tablet, sublingual 0.4 mg sublingual Q5M PRN (Reason: chest pain) Qty: 90 0RF Rx Instructions: do not exceed 3 doses per episode Discharge Orders: Discharge ED (Routine); Ordered 04/16/24 Ordered By: Chasity Mason Referrals: Peyton Gibson MD [Primary Care Provider] - Activity Restrictions/Additional Instructions: As we discussed your ultrasound was negative for DVT (blood clot) today. Please follow-up with primary care next week as scheduled. 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
--- NOTE | 2024-04-16 13:22 | USCV_ITS ---
Shayy Mann Age: 68 Gender: F : 1955 Exam Date: 04/16/2024 14:40 Ordering Phys: Chasity Mason Technologist: Daniel Martinez Exam Location: [facility] – [place]_ Indication: foot swelling PROCEDURES: Venous duplex imaging was performed in only the left lower extremity. The following venous structures were evaluated: common femoral vein, profunda vein, proximal portion of the greater saphenous vein, superficial femoral vein, and the popliteal vein. In addition, the posterior tibial and peroneal trunk were evaluated. Serial compression, augmentation maneuvers, and spectral Doppler flow evaluation were performed. FINDINGS: Normal 2-D Doppler and augmentation and compressibility throughout the lower extremity venous structures. Additional imaging through the proximal calf veins also reveals no thrombus. Limited evaluation of the greater saphenous vein is patent with no thrombus. CONCLUSIONS No evidence of left lower extremity DVT. Hang Tolbert MD (Electronically Signed) Final Date: 16 April 2024 16:16 S
[2024-04-16 15:31] VITALS: BP 115/74; PULSE 91; RESP 16; TEMP 36.7; O2SAT 100
== END 2024-04-16 15:32 | disposition home or self-care (01) ==
PROVIDERS: Emergency Provider Physician Assistant; PCP Family Medicine
DX: M79.89 Other specified soft tissue disorders (principal); Z79.02 Long term (current) use of antithrombotics/antiplatelets; Z79.82 Long term (current) use of aspirin; F17.210 Nicotine dependence, cigarettes, uncomplicated; I25.10 Atherosclerotic heart disease of native coronary artery without angina pectoris; I25.2 Old myocardial infarction; J44.9 Chronic obstructive pulmonary disease, unspecified; I50.31 Acute diastolic (congestive) heart failure; E78.5 Hyperlipidemia, unspecified
CPT/HCPCS: 93971; 99284

== ENCOUNTER → 2024-04-20 11:04 | Outpatient (BNVA) | payer MEDICARE, OTHER, SELFPAY | PROVIDERS: PCP Family Medicine; Visit Provider Family Medicine | DX: E04.1 Nontoxic single thyroid nodule (principal); K92.2 Gastrointestinal hemorrhage, unspecified | CPT/HCPCS: 84443; 85025 ==

== ENCOUNTER → 2024-04-29 13:27 | Outpatient (BNVA) | payer MEDICARE, SELFPAY | PROVIDERS: PCP Family Medicine; Visit Provider Family Medicine | DX: D64.9 Anemia, unspecified (principal) | CPT/HCPCS: 85025 ==

== ENCOUNTER → 2024-05-03 14:12 | Outpatient (BNVA) | payer MEDICARE, SELFPAY | PROVIDERS: PCP Family Medicine; Visit Provider Family Medicine | DX: D64.9 Anemia, unspecified (principal) | CPT/HCPCS: 85014; 85018 ==

== ENCOUNTER 2024-05-07 08:00 | Oncology outpatient (recurring) (ONCR) | payer MEDICARE, SELFPAY ==
[2024-05-06] MEDS: sodium chloride 0.9% 250 mL Bag IV (12:27)
[2024-05-06 13:52] LABS: Mean Corpuscular Hemoglobin 25.4 pg (27-33); Mean Corpuscular Volume 84.7 fl (85-98); Mean Platelet Volume 9.1 fL (7.4-10.4); Platelet Count 315 10^3/cmm (157-399); Red Blood Count 2.48 10^6/uL (3.85-5.65); Red Cell Distribution Width 20.8 % (12.1-15.1); White Blood Count 3.62 10^3/uL (3.29-11.43)
[2024-05-06 14:09] VITALS: BP 147/79; PULSE 90; RESP 18; TEMP 37.1
[2024-05-06 14:28] VITALS: BP 125/69; PULSE 90; RESP 18; O2SAT 99
[2024-05-06 14:45] VITALS: BP 125/69; PULSE 73; RESP 16; O2SAT 99
[2024-05-06 15:41] VITALS: BP 145/79; PULSE 88; RESP 16; TEMP 36.6; O2SAT 99
[2024-05-07] MEDS: sodium chloride 0.9% 100 mL Bag 50 ML IV (08:27)
[2024-05-07 08:35] VITALS: BP 156/75; PULSE 88; RESP 16; TEMP 37.1; O2SAT 99
[2024-05-07 08:43] VITALS: BP 149/74; PULSE 85; RESP 17; TEMP 36.9
[2024-05-07 09:04] VITALS: BP 147/73; PULSE 94; RESP 16; TEMP 36.9; O2SAT 99
[2024-05-07 09:19] VITALS: BP 157/68; PULSE 101; RESP 16; TEMP 36.8; O2SAT 99
[2024-05-07 10:19] VITALS: BP 157/80; PULSE 86; RESP 16; TEMP 37.2; O2SAT 99
[2024-05-07 10:34] VITALS: BP 157/67; PULSE 85; O2SAT 95
== END 2024-06-10 09:17 | disposition home or self-care (01) ==
PROVIDERS: PCP Family Medicine; Visit Provider Family Medicine
DX: Z53.9 Procedure and treatment not carried out, unspecified reason (principal); K92.2 Gastrointestinal hemorrhage, unspecified
CPT/HCPCS: 36430; 85025; 85027; 86850; 86900; 86920; J7050; P9040

== ENCOUNTER 2024-05-10 12:53 | Outpatient (CLI) | payer MEDICARE, SELFPAY ==
--- NOTE | 2024-05-10 13:00 | US_ITS ---
WS: [id number] THYROID ULTRASOUND HISTORY: incidental thyroid nodule on carotid us COMPARISON: None available. Right lobe: 1.5 cm x 1.9 cm x 4.4 cm (w x ap x l). Volume: 6.1 cm3. Normal size thyroid. Hypoechoic nodule with a few cystic areas in the LEFT thyroid at the level of th e isthmus measures 0.8 x 0.7 x 0.9 cm. Mild peripheral increased vascularity. There are no nodules gr eater than a centimeter. Left lobe: 1.7 cm x 2.1 cm x 4.4 cm (w x ap x l). Volume: 7.5 cm3. Colloid cysts with the largest measuring 6 x 5 x 10 mm. Isthmus: 0.3 cm. US/US thyroid [id number] IMPRESSION: TI-RADS 2: No suspicious nodules. Nodules are less than a centimeter. Several o f these nodules are colloid cysts.
== END 2024-05-10 12:54 | disposition home or self-care (01) ==
LOC: RAD 12:55
PROVIDERS: PCP Family Medicine; Visit Provider Family Medicine
DX: E04.1 Nontoxic single thyroid nodule (principal); K92.2 Gastrointestinal hemorrhage, unspecified
CPT/HCPCS: 76536; 84443; 85025

== ENCOUNTER → 2024-05-17 10:22 | Outpatient (BNVA) | payer MEDICARE, SELFPAY | PROVIDERS: PCP Family Medicine; Visit Provider Family Medicine | DX: K92.2 Gastrointestinal hemorrhage, unspecified (principal) | CPT/HCPCS: 85014; 85018 ==

== ENCOUNTER → 2024-05-24 13:22 | Outpatient (BNVA) | payer MEDICARE, SELFPAY | PROVIDERS: PCP Family Medicine; Visit Provider Family Medicine | DX: K92.2 Gastrointestinal hemorrhage, unspecified (principal); D64.9 Anemia, unspecified | CPT/HCPCS: 85014; 85018 ==

== ENCOUNTER → 2024-05-31 10:23 | Outpatient (BNVA) | payer MEDICARE, SELFPAY | PROVIDERS: PCP Family Medicine; Visit Provider Family Medicine | DX: K92.2 Gastrointestinal hemorrhage, unspecified (principal) | CPT/HCPCS: 85014; 85018 ==

== ENCOUNTER → 2024-06-03 09:20 | Outpatient (BNVA) | payer MEDICARE, SELFPAY | PROVIDERS: PCP Family Medicine; Visit Provider Family Medicine | DX: K92.2 Gastrointestinal hemorrhage, unspecified (principal) | CPT/HCPCS: 85014; 85018 ==

== ENCOUNTER 2024-06-07 11:53 | Emergency (ER) | payer MEDICARE, SELFPAY ==
[2024-06-07] VITALS (7 sets, daily range): BP systolic 110–144; BP diastolic 54–85; PULSE 92–115; RESP 18–24; TEMP 36.8; O2SAT 94–100; BMI 15.0
--- NOTE | 2024-06-07 12:22 | XRR_ITS ---
PROCEDURE INFORMATION: Exam: XR Chest Exam date and time: 06/07/2024 12:25 PM Age: 68 years old Clinical indication: Chest wall pain; Additional info: Chest pain TECHNIQUE: Imaging protocol: Radiologic exam of the chest. Views: 1 view. COMPARISON: CR XR chest 1V portable [id number] 04/11/2024 5:57 AM FINDINGS: Lungs: Hyperinflation. No new focal infiltrates seen of the lungs. Pleural spaces: No large or obvious pneumothorax seen. Tiny left pleural effusion possible. Heart/Mediastinum: Heart size appears within normal. Vasculature: Atherosclerotic disease. Coronary artery calcification and/or stent. Bones/joints: Curvature, degenerative changes spine. Postoperative changes cervical spine, cervicothoracic spine partially included. Prior left rib fracture. XR/XR chest 1V portable [id number] IMPRESSION: 1. Hyperinflation. No new focal infiltrates seen of the lungs. 2. Possible tiny left pleural effusion. 3. Coronary artery calcification and/or stent.
--- NOTE | 2024-06-07 12:23 | ECG_ITS ---
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 Measurements Intervals [place] Rate: 118 P: 80 VT: 100 QRS: 90 QRSD: 77 T: 11 QT: 314 QTc: 440 Interpretive Statements SINUS TACHYCARDIA WITH SHORT VT INTERVAL NONSPECIFIC ST & T-WAVE ABNORMALITY Compared to ECG 04/11/2024 05:54:03 Short VT interval now present T-wave abnormality still present Electronically Signed On 06-07-2024 18:08:48 CDT by Randy Lopez M.D. [id number]
--- NOTE | 2024-06-07 12:28 | ED_ITS ---
HPI - Arrhythmia/Palpitations 2 General: Chief Complaint: Arrhythmia/Palpitations Stated Complaint: rapid heart beat, sob, Time Seen by Provider: 06/07/24 12:12 Source: patient Mode of arrival: ambulatory Limitations: no limitations History of Present Illness: Patient is a 68-year-old female with history of CAD with stent/EF 45%, COPD, known cecal AV malformation with active bleeding here for racing heart rate , shortness of breath, dyspnea on exertion, anxiety, and feeling like her hemoglobin is low again. states that patient's PCP has been trending her hemoglobin. She has a known cecal AV malformation and has been referred to [facility] for a procedure regarding this. Had procedure scheduled but they cancelled because she was on Plavix. States Dr. Kay is unwilling to take her off of this due to recent cardiac stent placement. She has required multiple blood transfusions in the past. Her hemoglobin has been as low as 4.10 in the past. Hemoglobins from PCP over the past month have been as follows: 05/17 11.3 05/24 105 05/31 9.4 06/03 8.6 Patient states she feels like her heart is racing, feels short of breath, and intermittently feels anxious. She is not having any chest pain. Patient is a chronic daily heavy smoker. She has not noticed any swelling to her legs or calf pain. MD complaint: heart racing Onset (ago): day(s) Duration: intermittent Severity: moderate Associated symptoms: Reports no associated symptoms; Deny nausea, syncope or vomiting Related Data Home Medications Medication Instructions Recorded Confirmed acetaminophen 500 mg tablet 1,000 mg PO Q6H PRN Pain 03/15/24 04/20/24 atorvastatin 80 mg tablet 80 mg PO DAILY 04/12/24 04/20/24 lamotrigine 100 mg tablet See Rx Instructions .Route .COMPLEX 04/12/24 04/20/24 Previous Rx's Medication Instructions Recorded albuterol sulfate 90 mcg/actuation 2 puff inhalation 6XD PRN 09/19/22 aerosol inhaler shortness of breath or wheezing 30 days #17 grams ipratropium 0.5 mg-albuterol 3 mg 3 ml inhalation Q6H PRN COPD J44.9 06/20/23 (2.5 mg base)/3 mL nebulization #180 mL soln budesonide 160 mcg-glycopyr 9 2 inh inhalation BID 30 days #10.7 02/02/24 mcg-formot 4.8 mcg/actuation HFA grams inhaler (Breztri Aerosphere) duloxetine 20 mg capsule,delayed 20 mg PO BID #60 caps 02/17/24 release (Cymbalta) aspirin 81 mg tablet,delayed 81 mg PO DAILY #90 tabs 03/01/24 release clopidogrel 75 mg tablet 75 mg PO DAILY #90 tabs 03/01/24 nitroglycerin 0.4 mg sublingual 0.4 mg sublingual Q5M PRN chest 03/01/24 tablet pain #90 tabs tiotropium bromide 18 mcg capsule 1 cap inhalation DAILY #60 03/18/24 with inhalation device (Spiriva inhalations with HandiHaler) pantoprazole 40 mg tablet,delayed 40 mg PO BIDWMEAL #90 tabs 04/14/24 release (Protonix) sucralfate 100 mg/mL oral 1 g (10 mL) PO AC&BEDTIME #1,000 mL 04/14/24 suspension Allergies Allergy/AdvReac Type Severity Reaction Status Date / Time Opioids - Morphine Analogues Allergy Severe Unknown Verified 03/30/24 14:00 pregabalin [From Lyrica] Allergy Severe syncope Verified 03/30/24 14:00 venlafaxine Allergy tremor Verified 03/30/24 14:00 gabapentin AdvReac Intermediate Unknown Verified 03/30/24 14:00 tramadol AdvReac Unknown ADR-Vomitin Verified 03/30/24 14:00 g Review of Systems 2 Const: Denies: fever(s), chills, body aches, fatigue or malaise Card: Reports: palpitations ( racing heart ) and dyspnea on exertion; Denies: chest pain, edema or syncope Resp: Reports: dyspnea and productive cough (reports chronic smoker's cough ; at baseline); Denies: wheezing or hemoptysis GI: Denies: abdominal pain, nausea, vomiting, GI cramping, rectal pain, hematochezia or melena : Denies: flank pain, difficulty voiding, dysuria, urinary frequency, urinary urgency or urinary hesitancy Musc: Denies: neck pain, back pain, extremity pain or joint pain Skin/Breast: Denies: rash Neuro: Denies: headache(s), numbness in extremities, weakness in extremities or sensory changes [facility] ED 2 PFSH: Medical History Cervical pain (neck) Atherosclerosis of [place] coronary artery without angina pectoris GERD (gastroesophageal reflux disease) Acute blood loss anemia Abdominal pain GI bleed Duodenal ulcer Acute upper GI bleed Dysphagia Exertional dyspnea Smoker History of duodenal ulcer Acute diastolic heart failure Acute exacerbation of chronic obstructive pulmonary disease Acute non-ST elevation myocardial infarction (NSTEMI) Osteopenia History of colon polyps hyperplastic polyp x 2 in 2021 Depression Chronic back pain Weight loss, unintentional COPD (chronic obstructive pulmonary disease) Hyperlipidemia Surgical History History of cataract extraction with lens replacement History of esophageal surgery benign polyp removed History of bunionectomy of both great toes History of hysterectomy still has one ovary History of cholecystectomy History of fusion of cervical spine History of lumbar spinal fusion Family History Other Adopted Social History Smoking and tobacco/nicotine status: current every day tobacco/nicotine user cigarettes Packs smoked per day: 0.5 [ Other cigarette details: started at 14; currently smokes 0.5 to 1 pack daily] Alcohol intake: current Alcohol intake frequency: holidays/special occasions only Substance/Drug Use: never Adopted: Yes Household members: spouse Marital status: Number of children: 1 Number of grandchildren: 2 Current occupational status: retired 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 Physical Exam 2 Const: COMMON NORMALS: patient oriented x3, no limitations and alert G ENERAL APPEARANCE: cooperative, anxious and other (frail appearing-she weighs 36kg) NUTRITIONAL APPEARANCE: thin ORIENTATION/CONSCIOUSNESS: Yes awake, Yes oriented to person, Yes oriented to place and Yes oriented to time OTHER: shivering-it is cold in her room; she also states she feels anxious HENMT: COMMON NORMALS: normocephalic and atraumatic HEAD & SCALP: normal to inspection, normocephalic and atraumatic Chest: COMMONS NORMALS: normal inspection of the chest and normal palpation of entire chest wall Resp: COMMON NORMALS: normal respiratory effort EFFORT & INSPECTION: Yes other (course breath sounds-cleared with coughing; most likely smoking related) Cardio: COMMON NORMALS: regular rhythm RATE: tachycardic RHYTHM: regular rhythm GI: COMMON NORMALS: Normal to inspection, nondistended, normoactive bowel sounds present, Soft to palpation, non-tender, No hepatosplenomegaly present and no masses PALPATION: Yes Soft to palpation and Yes No hepatosplenomegaly present : COMMON NORMALS: Yes no CVA tenderness BLADDER/KIDNEY EXAM: Yes no CVA tenderness Back/Pelvis: COMMON NORMALS: no CVA tenderness and thoracic and lumbar spine normal to inspection Extremity: GENERAL: Yes normal exam except as noted Neuro: GISELLE COMA SCALE: document GCS findings [place] coma scale eye opening: Spontaneous Giselle coma scale verbal response: Orientated Giselle coma scale motor response: Obey commands Giselle coma scale total score: 15 COMMON NORMALS: patient oriented x3, moves all extremities, no focal motor deficits and no sensory deficits noted SENSORIUM/ORIENTATION: Yes alert, Yes oriented to person, Yes oriented to place and Yes oriented to time Skin: COMMON NORMALS: no rashes or lesions noted GENERAL SKIN EXAM: no rashes or lesions noted Course 2 Vital Signs: Vital signs: Vital Signs Temperature 98.2 F 06/07/24 12:10 Pulse Rate 93 06/07/24 13:30 Respiratory Rate 22 H 06/07/24 13:30 Blood Pressure 130/71 06/07/24 13:30 Pulse Oximetry 99 06/07/24 13:30 Oxygen Delivery Me thod Room Air 06/07/24 13:30 MDM - Arrhythmia/Palpitations Medical Decision Making Patient's main concern for presentation was determining whether she needed an emergent blood transfusion. Her hemoglobin was 8.6 on 06/03 (4 days ago) and it is 8.5 today. After learning she does not require emergent transfusion she would like to go home. She no longer is tachycardic. Remainder of blood work is non- concerning. Baseline trop at 15 which is comparable to previous labs. She refuses to stay for 2hr trop. EKG non-ischemic. She has no chest pain. States she will follow up with PCP this week for re-evaluation. Return precautions discussed. Lab Data 06/07/24 12:44 06/07/24 12:44 Radiology Impressions Chest X-Ray 06/07/24 12:22 IMPRESSION: 1. Hyperinflation. No new focal infiltrates seen of the lungs. 2. Possible tiny left pleural effusion. 3. Coronary artery calcification and/or stent. Laboratory Results WBC 4.60 10^3/uL (3.29-11.43) 06/07/24 12:44 RBC 3.43 10^6/uL (3.85-5.65) L 06/07/24 12:44 Hgb 8.50 g/dL (11.27-16.99) L 06/07/24 12:44 Hct 28.3 % (36-47) L 06/07/24 12:44 MCV 82.5 fl (85-98) L 06/07/24 12:44 MCH 24.8 pg (27-33) L 06/07/24 12:44 MCHC 30.0 g/dL (30-55) 06/07/24 12:44 RDW 19.0 % (12.1-15.1) H 06/07/24 12:44 Plt Count 369 10^3/cmm (157-399) 06/07/24 12:44 MPV 9.4 fL (7.4-10.4) 06/07/24 12:44 Neut % (Auto) 72.5 % 06/07/24 12:44 Lymph % (Auto) 14.8 % 06/07/24 12:44 [place] % (Auto) 9.6 % 06/07/24 12:44 Eos % (Auto) 2.0 % 06/07/24 12:44 Baso % (Auto) 0.9 % 06/07/24 12:44 Neut # (Auto) 3.34 10^3/uL (1.8-7.7) 06/07/24 12:44 Lymph # (Auto) 0.7 10^3/uL (0.8-4.8) L 06/07/24 12:44 [place] # (Auto) 0.4 10^3/uL (0.2-0.9) 06/07/24 12:44 Eos # (Auto) 0.1 10^3/uL (0.0-0.8) 06/07/24 12:44 Baso # (Auto) 0.0 10^3/uL (0.0-0.1) 06/07/24 12:44 Nucleated RBC % (auto) 0 % 06/07/24 12:44 Nucleated RBCs # 0.0 /100WBC 06/07/24 12:44 PT 13.40 SECONDS (12.1-14.9) 06/07/24 12:44 INR 0.99 (0.8-1.2) 06/07/24 12:44 APTT 30.9 SECONDS (23.9-36.7) 06/07/24 12:44 Sodium 141 mmol/L (136-145) 06/07/24 12:44 Potassium 4.4 mmol/L (3.5-5.1) 06/07/24 12:44 Chloride 104 mmol/L (98-107) 06/07/24 12:44 Carbon Dioxide 23 mmol/L (22-29) 06/07/24 12:44 Anion Gap 18.4 (5-19) 06/07/24 12:44 BUN 10 mg/dL (8-23) 06/07/24 12:44 Creatinine 0.7 mg/dL (0.5-0.9) 06/07/24 12:44 GFR Calculation 82.7 mL/min (90-130) L 06/07/24 12:44 Glucose 84 mg/dL (65-115) 06/07/24 12:44 Calculated Osmolality 290 mOsm/kg (285-295) 06/07/24 12:44 Calcium 8.9 mg/dL (8.5-10.5) 06/07/24 12:44 Total Bilirubin 0.3 mg/dL (0.15-1.2) 06/07/24 12:44 AST 20 U/L (0-32) 06/07/24 12:44 ALT 13 U/L (0-33) 06/07/24 12:44 Alkaline Phosphatase 112 U/L (35-105) H 06/07/24 12:44 Troponin T Baseline 15 ng/L (0-10) H 06/07/24 12:44 Total Protein 6.2 g/dL (6.6-8.7) L 06/07/24 12:44 Albumin 4.3 g/dL (3.5-5.2) 06/07/24 12:44 Globulin 1.9 g/dL (1.3-4.6) 06/07/24 12:44 TSH 0.36 uIU/mL (0.27-4.20) 06/07/24 12:44 All radiology interpretation(s) finalized by discharge Discharge Plan Discharge Patient Disposition: Home Clinical Impression: GI bleed Qualifiers: GI bleed type/associated pathology: unspecified gastrointestinal hemorrhage type Qualified Code(s): K92.2 - Gastrointestinal hemorrhage, unspecified Condition: Stable Prescriptions: No Action albuterol sulfate 90 mcg/actuation HFA aerosol inhaler 2 puff inhalation 6XD PRN (Reason: shortness of breath or wheezing) 30 Days Qty: 17 3RF ipratropium-albuterol 0.5 mg-3 mg(2.5 mg base)/3 mL solution for nebulization 3 ml inhalation Q6H PRN (Reason: COPD J44.9) Qty: 180 6RF Breztri Aerosphere 160-9-4.8 mcg/actuation HFA aerosol inhaler 2 inh inhalation BID 30 Days Qty: 10.7 6RF duloxetine [Cymbalta] 20 mg capsule,delayed release(DR/EC) 20 mg PO BID Qty: 60 3RF acetaminophen 500 mg Tablet 1,000 mg PO Q6H PRN (Reason: Pain) tiotropium bromide [Spiriva with HandiHaler] 18 mcg capsule, w/inhalation device 1 cap inhalation DAILY Qty: 60 3RF Rx Instructions: puncture 1 cap using device; one dose = 2 inhalations lamotrigine 100 mg tablet See Rx Instructions .ROUTE .COMPLEX Rx Instructions: TAKE 1 TABLET BY MOUTH DAILY AND 2 TABLETS AT BEDTIME. atorvastatin 80 mg tablet 80 mg PO DAILY sucralfate 100 mg/mL Suspension 1 g PO AC&BEDTIME Qty: 1000 0RF Protonix 40 mg tablet,delayed release (DR/EC) 40 mg PO BIDWMEAL Qty: 90 3RF clopidogrel 75 mg Tablet 75 mg PO DAILY Qty: 90 3RF aspirin 81 mg Tablet,Delayed Release (Dr/Ec) 81 mg PO DAILY Qty: 90 3RF Hold Instructions: Resume on 05/05/24. nitroglycerin 0.4 mg tablet, sublingual 0.4 mg sublingual Q5M PRN (Reason: chest pain) Qty: 90 0RF Rx Instructions: do not exceed 3 doses per episode Discharge Orders: Discharge ED (Routine); Ordered 06/07/24 Ordered By: Chasity Mason Referrals: Peyton Gibson MD [Primary Care Provider] - Activity Restrictions/Additional Instructions: As we discussed please follow-up with your primary care provider and have your hemoglobin rechecked later this week. You need to return the emergency department for any black or tarry stools or bloody stools, worsening shortness of breath or racing heart rate, dizziness/passing out episodes, or any other concerns you may have. 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
[2024-06-07 13:16] LABS: Basophils % 0.9 %; Eosinophils # 0.1 10^3/uL (0.0-0.8); Hematocrit 28.3 % (36-47); Lymphocytes # 0.7 10^3/uL (0.8-4.8); Lymphocytes % 14.8 %; Mean Corpuscular Hemoglobin 24.8 pg (27-33); Mean Corpuscular Volume 82.5 fl (85-98); Mean Platelet Volume 9.4 fL (7.4-10.4); Monocytes # 0.4 10^3/uL (0.2-0.9); Monocytes % 9.6 %; Neutrophils # 3.34 10^3/uL (1.8-7.7); Neutrophils % 72.5 %; Nucleated Red Blood Cells % 0 %; Platelet Count 369 10^3/cmm (157-399); Red Blood Count 3.43 10^6/uL (3.85-5.65)
[2024-06-07 13:33] LABS: Troponin(5th) Baseline 15 ng/L (0-10)
[2024-06-07 13:37] LABS: INR 0.99 (0.8-1.2)
[2024-06-07 13:38] LABS: Partial Thromboplastin Time 30.9 SECONDS (23.9-36.7)
[2024-06-07 13:46] LABS: Alanine Aminotransferase 13 U/L (0-33); Albumin Level 4.3 g/dL (3.5-5.2); Alkaline Phosphatase 112 U/L (35-105); Aspartate Amino Transferase 20 U/L (0-32); Blood Urea Nitrogen 10 mg/dL (8-23); Calcium 8.9 mg/dL (8.5-10.5); Carbon Dioxide 23 mmol/L (22-29); Chloride 104 mmol/L (98-107); Globulin 1.9 g/dL (1.3-4.6); Glomerular Filtration Rate 82.7 mL/min (90-130); Glucose 84 mg/dL (65-115); Osmolality Calculated 290 mOsm/kg (285-295); Sodium 141 mmol/L (136-145); Thyroid Stimulating Hormone 0.36 uIU/mL (0.27-4.20); Total Bilirubin 0.3 mg/dL (0.15-1.2); Total Protein 6.2 g/dL (6.6-8.7)
[2024-06-07 13:48] LABS: Anion Gap 18.4 (5-19); Potassium 4.4 mmol/L (3.5-5.1)
== END 2024-06-07 14:20 | disposition home or self-care (01) ==
PROVIDERS: Emergency Provider Physician Assistant; PCP Family Medicine
DX: K92.2 Gastrointestinal hemorrhage, unspecified (principal); Z79.02 Long term (current) use of antithrombotics/antiplatelets; Z79.82 Long term (current) use of aspirin; F17.210 Nicotine dependence, cigarettes, uncomplicated; I25.10 Atherosclerotic heart disease of native coronary artery without angina pectoris; J44.9 Chronic obstructive pulmonary disease, unspecified; I25.2 Old myocardial infarction; E78.5 Hyperlipidemia, unspecified
CPT/HCPCS: 71045; 80053; 84443; 84484; 85025; 85610; 85730; 86850; 86900; 93005; 99285

== ENCOUNTER → 2024-06-14 14:26 | Outpatient (BNVA) | payer MEDICARE, SELFPAY | PROVIDERS: PCP Family Medicine; Visit Provider Family Medicine | DX: K92.2 Gastrointestinal hemorrhage, unspecified (principal); D64.9 Anemia, unspecified | CPT/HCPCS: 85014; 85018 ==

== ENCOUNTER → 2024-06-17 15:08 | Outpatient (BNVA) | payer MEDICARE, SELFPAY | PROVIDERS: PCP Family Medicine; Visit Provider Internal Medicine Cardiovascular Disease | DX: R00.0 Tachycardia, unspecified (principal); R94.31 Abnormal electrocardiogram [ECG] [EKG]; R07.9 Chest pain, unspecified | CPT/HCPCS: 93005; 99214 ==

== ENCOUNTER 2024-06-24 11:00 | Outpatient (CLI) | payer MEDICARE, SELFPAY ==
[2024-06-24 11:21] LABS: Hematocrit 25.9 % (36-47)
== END 2024-06-24 11:01 | disposition home or self-care (01) ==
LOC: LAB 11:01
PROVIDERS: PCP Family Medicine; Visit Provider Family Medicine
DX: K29.61 Other gastritis with bleeding (principal)
CPT/HCPCS: 36415; 85014; 85018

== ENCOUNTER 2024-06-25 08:00 | Oncology outpatient (recurring) (ONCR) | payer MEDICARE, SELFPAY ==
[2024-06-25] VITALS (7 sets, daily range): BP systolic 93–131; BP diastolic 49–84; PULSE 81–105; RESP 16–17; TEMP 36.3–37.6; O2SAT 96–98
[2024-06-25] MEDS: sodium chloride 0.9% 250 mL Bag IV (08:30)
== END 2024-07-05 23:59 | disposition home or self-care (01) ==
PROVIDERS: PCP Family Medicine; Visit Provider Family Medicine
DX: Z53.9 Procedure and treatment not carried out, unspecified reason (principal); D64.9 Anemia, unspecified
CPT/HCPCS: 36430; 85014; 85018; 86850; 86900; 86920; J7050; P9016

== ENCOUNTER → 2024-07-01 10:48 | Outpatient (BNVA) | payer MEDICARE, SELFPAY | PROVIDERS: PCP Family Medicine; Visit Provider Family Medicine | DX: K29.61 Other gastritis with bleeding (principal) | CPT/HCPCS: 85014; 85018 ==

== ENCOUNTER 2024-07-09 10:48 | Outpatient (CLI) | payer MEDICARE, OTHER, SELFPAY | END 2024-07-09 10:49 | disposition home or self-care (01) | LOC: LAB 10:50 | PROVIDERS: PCP Family Medicine; Visit Provider Family Medicine | DX: D64.9 Anemia, unspecified (principal) | CPT/HCPCS: 36415; 85014; 85018 ==

== ENCOUNTER → 2024-07-12 10:53 | Outpatient (BNVA) | payer MEDICARE, OTHER, SELFPAY | PROVIDERS: PCP Family Medicine; Visit Provider Family Medicine | DX: K29.61 Other gastritis with bleeding (principal) | CPT/HCPCS: 85014; 85018 ==

== ENCOUNTER 2024-07-14 08:00 | Oncology outpatient (recurring) (ONCR) | payer MEDICARE, SELFPAY ==
[2024-07-14] VITALS (9 sets, daily range): BP systolic 114–136; BP diastolic 66–74; PULSE 84–96; RESP 15–16; TEMP 36.2–37; O2SAT 95–98
[2024-07-14] MEDS: sodium chloride 0.9% 250 mL Bag IV (09:41)
== END 2024-08-05 23:59 | disposition home or self-care (01) ==
LOC: ONCMED 08:01
PROVIDERS: PCP Family Medicine; Visit Provider Family Medicine
DX: D64.9 Anemia, unspecified (principal)
CPT/HCPCS: 36430; 86850; 86900; 86920; J7050; P9016

== ENCOUNTER → 2024-07-28 10:31 | Outpatient (BNVA) | payer MEDICARE, OTHER, SELFPAY | PROVIDERS: PCP Family Medicine; Visit Provider Family Medicine | DX: K29.61 Other gastritis with bleeding (principal) | CPT/HCPCS: 85014; 85018 ==

== ENCOUNTER → 2024-08-05 12:31 | Outpatient (BNVA) | payer MEDICARE, OTHER, SELFPAY | PROVIDERS: PCP Family Medicine; Visit Provider Family Medicine | DX: K29.61 Other gastritis with bleeding (principal) | CPT/HCPCS: 85014; 85018 ==

== ENCOUNTER → 2024-08-19 12:45 | Outpatient (BNVA) | payer MEDICARE, SELFPAY | PROVIDERS: PCP Family Medicine; Visit Provider Family Medicine | DX: K29.61 Other gastritis with bleeding (principal) | CPT/HCPCS: 85014; 85018 ==

== ENCOUNTER 2024-09-06 14:09 | Outpatient (CLI) | payer MEDICARE, SELFPAY ==
--- NOTE | 2024-09-06 14:18 | XR_ITS ---
WS: [id number] XR lumbar spine 2-3V* [id number] REASON FOR EXAM: low back pain, hx L5/S1 fusion FINDINGS: Moderate rotatory dextroscoliosis. Mild straightening of the normal lordosis. Previous anterior plate and screw fixation/fusion of L5-S1. Mild narrowing of the L2-L3 disc space with moderate endplate sclerosis and osteophytosis. No spondylolysis and no significant spondylolisthesis. XR/XR lumbar spine 2-3V* [id number] IMPRESSION: Lumbar fusion L5-S1 with degenerative spondylosis at L2-L3 as above.
== END 2024-09-06 14:10 | disposition home or self-care (01) ==
LOC: RAD 14:11
PROVIDERS: PCP Family Medicine; Visit Provider Family Medicine
DX: M47.816 Spondylosis without myelopathy or radiculopathy, lumbar region (principal); M41.86 Other forms of scoliosis, lumbar region; D64.9 Anemia, unspecified; E78.2 Mixed hyperlipidemia
CPT/HCPCS: 72100; 80053; 80061; 84443; 85025

== ENCOUNTER 2024-09-15 08:18 | Oncology outpatient (recurring) (ONCR) | payer MEDICARE, SELFPAY ==
--- NOTE | 2024-09-15 08:30 | CT_ITS ---
WS: [id number] LDCT LUNG CANCER SCREENING HISTORY: pulmonary nodule followup TECHNIQUE: Axial imaging performed from the apices to 1 cm below the costophrenic angles. Coronal and sagittal reformats are submitted with axial MIP series. All CT scans at [facility] use at least one of these dose optimization techniques: automated exposure control; mA and/or kV adjustment per patient size (includes targeted exams where dose is matched to clinical indication); or iterativ e reconstruction. DLP: 42.31 mGy.cm DIvol: Mean CTDIvol: 0.60 (mGy) COMPARISON: 03/15/2024 Diagnostic quality: Satisfactory Lungs: Mild pulmonary hyperexpansion. Partially calcified nodules are 3 mm in the LEFT upper and LEFT lower lungs. 3 mm noncalcified nodule RIGHT middle lobe. These nodules are similar in size to 024. No pulmonary mass. No pneumonia. No endobronchial lesions. Heart: Normal size heart with no pericardial effusion.. Other findings: Mild atherosclerosis aorta. No adenopathy. No adrenal mass. CT/CT lung screening [id number] IMPRESSION: LUNG-RADS: 2-Benign Appearance or Behavior FOLLOW UP: 12 Month: Continue annual screening with LDCT OTHER FINDINGS (S MODIFIER): None.
[2024-09-15 08:39] LABS: Hematocrit 31.8 % (36-47)
== END 2024-10-05 23:59 | disposition home or self-care (01) ==
LOC: RAD 08:19 → ONCMED 09:38
PROVIDERS: PCP Family Medicine; Visit Provider Family Medicine
DX: K29.61 Other gastritis with bleeding (principal); Z87.891 Personal history of nicotine dependence; I70.0 Atherosclerosis of aorta
CPT/HCPCS: 36415; 71271; 85014; 85018

== ENCOUNTER → 2024-09-30 13:40 | Outpatient (BNVA) | payer MEDICARE, SELFPAY | PROVIDERS: PCP Family Medicine; Visit Provider Family Medicine | DX: D50.8 Other iron deficiency anemias (principal); K29.61 Other gastritis with bleeding | CPT/HCPCS: 85025 ==

== ENCOUNTER 2024-10-08 13:32 | Outpatient (CLI) | payer MEDICARE, OTHER, SELFPAY ==
[2024-10-08 14:14] LABS: Basophils # 0.1 10^3/uL (0.0-0.1); Basophils % 1.1 %; Eosinophils # 0.1 10^3/uL (0.0-0.8); Eosinophils % 1.7 %; Hematocrit 28.6 % (36-47); Lymphocytes # 0.9 10^3/uL (0.8-4.8); Lymphocytes % 17.9 %; Mean Corpuscular HGB Conc 30.1 g/dL (30-55); Mean Corpuscular Hemoglobin 22.7 pg (27-33); Mean Corpuscular Volume 75.5 fl (85-98); Mean Platelet Volume 9.1 fL (7.4-10.4); Monocytes # 0.4 10^3/uL (0.2-0.9); Monocytes % 9.3 %; Neutrophils # 3.32 10^3/uL (1.8-7.7); Neutrophils % 69.8 %; Nucleated Red Blood Cells % 0 %; Platelet Count 387 10^3/cmm (157-399); Red Blood Count 3.79 10^6/uL (3.85-5.65); Red Cell Distribution Width 18.6 % (12.1-15.1); White Blood Count 4.75 10^3/uL (3.29-11.43)
== END 2024-10-08 13:33 | disposition home or self-care (01) ==
LOC: LAB 13:36
PROVIDERS: PCP Family Medicine; Visit Provider Family Medicine
DX: D50.8 Other iron deficiency anemias (principal)
CPT/HCPCS: 36415; 85025

== ENCOUNTER → 2024-10-12 11:09 | Outpatient (BNVA) | payer MEDICARE, OTHER, SELFPAY | PROVIDERS: PCP Family Medicine; Visit Provider Internal Medicine Cardiovascular Disease | DX: R07.9 Chest pain, unspecified (principal); R00.2 Palpitations; I10 Essential (primary) hypertension; I25.10 Atherosclerotic heart disease of native coronary artery without angina pectoris; E78.2 Mixed hyperlipidemia; K29.61 Other gastritis with bleeding; I49.3 Ventricular premature depolarization | CPT/HCPCS: 93005; 99214 ==

== ENCOUNTER → 2024-10-14 13:05 | Outpatient (BNVA) | payer MEDICARE, OTHER, SELFPAY | PROVIDERS: PCP Family Medicine; Visit Provider Family Medicine | DX: D50.8 Other iron deficiency anemias (principal) | CPT/HCPCS: 85025 ==

== ENCOUNTER 2024-10-18 07:55 | Oncology outpatient (recurring) (ONCR) | payer MEDICARE, OTHER, SELFPAY ==
[2024-10-18] VITALS (10 sets, daily range): BP systolic 93–130; BP diastolic 54–77; PULSE 59–75; RESP 15–17; TEMP 35.9–37.1; O2SAT 96–99
[2024-10-18 08:48] LABS: Hematocrit 28.8 % (36-47)
[2024-10-18] MEDS: sodium chloride 0.9% 250 mL Bag IV (11:30)
== END 2024-11-05 23:59 | disposition home or self-care (01) ==
PROVIDERS: PCP Family Medicine; Visit Provider Family Medicine
DX: K29.61 Other gastritis with bleeding (principal); D50.8 Other iron deficiency anemias
CPT/HCPCS: 36430; 85014; 85018; 86850; 86900; 86920; J7050; P9016

== ENCOUNTER → 2024-11-01 10:10 | Outpatient (BNVA) | payer MEDICARE, OTHER, SELFPAY | PROVIDERS: PCP Family Medicine; Visit Provider Family Medicine | DX: D64.9 Anemia, unspecified (principal) | CPT/HCPCS: 85014; 85018 ==

== ENCOUNTER 2024-12-09 10:01 | Outpatient (CLI) | payer MEDICARE, SELFPAY ==
[2024-12-09 10:36] LABS: Hematocrit 36.2 % (36-47)
== END 2024-12-09 10:02 | disposition home or self-care (01) ==
PROVIDERS: PCP Family Medicine; Visit Provider Family Medicine
DX: K29.61 Other gastritis with bleeding (principal); D64.9 Anemia, unspecified; D50.8 Other iron deficiency anemias
CPT/HCPCS: 36415; 85014; 85018

== ENCOUNTER → 2024-12-20 15:19 | Outpatient (BNVA) | payer MEDICARE, SELFPAY | PROVIDERS: PCP Family Medicine; Visit Provider Internal Medicine Cardiovascular Disease | DX: R00.0 Tachycardia, unspecified (principal); Z79.01 Long term (current) use of anticoagulants; I25.10 Atherosclerotic heart disease of native coronary artery without angina pectoris; E78.2 Mixed hyperlipidemia; F17.210 Nicotine dependence, cigarettes, uncomplicated; K29.61 Other gastritis with bleeding; R03.0 Elevated blood-pressure reading, without diagnosis of hypertension | CPT/HCPCS: 36415; 85025; 99214 ==

== ENCOUNTER 2025-02-01 11:38 | Outpatient (CLI) | payer MEDICARE, OTHER, SELFPAY ==
[2025-02-01 12:20] LABS: Hematocrit 31.3 % (36-47)
== END 2025-02-01 11:39 | disposition home or self-care (01) ==
LOC: LAB 11:43
PROVIDERS: PCP Family Medicine; Visit Provider Family Medicine
DX: D50.8 Other iron deficiency anemias (principal); K29.61 Other gastritis with bleeding; D64.9 Anemia, unspecified
CPT/HCPCS: 36415; 85014; 85018

== ENCOUNTER 2025-02-21 14:15 | Oncology outpatient (recurring) (ONCR) | payer MEDICARE, SELFPAY ==
[2025-02-21 14:44] LABS: Hematocrit 28.6 % (36-47)
== END 2025-03-05 23:59 | disposition home or self-care (01) ==
LOC: LAB 14:29 → ONCMED 02-22 09:54
PROVIDERS: PCP Family Medicine; Visit Provider Family Medicine
DX: D64.9 Anemia, unspecified (principal)
CPT/HCPCS: 36415; 85014; 85018

== ENCOUNTER 2025-03-05 11:06 | Observation (INO) | payer MEDICARE, OTHER, SELFPAY ==
[2025-03-05] VITALS (9 sets, daily range): BP systolic 109–135; BP diastolic 61–74; PULSE 78–91; RESP 17–26; TEMP 36.7–36.8; O2SAT 96–100; BMI 14.7
--- NOTE | 2025-03-05 11:21 | XRR_ITS ---
PROCEDURE INFORMATION: Exam: XR Chest Exam date and time: 03/05/2025 11:25 AM Age: 69 years old Clinical indication: Shortness of breath; SOB TECHNIQUE: Imaging protocol: Radiologic exam of the chest. Views: 1 view. COMPARISON: CT lung screening [id number] 09/15/2024 8:29 AM FINDINGS: Tubes, catheters and devices: Plate and screws overlie the midline cervical thoracic spine. Lungs: Pulmonary emphysema identified within the lungs. Otherwise lung Pleural spaces: No pleural effusion. No pneumothorax. Heart/Mediastinum: Mediastinum and chidi appear unremarkable. Vasculature: Moderate atherosclerotic calcification demonstrated within the aorta. Bones/joints: Transpedicular screws and Moody rods overlie the cervical thoracic spine. Mild to moderate degenerative disc disease in the spine. XR/XR chest 1V portable [id number] IMPRESSION: 1. Pulmonary emphysema. 2. Degenerative and postsurgical changes are demonstrated, as described above.
--- NOTE | 2025-03-05 11:22 | ECG_ITS ---
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 Measurements Intervals [place] Rate: 80 P: 83 [place]: 132 QRS: 88 QRSD: 85 T: 5 QT: 379 QTc: 439 Interpretive Statements SINUS RHYTHM MODERATE ST DEPRESSION [0.05+ mV ST DEPRESSION] Compared to ECG 10/12/2024 11:16:35 ST (T wave) deviation now present Short [place] interval no longer present Electronically Signed On 03-08-2025 11:43:06 CDT by Randy Lopez M.D. [id number]
[2025-03-05 11:30] LABS: Basophils % 1.1 %; Eosinophils # 0.1 10^3/uL (0.0-0.8); Hematocrit 26.4 % (36-47); Lymphocytes % 28.5 %; Mean Corpuscular Hemoglobin 21.4 pg (27-33); Mean Corpuscular Volume 76.3 fl (85-98); Mean Platelet Volume 9.7 fL (7.4-10.4); Monocytes # 0.3 10^3/uL (0.2-0.9); Monocytes % 9.5 %; Neutrophils # 2.09 10^3/uL (1.8-7.7); Neutrophils % 58.3 %; Nucleated Red Blood Cells % 0 %; Platelet Count 320 10^3/cmm (157-399); Red Blood Count 3.46 10^6/uL (3.85-5.65); Red Cell Distribution Width 17.1 % (12.1-15.1); White Blood Count 3.58 10^3/uL (3.29-11.43)
[2025-03-05] MEDS: methylPREDNISolone sod succ 125 mg/2 mL INJ IV (11:37)
[2025-03-05 11:49] LABS: Troponin(5th) Baseline 26 ng/L (0-10)
[2025-03-05 11:56] LABS: Anion Gap 17.1 (5-19); Blood Urea Nitrogen 14 mg/dL (8-23); Calcium 9.1 mg/dL (8.5-10.5); Carbon Dioxide 23 mmol/L (22-29); Chloride 102 mmol/L (98-107); Creatinine Clr Calc Pharmacy 36.0249; Glucose 149 mg/dL (65-115); NT Pro B Type Natriuretic Pept 1373 pg/mL (0-125); Osmolality Calculated 289 mOsm/kg (285-295); Potassium 4.1 mmol/L (3.5-5.1); Sodium 138 mmol/L (136-145)
[2025-03-05 12:24] LABS: Influenza A NEGATIVE (Negative); Influenza B NEGATIVE (Negative); Respiratory Syncytial Virus Ce NEGATIVE (Negative); SARS-CoV-2 PCR NEGATIVE (Negative)
--- NOTE | 2025-03-05 12:47 | ED_ITS ---
HPI - SOB/Dyspnea 2 General: Chief Complaint: Shortness of Breath/Dyspnea Stated Complaint: DIFF BREATHING Time Seen by Provider: 03/05/25 11:13 History of Present Illness: HPI Narrative: This patient is a 69-year-old white female who presents to the emergency department with shortness of breath and chest tightness. She states her symptoms started this morning. She states she does have a history of COPD. She does continue to smoke. She states she also has a history of a bleed in her colon. She has not noticed any blood in her stools recently. Associated symptoms: Reports chest pain Related Data Home Medications ?Medication ?Instructions ?Recorded ?Confirmed acetaminophen 500 mg tablet 1,000 mg PO Q6H PRN Pain 0 03/15/24 11/03/24 Previous Rx's ?Medication ?Instructions ?Recorded ipratropium 0.5 mg-albuterol 3 mg 3 ml inhalation Q6H PRN COPD J44.9 06/20/23 (2.5 mg base)/3 mL nebulization #180 mL soln aspirin 81 mg tablet,delayed 81 mg PO DAILY #90 tabs 0 03/01/24 release Held on 04/14/24. Instructions: Resume on 05/05/24. nitroglycerin 0.4 mg sublingual 0.4 mg sublingual Q5M PRN chest 03/01/24 tablet pain #90 tabs tiotropium bromide 18 mcg capsule 1 cap inhalation TONIA LY #60 03/18/24 with inhalation device (Spiriva inhalations with HandiHaler) tizanidine 2 mg tablet See Rx Instructions .Route 1 11/28/23 .COMPLEX #20 tabs metoprolol tartrate 25 mg tablet 25 mg PO BID 30 days #60 tabs 10/12/24 atorvastatin 80 mg tablet 80 mg PO DAILY #90 tabs 12/04 duloxetine 60 mg capsule,delayed See Rx Instructions . Route 01/03/25 release .COMPLEX #90 caps pantoprazole 40 mg tablet,delayed See Rx Instructions .Route 01/03/25 release .COMPLEX #180 tabs albuterol sulfate 90 mcg/actuation 2 puff inhalation 6 XD PRN 01/20/25 aerosol inhaler shortness of breath or wheez ing 30 days #17 grams lamotrigine 100 mg tablet 100 mg PO BID 30 days #60 ta bs 02/03/25 acetaminophen 300 mg-codeine 15 mg 1 tab PO BID PRN pa in #20 tabs 02/09/25 tablet budesonide 160 mcg-glycopyr 9 2 inh inhalation BID 30 days #10.7 03/01/25 mcg-formot 4.8 mcg/actuation HFA grams inhaler (Breztri Aerosphere) clopidogrel 75 mg tablet 75 mg PO DAILY #90 tabs 02/04 05/30 Allergies Allergy/AdvReac Type Severity Reaction Status Date / Time Opioids - Morphine Analogues Allergy Severe Unknown Verified 12/20/24 15:36 pregabalin (From Lyrica) Allergy Severe syncope Verified 12/20/24 15:36 venlafaxine Allergy tremor Verified 12/20/24 15:36 gabapentin AdvReac Intermediate Unknown Verified 12/20/24 15:36 tramadol AdvReac Unknown ADR-Vomitin Verified 12/20/24 15:36 g Review of Systems 2 General: Reports: 10 or more systems reviewed and unremarkable except in HPI and below Card: Reports: chest pain Resp: Reports: dyspnea PFSH ED 2 PFSH: Medical History (Updated 03/05/25 @ 12:45 by Yash Sainz MD) COPD (chronic obstructive pulmonary disease) Cervical pain (neck) Atherosclerosis of [place] coronary artery without angina pectoris GERD (gastroesophageal reflux disease) Acute blood loss anemia Abdominal pain GI bleed Duodenal ulcer Acute upper GI bleed Dysphagia Exertional dyspnea Smoker History of duodenal ulcer Acute diastolic heart failure Acute exacerbation of chronic obstructive pulmonary disease Acute non-ST elevation myocardial infarction (NSTEMI) Osteopenia History of colon polyps hyperplastic polyp x 2 in 2021 Depression Chronic back pain Weight loss, unintentional Hyperlipidemia Surgical History History of cataract extraction with lens replacement History of esophageal surgery benign polyp removed History of bunionectomy of both great toes History of hysterectomy still has one ovary History of cholecystectomy History of fusion of cervical spine History of lumbar spinal fusion Family History Other Adopted Social History Smoking and tobacco/nicotine status: current every day tobacco/nicotine user cigarettes Packs smoked per day: 0.5 [ Other cigarette details: started at 14; currently smokes 0.5 to 1 pack daily] Alcohol intake: current Alcohol intake frequency: holidays/special occasions only Substance/Drug Use: never Adopted: Yes Household members: spouse Marital status: Number of children: 1 Number of grandchildren: 2 Current occupational status: retired 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 [employer] Physical Exam 2 Const: COMMON NORMALS: no acute distress, patient oriented x3 and no limitations GENERAL APPEARANCE: cooperative and comfortable HENMT: COMMON NORMALS: normocephalic, atraumatic, Normal nasal mucous membranes and turbinates present, moist oral mucous membranes and oropharynx normal HEAD & SCALP: normal to inspection, normocephalic and atraumatic F MELISSA & SINUS: normal facial exam NOSE: Normal nasal mucous membranes and turbinates present Eye: COMMON NORMALS: Equal, round and reactive pupils present, EOMs intact bilaterally and conjunctivae normal GENERAL EYE: appearance normal, both eyes and all related structures CONJUNCTIVA: Yes conjunctivae normal PUPIL: Yes Equal, round and reactive pupils present Neck/C-Spine: COMMON NORMALS: supple and no JVD Chest: COMMONS NORMALS: normal inspection of the chest Resp: COMMON NORMALS: normal respiratory effort and clear to auscultation bilaterally AUSCULTATION: clear to auscultation bilaterally Cardio: COMMON NORMALS: no JVD, regular rate, regular rhythm, No gallops present (Cardio), No murmurs present (Cardio) and No rub (Cardio) RATE: r egular rate RHYTHM: regular rhythm GI: COMMON NORMALS: Normal to inspection, nondistended, normoactive bowel sounds present, Soft to palpation and non-tender AUSCULTATION: Yes normoactive bowel sounds PALPATION: Yes Soft to palpation : COMMON NORMALS: Yes no CVA tenderness BLADDER/KIDNEY EXAM: Yes no CVA tenderness Back/Pelvis: COMMON NORMALS: no CVA tenderness and thoracic and lumbar spine normal to inspection Extremity: COMMON NORMALS: normal to inspection Neuro: COMMON NORMALS: patient oriented x3 and CN's II-XII intact bilaterally Psych: COMMON NORMALS: mental status grossly normal, Normal thought process present and cooperative THOUGHT PROCESS: Normal thought process present Skin: COMMON NORMALS: no rashes or lesions noted, turgor normal and no jaundice GENERAL SKIN EXAM: no rashes or lesions noted and turgor normal Course 2 Vital Signs: Vital signs: Vital Signs Pulse Rate 78 05/31/25 11:28 Respiratory Rate 17 03/05/25 11:28 Blood Pressure 111/65 03/05/25 11:28 Pulse Oximetry 98 03/05/25 11:28 Oxygen Delivery Me thod Room Air 03/05/25 11:28 MDM - SOB/Dyspnea Medical Decision Making Patient was given a DuoNeb by EMS en route. She is feeling better following the DuoNeb treatment. We did administer 125 mg of Solu-Medrol IV. Her EKG revealed sinus rhythm with no ST segment abnormalities. Chest x-ray is consistent with COPD. CBC revealed hemoglobin of 7.4. Hemoglobin was 8.5 on February 21. BMP was normal. Troponin 26. BNP was 1373. COVID, flu and RSV negative. Stool was guaiac negative. Patient will need blood transfusion since if she is having shortness of breath and chest tightness with a hemoglobin of 7.4. No active GI bleed. I did discuss the case with Dr. Kwong, hospitalist. We will admit the patient for the transfusion and further treatment of her COPD. Patient will be sent to the floor when bed is available. She is stable. Lab Data 03/05/25 11:20 03/05/25 11:20 Labs/Radiology: Radiology Impressions Chest X-Ray 03/05/25 11:21 IMPRESSION: 1. Pulmonary emphysema. 2. Degenerative and postsurgical changes are demonstrated, as described above. Laboratory Results WBC 3.58 10^3/uL (3.29-11.43) 03/05/25 11:20 RBC 3.46 10^6/uL (3.85-5.65) L 03/05/25 11:20 Hgb 7.40 g/dL (11.27-16.99) L 03/05/25 11:20 Hct 26.4 % (36-47) L 03/05/25 11:20 MCV 76.3 fl (85-98) L 03/05/25 11:20 MCH 21.4 pg (27-33) L 03/05/25 11:20 MCHC 28.0 g/dL (30-55) L 03/05/25 11:20 RDW 17.1 % (12.1-15.1) H 03/05/25 11:20 Plt Count 320 10^3/cmm (157-399) 03/05/25 11:20 MPV 9.7 fL (7.4-10.4) 03/05/25 11:20 Neut % (Auto) 58.3 % 03/05/25 11:20 Lymph % (Auto) 28.5 % 03/05/25 11:20 [place] % (Auto) 9.5 % 03/05/25 11:20 Eos % (Auto) 2.0 % 03/05/25 11:20 Baso % (Auto) 1.1 % 03/05/25 11:20 Neut # (Auto) 2.09 10^3/uL (1.8-7.7) 03/05/25 11:20 Lymph # (Auto) 1.0 10^3/uL (0.8-4.8) 03/05/25 11:20 [place] # (Auto) 0.3 10^3/uL (0.2-0.9) 03/05/25 11:20 Eos # (Auto) 0.1 10^3/uL (0.0-0.8) 03/05/25 11:20 Baso # (Auto) 0.0 10^3/uL (0.0-0.1) 03/05/25 11:20 Nucleated RBC % (auto) 0 % 03/05/25 11:20 Nucleated RBCs # 0.0 /100WBC 03/05/25 11:20 Sodium 138 mmol/L (136-145) 03/05/25 11:20 Potassium 4.1 mmol/L (3.5-5.1) 03/05/25 11:20 Chloride 102 mmol/L (98-107) 03/05/25 11:20 Carbon Dioxide 23 mmol/L (22-29) 03/05/25 11:20 Anion Gap 17.1 (5-19) 03/05/25 11:20 BUN 14 mg/dL (8-23) 03/05/25 11:20 Creatinine 0.8 mg/dL (0.5-0.9) 03/05/25 11:20 GFR Calculation Not Reportable 03/05/25 11:20 Glucose 149 mg/dL (65-115) H 03/05/25 11:20 Calculated Osmolality 289 mOsm/kg (285-295) 03/05/25 11:20 Calcium 9.1 mg/dL (8.5-10.5) 03/05/25 11:20 Troponin T Baseline 26 ng/L (0-10) H 03/05/25 11:20 NT-Pro-B Natriuret Pep 1373 pg/mL (0-125) H 03/05/25 11:20 Influenza A (PCR) Negative (Negative) 03/05/25 11:30 Influenza Type B (PCR) Negative (Negative) 03/05/25 11:30 RSV (PCR) Negative (Negative) 03/05/25 11:30 SARS-CoV-2 (PCR) Negative (Negative) 03/05/25 11:30 All radiology interpretation(s) finalized by discharge Discharge Plan Discharge Patient Disposition: Admitted As Inpatient Clinical Impression: Anemia, blood loss, COPD (chronic obstructive pulmonary disease) Condition: Stable Coding Level of Care Code ED Licensed Mental Health Counselor for Angle Vilchis
--- NOTE | 2025-03-05 13:08 | PC.NURSE ---
informed consent for blood products signed and in chart.
[2025-03-05 13:17] LABS: Troponin 5 2HR 30.03 ng/L (0-10); Troponin 5 2HR Delta 4.03 ABS# (0-10)
--- NOTE | 2025-03-05 13:22 | ECG_ITS ---
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
--- NOTE | 2025-03-05 13:31 | P.HP_ITS ---
Providers/Chief Complaint 2 Admitting Physician: Farida Kwong MD Primary Care Provider: Peyton Gibson MD Chief Complaint: DIFF BREATHING History of Present Illness Shayy Mann is a 69 year old female With a past medical history of CAD, last stents placed in June 2024, cecal AV malformation, chronic anemia as a result of GI blood losses and has required transfusion in the past. She presents to the emergency room today with chief complaints of generalized weakness and difficulty breathing. She states that she started feeling unwell 2 to 3 days ago. She states that after her last year she was given a referral to follow-up with [facility]. She was to see them this past Friday, however she was unable to go since she felt sick. She now has an appointment for colonoscopy on April 26, 2025 at [facility]. She states that over the last 2 to 3 days she has been feeling short of breath, her chest has been feeling tight. She denies any syncope or loss of consciousness. She is on chronic oxygen at home. Today her hemoglobin is noted to be at 7.4. Patient states that she felt weak and can usually tell when she is in need of a blood transfusion. She said she had some palpitations earlier today. Does not have any melena, swathi bleeding at this time. Rectal exam performed in the emergency room was without any bright red blood. Hemoccult was negative. Review of Systems 2 General: Reports: 10 or more systems reviewed and unremarkable except in HPI and below Const: Denies: fever(s), chills or body aches Eyes: Denies: change in vision, blurry vision or photophobia ENMT: Reports: hoarseness; Denies: throat pain, enlarged tonsils, odynophagia or nasal congestion Card: Denies: chest pain, palpitations, irregular heart rhythm, edema, swelling of feet/ankles, lightheadedness, pre-syncope, dyspnea on exertion or orthopnea Resp: Denies: dyspnea, productive cough, non-productive cough, wheezing, stridor, pain on inspiration, change in phlegm color, hemoptysis or chest congestion GI: Denies: abdominal pain, nausea, vomiting, hematemesis, coffee ground emesis, dysphagia, heartburn, diarrhea, constipation, GI cramping, change in stool character, hematochezia or melena : Denies: flank pain, difficulty voiding, dysuria, urinary frequency, urinary urgency, urinary hesitancy or hematuria Musc: Denies: neck pain, back pain, extremity pain, joint swelling, joint warmth or deformity Neuro: Denies: headache(s), numbness in extremities, weakness in extremities, sensory changes, difficulty walking, frequent falls, dizziness, vertigo, behavioral changes, Slurred speech present or seizure-like activity Psych: Denies: anxiety, depression, suicidal ideation or homicidal ideation Endo: Denies: polyuria, polydipsia, tired all the time, cold intolerance or hot flashes [place]/Lymph: Denies: easy bruising or easy bleeding Medications/Allergies Home Medications ?Medication ?Instructions ?Recorded ?Confirmed ?Last Taken ?Type nitroglycerin 0.4 mg sublingual 0.4 mg sublingual Q5M PRN chest 03/01/24 03/05/25 Unknown Rx tablet pain #90 tabs acetaminophen 500 mg tablet 1,000 mg PO Q6H PRN Pain 0 03/15/24 03/05/25 Unknown History tizanidine 2 mg tablet See Rx Instructions .Route 1 11/28/23 03/05/25 Unknown Rx .COMPLEX #20 tabs metoprolol tartrate 25 mg tablet 25 mg PO BID 30 days #60 tabs 10/12/24 03/05/25 03/04/25 Rx atorvastatin 80 mg tablet 80 mg PO DAILY #90 tabs 12/0403/05/25 03/04/25 Rx duloxetine 60 mg capsule,delayed See Rx Instructions . Route 01/03/25 03/05/25 03/04/25 Rx release .COMPLEX #90 caps pantoprazole 40 mg tablet,delayed See Rx Instructions .Route 01/03/25 03/05/25 03/04/25 Rx release .COMPLEX #180 tabs albuterol sulfate 90 mcg/actuation 2 puff inhalation 6 XD PRN 01/20/25 03/05/25 03/04/25 Rx aerosol inhaler shortness of breath or wheez ing 30 days #17 grams lamotrigine 100 mg tablet 100 mg PO BID 30 days #60 ta bs 02/03/25 03/05/25 03/04/25 Rx acetaminophen 300 mg-codeine 15 mg 1 tab PO BID PRN pa in #20 tabs 02/09/25 03/05/25 03/04/25 Rx tablet budesonide 160 mcg-glycopyr 9 2 inh inhalation BID 30 days #10.7 03/01/25 03/05/25 03/04/25 Rx mcg-formot 4.8 mcg/actuation HFA grams inhaler (Breztri Aerosphere) clopidogrel 75 mg tablet 75 mg PO DAILY #90 tabs 02/0403/05/25 03/04/25 Rx Allergies Allergy/AdvReac Type Severity Reaction Status Date / Time Opioids - Morphine Analogues Allergy Severe Unknown Verified 12/20/24 15:36 pregabalin (From Lyrica) Allergy Severe syncope Verified 12/20/24 15:36 venlafaxine Allergy tremor Verified 12/20/24 15:36 gabapentin AdvReac Intermediate Unknown Verified 12/20/24 15:36 tramadol AdvReac Unknown ADR-Vomitin Verified 12/20/24 15:36 g PFSH Acute 2 PFSH: Medical History (Updated 03/05/25 @ 17:47 by Farida Kwong MD) Acute exacerbation of chronic obstructive pulmonary disease COPD (chronic obstructive pulmonary disease) Cervical pain (neck) Atherosclerosis of [place] coronary artery without angina pectoris GERD (gastroesophageal reflux disease) Acute blood loss anemia Abdominal pain GI bleed Duodenal ulcer Acute upper GI bleed Dysphagia Exertional dyspnea Smoker History of duodenal ulcer Acute diastolic heart failure Acute non-ST elevation myocardial infarction (NSTEMI) Osteopenia History of colon polyps hyperplastic polyp x 2 in 2021 Depression Chronic back pain Weight loss, unintentional Hyperlipidemia Surgical History History of cataract extraction with lens replacement History of esophageal surgery benign polyp removed History of bunionectomy of both great toes History of hysterectomy still has one ovary History of cholecystectomy History of fusion of cervical spine History of lumbar spinal fusion Family History Other Adopted Social History Smoking and tobacco/nicotine status: current every day tobacco/nicotine user cigarettes Packs smoked per day: 0.5 [ Other cigarette details: started at 14; currently smokes 0.5 to 1 pack daily] Alcohol intake: current Alcohol intake frequency: holidays/special occasions only Substance/Drug Use: never Adopted: Yes Household members: spouse Marital status: Number of children: 1 Number of grandchildren: 2 Current occupational status: retired 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 [employer] Last Vital Signs Temp 98.0 F 03/05/25 15:39 Pulse 85 03/05/25 15:39 Resp 19 H 03/05/25 15:39 BP 117/67 03/05/25 15:39 Pulse Ox 96 03/05/25 15:39 O2 Del Method Room Air 03/05/25 15:39 03/05/25 03/05/25 03/05/25 06:59 14:59 22:59 Intake Total 0 / 0 0 / 0 Balance 0 / 0 0 / 0 Weight last 48 hrs Weight 35.38 kg Physical Exam 2 Narrative: General: No acute distress, AO x3 HEENT: PERRLA, pupils bilaterally equal and reactive, pallors not present Chest: scattered wheezing to auscultation CVS: S1-S2 regular, no murmurs, no tachycardia, no gallops, no rubs Abdomen: Soft, nontender, no organomegaly, bowel sounds present Neuro: No focal deficits, no facial deformity, AO x3, power 5/5 in all limbs Data 03/05/25 17:05 03/05/25 11:20 Other Labs: Radiology Impressions Chest X-Ray 03/05/25 11:21 IMPRESSION: 1. Pulmonary emphysema. 2. Degenerative and postsurgical changes are demonstrated, as described above. Laboratory Results WBC 3.58 10^3/uL (3.29-11.43) 03/05/25 11:20 RBC 3.46 10^6/uL (3.85-5.65) L 03/05/25 11:20 Hgb 10.30 g/dL (11.27-16.99) L D 03/05/25 17:05 Hct 34.4 % (36-47) L D 03/05/25 17:05 MCV 76.3 fl (85-98) L 03/05/25 11:20 MCH 21.4 pg (27-33) L 03/05/25 11:20 MCHC 28.0 g/dL (30-55) L 03/05/25 11:20 RDW 17.1 % (12.1-15.1) H 03/05/25 11:20 Plt Count 320 10^3/cmm (157-399) 03/05/25 11:20 MPV 9.7 fL (7.4-10.4) 03/05/25 11:20 Neut % (Auto) 58.3 % 03/05/25 11:20 Lymph % (Auto) 28.5 % 03/05/25 11:20 [place] % (Auto) 9.5 % 03/05/25 11:20 Eos % (Auto) 2.0 % 03/05/25 11:20 Baso % (Auto) 1.1 % 03/05/25 11:20 Neut # (Auto) 2.09 10^3/uL (1.8-7.7) 03/05/25 11:20 Lymph # (Auto) 1.0 10^3/uL (0.8-4.8) 03/05/25 11:20 [place] # (Auto) 0.3 10^3/uL (0.2-0.9) 03/05/25 11:20 Eos # (Auto) 0.1 10^3/uL (0.0-0.8) 03/05/25 11:20 Baso # (Auto) 0.0 10^3/uL (0.0-0.1) 03/05/25 11:20 Nucleated RBC % (auto) 0 % 03/05/25 11:20 Nucleated RBCs # 0.0 /100WBC 03/05/25 11:20 Sodium 138 mmol/L (136-145) 03/05/25 11:20 Potassium 4.1 mmol/L (3.5-5.1) 03/05/25 11:20 Chloride 102 mmol/L (98-107) 03/05/25 11:20 Carbon Dioxide 23 mmol/L (22-29) 03/05/25 11:20 Anion Gap 17.1 (5-19) 03/05/25 11:20 BUN 14 mg/dL (8-23) 03/05/25 11:20 Creatinine 0.8 mg/dL (0.5-0.9) 03/05/25 11:20 GFR Calculation Not Reportable 03/05/25 11:20 Glucose 149 mg/dL (65-115) H 03/05/25 11:20 Calculated Osmolality 289 mOsm/kg (285-295) 03/05/25 11:20 Calcium 9.1 mg/dL (8.5-10.5) 03/05/25 11:20 Troponin T Baseline 26 ng/L (0-10) H 03/05/25 11:20 Troponin T 120 Minute 30.03 ng/L (0-10) H 03/05/25 12:53 Delta Troponin T 4.03 ABS# (0-10) 03/05/25 12:53 NT-Pro-B Natriuret Pep 1373 pg/mL (0-125) H 03/05/25 11:20 Influenza A (PCR) Negative (Negative) 03/05/25 11:30 Influenza Type B (PCR) Negative (Negative) 03/05/25 11:30 RSV (PCR) Negative (Negative) 03/05/25 11:30 SARS-CoV-2 (PCR) Negative (Negative) 03/05/25 11:30 Blood Type O Negative 03/05/25 12:53 Rho(D) Type Rh negative 03/05/25 12:53 Antibody Screen Negative 03/05/25 12:53 Crossmatch See Detail 03/05/25 12:53 A&P Assessment and plan (1) Anemia: (2) Chronic blood loss anemia: Plan 69-year-old with past medical history as above, presented to the hospital today feeling generalized weakness and short of breath. Noted to have a hemoglobin at 7.4. 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 Patient refused repeat colonoscopy in April at [facility]. Negative fecal occult blood testing in the emergency room at bedside. Negative rectal exam for any bright red blood. No active bleeding encountered today. No hematemesis reported. Will transfuse 1 packed red blood cell given patient's cardiac history and complaints of chest tightness and palpitations. EKG reviewed today, no acute ST-T wave changes encountered. Baseline troponin mildly elevated at 26, up to 30 at 2 hours, delta of 4, less likely ACS. Will await 6-hour trend. Recheck H&H after transfusion. Noted to have diffuse scattered wheezing. She has received methylprednisolone 125 mg in the emergency room Will order for DuoNeb every 6 hour inhalation, budesonide every 12 hours ambulation and dexamethasone 6 mg IV daily in view of COPD exacerbation. DVT prophylaxis: SCDs only, a/c contraindicated due to h/o GI bleed and AVM Full code PDMP PDMP Reviewed: Not Reviewed Attestations 2 Medical Necessity Statement*: Less than 2 midnight stay is currently anticipated, observation admission only Coding Level of Care Code Acute Code for Chg Fwd Diagnoses Anemia D64.9 Chronic blood loss anemia D50.0
[2025-03-05] MEDS: sodium chloride 0.9% 100 mL Bag 50 ML IV (14:21)
--- NOTE | 2025-03-05 15:37 | PC.NURSE ---
pt transported per ED charge
[2025-03-05] MEDS: dexamethasone 4 mg/mL INJ 6 MG IVP (16:32)
--- NOTE | 2025-03-05 17:00 | PC.NURSE ---
At 1640 Dr. Castle returned a call to Bala [facility]ENWO[facility] about this patient wanting to go home if she was not going to receive another unit of blood tonight. Dr. Kwong stated she was not going to give the patient anymore blood tonight. The patient would need to leave AMA if she wanted to go. Bala updated the patient who stated that her was on his way here.
--- NOTE | 2025-03-05 17:22 | ECG_ITS ---
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1955 Requested By: Yash Sainz Order Number: [id number] Reading MD: ALEXANDREA MILLS Measurements Intervals [place] Rate: 77 P: 79 [place]: 131 QRS: 87 QRSD: 78 T: 54 QT: 385 QTc: 438 Interpretive Statements SINUS RHYTHM MODERATE ST DEPRESSION [0.05+ mV ST DEPRESSION] Compared to ECG 03/05/2025 13:18:00 ST (T wave) deviation now present Short [place] interval no longer present T-wave abnormality no longer present Electronically Signed On 03-09-2025 23:01:31 CDT by ALEXANDREA MILLS [id number]
[2025-03-05 17:28] LABS: Hematocrit 34.4 % (36-47)
--- NOTE | 2025-03-05 17:30 | PC.NURSE ---
Patient's Hemoglobin returned at 10.3. Patient and in the room and updated on the result. Patient wants to leave at this time. Patient states, They won't give her anymore in the morning either so we are just going to leave but I want the name of the ER DR and the Hospitalist because I am going to report this.
[2025-03-05 17:45] LABS: Troponin 5 6HR 24.38 ng/L (0-10); Troponin 5 6HR Delta -1.62 ng/L (0-12)
--- NOTE | 2025-03-05 18:54 | PC.NURSE ---
1710 at this time patient's approached this RN and asked what was going on. Bala patient's primary care nurse came up bedside him at the nurses station as well and started explaining that his was going to have her labs rechecked in the morning and if she needed another unit of blood she would get one at that time. states, The only reason I was able to get her to stay was to tell her she needed another unit of blood. She doesn't need to be here if she is not getting any blood. We brought her here because her blood count was low and she always gets to 2 units. If you guys could just give her another unit we could get her tanked up before her surgery in April and we would not have to go through this again. Explained to patient's that the doctor was clear that she will not be giving her another unit of blood tonight but that we could draw a H&H and see what her blood count is. and patient would like us to do this. Verbal order received from Dr. Gautam for Stat H&H. Lab was drawn about 20 minutes ago for some other test.
== END 2025-03-05 18:01 | disposition left against medical advice (07) ==
LOC: ER 13:35 → MEDSURG 14:44
PROVIDERS: Admitting Provider Student in an Organized Health Care Education/Training Program; Emergency Provider Emergency Medicine; PCP Family Medicine; Visit Provider Student in an Organized Health Care Education/Training Program
DX: D50.0 Iron deficiency anemia secondary to blood loss (chronic) (principal); F17.210 Nicotine dependence, cigarettes, uncomplicated; J44.1 Chronic obstructive pulmonary disease with (acute) exacerbation; I25.10 Atherosclerotic heart disease of native coronary artery without angina pectoris; K21.9 Gastro-esophageal reflux disease without esophagitis; I25.2 Old myocardial infarction; E78.5 Hyperlipidemia, unspecified; Z79.82 Long term (current) use of aspirin
CPT/HCPCS: 36415; 36430; 71045; 80048; 83880; 84484; 85014; 85018; 85025; 86850; 86900; 86920; 87637; 93005; 96361; 96374; 96376; 99285; G0378; J1100; J2919; P9040

== ENCOUNTER → 2025-03-09 08:58 | Outpatient (BNVA) | payer MEDICARE, SELFPAY | PROVIDERS: PCP Family Medicine; Visit Provider Family Medicine | DX: N39.0 Urinary tract infection, site not specified (principal) | CPT/HCPCS: 81003; 87077; 87086; 87184 ==

== ENCOUNTER → 2025-04-12 08:54 | Outpatient (BNVA) | payer MEDICARE, OTHER, SELFPAY | PROVIDERS: PCP Family Medicine; Visit Provider Nurse Practitioner Family | DX: I25.10 Atherosclerotic heart disease of native coronary artery without angina pectoris (principal); R07.89 Other chest pain; R00.0 Tachycardia, unspecified; Z87.898 Personal history of other specified conditions; D64.9 Anemia, unspecified | CPT/HCPCS: 36415; 85025; 99214 ==

== ENCOUNTER → 2025-04-14 14:35 | Outpatient (BNVA) | payer MEDICARE, OTHER, SELFPAY | PROVIDERS: PCP Family Medicine; Visit Provider Family Medicine | DX: K29.61 Other gastritis with bleeding (principal) | CPT/HCPCS: 85014; 85018 ==

== ENCOUNTER → 2025-04-19 13:43 | Outpatient (BNVA) | payer MEDICARE, OTHER, SELFPAY | PROVIDERS: PCP Family Medicine; Visit Provider Family Medicine | DX: K29.61 Other gastritis with bleeding (principal); D64.9 Anemia, unspecified | CPT/HCPCS: 85014; 85018 ==

== ENCOUNTER 2025-04-26 12:00 | Oncology outpatient (recurring) (ONCR) | payer MEDICARE, SELFPAY ==
--- NOTE | 2025-04-22 14:00 | USCV_ITS ---
Shayy Mann Age: 69 Gender: F : 1955 Exam Date: 04/22/2025 14:19 Ordering Phys: Chasity Carson NP Technologist: SEBASTIÁN Exam Location: [facility] [place] Indication: stenosis Risk Factors: Previous Vascular Surgery: Right Brachial BP: / Left Brachial BP: / Right Left Velocity (cm/s) Spectral Plaque Velocity (cm/s) Spectral Plaque Syst/Diast Broadening Syst/Diast Broadening 71.30/ 22.00 Prox CCA 68.00 / 26.50 66.10/ 25.80 Mid CCA 76.90 / 26.60 67.20/ 20.60 Distal CCA 78.60 / 30.00 51.70/ 18.00 Prox ICA 48.80 / 12.90 60.20/ 25.70 Mid ICA 68.40 / 22.70 61.20/ 24.60 Distal ICA 86.30 / 30.80 58.20 ECA 61.90 0.90 ICA/CCA 1.10 Antegrade Vertebral Antegrade 45.90/ 16.80 cm/s 61.10/ 18.50 cm/s Tri Subclavian Tri 74.00 69.50 CONCLUSIONS Right ICA stenosis <50%. Mild atheromatous plaque right carotid bulb/ICA. Left ICA stenosis <50%. Mild atheromatous plaque left carotid bulb/ICA. Normal antegrade Doppler flow noted in the right vertebral artery. Normal antegrade Doppler flow noted in the left vertebral artery. Hang Tolbert MD (Electronically Signed) Final Date: 22 April 2025 16:16 S
[2025-04-26 13:17] LABS: Hematocrit 24.2 % (36-47); Hemoglobin 6.60 g/dL (11.27-16.99)
[2025-04-26 14:55] VITALS: BP 107/63; PULSE 79; TEMP 36.9; O2SAT 99
[2025-04-26 15:10] VITALS: BP 103/64; PULSE 78; TEMP 37.3; O2SAT 96
[2025-04-26 15:28] VITALS: BP 114/71; PULSE 77; TEMP 37.3; O2SAT 97
[2025-04-26 15:59] VITALS: BP 127/53; PULSE 82; TEMP 37.2; O2SAT 97
[2025-04-26 17:03] VITALS: BP 134/78; PULSE 73; TEMP 37.3; O2SAT 97
== END 2025-05-05 23:59 | disposition home or self-care (01) ==
PROVIDERS: PCP Family Medicine; Visit Provider Nurse Practitioner Family
DX: Z53.9 Procedure and treatment not carried out, unspecified reason; D50.0 Iron deficiency anemia secondary to blood loss (chronic)
CPT/HCPCS: 36430; 85014; 85018; 86850; 86900; 86920; 93880; P9016

== ENCOUNTER 2025-04-27 04:28 | Inpatient (IN) | payer MEDICARE, OTHER, SELFPAY ==
--- OUTSIDE RECORDS SUMMARY | 2024-03-04 04:00 | XMS_ITS ---
Author Organization [facility] Address [address] [place] [address] Support Name Relationship Address , Renato Johnathan Emergency Contact Unknown Unavailable Shayy Escobar Guarantor Unknown [phone] Care Team Providers Care Lock Operator Name Role Phone Peyton Gibson Primary Care [...] mobility (ICD-10 - R26.9) Plan Of Treatment Next Appt Details Provider Name:Chico Pollock, 05/02/2025 10:10:00 AM, [address] [place] [address] [address], [place], [phone], Progress Notes * Jenelle ESCOBARaDOB:1955 (69 yo F)Acc No.[id number]:03/04/2024 Patient: Shayy Linder Provider: Holden hugo Migration :1955 A ge:68 Y S ex:Female Date:03/04/2024 Address:[address] [place], [place] [phone] Pcp:Peyton Gibson Subjective: * Chief Complaints: * [...] Electronic signature of Prov ider Migration on 04/27/2025 at 04:44 AM CDT Sign off status: Pending * Provider: Holden hugo Migration Date: 0 03/04/2024 Generated for Rohit pino/Rajesh/eTsulemansmitting on: 0 04/27/2025 04:44 AM CDT
--- OUTSIDE RECORDS SUMMARY | 2024-07-31 04:00 | XMS_ITS ---
Author Organization [facility] Address [address] [place] [address] Support Name Relationship Address , Renato De La Vegacker Emergency Contact Unknown Unavailable Shayy Escobar Guarantor Unknown [phone] Care Team Providers Care Healthcare Administration Internship Name Role Phone Peyton Gibson Primary Care Provider Unavailab le Migration, Provider Unavailable Unavailable REASON FOR VISIT EMR-Miguel Encounters Encounter Location Date Provider Diagnosis Migrated_Facility 0 0 07/31/2024 Provider Migration Plan Of Treatment Next Appt Details Provider Name:Chico Pollock, 05/02/2025 10:10:00 AM, [address] [place] [address] [address], [place], [address], Progress Notes * Jenelle ESCOBARaDOB:1955 (69 yo F)Acc No.[id number]:07/31/2024 Patient: Marco A Shayy ORTIZ :1955 A ge:68 Y S ex:Female Address:[facility] [address] [facility], [place], [address] Subjective: * Chief Complaints: * E MR-Miguel * * Date:
--- OUTSIDE RECORDS SUMMARY | 2024-08-01 04:00 | XMS_ITS ---
Author Organization [facility] Address [address] [place] [address] Support Name Relationship Address , Renato Johnathan Emergency Contact Unknown Unavailable Shayy Escobar Guarantor Unknown [phone] Care Team Providers Care Contract Consultant Name Role Phone ArthurPeyton Primary Care Provider Unavailab le Migration, Provider Unavailable Unavailable Allergies Allergen (clinical drug ingredient) Drug/Non Drug Allergy documented on EMR Reaction Allergy Type Onset Date Status pregabalin Lyrica Unknown Drug Allergy Active oxycodone OxyCONTIN Unknown Drug Allergy Active hydrocodone Hydrocodone Unknown Drug Allergy Act davon morphine Morphine Unknown Drug Allergy Active oxycodone Oxycodone Unknown Drug Allergy Active REASON FOR VISIT EMR-Miguel Medications Medication SIG (Take, Route, Frequency, Duration) Notes Start Date End Date Status Acetaminophen-Codeine *Pick strength-form from Medispan for eRX* Active Tylenol *Pick strength-form from Medispan for eRX* Active Ibuprofen *Pick strength-form from Medispan for eRX* Active Lidocaine *Pick strength-form from Medispan for eRX* Active lamoTRIgine *Pick strength-form from Medispan for eRX* Active Breztri Aerosphere *Pick strength-form from Medispan for eRX* Active Ipratropium [place] *Pick strength-form from Medispan for eRX* Active Baclofen *Pick strength-form from Medispan for eRX* Active Estradiol *Pick strength-form from Medispan for eRX* Active Albuterol Sulfate *Pick strength-form from Medispan for eRX* Active Social History Social History Additional Details Category Social Info Options Details Migrated Social History Migrated Social History Alcoholic beverages? - Yes : seldom, Currently on disability? - Yes, Drug or substance abuse? - No, If yes, frequency of alcoholic beverages - less than 1 drink per week., Involved in any legal proceedings or lawsuits? - No, Marital Status - , Nonprescription drug use? - No, Participation in detoxification or rehabilitation - No, Smoked in the past? - Yes, Smoking - 1 PPD, Smoking status (MU) - Current everyday smoker, Working currently? - No Encounters Encounter Location Date Provider Diagnosis Migrated_Facility 0 0 08/01/2024 Provider Migration Plan Of Treatment Next Appt Details Provider Name:Chico Pollock, 05/02/2025 10:10:00 AM, [address] [place] [address] [address], [place], [address], Progress Notes * Jenelle ESCOBARBetyB:1955 (69 yo F)Acc No.[id number]:08/01/2024 Patient: Shayy MAGDALENO :1955 A ge:68 Y S ex:Female Address:[address] [place] [id number] Subjective: * Chief Complaints: * E MR-Miguel * Surgical History: throat surgery cervical fusion Hysterectomy Since 1984 Foot surgeries Since 2000 back surgeries Since 2002 * Social History: M igrated Social History: M igrated Social History: Alcoholic beverages? - Yes : seldom, C urrently on disability? - Yes, D rug or substance abuse? - No, I f yes, frequency of alcoholic beverages - less than 1 drink per week., I nvolved in any legal proceedings or lawsuits? - No, M arital Status - , N onprescription drug use? - No, P articipation in detoxification or rehabilitation - No, Smoked in the past? - Yes, S moking - 1 PPD, S moking status (MU) - Current everyday smoker, W orking currently? - No. * Medications: T akingEstradiol , Notes to Pharmacist: *Pick strength-form from Medispan for eRX*Albuterol Sulfate , Notes to Pharmacist: *Pick strength-form from Medispan for eRX*Ipratropium [place] , Notes to Pharmacist: *Pick strength-form from Medispan for eRX*Baclofen , Notes to Pharmacist: *Pick strength-form from Medispan for eRX*Lidocaine , Notes to Pharmacist: *Pick strength-form from Medispan for eRX*lamoTRIgine , Notes to Pharmacist: *Pick strength-form from Medispan for eRX*Tylenol , Notes to Pharmacist: *Pick strength-form from Medispan for eRX*Breztri Aerosphere , Notes to Pharmacist: *Pick strength-form from Medispan for eRX*Acetaminophen-Codeine , Notes to Pharmacist: *Pick strength-form from Medispan for eRX*Ibuprofen , Notes to Pharmacist: *Pick strength-form from Medispan for eRX*Taking Estradiol , Notes to Pharmacist: *Pick strength-form from Medispan for eRX*Taking Albuterol Sulfate , Notes to Pharmacist: *Pick strength-form from Medispan for eRX*Taking Ipratropium [place] , Notes to Pharmacist: *Pick strength-form from Medispan for eRX*Taking Baclofen , Notes to Pharmacist: *Pick strength-form from Medispan for eRX*Taking Lidocaine , Notes to Pharmacist: *Pick strength-form from Medispan for eRX*Taking lamoTRIgine , Notes to Pharmacist: *Pick strength-form from Medispan for eRX*Taking Tylenol , Notes to Pharmacist: *Pick strength-form from Medispan for eRX*Taking Breztri Aerosphere , Notes to Pharmacist: *Pick strength-form from Medispan for eRX*Taking Acetaminophen-Codeine , Notes to Pharmacist: *Pick strength-form from Medispan for eRX*Taking Ibuprofen , Notes to Pharmacist: *Pick strength-form from Medispan for eRX* * Allergies: O xycodone: AllergyMorphine: AllergyLyrica: AllergyHydrocodone: AllergyOxyCONTIN: Allergy * * Date:
[2025-04-27] VITALS (64 sets, daily range): BP systolic 99–155; BP diastolic 62–118; PULSE 67–115; RESP 15–33; TEMP 36.6–37.2; O2SAT 94–100; BMI 14.1; BMI 15.2
--- NOTE | 2025-04-27 04:33 | ECG_ITS ---
[facility] [place] [facility]: 2025-[facility]27 Pat Name: Shayy Mann Department: Room: Gender: Female [employer]: : 1955 Requested By: Micah Hutchinson Order Number: [id number] Sandra MD: Randy Lopez M.D. Measurements Intervals Whitney Rate: 83 P: 80 LA: 129 QRS: 95 QRSD: 95 T: 44 QT: 360 QTc: 425 Interpretive Statements SINUS RHYTHM BORDERLINE RIGHT AXIS DEVIATION [QRS AXIS > 90] MODERATE ST DEPRESSION [0.05+ mV ST DEPRESSION] Compared to ECG 03/05/2025 16:56:43 No significant changes Electronically Signed On 04-28-2025 09:04:05 CDT by Randy Lopez M.D. [email or web address]
--- OUTSIDE RECORDS SUMMARY | 2025-04-27 04:44 | XMS_ITS | Patient Health Record ---
Author Organization [facility] Address [address] [place] [address] Support Name Relationship Address , Renato Johnathan Emergency Contact Unknown Unavailable Shayy Mann Guarantor Unknown [phone] Care Team Providers Care Medical Technician Name Role Phone Peyton Gibson Primary Care Provider Unavailab Chico Hinson Unavailable [phone] Migration, Provider Unavailable Unavailable Reason For Referral Reason Centrlobuler Marixa leblanc, Nicotine dependence, 3mm nodule unchanged [facility] CT imaging report pg 3 01/26: Not Urgent per Maris Scheduled 08/17/2025 @ 1:30 PM Diagnosis 1 Centrilobular emphys jama (J43.2) Referring Provider First Name Peyton Referring Provider Last Name Arthur Referring Provider Speciality Family Med icine Referred Organization [facility] Referred Provider Chico Pollock Referred Address [address] [place], [place],[address],[place] Referred Provider Specialty Pulmonary Di seases General Notes Bhavna Martinez 01/26 03:35:54 PM >Need Images powersharedJuan Meranda 01/26/2025 03:40:38 PM >01/26: Gave Dr. Pollock CT report, Bhavna Martinez 01/26/2025 04:00:33 PM >Scheduled 08/17/2025 @ 1:30 PM, Bhavna Martinez 01/26/2025 04:02:56 PM >Patient is getting repeat CT in February., Bhavna Martinez 02/01/2025 08:13:03 AM >Images powersharwanda Referral Priority Routine Medications Medication SIG (Take, Route, Frequency, Duration) Notes Start Date End Date Status Breztri Aerosphere *Pick strength-form from Medispan for eRX* Active Ipratropium [place] *[facility]* Active Acetaminophen-Codeine *Pick strength-form from Medispan for eRX* [...] Current everyday smoker, Working currently? - No Problems Problem Type SNOMED Code ICD Code Onset Dates Problem Status W/U Status Risk Notes Problem Centrilobular emphysema (38380175) Centrilobular emphysema (J43.2) Active confirmed Encounters Encounter Location Date Provider Diagnosis Migrated_Facility 0 0 07/31/2024 Provider Migration Migrated_Facility 0 0 08/01/2024 Provider Migration [facility] [address] [place] [address] [place] [address] 04/20/2025 Chico Pollock Plan Of Treatment Next Appt Details Provider Name:Chico Méndezmela, 05/02/2025 10:10:00 AM, [address] [place] [address] [address], [place], [address], Insurance Providers Payer Name Payer Address Payer Phone Subscriber Number Group Number Insured Name Patient Relationship to Insured Coverage Start Date Coverage End Date [place] Medicare [address] [place] [phone] [id number] Shayy Mann Self - patient is the [facility] [address] [address] [place] [address] [id number] Shayy Mann Self - patient is the insured 1 Medical (General) History Surgical History Surgery Date(Month/Year) throat surgery cervical fusion Hysterectomy Since 1984 Foot surgeries Since 2000 back surgeries Since 2002
--- OUTSIDE RECORDS SUMMARY | 2025-04-27 04:44 | XMS_ITS | Patient Health Record ---
Author Organization [facility] Address [address] [place], [place] [id number] Care Team Providers Care Director Vaccine Name Role Phone Peyton Gibson MD Primary Care Provider Ene Pabon MD, [facility] [phone] Allergies Allergen (clinical drug ingredient) Drug/Non Drug Allergy documented on EMR Reaction Allergy Type Onset Date Status gabapentin Neurontin excessive weight gain Drug Allergy Active oxycodone OxyCONTIN GI upset Drug Allergy Active morphine morphine kidney and bowel shutdown Drug Allergy Active HYDROcodone GI upset Drug Allergy Activ e pregabalin Lyrica confusion and completely flipping out Drug Allergy Active Reason For Referral No Information Medications Medication SIG (Take, Route, Frequency, Duration) Notes Start Date End Date Status ibuprofen 800 mg 1 tab(s) orally once, as needed with food Active lidocaine topical 5% 1 patch applied topically once a day Active albuterol 90 mcg/inh 2 puff(s) inhaled every 6 hours Active Breztri Aerosphere 160 mcg-4.8 mcg-9 mcg/inh 2 puff(s) inhaled 2 times a day Active TraMADol Hydrochloride 50 mg 1 tab po orally Q4-6H prn pain (max 2/day; hold within 4H of planned sleep) for 30 day(s) ICD-10: M96.1 09/24/2022 Active DULoxetine 60 mg 1 cap(s) orally once a day Active famotidine 20 mg 1 tab(s) orally 2 times a day Active doxycycline hyclate 100 mg 1 cap(s) orally 2 times a day for 10 day(s) 09/24/2022 Active Social History Tobacco Use: Social History Observation Description Date Details (start date - stop date) Current Smoker NA - NA alcohol Question Answer Notes Did you have a drink contain ing alcohol in the past year? Yes How often did you have a dri nk containing alcohol in the past year? Monthly or less (1 point) How many drinks did you have on a typical day when you were drinking in the past year? 1 or 2 (0 points) How often did you have six o r more drinks on one occasion in the past year? Never (0 points) Points 1 Interpretation Negative Tobacco use: Question Answer Notes : current smoker Are you interested in quitting? Thinking about q uitting How many cigarettes a day do you smoke? 11-20 How often do you smoke cigarettes? every day How soon after you wake up d o you smoke your first cigarette? 6-30 min When did you start smoking? 1972 Problems Problem Type SNOMED Code ICD Code Onset Dates Problem Status W/U Status Risk Notes Problem High risk drug monitoring status (849784460) detention (current) use of opiate analgesic (Z79.891) Active confirmed Problem Hypersomnia (72479987) Hypersomnia, unspecified (G47.10) Active confirmed Problem Chronic pain (69453689) Other chronic pain (G89.29) Active confirmed Problem Cervicalgia (25593356) Cervicalgia (M54.2) Active confirmed Problem Backache (018846858) Dorsalgia, unspecified (M54.9) Active confirmed Problem Post-laminectom y syndrome (53004382) Postlaminectomy syndrome, not elsewhere classified (M96.1) Active confirmed Problem Myalgia (04510385) Myalgia of auxiliary muscles, head and neck (M79.12) Active confirmed Plan Of Treatment No Information Insurance Providers Payer Name Payer Address Payer Phone Subscriber Number Group Number Insured Name Patient Relationship to Insured Coverage Start Date Coverage End Date WPS Medicare Part B Claims Department [address] [address] [place] [id number] Shayy Mann Self - patient is the insured [employer] MED[employer]ARE ADVANTAGE PLAN [address] [place] [address] [id number] Johnathan, Shayy Self - patient is the insured Medical (General) History Medical History History ICD Code Chronic pain Neck pain Low back pain Chronic obstructive pulmonary disease Depression GERD Hyperlipidemia Weight loss, unintentional (low BMI) tobacco use, COPD Surgical History Surgery Date(Month/Year) Hysterectomy, 1984 Bunionectomy, bilateral, 1998 Lumbar spine surgeries x 3, performed at [facility] in [place], [place] by Dr. Kin López, 2003 Removal of polyp (benign) from esophagus , 2004 Cataract surgery, bilateral, 2016 Cervical spine surgeries, performed at [facility] in [place], [place], 2015, 2017 Cholecystectomy, performed at [facility] in [place], [place], 2021 Hospitalization History Reason Date(Month/Year) COPD, 11/2018
--- OUTSIDE RECORDS SUMMARY | 2025-04-27 04:45 | XMS_ITS | Patient Health Record ---
Author Organization [facility] Address [address] [place], [place] [address] Care Team Providers Care Commis Chef Name Role Phone Jennifer Costello MD Primary Care Provider EMMA Powell [phone] Allergies Allergen (clinical drug ingredient) Drug/Non Drug Allergy documented on EMR Reaction Allergy Type Onset Date Status morphine morphine Unknown Drug Allergy Active oxycodone Unknown Drug Allergy Active pregabalin Lyrica Unknown Drug Allergy Active Reason For Referral No Information Medications Medication SIG (Take, Route, Frequency, Duration) Notes Start Date End Date Status Atrovent HFA 17 mcg/inh 2 puff(s) by met ered dose inhaler as needed Active Breztri Aerosphere 160 mcg-4.8 mcg-9 mcg/inh 2 puff(s) inhaled 2 times a day Active lamoTRIgine 150 mg 1 tab(s) orally 1 Active baclofen 5 mg 1 tab(s) orally 2 ti mes per day Active estradiol 1 mg 1 tab(s) orally once a day Active Social History Tobacco Use: Social History Observation Description Date Details (start date - stop date) Current Smoker NA - NA Smoking Question Answer Notes Patient is a : current smoker Section Notes: 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 Patient has one child. Patient is on disability. 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 Patient has one child. Patient is on disability. 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 Patient has one child. Patient is on disability. 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 Patient has one child. Patient is on disability. 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 Patient has one child. Patient is on disability. 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 Patient has one child. Patient is on disability. 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 Patient has one child. Patient is on disability. 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 Patient has one child. Patient is on disability. 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 Patient has one child. Patient is on disability. 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 Patient has one child. Patient is on disability. 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 Patient has one child. Patient is on disability. 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 Patient has one child. Patient is on disability. 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 Patient has one child. Patient is on disability. 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 Patient has one child. Patient is on disability. 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 Patient has one child. Patient is on disability. 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 Patient has one child. Patient is on disability. 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 Patient has one child. Patient is on disability. 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 Patient has one child. Patient is on disability. 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 Patient has one child. Patient is on disability. 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 Patient has one child. Patient is on disability. 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 Patient has one child. Patient is on disability. 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 Patient has one child. Patient is on disability. 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 Patient has one child. Patient is on disability. 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 Patient has one child. Patient is on disability. 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 Patient has one child. Patient is on disability. 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 Patient has one child. Patient is on disability. 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 Patient has one child. Patient is on disability. 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 Patient has one child. Patient is on disability. 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 Patient has one child. Patient is on disability. 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 Patient has one child. Patient is on disability. 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 Patient has one child. Patient is on disability. 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 Patient has one child. Patient is on disability. 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 Patient has one child. Patient is on disability. 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 Patient has one child. Patient is on disability. 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 Patient has one child. Patient is on disability. 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 Patient has one child. Patient is on disability. 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 Patient has one child. Patient is on disability. 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 Patient has one child. Patient is on disability. 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 Patient has one child. Patient is on disability. 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 Patient has one child. Patient is on disability. 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 Patient has one child. Patient is on disability. 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 Patient has one child. Patient is on disability. 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 Patient has one child. Patient is on disability. 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 Patient has one child. Patient is on disability. 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 Patient has one child. Patient is on disability. 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 Patient has one child. Patient is on disability. 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 Patient has one child. Patient is on disability. 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 Patient has one child. Patient is on disability. 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 Patient has one child. Patient is on disability. 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 Patient has one child. Patient is on disability. 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 Patient has one child. Patient is on disability. 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 Patient has one child. Patient is on disability. Problems Problem Type SNOMED Code ICD Code Onset Dates Problem Status W/U Status Risk Notes Problem Dystonia (07553362) Dystonia, unspecified (G24.9) Active confirmed Problem Cervical spondylosis without myelopathy (623483349) Other spondylosis with radiculopathy, cervical region (M47.22) Active confirmed Problem Cervical spondylosis without myelopathy (702973064) Spondylosis without myelopathy or radiculopathy, cervical region (M47.812) Active confirmed Problem Thoracic spondylosis without myelopathy (609356284) Spondylosis without myelopathy or radiculopathy, thoracic region (M47.814) Active confirmed Problem Cervical spondylosis without myelopathy (278568445) Other spondylosis, cervical region (M47.892) Active confirmed Problem Post-laminectomy syndrome (47108111) Postlaminectomy syndrome, not elsewhere classified (M96.1) Active confirmed Problem Cervical radiculopathy (41069272) Radiculopathy, cervical region (M54.12) Active confirmed Plan Of Treatment No Information Insurance Providers Payer Name Payer Address Payer Phone Subscriber Number Group Number Insured Name Patient Relationship to Insured Coverage Start Date Coverage End Date Medicare B [place] [address] [place] [address] [id number] Shayy Mann Self - patient is the insured A[employer] Senior Supplement [address] [address] [place] [address] [id number] Shayy Mann Self - patient is the insured Medical (General) History Medical History History ICD Code Asthma COPD Surgical History Surgery Date(Month/Year) Anterior and posterior cervical fusion, Dr. Hodge 2016-06 Partial Hysterectomy 1980 Foot Surgery on both feet 2000 Back Surgery anterior [id number] 2002 Back Surgery 2002 Back Surgery 2003 Neck Surgery [id number] 2007 Throat Polyps Removed 2002 Hospitalization History Reason Date(Month/Year) 04-04-14 Left sacroiliac joint injection , 80% relief 05-16-14 Bilateral sacroiliac joint inje ction 07-18-14 Cervical interlamin ar epidural steroid injection at the C6/C7 level 08-15-14 Cervical interlamin ar epidural steroid injection at the C6/C7 level 11-11-14 Bilateral C3/C4, C4/C5, C5/C6 f acet joint injection 02-21-15 Cervical interlaminar epidural steroid injection 03-06-15 Bilateral sacroiliac joint inje ction 10/03/15 Bilateral sacroilia c joint injection under flouroscopic guidance 03-25-16 Cervical interlamin ar epidural steroid injection at the C6/C7 level under fluoroscopy 04-15-16 Bilateral C3/C4, C4 /C5, C5/C6 facet joint injection under flouroscopic guidance 07-14-17 Bilateral C3/C4, C4/ C5 and C5/C6 facet joint injection under flouroscopy 07-28-17 Bilateral L4 and L5 transforaminal epidural steroid injection under flouroscopy 02/25/18 Trapezius trigger point injectio n under ultrasound guidance 05-27-18 Botox injection for migraine hea daches 155 units 07/06/18 .Bilateral C3/C4, C4/C5, C5/C6 facet joint injection 11.7.18 B/L glenohumeral joint injection under ultrasound guidance 12.3.18 Bilateral C3/C4, C4/C5, C5/C6 fa cet joint injection 04.16.19 bilateral trapezius trigger point injection under ultrasound guidance 09-06-19 Bilateal T4, T5 and t6 medial nerve branch block under flouro 06/14/21 bilateral Trapezius trigger point injection under ultrasound guidance 07/09/21 Bilateral C3, C4, C 5 medial nerve branch block WITHOUT STEROIDS under flouroscopic guidance 08-14-21 bilateral C3, C4, C 5 medial nerve branch radiofrequency ablation under flouroscopic guidance (denervation of C3/C4 and C4/C5 facet joint) 03-29-15 Right epicondylitis injection 09/24/21 Bilateral L4 transf oraminal epidural steroid injection under fluoroscopic guidance 11/06/21 bilateral Trapezius trigger point injection under ultrasound guidance 04/01/22 bilateral C3, C4, C 5 medial nerve branch radiofrequency ablation under flouroscopic guidance (denervation of C3/C4 and C4/C5 facet joint) neck injections, Dr. Shepard 2022
--- OUTSIDE RECORDS SUMMARY | 2025-04-27 04:45 | XMS_ITS | Patient Health Record ---
Author Organization 1. [facility] [place] Address [address] [facility] [address] [place] [address] Care Team Providers Care Printer Slotter Operator Name Role Phone MIKAYLA AMBER Unavailable [phone] Latasha MCDOWELL, Mitesh Unavailable Unavailable Reason For Referral No Information Plan Of Treatment No Information Insurance Providers Payer Name Payer Address Payer Phone Subscriber Number Group Number Insured Name Patient Relationship to Insured Coverage Start Date Coverage End Date [employer] [address] [place] [address] [id number] Renato Mann Spouse - patient is the spouse of the insured
--- NOTE | 2025-04-27 04:47 | XRR_ITS ---
PROCEDURE INFORMATION: Exam: XR Chest Exam date and time: 04/27/2025 4:57 AM Age: 69 years old Clinical indication: Shortness of breath; On bipap; Additional info: SOB TECHNIQUE: Imaging protocol: Radiologic exam of the chest. Views: 1 view. COMPARISON: CR XR chest 1V portable [id number] 03/05/2025 11:25 AM FINDINGS: Lungs: Lungs hyperinflated with changes of pulmonary emphysema. Pleural spaces: Unremarkable. No pleural effusion. No pneumothorax. Heart/Mediastinum: Unremarkable. No cardiomegaly. Bones/joints: Redemonstrated postoperative changes from instrumented cervical spine fusion. XR/XR chest 1V portable [id number] IMPRESSION: 1. No acute process. 2. COPD.
[2025-04-27 04:50] LABS: ABG PCO2 50.7 mmHg (35-45); ABG PH Result 7.28 (7.35-7.45); Alveolar-Arterial Oxygen Gradi 11.7 mmHg (5-10); Arterial Blood Gas Hematocrit 28.9 % (37-47); Blood Gas Sample Site Brachial, left; Blood Gas Sample Type Arterial; Carboxyhemoglobin 3.8 %THgb (0.4-20.1); Glucose Level-ABG 184.0 mg/dL (70-115); HCO3 ABG 23.8 mmol/L (22-26); Ionized Calcium Level - ABG 1.2 mmol/L (1.1-1.4); Methemoglobin 1.1 % (0.4-1.5); Oxygen Saturation ABG 89.7; PO2 ABG 62.1 mmHg (80.0-100.0); PO2 FiO2 Ratio Arterial Blood 207; Potassium Level - ABG 4.2 mmol/L (3.5-5.0); Sodium Level - ABG 141.0 mmol/L (131-143)
--- NOTE | 2025-04-27 04:50 | ED_ITS ---
HPI - SOB/Dyspnea 2 General: Chief Complaint: Shortness of Breath/Dyspnea Stated Complaint: CP Time Seen by Provider: 04/27/25 04:32 History of Present Illness: HPI Narrative: Patient is brought in by EMS with shortness of breath and chest pain. Shortly prior to arrival the patient received 50 of fentanyl. Now she is somnolent on exam. It is unclear if this is because of the fentanyl or because she is hypercarbic secondary to her COPD. She is somnolent and slurring her words. On physical exam she has expiratory wheezes in all lung espinosa with poor air movement. She began to become more somnolent and decrease her respiratory rate. We immediately placed her on BiPAP. Will give her a DuoNeb, steroids, check labs, EKG, and reassess. Related Data Home Medications ?Medication ?Instructions ?Recorded ?Confirmed acetaminophen 500 mg tablet 1,000 mg PO Q6H PRN Pain 0 03/15/24 04/12/25 Previous Rx's ?Medication ?Instructions ?Recorded nitroglycerin 0.4 mg sublingual 0.4 mg sublingual Q5M PRN chest 03/01/24 tablet pain #90 tabs albuterol sulfate 90 mcg/actuation 2 puff inhalation 6 XD PRN 01/20/25 aerosol inhaler shortness of breath or wheez ing 30 days #17 grams lamotrigine 100 mg tablet 100 mg PO BID 30 days #60 ta bs 02/03/25 acetaminophen 300 mg-codeine 15 mg 1 tab PO BID PRN pa in #20 tabs 02/09/25 tablet budesonide 160 mcg-glycopyr 9 2 inh inhalation BID 30 days #10.7 03/01/25 mcg-formot 4.8 mcg/actuation HFA grams inhaler (Breztri Aerosphere) clopidogrel 75 mg tablet 75 mg PO DAILY #90 tabs 02/04 05/30 ipratropium 0.5 mg-albuterol 3 mg 3 ml inhalation Q6H PRN shortness 03/08/25 (2.5 mg base)/3 mL nebulization of breath or wheezing #180 mL soln atorvastatin 80 mg tablet 80 mg PO DAILY #90 tabs 03/06 10/30 pantoprazole 40 mg tablet,delayed See Rx Instructions .Route 04/03/25 release .COMPLEX #180 tabs duloxetine 60 mg capsule,delayed See Rx Instructions . Route 04/04/25 release .COMPLEX #90 caps metoprolol tartrate 25 mg tablet See Rx Instructions . Route 04/12/25 .COMPLEX #180 tabs tizanidine 2 mg tablet See Rx Instructions .Route 0 04/12/25 .COMPLEX #20 tabs Allergies Allergy/AdvReac Type Severity Reaction Status Date / Time Opioids - Morphine Analogues Allergy Severe Unknown Verified 04/12/25 09:07 pregabalin (From Lyrica) Allergy Severe syncope Verified 04/12/25 09:07 venlafaxine Allergy tremor Verified 04/12/25 09:07 gabapentin AdvReac Intermediate Unknown Verified 04/12/25 09:07 tramadol AdvReac Unknown ADR-Vomitin Verified 04/12/25 09:07 g Review of Systems 2 General: Reports: ROS unobtainable due to mental status PFSH ED 2 PFSH: Medical History (Updated 04/27/25 @ 05:46 by Micah Hutchinson MD) Acute exacerbation of chronic obstructive pulmonary disease COPD (chronic obstructive pulmonary disease) Cervical pain (neck) Atherosclerosis of [place] coronary artery without angina pectoris GERD (gastroesophageal reflux disease) Acute blood loss anemia Abdominal pain GI bleed Duodenal ulcer Acute upper GI bleed Dysphagia Exertional dyspnea Smoker History of duodenal ulcer Acute diastolic heart failure Acute non-ST elevation myocardial infarction (NSTEMI) Osteopenia History of colon polyps hyperplastic polyp x 2 in 2021 Depression Chronic back pain Weight loss, unintentional Hyperlipidemia Surgical History History of cataract extraction with lens replacement History of esophageal surgery benign polyp removed History of bunionectomy of both great toes History of hysterectomy still has one ovary History of cholecystectomy History of fusion of cervical spine History of lumbar spinal fusion Family History Other Adopted Social History Smoking and tobacco/nicotine status: current every day tobacco/nicotine user (1 ppd) cigarettes Packs smoked per day: 0.5 [ Other cigarette details: started at 14; currently smokes 0.5 to 1 pack daily] Alcohol intake: current Alcohol intake frequency: holidays/special occasions only Substance/Drug Use: never Adopted: Yes Household members: spouse Marital status: Number of children: 1 Number of grandchildren: 2 Current occupational status: retired 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 [employer] Physical Exam 2 Const: OTHER: Ill-appearing, somnolent on exam HENMT: COMMON NORMALS: normocephalic and atraumatic HEAD & SCALP: n ormocephalic and atraumatic Eye: COMMON NORMALS: EOMs intact bilaterally Neck/C-Spine: COMMON NORMALS: full ROM and supple Resp: OTHER: Expiratory wheezes in all lung espinosa with poor air movement throughout Cardio: COMMON NORMALS: regular rate and regular rhythm RATE: regular rate RHYTHM: regular rhythm GI: COMMON NORMALS: Normal to inspection, nondistended, normoactive bowel sounds present, Soft to palpation and non-tender PALPATION: Yes Soft to palpation Extremity: COMMON NORMALS: normal to inspection and full ROM Neuro: OTHER: Somnolent, slurring speech Skin: COMMON NORMALS: no rashes or lesions noted and no wounds GENERAL SKIN EXAM: no rashes or lesions noted Course 2 Vital Signs: Vital signs: Vital Signs Temperature 97.8 F 04/27/25 04:31 Pulse Rate 67 04/27/25 05:09 Respiratory Rate 24 H 04/27/25 05:03 Blood Pressure 119/73 04/27/25 05:01 Pulse Oximetry 99 04/27/25 05:06 Oxygen Delivery Me thod BiPAP 04/27/25 05:03 Oxygen Flow Rate 2 04/27/25 04:31 Fraction of Inspir ed Oxygen 30 04/27/25 05:06 MDM - SOB/Dyspnea Medical Decision Making On reassessment the patient is stable on the BiPAP. Her lactic acid came back at 5.5. Will give her IV fluids. Will give her another albuterol treatment. I spoke with the hospitalist and we will admit her to the ICU for further workup and treatment of her respiratory failure secondary to COPD and hypercarbia. Lab Data 04/27/25 04:15 04/27/25 04:15 Labs/Radiology: Laboratory Results WBC 8.31 10^3/uL (3.29-11.43) 04/27/25 04:15 RBC 4.32 10^6/uL (3.85-5.65) 04/27/25 04:15 Hgb 9.70 g/dL (11.27-16.99) L D 04/27/25 04:15 Hct 33.0 % (36-47) L D 04/27/25 04:15 MCV 76.4 fl (85-98) L 04/27/25 04:15 MCH 22.5 pg (27-33) L 04/27/25 04:15 MCHC 29.4 g/dL (30-55) L 04/27/25 04:15 RDW 22.2 % (12.1-15.1) H 04/27/25 04:15 Plt Count 352 10^3/cmm (157-399) 04/27/25 04:15 MPV 10.4 fL (7.4-10.4) 04/27/25 04:15 Neut % (Auto) 55.3 % 04/27/25 04:15 Lymph % (Auto) 33.6 % 04/27/25 04:15 [place] % (Auto) 8.4 % 04/27/25 04:15 Eos % (Auto) 1.7 % 04/27/25 04:15 Baso % (Auto) 0.6 % 04/27/25 04:15 Neut # (Auto) 4.60 10^3/uL (1.8-7.7) 04/27/25 04:15 Lymph # (Auto) 2.8 10^3/uL (0.8-4.8) 04/27/25 04:15 [place] # (Auto) 0.7 10^3/uL (0.2-0.9) 04/27/25 04:15 Eos # (Auto) 0.1 10^3/uL (0.0-0.8) 04/27/25 04:15 Baso # (Auto) 0.1 10^3/uL (0.0-0.1) 04/27/25 04:15 Nucleated RBC % (auto) 0.4 % 04/27/25 04:15 Nucleated RBCs # 0.0 /100WBC 04/27/25 04:15 Specimen Type Arterial 04/27/25 04:38 Sample Site Brachial, left 04/27/25 04:38 ABG pH 7.28 (7.35-7.45) L 04/27/25 04:38 ABG pCO2 50.7 mmHg (35-45) H 04/27/25 04:38 ABG pO2 62.1 mmHg (80.0-100.0) L 04/27/25 04:38 ABG PO2/FiO2 Ratio 207 04/27/25 04:38 ABG HCO3 23.8 mmol/L (22-26) 04/27/25 04:38 ABG O2 Saturation 89.7 04/27/25 04:38 ABG Base Excess -3.1 mmol/L (-2.0-2.0) L 04/27/25 04:38 Sumit Test N/a 04/27/25 04:38 A-a O2 Gradient 11.7 mmHg (5-10) H 04/27/25 04:38 Hematocrit 28.9 % (37-47) L 04/27/25 04:38 Hgb O2 Saturation 85.3 % (95-100) L 04/27/25 04:38 Carboxyhemoglobin 3.8 %THgb (0.4-20.1) 04/27/25 04:38 Methemoglobin 1.1 % (0.4-1.5) 04/27/25 04:38 Total Hemoglobin 9.4 g/dL (12-16) L 04/27/25 04:38 Sodium 141.0 mmol/L (131-143) 04/27/25 04:38 Potassium 4.2 mmol/L (3.5-5.0) 04/27/25 04:38 Glucose 184.0 mg/dL (70-115) H 04/27/25 04:38 Ionized Calcium 1.2 mmol/L (1.1-1.4) 04/27/25 04:38 O2 Delivery Device Bipap 04/27/25 04:38 FiO2 30.0 % 04/27/25 04:38 It Security Project Manager ID [email or web address] 04/27/25 04:38 Sodium 141 mmol/L (136-145) 04/27/25 04:15 Potassium 4.7 mmol/L (3.5-5.1) 04/27/25 04:15 Chloride 104 mmol/L (98-107) 04/27/25 04:15 Carbon Dioxide 19 mmol/L (22-29) L 04/27/25 04:15 Anion Gap 22.7 (5-19) H 04/27/25 04:15 BUN 15 mg/dL (8-23) 04/27/25 04:15 Creatinine 0.8 mg/dL (0.5-0.9) 04/27/25 04:15 GFR Calculation Not Reportable 04/27/25 04:15 Glucose 225 mg/dL (65-115) H 04/27/25 04:15 POC Glucose 198 mg/dL (70-110) H 04/27/25 04:55 Calculated Osmolality 300 mOsm/kg (285-295) H 04/27/25 04:15 Lactic Acid 5.5 mmol/L (0.5-2.2) H* 04/27/25 04:15 Calcium 9.3 mg/dL (8.5-10.5) 04/27/25 04:15 Total Bilirubin 0.5 mg/dL (0.15-1.2) 04/27/25 04:15 AST 30 U/L (0-32) 04/27/25 04:15 ALT 16 U/L (0-33) 04/27/25 04:15 Alkaline Phosphatase 110 U/L (35-105) H 04/27/25 04:15 Ammonia 29 umol/L (11-51) 04/27/25 04:49 Troponin T Baseline 14 ng/L (0-10) H 04/27/25 04:15 NT-Pro-B Natriuret Pep 1900 pg/mL (0-125) H 04/27/25 04:15 Total Protein 6.1 g/dL (6.6-8.7) L 04/27/25 04:15 Albumin 4.2 g/dL (3.5-5.2) 04/27/25 04:15 Globulin 1.9 g/dL (1.3-4.6) 04/27/25 04:15 All radiology interpretation(s) finalized by discharge Critical Care Time 2 Critical Care Time: Critical Care Time: Yes Total Critical Care Time: 35 Attestation: This case had a high probability of a clinically significant, sudden, or life threatening deterioration of this patient's condition which required my full and direct attention, intervention and personal management. Discharge Plan Discharge Patient Disposition: Admitted As Inpatient Clinical Impression: COPD (chronic obstructive pulmonary disease), Acute hypercapnic respiratory failure Condition: Stable Coding Level of Care Code ED Audio Visual Arts Director for Angle Vilchis
[2025-04-27] MEDS: methylPREDNISolone sod succ 125 mg/2 mL INJ IVP (05:02)
[2025-04-27 05:12] LABS: Hematocrit 33.0 % (36-47); Hemoglobin 9.70 g/dL (11.27-16.99); Mean Corpuscular HGB Conc 29.4 g/dL (30-55); Mean Corpuscular Hemoglobin 22.5 pg (27-33); Mean Corpuscular Volume 76.4 fl (85-98); Nucleated Red Blood Cells % 0.4 %; Platelet Count 352 10^3/cmm (157-399); Red Blood Count 4.32 10^6/uL (3.85-5.65); White Blood Count 8.31 10^3/uL (3.29-11.43)
[2025-04-27 05:13] LABS: Alanine Aminotransferase 16 U/L (0-33); Albumin Level 4.2 g/dL (3.5-5.2); Alkaline Phosphatase 110 U/L (35-105); Anion Gap 22.7 (5-19); Aspartate Amino Transferase 30 U/L (0-32); Blood Urea Nitrogen 15 mg/dL (8-23); Calcium 9.3 mg/dL (8.5-10.5); Carbon Dioxide 19 mmol/L (22-29); Chloride 104 mmol/L (98-107); Creatinine Clr Calc Pharmacy 34.6860; Globulin 1.9 g/dL (1.3-4.6); Glucose 225 mg/dL (65-115); Osmolality Calculated 300 mOsm/kg (285-295); Potassium 4.7 mmol/L (3.5-5.1); Sodium 141 mmol/L (136-145); Total Protein 6.1 g/dL (6.6-8.7)
[2025-04-27 05:14] LABS: Lactic Sepsis W/Reflex 5.5 mmol/L (0.5-2.2); Troponin(5th) Baseline 14 ng/L (0-10)
[2025-04-27 05:14] LABS: Ammonia 29 umol/L (11-51)
[2025-04-27 05:31] LABS: NT Pro B Type Natriuretic Pept 1900 pg/mL (0-125)
[2025-04-27 06:40] LABS: Reflex Lactate Order REFLEX LACTIC ORDERD
--- NOTE | 2025-04-27 06:48 | P.HP_ITS ---
Providers/Chief Complaint 2 Admitting Physician: Farida Kwong MD Primary Care Provider: Peyton Gibson MD Chief Complaint: CP History of Present Illness Shayy Mann is a 69 year old female With a past medical history of COPD, CAD, last stents placed in June 2024, cecal AV malformation, chronic anemia as a result of GI blood losses and has required transfusions, most recently yesterday at the infusion center for a Hb of 6.6. today Hb is at 9. She presents to the emergency room today with chief complaints of generalized weakness and difficulty breathing. History is obtained by talking to ERP as patient currently unable to participate due to somnolence and being on Bipap. her family has just left the hospital. Reportedly she was more somnolent than usual today, had stated that she had been taking Tylenol # 3 at home recently due to pain. She received 50mcg of fentanyl via EMS due to reported chest pain en route to the ER. Upon arrival here she was noted to be somnolent with ABG evidence of hypoxia and hypercapnea. She is on chronic oxygen at home. Review of Systems 2 General: Reports: ROS unobtainable due to mental status Medications/Allergies Home Medications ?Medication ?Instructions ?Recorded ?Confirmed ?Last Taken ?Type nitroglycerin 0.4 mg sublingual 0.4 mg sublingual Q5M PRN chest 03/01/24 04/12/25 Unknown Rx tablet pain #90 tabs acetaminophen 500 mg tablet 1,000 mg PO Q6H PRN Pain 0 03/15/24 04/12/25 Unknown History albuterol sulfate 90 mcg/actuation 2 puff inhalation 6 XD PRN 01/20/25 04/12/25 03/04/25 Rx aerosol inhaler shortness of breath or wheez ing 30 days #17 grams lamotrigine 100 mg tablet 100 mg PO BID 30 days #60 ta bs 02/03/25 04/12/25 03/04/25 Rx acetaminophen 300 mg-codeine 15 mg 1 tab PO BID PRN pa in #20 tabs 02/09/25 04/12/25 03/04/25 Rx tablet budesonide 160 mcg-glycopyr 9 2 inh inhalation BID 30 days #10.7 03/01/25 04/12/25 03/04/25 Rx mcg-formot 4.8 mcg/actuation HFA grams inhaler (Breztri Snip2Codephere) clopidogrel 75 mg tablet 75 mg PO DAILY #90 tabs 02/0404/12/25 03/04/25 Rx ipratropium 0.5 mg-albuterol 3 mg 3 ml inhalation Q6H PRN shortness 03/08/25 04/12/25 Unknown Rx (2.5 mg base)/3 mL nebulization of breath or wheezing #180 mL soln atorvastatin 80 mg tablet 80 mg PO DAILY #90 tabs 03/0604/12/25 Unknown Rx pantoprazole 40 mg tablet,delayed See Rx Instructions .Route 04/03/25 04/12/25 Unknown Rx release .COMPLEX #180 tabs duloxetine 60 mg capsule,delayed See Rx Instructions . Route 04/04/25 04/12/25 Unknown Rx release .COMPLEX #90 caps metoprolol tartrate 25 mg tablet See Rx Instructions . Route 04/12/25 Unknown Rx .COMPLEX #180 tabs tizanidine 2 mg tablet See Rx Instructions .Route 0 04/12/25 Unknown Rx .COMPLEX #20 tabs Allergies Allergy/AdvReac Type Severity Reaction Status Date / Time Opioids - Morphine Analogues Allergy Severe Unknown Verified 04/12/25 09:07 pregabalin (From Lyrica) Allergy Severe syncope Verified 04/12/25 09:07 venlafaxine Allergy tremor Verified 04/12/25 09:07 gabapentin AdvReac Intermediate Unknown Verified 04/12/25 09:07 tramadol AdvReac Unknown ADR-Vomitin Verified 04/12/25 09:07 g PFSH Acute 2 PFSH: Medical History Acute exacerbation of chronic obstructive pulmonary disease COPD (chronic obstructive pulmonary disease) Cervical pain (neck) Atherosclerosis of [place] coronary artery without angina pectoris GERD (gastroesophageal reflux disease) Acute blood loss anemia Abdominal pain GI bleed Duodenal ulcer Acute upper GI bleed Dysphagia Exertional dyspnea Smoker History of duodenal ulcer Acute diastolic heart failure Acute non-ST elevation myocardial infarction (NSTEMI) Osteopenia History of colon polyps hyperplastic polyp x 2 in 2021 Depression Chronic back pain Weight loss, unintentional Hyperlipidemia Surgical History History of cataract extraction with lens replacement History of esophageal surgery benign polyp removed History of bunionectomy of both great toes History of hysterectomy still has one ovary History of cholecystectomy History of fusion of cervical spine History of lumbar spinal fusion Family History Other Adopted Social History Smoking and tobacco/nicotine status: current every day tobacco/nicotine user (1 ppd) cigarettes Packs smoked per day: 0.5 [ Other cigarette details: started at 14; currently smokes 0.5 to 1 pack daily] Alcohol intake: current Alcohol intake frequency: holidays/special occasions only Substance/Drug Use: never Adopted: Yes Household members: spouse Marital status: Number of children: 1 Number of grandchildren: 2 Current occupational status: retired 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 HEENT: PERRLA, pupils bilaterally equal and reactive, pallors not present Chest: reduced air entery into the left lung espinosa with scattered crackles B/L, worse on the left CVS: S1-S2 regular, no murmurs, no tachycardia, no gallops, no rubs Abdomen: Soft, nontender, no organomegaly, bowel sounds present Neuro: moves all extremities in bed Data 04/27/25 04:15 04/27/25 04:15 Micro: Microbiology 04/27/25 04:45 Blood Culture - Preliminary Blood SPECIMEN COLLECTED 04/27/25 04:40 Blood Culture - Preliminary Blood SPECIMEN COLLECTED ABG Interpretation 1: 04/27/25 04:38 ABG pH 7.28 L ABG pCO2 50.7 H ABG pO2 62.1 L ABG HCO3 23.8 ABG O2 Saturation 89.7 ABG Base Excess -3.1 L Other data: Radiology Impressions Chest X-Ray 04/27/25 04:47 IMPRESSION: 1. No acute process. 2. COPD. Laboratory Results WBC 8.31 10^3/uL (3.29-11.43) 04/27/25 04:15 RBC 4.32 10^6/uL (3.85-5.65) 04/27/25 04:15 Hgb 9.70 g/dL (11.27-16.99) L D 04/27/25 04:15 Hct 33.0 % (36-47) L D 04/27/25 04:15 MCV 76.4 fl (85-98) L 04/27/25 04:15 MCH 22.5 pg (27-33) L 04/27/25 04:15 MCHC 29.4 g/dL (30-55) L 04/27/25 04:15 RDW 22.2 % (12.1-15.1) H 04/27/25 04:15 Plt Count 352 10^3/cmm (157-399) 04/27/25 04:15 MPV 10.4 fL (7.4-10.4) 04/27/25 04:15 Neut % (Auto) 55.3 % 04/27/25 04:15 Lymph % (Auto) 33.6 % 04/27/25 04:15 [place] % (Auto) 8.4 % 04/27/25 04:15 Eos % (Auto) 1.7 % 04/27/25 04:15 Baso % (Auto) 0.6 % 04/27/25 04:15 Neut # (Auto) 4.60 10^3/uL (1.8-7.7) 04/27/25 04:15 Lymph # (Auto) 2.8 10^3/uL (0.8-4.8) 04/27/25 04:15 [place] # (Auto) 0.7 10^3/uL (0.2-0.9) 04/27/25 04:15 Eos # (Auto) 0.1 10^3/uL (0.0-0.8) 04/27/25 04:15 Baso # (Auto) 0.1 10^3/uL (0.0-0.1) 04/27/25 04:15 Nucleated RBC % (auto) 0.4 % 04/27/25 04:15 Nucleated RBCs # 0.0 /100WBC 04/27/25 04:15 D-Dimer 0.70 ug/mLFEU (0-0.59) H 04/27/25 04:49 Specimen Type Arterial 04/27/25 04:38 Sample Site Brachial, left 04/27/25 04:38 ABG pH 7.28 (7.35-7.45) L 04/27/25 04:38 ABG pCO2 50.7 mmHg (35-45) H 04/27/25 04:38 ABG pO2 62.1 mmHg (80.0-100.0) L 04/27/25 04:38 ABG PO2/FiO2 Ratio 207 04/27/25 04:38 ABG HCO3 23.8 mmol/L (22-26) 04/27/25 04:38 ABG O2 Saturation 89.7 04/27/25 04:38 ABG Base Excess -3.1 mmol/L (-2.0-2.0) L 04/27/25 04:38 Sumit Test N/a 04/27/25 04:38 A-a O2 Gradient 11.7 mmHg (5-10) H 04/27/25 04:38 Hematocrit 28.9 % (37-47) L 04/27/25 04:38 Hgb O2 Saturation 85.3 % (95-100) L 04/27/25 04:38 Carboxyhemoglobin 3.8 %THgb (0.4-20.1) 04/27/25 04:38 Methemoglobin 1.1 % (0.4-1.5) 04/27/25 04:38 Total Hemoglobin 9.4 g/dL (12-16) L 04/27/25 04:38 Sodium 141.0 mmol/L (131-143) 04/27/25 04:38 Potassium 4.2 mmol/L (3.5-5.0) 04/27/25 04:38 Glucose 184.0 mg/dL (70-115) H 04/27/25 04:38 Ionized Calcium 1.2 mmol/L (1.1-1.4) 04/27/25 04:38 O2 Delivery Device Bipap 04/27/25 04:38 FiO2 30.0 % 04/27/25 04:38 Senior Care Provider ID [email or web address] 04/27/25 04:38 Sodium 141 mmol/L (136-145) 04/27/25 04:15 Potassium 4.7 mmol/L (3.5-5.1) 04/27/25 04:15 Chloride 104 mmol/L (98-107) 04/27/25 04:15 Carbon Dioxide 19 mmol/L (22-29) L 04/27/25 04:15 Anion Gap 22.7 (5-19) H 04/27/25 04:15 BUN 15 mg/dL (8-23) 04/27/25 04:15 Creatinine 0.8 mg/dL (0.5-0.9) 04/27/25 04:15 GFR Calculation Not Reportable 04/27/25 04:15 Glucose 225 mg/dL (65-115) H 04/27/25 04:15 POC Glucose 198 mg/dL (70-110) H 04/27/25 04:55 Calculated Osmolality 300 mOsm/kg (285-295) H 04/27/25 04:15 Lactic Acid 5.5 mmol/L (0.5-2.2) H* 04/27/25 04:15 Calcium 9.3 mg/dL (8.5-10.5) 04/27/25 04:15 Total Bilirubin 0.5 mg/dL (0.15-1.2) 04/27/25 04:15 AST 30 U/L (0-32) 04/27/25 04:15 ALT 16 U/L (0-33) 04/27/25 04:15 Alkaline Phosphatase 110 U/L (35-105) H 04/27/25 04:15 Ammonia 29 umol/L (11-51) 04/27/25 04:49 Troponin T Baseline 14 ng/L (0-10) H 04/27/25 04:15 Troponin T 120 Minute 14.20 ng/L (0-10) H 04/27/25 06:34 Delta Troponin T 0.20 ABS# (0-10) 04/27/25 06:34 NT-Pro-B Natriuret Pep 1900 pg/mL (0-125) H 04/27/25 04:15 Total Protein 6.1 g/dL (6.6-8.7) L 04/27/25 04:15 Albumin 4.2 g/dL (3.5-5.2) 04/27/25 04:15 Globulin 1.9 g/dL (1.3-4.6) 04/27/25 04:15 A&P Assessment and plan 1. Acute on chronic respiratory failure with hypoxia and hypercapnia: Mehylprednisone 40mg iv every 8 hrs duoneb q6h, budesonide q12h CXR without any infiltrates D dimer screen to evaluate for PE ABG with hypoxia and hypercapnea wih evidence of respiratory acidosis Need to start Bipap ventilation in the ER Likely hypercapnea related to COPd exacerbation and opiate use by way of codeine at home and fentanyl en route repeat Abg in one hour of starting Bipap Trial of Narcan now No further opiates on current admit Admission to ICU for close monitoring of respiratory status 2. Acute exacerbation of chronic obstructive pulmonary disease: as above 3. Chest tightness: c/o chest pain en route ekg without acute changes Baseline troponin at 14, awaiting 2 hrs and 6 hrs trend May be related to bronchospasm check RVP 4. Chronic anemia: related to chronic GI loss from known AV malformation as noted above S/p 2 PRBC transfusion yesterday at infusion center Currently Hb maintained at 9, no transfusion indicated for now 5. Somnolence: narcan trial repeat ABG CT head if does not respond to narcan trial or with improvement in ABG Plan: Dvt ppx: SCDs, holding off on a/c given h/o chronic GI bleed and anemia Full code PDMP PDMP Reviewed: Not Reviewed Attestations 2 Medical Necessity Statement*: > 2 midnight admission anticipated Coding Level of Care Code Acute Code for Chg Fwd High MDM includes number and complexity of problems actively addressed during encounter, amount and/or complexity of data reviewed/ordered and described risk of complication, morbidity or mortality of management as documented Diagnoses Acute on chronic respiratory failure with hypoxia and hypercapnia J96.21; J96.22 Acute exacerbation of chronic obstructive pulmonary disease J44.1 Chest tightness R07.89 Chronic anemia D64.9 Somnolence R40.0
--- NOTE | 2025-04-27 06:49 | ECG_ITS ---
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
[2025-04-27 06:56] LABS: Troponin 5 2HR 14.20 ng/L (0-10); Troponin 5 2HR Delta 0.20 ABS# (0-10)
[2025-04-27] MEDS: methylPREDNISolone sod succ 40 mg/mL INJ IVP ×3 (07:08→23:10)
[2025-04-27 07:39] LABS: Lactic Acid level (Lactate) 0.9 mmol/L (0.5-2.2)
[2025-04-27 08:32] LABS: ABG PCO2 42.8 mmHg (35-45); ABG PH Result 7.33 (7.35-7.45); Arterial Blood Gas Hematocrit 27.0 % (37-47); Blood Gas Operator Identificat AMH; Blood Gas Sample Site Brachial, right; Blood Gas Sample Type Arterial; HCO3 ABG 22.6 mmol/L (22-26); PO2 ABG 105.0 mmHg (80.0-100.0); PO2 FiO2 Ratio Arterial Blood 350
[2025-04-27 09:06] LABS: Coronavirus 229E,HKU1,NL63,OC4 Not Detected (NOT DETECT); Parainfluenza Virus Type 1 Not Detected (NOT DETECT); Parainfluenza Virus Type 2 Not Detected (NOT DETECT); Parainfluenza Virus Type 3 Not Detected (NOT DETECT); Parainfluenza Virus Type 4 Not Detected (NOT DETECT); SARS-COV-2 Not Detected (NOT DETECT)
--- NOTE | 2025-04-27 09:10 | PC.PHAR ---
[facility] is faxing current med list for this pt.
--- NOTE | 2025-04-27 10:46 | ECG_ITS ---
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 Measurements Intervals [place] Rate: 80 P: 82 NV: 128 QRS: 89 QRSD: 103 T: -24 QT: 388 QTc: 450 Interpretive Statements SINUS RHYTHM NONSPECIFIC ST & T-WAVE ABNORMALITY Compared to ECG 04/27/2025 08:22:52 Short NV interval no longer present Possible ischemia no longer present T-wave abnormality still present Electronically Signed On 04-28-2025 09:11:47 CDT by Randy Lopez M.D. [email or web address]
--- NOTE | 2025-04-27 10:55 | PC.NURSE ---
Patient was educated on the importance of SCD and to not getting blood clots while in the hospital. Patient stated that they understood but that they would not like to have the SCD.
[2025-04-27] MEDS: sucralfate 1 gm/10 mL Oral Liq UDC PO ×3 (11:12→20:43)
[2025-04-27] MEDS: pantoprazole 40 mg SDV IVP ×2 (11:12→23:10)
[2025-04-27 12:20] LABS: Troponin 5 6HR 10.53 ng/L (0-10)
[2025-04-27 12:22] LABS: Troponin 5 6HR Delta -3.47 ng/L (0-12)
[2025-04-27] MEDS: dexmedeTOMIDine 0.9 % NaCL 400 MCG/100 ML PREMIX IV (21:30)
[2025-04-28] VITALS (60 sets, daily range): BP systolic 103–156; BP diastolic 59–91; PULSE 70–102; RESP 15–38; TEMP 36.7–37.7; O2SAT 92–100
[2025-04-28 02:59] LABS: Hematocrit 29.2 % (36-47); Hemoglobin 8.50 g/dL (11.27-16.99); Mean Corpuscular HGB Conc 29.1 g/dL (30-55); Mean Corpuscular Hemoglobin 22.1 pg (27-33); Mean Corpuscular Volume 75.8 fl (85-98); Nucleated Red Blood Cells % 0.5 %; Platelet Count 287 10^3/cmm (157-399); Red Blood Count 3.85 10^6/uL (3.85-5.65); White Blood Count 4.26 10^3/uL (3.29-11.43)
[2025-04-28 03:17] LABS: Alanine Aminotransferase 14 U/L (0-33); Albumin Level 3.6 g/dL (3.5-5.2); Alkaline Phosphatase 97 U/L (35-105); Anion Gap 15.4 (5-19); Aspartate Amino Transferase 16 U/L (0-32); Blood Urea Nitrogen 16 mg/dL (8-23); Calcium 8.9 mg/dL (8.5-10.5); Carbon Dioxide 24 mmol/L (22-29); Chloride 104 mmol/L (98-107); Creatinine Clr Calc Pharmacy 37.1654; Globulin 2.2 g/dL (1.3-4.6); Glucose 112 mg/dL (65-115); Osmolality Calculated 290 mOsm/kg (285-295); Potassium 4.4 mmol/L (3.5-5.1); Sodium 139 mmol/L (136-145); Total Protein 5.8 g/dL (6.6-8.7)
[2025-04-28] MEDS: sucralfate 1 gm/10 mL Oral Liq UDC PO ×4 (08:18→20:07)
[2025-04-28] MEDS: methylPREDNISolone sod succ 40 mg/mL INJ IVP ×3 (08:19→22:25)
[2025-04-28] MEDS: pantoprazole 40 mg SDV IVP ×2 (12:02→22:25)
--- NOTE | 2025-04-28 12:56 | P.PN_ITS ---
Subjective 2 Subjective: Overnight patient was not able to tolerate BiPAP hence was placed on Precedex drip. Today morning awake and alert with family at bedside. On nasal cannula 2 L saturating 95%. Denies any chest pain. Denies any nausea, vomiting. Family requesting blood transfusion as she frequently needs blood transfusion because of chronic GI bleed. Vitals/I&O/Wt Last Vital Signs Temp 99.9 F H 04/28/25 08:15 Pulse 94 04/28/25 12:15 Resp 26 H 04/28/25 12:15 BP 141/72 04/28/25 12:00 Pulse Ox 95 04/28/25 12:15 O2 Del Method Nasal Cannula 04/28/25 11:45 O2 Flow Rate 1 04/28/25 11:45 FiO2 30 04/28/25 05:05 04/27/25 04/28/25 04/28/25 22:59 06:59 14:59 Intake Total 50 / 50 3.382 / 53.382 11.053 / 11.053 Output Total 400 / 700 Balance -350 / -650 3.382 / -646.618 11.053 / 11.053 Weight last 48 hrs Weight 35.925 kg Weight 36.5 kg Weight 34.065 kg Physical Exam 2 Narrative: General: No acute distress, AO x 3, chronically sick appearing, cachectic on nasal cannula HEENT: PERRLA, pupils bilaterally equal and reactive, pallors not present Chest: reduced air entery into the left lung espinosa with scattered crackles B/L, worse on the left CVS: S1-S2 regular, no murmurs, no tachycardia, no gallops, no rubs Abdomen: Soft, nontender, no organomegaly, bowel sounds present Neuro: moves all extremities in bed Data 04/28/25 02:40 04/28/25 02:40 Micro: Microbiology 04/27/25 04:45 Blood Culture - Preliminary Blood NEGATIVE TO DATE 04/27/25 04:40 Blood Culture - Preliminary Blood NEGATIVE TO DATE A&P Assessment and plan 1. Acute on chronic respiratory failure with hypoxia and hypercapnia: Hypercapnic respiratory failure most likely in setting of somnolence because of codeine and fentanyl which she received prior to admission. Resolved for now. Hypoxic respiratory failure in setting of COPD exacerbation. Continue on Pulmicort twice daily, DuoNeb every 6 hour. Solu-Medrol 40 mg every 8 hours. Oxygen supplementation keeping saturation over 88%. Out of bed to chair. Incentive spirometry. Check sputum culture. 2. Acute exacerbation of chronic obstructive pulmonary disease: as above 3. Chest tightness: History of CAD with PCI to LCx. Denied any active chest pain. Could be in setting of COPD exacerbation. Troponin cycle appreciated. Repeat troponin level to morning labs. Respiratory viral panel negative. Continue with home dose of statin, Plavix. 4. Chronic anemia: related to chronic GI loss from known AV malformation as noted above S/p 2 PRBC transfusion yesterday at infusion center Hemoglobin so far stable. Target hemoglobin more than 7-7.5. Continue to monitor. Protonix twice daily, Carafate ACHS. 5. Somnolence: Resolved. Plan: Dvt ppx: SCDs, holding off on a/c given h/o chronic GI bleed and anemia Start on GI soft diet Full code Transfer to MedSur floor. PDMP PDMP Reviewed: Not Reviewed Attestations 2 Medical Necessity Statement*: Requires further hospitalization for management of respiratory failure in setting of COPD exacerbation, hypercapnia due to somnolence from polypharmacy Diagnoses Acute on chronic respiratory failure with hypoxia and hypercapnia J96.21; J96.22 Acute exacerbation of chronic obstructive pulmonary disease J44.1 Chest tightness R07.89 Chronic anemia D64.9 Somnolence R40.0
[2025-04-28 13:25] LABS: Troponin T (5th) Once 12 ng/L (0-10)
--- NOTE | 2025-04-28 14:28 | PC.NURSE ---
Report was given to med surge nurse. Patient was transferred without complications.
[2025-04-29] VITALS (8 sets, daily range): BP systolic 123–148; BP diastolic 63–81; PULSE 77–96; RESP 16–20; TEMP 36.4–36.6; O2SAT 93–99
[2025-04-29 05:00] LABS: Hematocrit 28.7 % (36-47); Hemoglobin 8.30 g/dL (11.27-16.99); Mean Corpuscular HGB Conc 28.9 g/dL (30-55); Mean Corpuscular Hemoglobin 22.0 pg (27-33); Mean Corpuscular Volume 76.1 fl (85-98); Nucleated Red Blood Cells % 0 %; Platelet Count 304 10^3/cmm (157-399); Red Blood Count 3.77 10^6/uL (3.85-5.65); White Blood Count 6.78 10^3/uL (3.29-11.43)
[2025-04-29 05:20] LABS: Alanine Aminotransferase 14 U/L (0-33); Albumin Level 3.7 g/dL (3.5-5.2); Alkaline Phosphatase 82 U/L (35-105); Anion Gap 12.2 (5-19); Aspartate Amino Transferase 17 U/L (0-32); Blood Urea Nitrogen 17 mg/dL (8-23); Calcium 8.9 mg/dL (8.5-10.5); Carbon Dioxide 26 mmol/L (22-29); Chloride 106 mmol/L (98-107); Creatinine Clr Calc Pharmacy 36.5799; Globulin 2.0 g/dL (1.3-4.6); Glucose 142 mg/dL (65-115); Osmolality Calculated 294 mOsm/kg (285-295); Potassium 4.2 mmol/L (3.5-5.1); Sodium 140 mmol/L (136-145); Total Protein 5.7 g/dL (6.6-8.7)
[2025-04-29] MEDS: methylPREDNISolone sod succ 40 mg/mL INJ IVP (06:25)
[2025-04-29] MEDS: sucralfate 1 gm/10 mL Oral Liq UDC PO (06:25)
--- NOTE | 2025-04-29 09:05 | P.DS_ITS ---
Discharge Providers Date of Admission: 04/27/25 05:42 Date of Discharge: April 29, 2025 Attending Provider at Admission: Farida Kwong MD Attending Provider at Discharge: Kody Rene MD Primary Care Provider: Peyton Gibson MD Diagnoses at Discharge Discharge Diagnosis 1. Acute on chronic respiratory failure with hypoxia and hypercapnia: 2. Acute exacerbation of chronic obstructive pulmonary disease: 3. Chest tightness: 4. Chronic anemia: 5. Somnolence: Reason for Visit Reason for Visit: CP Brief History: Shayy Mann is a 69 year old female With a past medical history of COPD, CAD, last stents placed in June 2024, cecal AV malformation, chronic anemia as a result of GI blood losses and has required transfusions, most recently yesterday at the infusion center for a Hb of 6.6. today Hb is at 9. She presents to the emergency room today with chief complaints of generalized weakness and difficulty breathing. History is obtained by talking to ERP as patient currently unable to participate due to somnolence and being on Bipap. her family has just left the hospital. Reportedly she was more somnolent than usual today, had stated that she had been taking Tylenol # 3 at home recently due to pain. She received 50mcg of fentanyl via EMS due to reported chest pain en route to the ER. Upon arrival here she was noted to be somnolent with ABG evidence of hypoxia and hypercapnea. She is on chronic oxygen at home. Hospital Course Hospital Course Patient was admitted to the hospital for further evaluation and management of hypercapnic respiratory failure leading to altered mental status which was thought to be due to IV fentanyl which she received en route to the hospital. At first she was placed on BiPAP ventilation. Eventually her mentation improved and she has been back to her baseline oxygen supplementation for last 24 hours. She was started on treatment for COPD exacerbation with steroids and nebulization. Cardiovascular etiology was ruled out with normal troponin levels. During hospitalization her hemoglobin remained stable. She has been discharged back home after home O2 evaluation on oral steroid taper, nebulization with DuoNeb every 8 hours. Physical Exam Narrative: General: No acute distress, AO x 3, chronically sick appearing, cachectic HEENT: PERRLA, pupils bilaterally equal and reactive, pallors not present Chest: reduced air entery into the left lung espinosa with scattered crackles B/L, worse on the left CVS: S1-S2 regular, no murmurs, no tachycardia, no gallops, no rubs Abdomen: Soft, nontender, no organomegaly, bowel sounds present Neuro: moves all extremities in bed Discharge Data Studies Completed and Pending Completed Studies During Hospitalization Category Date Time Status XR chest 1V portable [id number] Stat Exams 04/27/25 04:47 Completed Pending at discharge Category Date Time Status Blood Culture Stat Lab 04/27/25 04:45 Results Sputum Culture and Gram Stain Routine Lab 04/28/25 13:06 Uncollected Radiology Impressions Chest X-Ray 04/27/25 04:47 IMPRESSION: 1. No acute process. 2. COPD. Microbiology 04/27/25 04:45 Blood Blood Culture - Preliminary NEGATIVE TO DATE 04/27/25 04:40 Blood Blood Culture - Preliminary NEGATIVE TO DATE Laboratory Results WBC 6.78 10^3/uL (3.29-11.43) 04/29/25 04:31 RBC 3.77 10^6/uL (3.85-5.65) L 04/29/25 04:31 Hgb 8.30 g/dL (11.27-16.99) L 04/29/25 04:31 Hct 28.7 % (36-47) L 04/29/25 04:31 MCV 76.1 fl (85-98) L 04/29/25 04:31 MCH 22.0 pg (27-33) L 04/29/25 04:31 MCHC 28.9 g/dL (30-55) L 04/29/25 04:31 RDW 23.1 % (12.1-15.1) H 04/29/25 04:31 Plt Count 304 10^3/cmm (157-399) 04/29/25 04:31 MPV 10.7 fL (7.4-10.4) H 04/29/25 04:31 Neut % (Auto) 91.9 % 04/29/25 04:31 Lymph % (Auto) 4.6 % 04/29/25 04:31 Grimes % (Auto) 3.1 % 04/29/25 04:31 Eos % (Auto) 0.0 % 04/29/25 04:31 Baso % (Auto) 0.0 % 04/29/25 04:31 Neut # (Auto) 6.23 10^3/uL (1.8-7.7) 04/29/25 04:31 Lymph # (Auto) 0.3 10^3/uL (0.8-4.8) L 04/29/25 04:31 Grimes # (Auto) 0.2 10^3/uL (0.2-0.9) 04/29/25 04:31 Eos # (Auto) 0.0 10^3/uL (0.0-0.8) 04/29/25 04:31 Baso # (Auto) 0.0 10^3/uL (0.0-0.1) 04/29/25 04:31 Nucleated RBC % (auto) 0 % 04/29/25 04:31 Nucleated RBCs # 0.0 /100WBC 04/29/25 04:31 D-Dimer 0.70 ug/mLFEU (0-0.59) H 04/27/25 04:49 Specimen Type Arterial 04/27/25 08:21 Sample Site Brachial, right 04/27/25 08:21 ABG pH 7.33 (7.35-7.45) L 04/27/25 08:21 ABG pCO2 42.8 mmHg (35-45) 04/27/25 08:21 ABG pO2 105.0 mmHg (80.0-100.0) H 04/27/25 08:21 ABG PO2/FiO2 Ratio 350 04/27/25 08:21 ABG HCO3 22.6 mmol/L (22-26) 04/27/25 08:21 ABG O2 Saturation 89.7 04/27/25 04:38 ABG Base Excess -3.1 mmol/L (-2.0-2.0) L 04/27/25 08:21 Sumit Test N/a 04/27/25 08:21 A-a O2 Gradient 11.7 mmHg (5-10) H 04/27/25 04:38 Hematocrit 27.0 % (37-47) L 04/27/25 08:21 Hgb O2 Saturation 85.3 % (95-100) L 04/27/25 04:38 Carboxyhemoglobin 3.8 %THgb (0.4-20.1) 04/27/25 04:38 Methemoglobin 1.1 % (0.4-1.5) 04/27/25 04:38 Total Hemoglobin 9.4 g/dL (12-16) L 04/27/25 04:38 Sodium 141.0 mmol/L (131-143) 04/27/25 04:38 Potassium 4.2 mmol/L (3.5-5.0) 04/27/25 04:38 Glucose 184.0 mg/dL (70-115) H 04/27/25 04:38 Ionized Calcium 1.2 mmol/L (1.1-1.4) 04/27/25 04:38 O2 Delivery Device Bipap 04/27/25 08:21 FiO2 30.0 % 04/27/25 08:21 Supervisor Assembly Stock ID Amh 04/27/25 08:21 Sodium 140 mmol/L (136-145) 04/29/25 04:31 Potassium 4.2 mmol/L (3.5-5.1) 04/29/25 04:31 Chloride 106 mmol/L (98-107) 04/29/25 04:31 Carbon Dioxide 26 mmol/L (22-29) 04/29/25 04:31 Anion Gap 12.2 (5-19) 04/29/25 04:31 BUN 17 mg/dL (8-23) 04/29/25 04:31 Creatinine 0.6 mg/dL (0.5-0.9) 04/29/25 04:31 GFR Calculation Not Reportable 04/29/25 04:31 Glucose 142 mg/dL (65-115) H 04/29/25 04:31 POC Glucose 198 mg/dL (70-110) H 04/27/25 04:55 Calculated Osmolality 294 mOsm/kg (285-295) 04/29/25 04:31 Lactic Acid 5.5 mmol/L (0.5-2.2) H* 04/27/25 04:15 Lactic Acid (Sepsis) 0.9 mmol/L (0.5-2.2) 04/27/25 07:18 Calcium 8.9 mg/dL (8.5-10.5) 04/29/25 04:31 Total Bilirubin 0.3 mg/dL (0.15-1.2) 04/29/25 04:31 AST 17 U/L (0-32) 04/29/25 04:31 ALT 14 U/L (0-33) 04/29/25 04:31 Alkaline Phosphatase 82 U/L (35-105) 04/29/25 04:31 Ammonia 29 umol/L (11-51) 04/27/25 04:49 Troponin T 5th Gen ng/L 12 ng/L (0-10) H 04/28/25 02:40 Troponin T Baseline 14 ng/L (0-10) H 04/27/25 04:15 Troponin T 120 Minute 14.20 ng/L (0-10) H 04/27/25 06:34 Delta Troponin T 0.20 ABS# (0-10) 04/27/25 06:34 Troponin T Hi Sens 6Hr 10.53 ng/L (0-10) H 04/27/25 11:50 Troponin T Hi Sens 6Hr Delta -3.47 ng/L (0-12) L 04/27/25 11:50 NT-Pro-B Natriuret Pep 1900 pg/mL (0-125) H 04/27/25 04:15 Total Protein 5.7 g/dL (6.6-8.7) L 04/29/25 04:31 Albumin 3.7 g/dL (3.5-5.2) 04/29/25 04:31 Globulin 2.0 g/dL (1.3-4.6) 04/29/25 04:31 Adenovirus (PCR) Not detected (NOT DETECT) 04/27/25 07:13 C. pneumoniae DNA (PCR) Not detected (NOT DETECT) 04/27/25 07:13 Coronavirus 229E (PCR) Not detected (NOT DETECT) 04/27/25 07:13 Human Metapneumovir PCR Not detected (NOT DETECT) 04/27/25 07:13 Influenza A (H1) PCR Not detected (NOT DETECT) 04/27/25 07:13 Influ A (H1/09) PCR Not detected (NOT DETECT) 04/27/25 07:13 Influenza A (H3) PCR Not detected (NOT DETECT) 04/27/25 07:13 Influenza Type A (PCR) Not detected (NOT DETECT) 04/27/25 07:13 Influenza Type B (PCR) Not detected (NOT DETECT) 04/27/25 07:13 M. pneumoniae (PCR) Not detected (NOT DETECT) 04/27/25 07:13 Parainfluenza 1 (PCR) Not detected (NOT DETECT) 04/27/25 07:13 Parainfluenza 2 (PCR) Not detected (NOT DETECT) 04/27/25 07:13 Parainfluenza 3 (PCR) Not detected (NOT DETECT) 04/27/25 07:13 Parainfluenza 4 (PCR) Not detected (NOT DETECT) 04/27/25 07:13 RSV Type A (PCR) Not detected (NOT DETECT) 04/27/25 07:13 RSV Type B (PCR) Not detected (NOT DETECT) 04/27/25 07:13 Entero/Rhino (PCR) Not detected (NOT DETECT) 04/27/25 07:13 SARS-CoV-2 (PCR) Not detected (NOT DETECT) 04/27/25 07:13 Vitals Last Vital Signs Temp 97.9 F 04/29/25 07:56 Pulse 95 04/29/25 08:24 Resp 20 H 04/29/25 08:00 BP 144/81 04/29/25 07:56 Pulse Ox 96 04/29/25 08:00 O2 Del Method Nasal Cannula 04/29/25 08:00 O2 Flow Rate 2 04/29/25 08:00 FiO2 30 04/28/25 20:34 Discharge Plan Discharge Patient Disposition: Home Condition: Stable Prescriptions: New prednisone 10 mg tablet See Taper PO DIRECTED Qty: 42 0RF Taper: predniSONE 60-10 60 mg Daily for 2 Days and 0 Hour 50 mg Daily for 2 Days and 0 Hour 40 mg Daily for 2 Days and 0 Hour 30 mg Daily for 2 Days and 0 Hour 20 mg Daily for 2 Days and 0 Hour 10 mg Daily for 2 Days and 0 Hour Rx Instructions: see taper instructions Continued albuterol sulfate 90 mcg/actuation HFA aerosol inhaler 2 puff inhalation 6XD PRN (Reason: shortness of breath or wheezing) 30 Days Qty: 17 3RF lamotrigine 100 mg tablet 100 mg PO BID 30 Days Qty: 60 5RF acetaminophen-codeine 300-15 mg tablet 1 tab PO BID PRN (Reason: pain) Qty: 20 0RF Breztri Aerosphere 160-9-4.8 mcg/actuation HFA aerosol inhaler 2 inh inhalation BID 30 Days Qty: 10.7 6RF clopidogrel 75 mg tablet 75 mg PO DAILY Qty: 90 3RF atorvastatin 80 mg tablet 80 mg PO DAILY Qty: 90 0RF acetaminophen 500 mg Tablet 1,000 mg PO Q6H PRN (Reason: Pain) nitroglycerin 0.4 mg tablet, sublingual 0.4 mg sublingual Q5M PRN (Reason: chest pain) Qty: 90 0RF Rx Instructions: do not exceed 3 doses per episode tizanidine 2 mg tablet 2 mg PO Q8H PRN (Reason: muscle spasms) pantoprazole 40 mg tablet,delayed release (DR/EC) 40 mg PO BID metoprolol tartrate 25 mg tablet 25 mg PO BID duloxetine 60 mg capsule,delayed release(DR/EC) 60 mg PO DAILY Changed ipratropium-albuterol 0.5 mg-3 mg(2.5 mg base)/3 mL solution for nebulization 3 ml inhalation Q8H Qty: 180 0RF Discharge Order = DC NOW: Discharge Order (Routine); Ordered 04/29/25 Ordered By: Kody Rene Referrals: Peyton Gibson MD [Primary Care Provider, [facility]] - 05/10/25 11:20 am Referral Note: Patient Instructions: Prednisone (By mouth) (Prednisone Intensol, Prednicot, Deltasone, Fabian), COPD (Chronic Obstructive Pulmonary Disease) (DC), Acute Respiratory Failure (GEN), COPD Stoplight, Opioid Safety, Patient Portal & Riana Instructions Discharge Attestations Time Spent in Discharge Care*: greater than 30 min Specific Discharge Activities: educating patient, educating and/or supporting family/caregiver, discussing with pcp/other providers, discussing with pillowcase cleaner/social workers/dc planners, documenting/other paperwork and evaluating patient/reviewing data Status at Discharge: Cognitive status at discharge: cognitively intact , Behavioral status at discharge: cooperative , Quality Metrics Clinical Quality Measures [ No reported AMI, CVA or VTE this stay] Coding Level of Care Code Acute Code for Chg Fwd Diagnoses Acute on chronic respiratory failure with hypoxia and hypercapnia J96.21; J96.22 Acute exacerbation of chronic obstructive pulmonary disease J44.1 Chest tightness R07.89 Chronic anemia D64.9 Somnolence R40.0
--- NOTE | 2025-04-29 09:57 | PC.SOCIAL ---
IMM Update pg 2 of IMM Updated and reviewed w/ patient. Copy provided and copy dated, initialed and placed in chart.
== END 2025-04-29 11:03 | disposition home or self-care (01) | DRG 189 ==
LOC: ER 05:48 → ER IP 06:28 → ICU 10:19 → MEDSURG 04-28 13:48
PROVIDERS: Admitting Provider Student in an Organized Health Care Education/Training Program; Emergency Provider Emergency Medicine; PCP Family Medicine; Visit Provider Student in an Organized Health Care Education/Training Program
DX: J96.21 Acute and chronic respiratory failure with hypoxia (principal); J44.1 Chronic obstructive pulmonary disease with (acute) exacerbation; J96.22 Acute and chronic respiratory failure with hypercapnia; D50.0 Iron deficiency anemia secondary to blood loss (chronic); R41.82 Altered mental status, unspecified; T40.415A Adverse effect of fentanyl or fentanyl analogs, initial encounter; K55.20 Angiodysplasia of colon without hemorrhage; F17.210 Nicotine dependence, cigarettes, uncomplicated; Z95.5 Presence of coronary angioplasty implant and graft; Z99.81 Dependence on supplemental oxygen
CPT/HCPCS: 36415; 36416; 36430; 36600; 71045; 80051; 80053; 82140; 82330; 82803; 82805; 82962; 83605; 83880; 84484; 85014; 85018; 85025; 85378; 86850; 86900; 86920; 87040; 87486; 87581; 87633; 93005; 94640; 94660; 94664; 94760; 96372; 96374; 96375; 99291; J1650; J2310; J2470; J2919; J7030; J7611; J7626; J9999; P9016

== ENCOUNTER → 2025-05-02 13:01 | Outpatient (BNVA) | payer MEDICARE, OTHER, SELFPAY | PROVIDERS: PCP Family Medicine; Visit Provider Family Medicine | DX: K29.61 Other gastritis with bleeding (principal); D64.9 Anemia, unspecified | CPT/HCPCS: 85014; 85018 ==

== ENCOUNTER 2025-05-08 15:52 | Inpatient (IN) | payer MEDICARE, SELFPAY ==
--- OUTSIDE RECORDS SUMMARY | 2024-03-04 04:00 | XMS_ITS ---
Author Organization [facility] Address [address] [place] [address] Support Name Relationship Address , Renato Johnathan Emergency Contact Unknown Unavailable Shayy Escobar Guarantor Unknown [phone] Care Team Providers Care Advertising Specialist Name Role Phone Peyton Gibson Primary Care Provider Unavailab le Migration, Provider Unavailable Unavailable REASON FOR VISIT EMR-Miguel Vital Signs Height 61.00 in 03/04/2024 Weight 85.00 lbs 03/04/2024 BMI 16 kg/m2 03/04/2024 Height-cm 154.94 cm 03/04/2024 Weight-kg 38.64 kg 03/04/2024 Encounters Encounter Location Date Provider Diagnosis Migrated_Facility 0 0 03/04/2024 Provider Migration Chronic pain syndrome G89.4 ; Other spondylosis with radiculopathy, cervical region M47.22 ; Spondylosis without myelopathy or radiculopathy, cervical region M47.812 ; Postlaminectomy syndrome, not elsewhere classified M96.1 ; 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 and Unspecified abnormalities of gait and mobility R26.9 Assessments Encounter Date Diagnosis (ICD Code) Assessment Notes Treatment Notes Treatment Clinical Notes Section Notes 03/04/2024 Chronic pain syndrome (ICD-10 - G89.4) 03/04/2024 Other spondylosis with radiculopathy, cervical region (ICD-10 - M47.22) 03/04/2024 Spondylosis without myelopathy or radiculopathy, cervical region (ICD-10 - M47.812) 03/04/2024 Postlaminectomy syndrome, not elsewhere classified (ICD-10 - M96.1) 03/04/2024 Klippel-Feil syndrome (ICD-10 - 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 Assessment: * Assessment: 1. C hronic pain syndrome - G89.4 2 . O ther spondylosis with radiculopathy, cervical region - M47.22 3 . S pondylosis without myelopathy or radiculopathy, cervical region - M47.812 4 . P ostlaminectomy syndrome, not elsewhere classified - M96.1 5 . 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 U nspecified abnormalities of gait and mobility - R26.9 * Electronic signature of Prov ider Migration on 05/08/2025 at 04:00 PM CDT Sign off status: Pending * Provider: Holden hugo Migration Date: 0 03/04/2024 Generated for Rohit pino/Rajesh/Zenyitting on: 0 05/08/2025 04:00 PM CDT
--- OUTSIDE RECORDS SUMMARY | 2024-07-31 04:00 | XMS_ITS ---
Author Organization [facility] Address [address] [place] [address] Support Name Relationship Address , Renato De La Vegacker Emergency Contact Unknown Unavailable Shayy Escobar Guarantor Unknown [phone] Care Team Providers Care Movie Critic Name Role Phone Arthur Peyton Primary Care Provider Unavailab le Migration, Provider Unavailable Unavailable REASON FOR VISIT EMR-Miguel Encounters Encounter Location Date Provider Diagnosis Migrated_Facility 0 0 07/31/2024 Provider Migration Plan Of Treatment No Information Progress Notes * Jenelle ESCOBARaDOB:1955 (69 yo F)Acc No.[id number]:07/31/2024 Patient: Marco A ANGEL, Shayy :1955 A ge:68 Y S ex:Female Address:[address] [place] [address], [place], [address] Subjective: * Chief Complaints: * E MR-Miguel * * Date:
--- OUTSIDE RECORDS SUMMARY | 2024-08-01 04:00 | XMS_ITS ---
Author Organization [facility] Address [address] [place] [address] Support Name Relationship Address , Renato Johnathan Emergency Contact Unknown Unavailable Shayy Escobar Guarantor Unknown [phone] Care Team Providers Care Manager Of Purchasing Name Role Phone ArthurPeyton Primary Care Provider [...] strength-form from Medispan for eRX* Active Ipratropium [place] *Pick strength-form from Medispan for eRX* Active [...] 0 08/01/2024 Provider Migration Plan Of Treatment No Information Progress Notes * Jenelle ESCOBARaDOB:1955 (69 yo F)Acc No.[id number]:08/01/2024 Patient: Shayy MAGDALENO :1955 A ge:68 Y S ex:Female Address:[address] [place] [phone] Subjective: * Chief Complaints: * E MR-Miguel [...] Pharmacist: *Pick strength-form from Medispan for eRX*Ipratropium [place] , Notes to Pharmacist: *Pick strength-form from [...] *Pick strength-form from Medispan for eRX*Taking Ipratropium [place] , Notes to Pharmacist: *Pick strength-form from [...]
[2025-05-08] VITALS (66 sets, daily range): BP systolic 72–188; BP diastolic 49–136; PULSE 79–140; RESP 12–45; TEMP 36.4–36.6; O2SAT 88–100; BMI 16.9
--- NOTE | 2025-05-08 15:58 | XRR_ITS ---
PROCEDURE INFORMATION: Exam: XR Chest Exam date and time: 05/08/2025 4:33 PM Age: 69 years old Clinical indication: Shortness of breath; Prior surgery; Surgery date: 6+ months; Surgery type: Esophageal, c-spine; Additional info: SOB TECHNIQUE: Imaging protocol: Radiologic exam of the chest. Views: 1 view. COMPARISON: CR (CHEST, ) 04/27/2025 4:57 AM FINDINGS: Lungs: Both lungs demonstrate diffuse hyperinflation along with chronic interstitial coarsening. However, I see no evidence of mass or confluent infiltrate. Pleural spaces: Unremarkable. No pleural effusion. No pneumothorax. Heart/Mediastinum: Unremarkable. No cardiomegaly. Bones/joints: Metallic fixation rods and pedicle screws are noted in the cervicothoracic spine. XR/XR chest 1V portable [id number] IMPRESSION: Stable COPD changes
--- OUTSIDE RECORDS SUMMARY | 2025-05-08 16:01 | XMS_ITS | Patient Health Record ---
Author Organization 1. [facility] Address [address] [facility] [address] [place] [address] Care Team Providers Care Dockmaster Name Role Phone MIKAYLA AMBER Unavailable [phone] Latasha MCDOWELL, Mitesh Unavailable Unavailable Reason For Referral No Information Plan Of Treatment No Information Insurance Providers Payer Name Payer Address Payer Phone Subscriber Number Group Number Insured Name Patient Relationship to Insured Coverage Start Date Coverage End Date [employer] [address] [place] [address] [id number] Renato Mann Spouse - patient is the spouse of the insured
--- OUTSIDE RECORDS SUMMARY | 2025-05-08 16:01 | XMS_ITS | Patient Health Record ---
Author Organization [email or web address] Address [address] [place], [place] [address] Care Team Providers Care Express Clerk Name Role Phone Peyton Gibson MD Primary Care Provider Ene Pabon MD, [facility] [phone] Allergies Allergen (clinical drug ingredient) Drug/Non Drug [...] (max 2/day; hold within 4H of planned sleep); Duration: 30 day(s) ICD-10: M96.1 09/24/2022 Active DULoxetine 60 mg 1 cap(s) orally once a day Active famotidine 20 mg 1 tab(s) orally 2 times a day Active doxycycline hyclate 100 mg 1 cap(s) orally 2 times a day; Duration: 10 day(s) 09/24/2022 Active Social History Tobacco [...] Notes Problem High risk drug monitoring status (168579056) group home (current) use of opiate analgesic (Z79.891) Active confirmed Problem Hypersomnia (03938523) Hypersomnia, unspecified (G47.10) Active confirmed Problem Other chronic pa in (G89.29) Active confirmed Problem Cervicalgia (17952429) Cervicalgia (M54.2) Active confirmed Problem Backache (545092584) Dorsalgia, unspecified (M54.9) Active confirmed Problem Post-laminectom y syndrome (59989637) Postlaminectomy syndrome, not elsewhere classified (M96.1) Active confirmed Problem Myalgia (89798234) Myalgia of auxiliary muscles, head and neck (M79.12) Active confirmed Plan Of Treatment No Information Insurance Providers Payer Name Payer Address Payer Phone Subscriber Number Group Number Insured Name Patient Relationship to Insured Coverage Start Date Coverage End Date W[employer] Medicare Part B Claims Department [address] [address] [place] [phone] [id number] Shayy Mann Self - patient is the insured [employer]AGE PLAN [address] [place] [address] [id number] Shayy Mann Self - patient is the insured Medical (General) History Medical History History ICD Code Chronic pain Neck pain Low back pain Chronic obstructive pulmonary disease Depression GERD Hyperlipidemia Weight loss, unintentional (low BMI) tobacco use, COPD Surgical History Surgery Date(Month/Year) Hysterectomy, 1984 Bunionectomy, bilateral, 1998 Lumbar spine surgeries x 3, performed at [facility] in [place], [place] by Dr. Kin López, 2003 Removal of polyp (benign) from esophagus , 2004 Cataract surgery, bilateral, 2016 Cervical spine surgeries, performed at [facility] in [place], [place], 2015, 2017 Cholecystectomy, performed at [facility] in [place], [place], 2021 Hospitalization History Reason Date(Month/Year) COPD, 11/2018
--- OUTSIDE RECORDS SUMMARY | 2025-05-08 16:01 | XMS_ITS | Patient Health Record ---
Author Organization [facility] Address [address] [place] [address] Support Name Relationship Address , Renato Johnathan Emergency Contact Unknown Unavailable Shayy Mann Guarantor Unknown [phone] Care Team Providers Care Educational Technology Specialist Name Role Phone Peyton Gibson Primary Care Provider Unavailab Ch[place] Hinson Unavailable [phone] Migration, Provider Unavailable Unavailable Reason For Referral Reason Centrlobuler Marixa leblanc, Nicotine dependence, 3mm nodule unchanged [facility] CT imaging report pg 3 01/26: Not Urgent per Maris Scheduled 08/17/2025 @ 1:30 PM Diagnosis 1 Centrilobular emphys jama (J43.2) Referring Provider First Name Peyton Referring Provider Last Name Arthur Referring Provider Speciality Family Med icine Referred Organization [facility] Referred Provider Chico Pollock Referred Address [address] [place], [place],[address],[place] Referred Provider Specialty Pulmonary Di seases General [...] strength-form from Medispan for eRX* Active Ipratropium [place] [facility] Active Acetaminophen-Codeine *Pick strength-form [...] W/U Status Risk Notes Problem Centrilobular emphysema (59790574) Centrilobular emphysema (J43.2) Active confirmed Encounters Encounter Location Date Provider Diagnosis Migrated_Facility 0 0 08/01/2024 Provider Migration Migrated_Facility 0 0 07/31/2024 Provider Migration [facility] [address] [place] [address] [place] [address] 04/28/2025 Chico Pollock [facility] [address] [place] [address] [place] [address] 04/20/2025 Chico Pollock Plan Of Treatment No Information Insurance Providers Payer Name Payer Address Payer Phone Subscriber Number Group Number Insured Name Patient Relationship to Insured Coverage Start Date Coverage End Date [place] [address] [place] [phone] [id number] Shayy Mann Self - patient is the insured [employer] [facility] [address] [address] [place] [address] [id number] Shayy Mann Self - patient is the insured 1 Medical (General) History Surgical History Surgery Date(Month/Year) throat surgery cervical fusion Hysterectomy Since 1984 back surgeries Since 2002 Foot surgeries Since 2000
--- OUTSIDE RECORDS SUMMARY | 2025-05-08 16:01 | XMS_ITS | Patient Health Record ---
Author Organization [facility] Address [address] [place], [place] [address] Care Team Providers Care Jowl Trimmer Name Role Phone Jennifer Costello MD Primary Care Provider EMMA Powell [phone] Allergies Allergen (clinical drug ingredient) Drug/Non Drug [...] Status W/U Status Risk Notes Problem Dystonia (18388284) Dystonia, unspecified (G24.9) Active confirmed Problem Cervical spondylosis without myelopathy (415572502) Other spondylosis with radiculopathy, cervical region (M47.22) Active confirmed Problem Cervical spondylosis without myelopathy (925384750) Spondylosis without myelopathy or radiculopathy, cervical region (M47.812) Active confirmed Problem Thoracic spondylosis without myelopathy (760374862) Spondylosis without myelopathy or radiculopathy, thoracic region (M47.814) Active confirmed Problem Cervical spondylosis without myelopathy (014977213) Other spondylosis, cervical region (M47.892) Active confirmed Problem Post-laminectomy syndrome (80531103) Postlaminectomy syndrome, not elsewhere classified (M96.1) Active confirmed Problem Cervical radiculopathy (86506076) Radiculopathy, cervical region (M54.12) Active confirmed Plan Of Treatment No Information Insurance Providers Payer Name Payer Address Payer Phone Subscriber Number Group Number Insured Name Patient Relationship to Insured Coverage Start Date Coverage End Date Medicare [place] [address] [place] [address] [id number] Shayy Mann Self - patient is the insured A[employer] Senior Supplement [address] [address] [place] [address] [id number] Shayy Mann Self - patient is the [...]
--- NOTE | 2025-05-08 16:03 | ED_ITS ---
HPI - SOB/Dyspnea 2 General: Chief Complaint: Shortness of Breath/Dyspnea Stated Complaint: RESP. DISTRESS Time Seen by Provider: 05/08/25 15:58 History of Present Illness: HPI Narrative: 69-year-old female brought in via EMS fo r respiratory distress. Patient has a history of severe COPD and has had multiple hospitalizations and intubations in the last 8 months. EMS reports that when they arrived her O2 saturations were in the 70s and she is very tight. She received a DuoNeb, albuterol, terbutaline, Ativan and dexamethasone in route. Related Data Home Medications ?Medication ?Instructions ?Recorded ?Confirmed acetaminophen 500 mg tablet 1,000 mg PO Q6H PRN Pain 0 03/15/24 04/27/25 duloxetine 60 mg capsule,delayed 60 mg PO DAILY 04/27/25 release metoprolol tartrate 25 mg tablet 25 mg PO BID 04/27/25 04/27/25 pantoprazole 40 mg tablet,delayed 40 mg PO BID 5 04/27/25 release tizanidine 2 mg tablet 2 mg PO Q8H PRN muscle spasm s 04/27/25 04/27/25 Previous Rx's ?Medication ?Instructions ?Recorded nitroglycerin 0.4 mg sublingual 0.4 mg sublingual Q5M PRN chest 03/01/24 tablet pain #90 tabs albuterol sulfate 90 mcg/actuation 2 puff inhalation 6 XD PRN 01/20/25 aerosol inhaler shortness of breath or wheez ing 30 days #17 grams lamotrigine 100 mg tablet 100 mg PO BID 30 days #60 ta bs 02/03/25 acetaminophen 300 mg-codeine 15 mg 1 tab PO BID PRN pa in #20 tabs 02/09/25 tablet budesonide 160 mcg-glycopyr 9 2 inh inhalation BID 30 days #10.7 03/01/25 mcg-formot 4.8 mcg/actuation HFA grams inhaler (Breztri Aerosphere) clopidogrel 75 mg tablet 75 mg PO DAILY #90 tabs 02/04 05/30 atorvastatin 80 mg tablet 80 mg PO DAILY #90 tabs 03/06 10/30 ipratropium 0.5 mg-albuterol 3 mg 3 ml inhalation Q8H shortness of 04/29/25 (2.5 mg base)/3 mL nebulization breath or wheezing #18 0 mL soln prednisone 10 mg tablet See Taper PO DIRECTED #42 tabs 04/29/25 Allergies Allergy/AdvReac Type Severity Reaction Status Date / Time Opioids - Morphine Analogues Allergy Severe Unknown Verified 05/08/25 15:59 pregabalin (From Lyrica) Allergy Severe syncope Verified 05/08/25 15:59 venlafaxine Allergy tremor Verified 05/08/25 15:59 gabapentin AdvReac Intermediate Unknown Verified 05/08/25 15:59 tramadol AdvReac Unknown ADR-Vomitin Verified 05/08/25 15:59 g Review of Systems 2 Resp: Reports: dyspnea and wheezing PFSH ED 2 PFSH: Medical History (Updated 05/08/25 @ 17:28 by José Miguel Hernandez DO) Acute exacerbation of chronic obstructive pulmonary disease COPD (chronic obstructive pulmonary disease) Cervical pain (neck) Atherosclerosis of [place] coronary artery without angina pectoris GERD (gastroesophageal reflux disease) Acute blood loss anemia Abdominal pain GI bleed Duodenal ulcer Acute upper GI bleed Dysphagia Exertional dyspnea Smoker History of duodenal ulcer Acute diastolic heart failure Acute non-ST elevation myocardial infarction (NSTEMI) Osteopenia History of colon polyps hyperplastic polyp x 2 in 2021 Depression Chronic back pain Weight loss, unintentional Hyperlipidemia Surgical History History of cataract extraction with lens replacement History of esophageal surgery benign polyp removed History of bunionectomy of both great toes History of hysterectomy still has one ovary History of cholecystectomy History of fusion of cervical spine History of lumbar spinal fusion Family History Other Adopted Social History Smoking and tobacco/nicotine status: current every day tobacco/nicotine user (1 ppd) cigarettes Packs smoked per day: 0.5 [ Other cigarette details: started at 14; currently smokes 0.5 to 1 pack daily] Alcohol intake: current Alcohol intake frequency: holidays/special occasions only Substance/Drug Use: never Adopted: Yes Household members: spouse Marital status: Number of children: 1 Number of grandchildren: 2 Current occupational status: retired 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 [employer] Physical Exam 2 Const: GENERAL APPEARANCE: in distress and frail appearing Resp: EFFORT & INSPECTION: Yes tachypneic AUSCULTATION: wheezes scattered wheezes (Mild) Cardio: COMMON NORMALS: regular rate and regular rhythm RATE: regular rate RHYTHM: regular rhythm Skin: COMMON NORMALS: no rashes or lesions noted GENERAL SKIN EXAM: no rashes or lesions noted Course 2 Vital Signs: Vital signs: Vital Signs Temperature 97.9 F 05/08/25 15:53 Pulse Rate 94 05/08/25 17:15 Respiratory Rate 31 H 05/08/25 17:15 Blood Pressure 72/49 05/08/25 17:15 Pulse Oximetry 98 05/08/25 17:15 Oxygen Delivery Me thod BiPAP 05/08/25 16:11 Fraction of Inspir ed Oxygen 28 05/08/25 17:00 MDM - SOB/Dyspnea Medical Decision Making Patient's symptoms and mentation improved significantly following the BiPAP. She did have a brief episode of low blood pressure following her Ativan but it responded appropriately to fluids and wore off with time. Patient x-ray shows COPD with no acute changes. Patient was started on Rocephin and azithromycin due to elevated white count however this is likely due to to her starting steroids a couple days ago. Patient has known severe COPD with numerous exacerbations in the past. Patient has history of anemia and her hemoglobin appears to be stable and near baseline at 7.8. Patient will be admitted to Dr. Gan to stepdown for further inpatient management. Patient's ABG shows some mild acidosis likely due to some mild CO2 retention. Her hypoxia had completely resolved. Patient was satting at 100% on her BiPAP upon admission. Patient is a increased risk of morbidity or mortality based on her underlying medical condition and social determinants of health. Lab Data 05/08/25 16:00 05/08/25 16:00 Labs/Radiology: Radiology Impressions Chest X-Ray 05/08/25 15:58 IMPRESSION: Stable COPD changes Laboratory Results WBC 15.58 10^3/uL (3.29-11.43) H 05/08/25 16:00 RBC 3.61 10^6/uL (3.85-5.65) L 05/08/25 16:00 Hgb 7.80 g/dL (11.27-16.99) L 05/08/25 16:00 Hct 27.7 % (36-47) L 05/08/25 16:00 MCV 76.7 fl (85-98) L 05/08/25 16:00 MCH 21.6 pg (27-33) L 05/08/25 16:00 MCHC 28.2 g/dL (30-55) L 05/08/25 16:00 RDW 23.9 % (12.1-15.1) H 05/08/25 16:00 Plt Count 423 10^3/cmm (157-399) H 05/08/25 16:00 MPV 10.0 fL (7.4-10.4) 05/08/25 16:00 Neut % (Auto) 62.9 % 05/08/25 16:00 Lymph % (Auto) 25.0 % 05/08/25 16:00 Long % (Auto) 10.7 % 05/08/25 16:00 Eos % (Auto) 0.6 % 05/08/25 16:00 Baso % (Auto) 0.4 % 05/08/25 16:00 Neut # (Auto) 9.79 10^3/uL (1.8-7.7) H 05/08/25 16:00 Lymph # (Auto) 3.9 10^3/uL (0.8-4.8) 05/08/25 16:00 Long # (Auto) 1.7 10^3/uL (0.2-0.9) H 05/08/25 16:00 Eos # (Auto) 0.1 10^3/uL (0.0-0.8) 05/08/25 16:00 Baso # (Auto) 0.1 10^3/uL (0.0-0.1) 05/08/25 16:00 Nucleated RBC % (auto) 0.3 % 05/08/25 16:00 Nucleated RBCs # 0.1 /100WBC 05/08/25 16:00 Specimen Type Arterial 05/08/25 15:53 Sample Site Brachial, left 05/08/25 15:53 ABG pH 7.21 (7.35-7.45) L 05/08/25 15:53 ABG pCO2 58.2 mmHg (35-45) H 05/08/25 15:53 ABG pO2 153.0 mmHg (80.0-100.0) H 05/08/25 15:53 ABG PO2/FiO2 Ratio 382 05/08/25 15:53 ABG HCO3 23.4 mmol/L (22-26) 05/08/25 15:53 ABG Base Excess -4.4 mmol/L (-2.0-2.0) L 05/08/25 15:53 Sumit Test N/a 05/08/25 15:53 Hematocrit 24.8 % (37-47) L 05/08/25 15:53 Hgb O2 Saturation 93.0 % (95-100) L 05/08/25 15:53 Carboxyhemoglobin 5.0 %THgb (0.4-20.1) 05/08/25 15:53 Methemoglobin 1.6 % (0.4-1.5) H 05/08/25 15:53 Total Hemoglobin 8.1 g/dL (12-16) L 05/08/25 15:53 O2 Delivery Device Bipap 05/08/25 15:53 FiO2 40.0 % 05/08/25 15:53 Risk Specialist ID Amh 05/08/25 15:53 Sodium 136 mmol/L (136-145) 05/08/25 16:00 Potassium 3.9 mmol/L (3.5-5.1) 05/08/25 16:00 Chloride 99 mmol/L (98-107) 05/08/25 16:00 Carbon Dioxide 21 mmol/L (22-29) L 05/08/25 16:00 Anion Gap 19.9 (5-19) H 05/08/25 16:00 BUN 11 mg/dL (8-23) 05/08/25 16:00 Creatinine 0.8 mg/dL (0.5-0.9) 05/08/25 16:00 GFR Calculation Not Reportable 05/08/25 16:00 Glucose 286 mg/dL (65-115) H 05/08/25 16:00 Calculated Osmolality 292 mOsm/kg (285-295) 05/08/25 16:00 Calcium 8.5 mg/dL (8.5-10.5) 05/08/25 16:00 Magnesium 2.4 mg/dL (1.7-2.3) H 05/08/25 16:00 Total Bilirubin 0.3 mg/dL (0.15-1.2) 05/08/25 16:00 AST 61 U/L (0-32) H 05/08/25 16:00 ALT 30 U/L (0-33) 05/08/25 16:00 Alkaline Phosphatase 126 U/L (35-105) H 05/08/25 16:00 Total Protein 6.2 g/dL (6.6-8.7) L 05/08/25 16:00 Albumin 4.1 g/dL (3.5-5.2) 05/08/25 16:00 Globulin 2.1 g/dL (1.3-4.6) 05/08/25 16:00 All radiology interpretation(s) finalized by discharge Critical Care Time 2 Critical Care Time: Critical Care Time: Yes Total Critical Care Time: 60 Attestation: This case had a high probability of a clinically significant, sudden, or life threatening deterioration of this patient's condition which required my full and direct attention, intervention and personal management. Discharge Plan Discharge Patient Disposition: Admitted As Inpatient Clinical Impression: Acute on chronic respiratory failure with hypoxia and hypercapnia Condition: Stable Coding Level of Care Code ED Mechanical Systems Designer for Angle Vilchis
--- NOTE | 2025-05-08 16:03 | ECG_ITS ---
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: : 1955 Requested By: José Miguel Hernandez Order Number: [id number] Reading MD: ALEXANDREA MILLS Measurements Intervals [place] Rate: 116 P: 81 VA: 139 QRS: 90 QRSD: 88 T: -66 QT: 295 QTc: 410 Interpretive Statements SINUS TACHYCARDIA POSSIBLE LEFT ATRIAL ENLARGEMENT [-0.1mV P-WAVE IN V1/V2] ST DEVIATION AND MODERATE T-WAVE ABNORMALITY, CONSIDER INFERIOR ISCHEMIA [-0.1+ mV T-WAVE IN II/aVF] Compared to ECG 04/27/2025 10:46:53 Possible ischemia now present Sinus rhythm no longer present T-wave abnormality still present Electronically Signed On 05-09-2025 13:56:25 CDT by ALEXANDREA MILLS [email or web address] [id number]
[2025-05-08 16:04] LABS: ABG PCO2 58.2 mmHg (35-45); ABG PH Result 7.21 (7.35-7.45); Arterial Blood Gas Hematocrit 24.8 % (37-47); Blood Gas Operator Identificat AMH; Blood Gas Sample Site Brachial, left; Blood Gas Sample Type Arterial; Carboxyhemoglobin 5.0 %THgb (0.4-20.1); HCO3 ABG 23.4 mmol/L (22-26); Methemoglobin 1.6 % (0.4-1.5); PO2 ABG 153.0 mmHg (80.0-100.0); PO2 FiO2 Ratio Arterial Blood 382
[2025-05-08 16:07] LABS: Hematocrit 27.7 % (36-47); Hemoglobin 7.80 g/dL (11.27-16.99); Mean Corpuscular HGB Conc 28.2 g/dL (30-55); Mean Corpuscular Hemoglobin 21.6 pg (27-33); Mean Corpuscular Volume 76.7 fl (85-98); Nucleated Red Blood Cells % 0.3 %; Platelet Count 423 10^3/cmm (157-399); Red Blood Count 3.61 10^6/uL (3.85-5.65); White Blood Count 15.58 10^3/uL (3.29-11.43)
[2025-05-08] MEDS: magnesium sulfate premix 2 GM/50 ML PIGGYBACK IV (16:15)
[2025-05-08 16:26] LABS: Alanine Aminotransferase 30 U/L (0-33); Albumin Level 4.1 g/dL (3.5-5.2); Alkaline Phosphatase 126 U/L (35-105); Anion Gap 19.9 (5-19); Aspartate Amino Transferase 61 U/L (0-32); Blood Urea Nitrogen 11 mg/dL (8-23); Calcium 8.5 mg/dL (8.5-10.5); Carbon Dioxide 21 mmol/L (22-29); Chloride 99 mmol/L (98-107); Creatinine Clr Calc Pharmacy 45.8297; Globulin 2.1 g/dL (1.3-4.6); Glucose 286 mg/dL (65-115); Magnesium 2.4 mg/dL (1.7-2.3); Osmolality Calculated 292 mOsm/kg (285-295); Potassium 3.9 mmol/L (3.5-5.1); Sodium 136 mmol/L (136-145); Total Protein 6.2 g/dL (6.6-8.7)
[2025-05-08] MEDS: LORazepam 1 MG/0.5 ML injection IVP ×2 (16:34→20:05)
[2025-05-08] MEDS: cefTRIAXone 1,000 mg SDV 1000 MG IVP (17:26)
[2025-05-08 18:45] LABS: ABG PCO2 40.9 mmHg (35-45); ABG PH Result 7.40 (7.35-7.45); Alveolar-Arterial Oxygen Gradi 4.2 mmHg (5-10); Arterial Blood Gas Hematocrit 21.9 % (37-47); Blood Gas Operator Identificat AMH; Blood Gas Sample Site Brachial, left; Blood Gas Sample Type Arterial; Carboxyhemoglobin 4.0 %THgb (0.4-20.1); Glucose Level-ABG 119.0 mg/dL (70-115); HCO3 ABG 25.1 mmol/L (22-26); Ionized Calcium Level - ABG 1.1 mmol/L (1.1-1.4); Methemoglobin 1.4 % (0.4-1.5); Oxygen Saturation ABG 94.5; PO2 ABG 66.5 mmHg (80.0-100.0); PO2 FiO2 Ratio Arterial Blood 316; Potassium Level - ABG 2.9 mmol/L (3.5-5.0); Sodium Level - ABG 142.0 mmol/L (131-143)
[2025-05-08 19:12] LABS: Procalcitonin 0.05 ng/mL (0-0.5)
--- NOTE | 2025-05-08 19:20 | P.HP_ITS ---
Providers/Chief Complaint 2 Admitting Physician: Torsten Cardenas MD Primary Care Provider: Peyton Gibson MD Chief Complaint: RESP. DISTRESS History of Present Illness History as per the retrospective note and the patient however unable to obtain adequate history since the patient is mild drowsy but able to open eyes upon calling her, moving her all extremities and able to answer few questions. Shayy Mann is a 69 year old female with a past medical history of CAD, last stents placed in June 2024, cecal AV malformation, chronic anemia as a result of GI blood losses and has required transfusion in the past. She was brought in by the EMS secondary to respiratory distress. She has history of multiple hospitalization secondary to acute on chronic COPD exacerbations, intubations in the last 6 months. She was desaturating and received nebulizations with albuterol terbutaline and dexamethasone en route with Ativan as well. Her blood gas showed acidemia with pH of 7.21, hypercapnia with PCO2 around 58 and she was hooked to BiPAP with settings that were seen /. She received approximately total 1 L of fluid bolus. With a MAP improving to 60-65mmhg. upon history taking the patient was sleepy but able to nod and was alert when taking her names and calling her, moving her all limbs. Breathing on her own without any distress with BiPAP. Chest x-ray showed hyper infiltration but no remarkable consolidation or infiltrates appreciated. Repeat blood gas after the treatment showed normalization of pH and resolution of hypercapnia however the patient is still sleepy therefore to be admitted as a case of acute on chronic hypoxemic and hypercapnic respiratory failure with underlying COPD. Unknown vaccination history or travel history, or history of any sick contacts. Review of Systems 2 General: Reports: ROS unobtainable due to mental status (The patient is under the effect of Ativan and is sleepy but alert) Medications/Allergies Home Medications ?Medication ?Instructions ?Recorded ?Confirmed ?Last Taken ?Type nitroglycerin 0.4 mg sublingual 0.4 mg sublingual Q5M PRN chest 03/01/24 04/27/25 Unknown Rx tablet pain #90 tabs acetaminophen 500 mg tablet 1,000 mg PO Q6H PRN Pain 0 03/15/24 04/27/25 Unknown History albuterol sulfate 90 mcg/actuation 2 puff inhalation 6 XD PRN 01/20/25 04/27/25 04/26/25 Rx aerosol inhaler shortness of breath or wheez ing 30 days #17 grams lamotrigine 100 mg tablet 100 mg PO BID 30 days #60 ta bs 02/03/25 04/27/25 04/26/25 Rx acetaminophen 300 mg-codeine 15 mg 1 tab PO BID PRN pa in #20 tabs 02/09/25 04/27/25 03/04/25 Rx tablet budesonide 160 mcg-glycopyr 9 2 inh inhalation BID 30 days #10.7 03/01/25 04/27/25 04/26/25 Rx mcg-formot 4.8 mcg/actuation HFA grams inhaler (Breztri Aerosphere) clopidogrel 75 mg tablet 75 mg PO DAILY #90 tabs 02/0404/27/25 04/26/25 Rx atorvastatin 80 mg tablet 80 mg PO DAILY #90 tabs 03/0604/27/25 04/26/25 Rx duloxetine 60 mg capsule,delayed 60 mg PO DAILY 04/27/25 04/26/25 History release metoprolol tartrate 25 mg tablet 25 mg PO BID 04/27/25 04/27/25 04/26/25 History pantoprazole 40 mg tablet,delayed 40 mg PO BID 5 04/27/25 04/26/25 History release tizanidine 2 mg tablet 2 mg PO Q8H PRN muscle spasm s 04/27/25 04/27/25 Unknown History ipratropium 0.5 mg-albuterol 3 mg 3 ml inhalation Q8H shortness of 04/29/25 04/27/25 Unknown Rx (2.5 mg base)/3 mL nebulization breath or wheezing #18 0 mL soln prednisone 10 mg tablet See Taper PO DIRECTED #42 tabs 04/29/25 Unknown Rx Allergies Allergy/AdvReac Type Severity Reaction Status Date / Time Opioids - Morphine Analogues Allergy Severe Unknown Verified 05/08/25 15:59 pregabalin (From Lyrica) Allergy Severe syncope Verified 05/08/25 15:59 venlafaxine Allergy tremor Verified 05/08/25 15:59 gabapentin AdvReac Intermediate Unknown Verified 05/08/25 15:59 tramadol AdvReac Unknown ADR-Vomitin Verified 05/08/25 15:59 g PFSH Acute 2 PFSH: Medical History (Updated 05/08/25 @ 19:57 by Torsten Cardenas MD) Acute exacerbation of chronic obstructive pulmonary disease COPD (chronic obstructive pulmonary disease) Cervical pain (neck) Atherosclerosis of [place] coronary artery without angina pectoris Gastroesophageal reflux disease without esophagitis Acute blood loss anemia Abdominal pain GI bleed Duodenal ulcer Acute upper GI bleed Dysphagia Exertional dyspnea Smoker History of duodenal ulcer Acute diastolic heart failure Acute non-ST elevation myocardial infarction (NSTEMI) Osteopenia History of colon polyps hyperplastic polyp x 2 in 2021 Depression Chronic back pain Weight loss, unintentional Hyperlipidemia Surgical History History of cataract extraction with lens replacement History of esophageal surgery benign polyp removed History of bunionectomy of both great toes History of hysterectomy still has one ovary History of cholecystectomy History of fusion of cervical spine History of lumbar spinal fusion Family History Other Adopted Social History Smoking and tobacco/nicotine status: current every day tobacco/nicotine user (1 ppd) cigarettes Packs smoked per day: 0.5 [ Other cigarette details: started at 14; currently smokes 0.5 to 1 pack daily] Alcohol intake: current Alcohol intake frequency: holidays/special occasions only Substance/Drug Use: never Adopted: Yes Household members: spouse Marital status: Number of children: 1 Number of grandchildren: 2 Current occupational status: retired 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 No use of accessory muscles however look cachectic and malnourished. Delayed capillary refill more than 3 seconds Pallor positive No obvious skin mottling Urine output cannot be commented upon as the patient has arrived in the ED and received treatment recently Resp: OTHER: Normal effort and bilateral movement of chest on inspection, normal vesicular breathing on auscultation on both sides however cannot be commented upon since the patient is on BiPAP and there are some harsh added sounds. Percussion note normal Cardio: OTHER: Patient looked pale, Decreased capillary refill however peripheral pulses appreciated but feeble and mildly decrease in volume. Regular pulses. normal S1 and S2 with no murmurs or any added heart sounds GI: OTHER: Soft nontender abdomen, no organomegaly, normal bowel sounds Extremity: NARRATIVE EXTREMITY EXAM: Unremarkable lower extremity exam Neuro: OTHER: Patient sleepy but alert and able to move all her extremities Data 05/08/25 16:00 05/08/25 16:00 Micro: Microbiology 05/08/25 17:05 Blood Culture - Preliminary Blood SPECIMEN COLLECTED 05/08/25 17:05 Blood Culture - Preliminary Blood SPECIMEN COLLECTED A&P Assessment and plan 1. Sepsis: Based on leukocytosis around 15,000, respiratory distress, hypotension with MAP less than 65 requiring fluid bolus, capillary refill >3sec -Blood culture sent, UA with reflex culture, lactate at admission and repeat afterwards - Antibiotics ceftriaxone and azithromycin for possible sources pneumonia versus other organisms leading to acute on chronic COPD exacerbation. - follow her urine output and I/O - Frequent neurochecks and BP monitoring -Telemetry monitoring 2. Acute exacerbation of chronic obstructive pulmonary disease: Initial blood gas shows acidosis with hypercapnia, improved after DuoNebs with resolution of acidosis and normalization of hypercapnia. Continue with DuoNebs every 4 hourly Ceftriaxone 1 g daily for 5 to 7 days and azithromycin 500 mg daily for 3 days steroids methylpred 60mg IV daily for 5 days Follow-up respiratory viral panel and blood cultures and urine analysis Continue with BiPAP and titrate accordingly. 3. Acute on chronic respiratory failure with hypoxia and hypercapnia: Secondary to acute COPD exacerbation, improved after DuoNebs and acidosis resolved Continue with antibiotics and sepsis workup BiPAP to continue and titrate accordingly Chest physiotherapy 4. Caloric malnutrition: Patient looks cachectic and severely malnourished Dietitian consult placed and to follow the recommendation 5. Chronic anemia: Patient having chronic anemia currently at 8 and used to be around 10 in April, no obvious source of bleeding-documentation relief patient is having chronic GI loss/iron deficiency anemia Monitor CBC If hemoglobin drops below 7 then to transfuse 6. AVM (arteriovenous malformation) of small bowel, acquired: Monitor for any acute bleeding 7. Atherosclerosis of [place] coronary artery of [place] heart without angina pectoris: Telemetry monitoring Patient having clopidogrel 75 mg daily in the medication and to be started after reconciliation In case of any chest pain or chest heaviness, to do EKG stat and troponins. 8. Gastroesophageal reflux disease without esophagitis: Daily PPI and monitor for any obvious source of bleeding 9. Unexplained weight loss: Dietitian consult placed and to follow the recommendation 10. Heavy cigarette smoker (20-39 per day): Patient to be counseled about abstinence from smoking and further emphasis after stabilization of acute condition 11. Pulmonary nodule: To be followed as outpatient 12. Mixed hyperlipidemia: To follow as outpatient after stabilization of her current medical condition, Continue atorvastatin 80 mg 13. Torticollis, acquired: Monitor for any painful symptoms and adequate analgesia as needed Plan: I independently reviewed the patient's chart, EKG and imaging studies chest x-ray Goals of care discussed with the patient and to keep full code as per patient preference (patient had previous life-saving intubation) Patient review of chart, acuity of her current acute illness with management is being addressed, patient assessment and plan of care informed to the patient and agreed upon without language barrier. PDMP PDMP Reviewed: Not Reviewed Attestations 2 Medical Necessity Statement*: The patient will require more than 2 midnight stay considering her acute illness and further optimization of current medical condition. Coding Level of Care Code Acute Code for g Fwd Diagnoses Sepsis A41.9 Acute respiratory failure type: with hypercapnia Sepsis acute organ dysfunction status: with acute organ dysfunction Severe sepsis acute organ dysfunction type: acute respiratory failure Severe sepsis shock status: with septic shock Acute exacerbation of chronic obstructive pulmonary disease J44.1 Acute on chronic respiratory failure with hypoxia and hypercapnia J96.21; J96.22 Caloric malnutrition E46 Chronic anemia D64.9 AVM (arteriovenous malformation) of small bowel, acquired K55.20 Atherosclerosis of [place] coronary artery of [place] heart without angina pectoris I25.10 Gastroesophageal reflux disease without esophagitis K21.9 Esophagitis presence: without esophagitis Unexplained weight loss R63.4 Heavy cigarette smoker (20-39 per day) F17.210 Pulmonary nodule R91.1 Mixed hyperlipidemia E78.2 Hyperlipidemia type: mixed hyperlipidemia Torticollis, acquired M43.6
[2025-05-08 20:10] LABS: Coronavirus 229E,HKU1,NL63,OC4 Not Detected (NOT DETECT); Parainfluenza Virus Type 1 Not Detected (NOT DETECT); Parainfluenza Virus Type 2 Not Detected (NOT DETECT); Parainfluenza Virus Type 3 Not Detected (NOT DETECT); Parainfluenza Virus Type 4 Not Detected (NOT DETECT); SARS-COV-2 Not Detected (NOT DETECT)
--- NOTE | 2025-05-08 20:18 | ECG_ITS ---
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1955 Requested By: Torsten Cardenas Order Number: [id number] Reading MD: ALEXANDREA MILLS Measurements Intervals [place] Rate: 134 P: 78 [place]: 100 QRS: 93 QRSD: 89 T: -87 QT: 281 QTc: 420 Interpretive Statements SINUS TACHYCARDIA WITH SHORT WA INTERVAL BORDERLINE RIGHT AXIS DEVIATION [QRS AXIS > 90] PATTERN CONSISTENT WITH PULMONARY DISEASE ST DEVIATION AND MODERATE T-WAVE ABNORMALITY, CONSIDER INFERIOR ISCHEMIA [-0.1+ mV T-WAVE IN II/aVF] INTERPRETATION BASED ON A DEFAULT AGE OF 40 YEARS Compared to ECG 05/08/2025 16:03:27 Short WA interval now present T-wave abnormality still present Possible ischemia still present Electronically Signed On 05-09-2025 13:55:55 CDT by ALEXANDREA MILLS [id number]
--- NOTE | 2025-05-08 20:20 | PC.NURSE ---
Patient arrived from ED tachypneic in 30-40's fighting bipap sounding very wet and wheezing. Patient received 2 L bolus in ER for hypotension. RT at bedside with concern regarding patient breathing, nurse attempting to call admitting physician. This nurse gave patient PRN ativan as she is ripping off bipap. Dr. Sarmiento at bedside to assess patient, per Dr. Sarmiento patient status has worsened since he last saw her. Received orders for stat 40 mg IVP lasix, EKG, trop series, echo, precedex, mays catheter, and repeat blood gas within an hour after lasix. If blood gases are fine will monitor with patient on precedex if ABG worsen will proceed with intubation. Patient left unit to ICU with supervisor feed house, [facility], Dr. Sarmiento, and Krissy RIDLEY.
[2025-05-08] MEDS: FUROsemide 10 mg/mL SDV 4mL 40 MG IVP (20:31)
--- NOTE | 2025-05-08 20:52 | XRR_ITS ---
PROCEDURE INFORMATION: Exam: XR Chest Exam date and time: 05/08/2025 9:06 PM Age: 69 years old Clinical indication: Device placement; Other: Et and og placement; Prior surgery; Surgery date: 6+ months; Surgery type: Esophageal, c-spine TECHNIQUE: Imaging protocol: Radiologic exam of the chest. Views: 1 view. COMPARISON: CR (CHEST, ) 05/08/2025 4:33 PM FINDINGS: Tubes, catheters and devices: Appropriately positioned endotracheal tube. Enteric tube courses below the diaphragm at midline with the tip of the field of view. Partially visualized cervical spine fusion hardware. Lungs: Redemonstrated hyperinflation of the lungs. No consolidation. Pleural spaces: No pneumothorax. Blunting of the left costophrenic angle, likely related to patient rotation. Heart/Mediastinum: Unremarkable. No cardiomegaly. Bones/joints: No acute fracture. XR/XR chest 1V portable [id number] IMPRESSION: 1. Appropriately positioned endotracheal tube. Enteric tube courses into the stomach with the tip not visualized. 2. No pulmonary consolidation.
[2025-05-08 21:10] LABS: Lactic Sepsis W/Reflex 5.8 mmol/L (0.5-2.2)
[2025-05-08 21:11] LABS: Reflex Lactate Order REFLEX LACTIC ORDERD
--- NOTE | 2025-05-08 21:26 | PM.ACPR ---
Procedure/Consent Time out: Time Out Performed: Yes Consent: Consent for Procedure: Emergency procedure, Risks & Benefits reviewed and Agrees to proceed with procedure Acute Procedures Arterial Line: Time out performed: Yes Size (Gauge): 20 Technique used: guide wire technique Post-Procedure: line sutured into place and dry sterile dressing placed Patient tolerated procedure: no complications Complications: none Site: right and radial Epistaxis Control: Time out performed: Yes Intubation: Time out performed: Yes Sedative: etomidate Paralytic: rocuronium Laryngoscope: fiber optic video scope ET tube size: 7.5 Tube secured location: teeth Tube placement confirmation: visualized tube passing through cords, equal breath sounds bilaterally, confirmation by capnometry and color change noted Patient tolerated procedure: no complications Intubation complications: none
--- NOTE | 2025-05-08 21:29 | PM.HP ---
Providers/Chief Complaint Admitting Physician: Analia Gan MD Primary Care Provider: Peyton Gibson MD Chief Complaint: RESP. DISTRESS History of Present Illness Shayy Mann is a 69 year old female Medications/Allergies Home Medications ?Medication ?Instructions ?Recorded ?Confirmed ?Last Taken ?Type nitroglycerin 0.4 mg sublingual 0.4 mg sublingual Q5M PRN chest 03/01/24 04/27/25 Unknown Rx tablet pain #90 tabs acetaminophen 500 mg tablet 1,000 mg PO Q6H PRN Pain 03/15/24 04/27/25 Unknown History albuterol sulfate 90 mcg/actuation 2 puff inhalation 6XD PRN 01/20/25 04/27/25 04/26/25 Rx aerosol inhaler shortness of breath or wheezing 30 days #17 grams lamotrigine 100 mg tablet 100 mg PO BID 30 days #60 tabs 02/03/25 04/27/25 04/26/25 Rx acetaminophen 300 mg-codeine 15 mg 1 tab PO BID PRN pain #20 tabs 02/09/25 04/27/25 03/04/25 Rx tablet budesonide 160 mcg-glycopyr 9 2 inh inhalation BID 30 days #10.7 03/01/25 04/27/25 04/26/25 Rx mcg-formot 4.8 mcg/actuation HFA grams inhaler (Breztri Aerosphere) clopidogrel 75 mg tablet 75 mg PO DAILY #90 tabs 03/02/25 04/27/25 04/26/25 Rx atorvastatin 80 mg tablet 80 mg PO DAILY #90 tabs 03/16/25 04/27/25 04/26/25 Rx duloxetine 60 mg capsule,delayed 60 mg PO DAILY 04/27/25 04/27/25 04/26/25 History release metoprolol tartrate 25 mg tablet 25 mg PO BID 04/27/25 04/27/25 04/26/25 History pantoprazole 40 mg tablet,delayed 40 mg PO BID 04/27/25 04/27/25 04/26/25 History release tizanidine 2 mg tablet 2 mg PO Q8H PRN muscle spasms 04/27/25 04/27/25 Unknown History ipratropium 0.5 mg-albuterol 3 mg 3 ml inhalation Q8H shortness of 04/29/25 04/27/25 Unknown Rx (2.5 mg base)/3 mL nebulization breath or wheezing #180 mL soln prednisone 10 mg tablet See Taper PO DIRECTED #42 tabs 04/29/25 Unknown Rx Allergies Allergy/AdvReac Type Severity Reaction Status Date / Time Opioids - Morphine Analogues Allergy Severe Unknown Verified 05/08/25 15:59 pregabalin (From Lyrica) Allergy Severe syncope Verified 05/08/25 15:59 venlafaxine Allergy tremor Verified 05/08/25 15:59 gabapentin AdvReac Intermediate Unknown Verified 05/08/25 15:59 tramadol AdvReac Unknown ADR-Vomitin Verified 05/08/25 15:59 g PFSH Acute PFSH: Medical History (Updated 05/08/25 @ 19:57 by Torsten Cardenas MD) Acute exacerbation of chronic obstructive pulmonary disease COPD (chronic obstructive pulmonary disease) Cervical pain (neck) Atherosclerosis of [place] coronary artery without angina pectoris Gastroesophageal reflux disease without esophagitis Acute blood loss anemia Abdominal pain GI bleed Duodenal ulcer Acute upper GI bleed Dysphagia Exertional dyspnea Smoker History of duodenal ulcer Acute diastolic heart failure Acute non-ST elevation myocardial infarction (NSTEMI) Osteopenia History of colon polyps hyperplastic polyp x 2 in 2021 Depression Chronic back pain Weight loss, unintentional Hyperlipidemia Surgical History History of cataract extraction with lens replacement History of esophageal surgery benign polyp removed History of bunionectomy of both great toes History of hysterectomy still has one ovary History of cholecystectomy History of fusion of cervical spine History of lumbar spinal fusion Family History Other Adopted Social History Smoking and tobacco/nicotine status: current every day tobacco/nicotine user (1 ppd) cigarettes Packs smoked per day: 0.5 [ Other cigarette details: started at 14; currently smokes 0.5 to 1 pack daily] Alcohol intake: current Alcohol intake frequency: holidays/special occasions only Substance/Drug Use: never Adopted: Yes Household members: spouse Marital status: Number of children: 1 Number of grandchildren: 2 Current occupational status: retired 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 [employer] Last Vital Signs Temp 97.6 F 05/08/25 20:11 Pulse 112 H 05/08/25 20:11 Resp 12 05/08/25 21:11 BP 142/96 05/08/25 20:11 Pulse Ox 100 05/08/25 21:11 O2 Del Method BiPAP 05/08/25 20:11 FiO2 30 05/08/25 21:11 05/08/25 05/08/25 05/08/25 06:59 14:59 22:59 Intake Total 800 / 800 Balance 800 / 800 Weight last 48 hrs Weight 40.823 kg Data 05/08/25 16:00 05/08/25 16:00 Micro: Microbiology 05/08/25 17:05 Blood Culture - Preliminary Blood SPECIMEN COLLECTED 05/08/25 17:05 Blood Culture - Preliminary Blood SPECIMEN COLLECTED A&P PDMP PDMP Reviewed: Not Reviewed Procedures Arterial Line Size (Gauge): 20 Attestations Medical Necessity Statement*: the patient will require more than 2 midnights stay in the hospital considering her acute critical illness, requiring urgent intubation and mechanical ventilation and frequent monitoring of her vitals after insertion of arterial line. Patient independent chart review, chest x-ray, EKG and further labs requested based on her current situation and extended plan of care discussed with assigned nurse for further optimization of her condition Coding Level of Care Code Critical Care >/= 30 minutes Critical care time (in minutes): 75 The high probability of a clinically significant, sudden or life threatening deterioration, as referenced in this documentation, required my full and direct attention, intervention and personal management. The critical care time shown is in addition to time spent performing any reported separately billable procedures and includes the following: [x] Data and vital sign review and interpretation [x] Patient assessment, examination and intervention [x] Medication orders and management [x] Patient/Family updates as able [x] Care Coordination and Documentation. Other Coding Information Procedural care (documented in this note), Procedural care (documented in another note), Prolonged care (total time indicated above or notated here), Shared care and Other care
[2025-05-08] MEDS: dexmedeTOMIDine 0.9 % NaCL 400 MCG/100 ML PREMIX IV (21:39)
[2025-05-08] MEDS: norepinephrine 4 MG/250 ML BAG 7.5 MG IV (21:51)
[2025-05-08] MEDS: propofol 1,000 MG/100 ML INJ 1.23 MG IV (22:39)
[2025-05-08] MEDS: fentaNYL 1,000 MCG/100 ML BAG 2.5 MCG IV (22:39)
[2025-05-08] MEDS: rocuronium 10 mg/mL INJ 5mL 45 MG IVP (22:40)
[2025-05-08] MEDS: etomidate 2 mg/mL INJ SDV 10 mL 10 MG IVP (22:40)
[2025-05-08] MEDS: piperacillin-tazobactam 3.375 GM in sodium chloride 0.9% (plus) 50 ML IV (22:47)
[2025-05-08 22:59] LABS: Troponin(5th) Baseline 36 ng/L (0-10)
[2025-05-08 23:01] LABS: Lactic Acid level (Lactate) 1.7 mmol/L (0.5-2.2)
[2025-05-08] MEDS: methylPREDNISolone sod succ 125 mg/2 mL INJ 60 MG IVP (23:02)
[2025-05-08] MEDS: pantoprazole 40 mg SDV IVP (23:02)
[2025-05-08 23:30] LABS: Glucose Urine UA Negative (Normal); Nitrate Urine Positive (Negative); Specific Gravity, Urine 1.008 (1.005-1.030)
[2025-05-08 23:36] LABS: Add Urine Microscopic? YES
[2025-05-08 23:52] LABS: ABG PCO2 41.9 mmHg (35-45); ABG PH Result 7.40 (7.35-7.45); Arterial Blood Gas Hematocrit 25.0 % (37-47); Blood Gas Allen Test Pos; Blood Gas Operator Identificat SAM; Blood Gas Sample Site Radial, right; Blood Gas Sample Type Arterial; Blood Gas Tidal Volume 0.42; HCO3 ABG 26.1 mmol/L (22-26); PEEP 10.0 cmH20; PO2 ABG 95.3 mmHg (80.0-100.0); PO2 FiO2 Ratio Arterial Blood 317
[2025-05-09] VITALS (111 sets, daily range): BP systolic 72–143; BP diastolic 43–99; PULSE 72–150; RESP 12–25; TEMP 36.7–37.4; O2SAT 92–100
[2025-05-09 00:24] LABS: Troponin 5 2HR 47.38 ng/L (0-10)
[2025-05-09 00:30] LABS: Troponin 5 2HR Delta 11.38 ABS# (0-10)
[2025-05-09 02:02] LABS: Hematocrit 25.6 % (36-47); Hemoglobin 7.50 g/dL (11.27-16.99); Mean Corpuscular HGB Conc 29.3 g/dL (30-55); Mean Corpuscular Hemoglobin 21.9 pg (27-33); Mean Corpuscular Volume 74.6 fl (85-98); Nucleated Red Blood Cells % 0 %; Platelet Count 394 10^3/cmm (157-399); Red Blood Count 3.43 10^6/uL (3.85-5.65); White Blood Count 15.19 10^3/uL (3.29-11.43)
[2025-05-09 02:22] LABS: Troponin 5 6HR 53.73 ng/L (0-10)
[2025-05-09 02:25] LABS: Lactic Sepsis W/Reflex 1.5 mmol/L (0.5-2.2)
[2025-05-09 02:26] LABS: Troponin 5 6HR Delta 17.73 ng/L (0-12)
[2025-05-09 02:31] LABS: Alanine Aminotransferase 31 U/L (0-33); Albumin Level 4.0 g/dL (3.5-5.2); Alkaline Phosphatase 150 U/L (35-105); Anion Gap 15.5 (5-19); Aspartate Amino Transferase 30 U/L (0-32); Blood Urea Nitrogen 12 mg/dL (8-23); Calcium 8.1 mg/dL (8.5-10.5); Carbon Dioxide 25 mmol/L (22-29); Chloride 103 mmol/L (98-107); Creatinine Clr Calc Pharmacy 45.8297; Globulin 1.9 g/dL (1.3-4.6); Glucose 221 mg/dL (65-115); Osmolality Calculated 297 mOsm/kg (285-295); Potassium 3.5 mmol/L (3.5-5.1); Sodium 140 mmol/L (136-145); Thyroid Stimulating Hormone 0.27 uIU/mL (0.27-4.20); Total Protein 5.9 g/dL (6.6-8.7)
[2025-05-09 02:34] LABS: NT Pro B Type Natriuretic Pept 3404 pg/mL (0-125)
[2025-05-09] MEDS: piperacillin-tazobactam 3.375 GM in sodium chloride 0.9% (plus) 50 ML IV ×3 (05:05→21:31)
[2025-05-09] MEDS: norepinephrine 4 MG/250 ML BAG 22.5 MG IV (10:09)
--- NOTE | 2025-05-09 14:37 | PC.NURSE ---
Patient was successfully extubated by RT at 1430. Patient was extubated to Heated High Flow Nasal Cannula.
--- NOTE | 2025-05-09 14:54 | PC.NURSE ---
This nurse waisted 34.917 mls of fentanyl and 62.795 mls of propofol, witnessed by TIMO Gannon
--- NOTE | 2025-05-09 17:25 | PC.OT ---
OT eval withheld as pt still intubated. Will attempt when appropriate.
[2025-05-09] MEDS: pantoprazole 40 mg SDV IVP (17:47)
[2025-05-09] MEDS: methylPREDNISolone sod succ 125 mg/2 mL INJ 60 MG IVP (19:37)
--- NOTE | 2025-05-09 20:17 | USCV_ITS ---
Shayy Mann Age: 69 Gender: F : 1955 Exam Date: 05/09/2025 18:33 Ordering Phys: Torsten Cardenas MD Technologist: ALMA Exam Location: [facility] [place] Indication: fluid overload, hypoxemia, sats in 70s, history of severe COPD, Patient is minimally responsive in ICU-11 BP: 109 / 65 HR: 83 Rhythm: Sinus Technical Quality: Adequate MEASUREMENTS (Male / Female) Normal Values 2D ECHO LV Diastolic Diameter PLAX 3.6 cm 4.2 - 5.9 / 3.9 - 5.3 cm IVS Diastolic Thickness 0.9 cm 0.6 - 1.0 / 0.6 - 0.9 cm IVS Systolic Thickness 1.1 cm LVPW Diastolic Thickness 1.0 cm 0.6 - 1.0 / 0.6 - 0.9 cm LVPW Systolic Thickness 1.5 cm LVOT Diameter 1.8 cm LV Ejection Fraction 2D Teich 53.1 % LV Ejection Fraction MOD 4C 56.3 % LV Ejection Fraction MOD 2C 31.1 % LV Ejection Fraction 2C AL 30.3 % LA Diameter 2.4 cm Aorta at Sinotubular Diameter 2.3 cm IVC Diameter 2.2 cm M-MODE LA Ao Ratio MM 1.0 AV Cusp Separation MM 1.2 cm DOPPLER AV Peak Velocity 163.0 cm/s LVOT Peak Velocity 75.0 cm/s AV Area Cont Eq vti 1.2 cm squared AV Area Cont Eq pk 1.1 cm squared MV Peak Velocity 101.0 cm/s MV Area PHT 3.3 cm squared Mitral E to A Ratio 1.5 TV Peak Velocity 240.0 cm/s TR Peak Velocity 254.0 cm/s TR Peak Gradient 25.8 mmHg TV Peak E Velocity 65.0 cm/s PV Peak Velocity 110.0 cm/s FINDINGS Left Ventricle Normal LV size with a borderline low ejection fraction of 50 to 55%. Mild diffuse hypokinesia of the ventricle Right Ventricle Normal right ventricular size and systolic function. Right Atrium Normal right atrial size. Left Atrium Mildly increased left atrial size. Mitral Valve Mild mitral valve regurgitation. Aortic Valve Thickened aortic valve. Tricuspid Valve Fffq-ck-rtcvdhct tricuspid valve regurgitation. Estimated pulmonary artery peak systolic pressure around 34 mmHg Pulmonic Valve No gross abnormalities noted Pericardium No pericardial effusion. Aorta Normal aortic annulus size. IVC Normal IVC dimension with <50% respiratory change of the inferior vena cava. Possible large pleural effusion on the left side CONCLUSIONS Normal LV size with a borderline low ejection fraction of 50 to 55%. Mild diffuse hypokinesia of the ventricle. Mildly increased left atrial size. Mild mitral valve regurgitation. Thickened aortic valve. Gqcq-uc-ucdpupbo tricuspid valve regurgitation. Estimated pulmonary artery peak systolic pressure around 34 mmHg. There is no pericardial effusion. There are no intracardiac masses. Compared to the study from 02/28/2024 there is a slight drop in the LV ejection fraction Dr Rina Kay MD FAC (Electronically Signed) Final Date: 09 May 2025 23:47 S
--- NOTE | 2025-05-09 21:15 | P.PN_ITS ---
Subjective 2 Subjective: The patient was seen in the morning, she was intubated and was on spontaneous breathing trial taking good volumes. However the patient upon calling her name was a little bit of agitated. Precedex continued, and the patient later on was cooperative and less agitated. Patient extubated around afternoon time on high flow nasal cannula Stable and following commands no complication postextubation Vitals/I&O/Wt Last Vital Signs Temp 99.3 F 05/09/25 08:45 Pulse 85 05/09/25 20:15 Resp 20 H 05/09/25 19:59 BP 99/61 05/09/25 20:15 Pulse Ox 99 05/09/25 20:15 O2 Del Method Heated High Flow 05/09/25 19:58 O2 Flow Rate 50 05/09/25 19:59 FiO2 40 05/09/25 19:59 05/09/25 05/09/25 05/09/25 06:59 14:59 22:59 Intake Total 190.711 / 998.802 317.455 / 317.455 385.598 / 703.053 Output Total 2500 / 2500 300 / 300 Balance -2309.289 / -1501.198 317.455 / 317.455 85.598 / 403.053 Weight last 48 hrs Weight 36.469 kg Weight 40.823 kg Physical Exam 2 Narrative: General: Alert oriented x3, patient was in mild distress however on high flow nasal cannula with settings of 60 L x 50% FiO2 and to titrate as per the respiratory therapist HEENT: Normocephalic, atraumatic, EOMI, breathing on high flow nasal cannula Cardio: Regular rhythm with mild tachycardia around early 100s, normal S1-S2, no murmurs rubs gallops, JVD normal Respiratory: Good bilateral air entry, no wheezes no rhonchi appreciated GI: Abdomen soft, nontender, nondistended, normoactive bowel sounds present all 4 quadrants, Neuro: No gross neurological deficit and patient is cooperative Behavior: Appropriate and cooperative Extremities: Pulses 2+, no edema, no cyanosis Skin: Visible skin intact, no rashes Urinary Catheter Management: Macias: Cath Placed During This Visit: yes Reason for Continuing Indwelling Catheter: Accurate Measurement of Urinary Output in Critically Ill Patients Urinary Catheter Date of Insertion: 05/08/25 Data 05/09/25 01:52 05/09/25 01:52 Micro: Microbiology 05/08/25 17:05 Blood Culture - Preliminary Blood NEGATIVE TO DATE 05/08/25 17:05 Blood Culture - Preliminary Blood NEGATIVE TO DATE A&P Assessment and plan 1. Sepsis: 2. Chronic anemia: 3. Acute on chronic respiratory failure with hypoxia and hypercapnia: 4. Acute exacerbation of chronic obstructive pulmonary disease: 5. Tachycardia: 6. AVM (arteriovenous malformation) of small bowel, acquired: 7. Iron (Fe) deficiency anemia: 8. Unexplained weight loss: 9. Caloric malnutrition: Plan: Resolving sepsis which was likely secondary to possible pneumonia leading to acute on chronic COPD exacerbation. Continue on Zosyn and azithromycin as broad-spectrum coverage for sepsis Titrate norepinephrine Precedex to continue as needed for agitation Steroids Short course for management of acute on chronic COPD as outpatient Monitor morning labs VTE prophylaxis with bilateral compression devices considering her low hemoglobin and further worsening Chronic anemia due to iron deficiency and GI loss due to AV malformation. Continue to monitor and keep hemoglobin above 7 Monitor heart rate ABG and chest x-ray in case of deterioration Dietitian consult for malnourishment and unexplained weight loss PDMP PDMP Reviewed: Not Reviewed Attestations 2 Medical Necessity Statement*: Patient will require more than 2 midnights for further optimization of her care Time Spent in Patient Care: I spent 50 minutes on this encounter before, during and after the visit, examining the patient, reviewing labs, writing orders and documenting the note and discussing with nursing staff taking care of the patient. Other Attestations: This documentation was created by [employer] wireless telegrapher software. Every effort was made to ensure accuracy of wireless telegrapher.? Any obvious errors or omissions should be clarified with the author of the document. Procedures Arterial Line Size (Gauge): 20 Coding Level of Care Code Critical Care >/= 30 minutes Critical care time (in minutes): 50 The high probability of a clinically significant, sudden or life threatening deterioration, as referenced in this documentation, required my full and direct attention, intervention and personal management. The critical care time shown is in addition to time spent performing any reported separately billable procedures and includes the following: [x] Data and vital sign review and interpretation [x ] Patient assessment, examination and intervention [x] Medication orders and management [x] Patient/Family updates as able [x] Care Coordination and Documentation. Diagnoses Sepsis A41.9 Chronic anemia D64.9 Acute on chronic respiratory failure with hypoxia and hypercapnia J96.21; J96.22 Acute exacerbation of chronic obstructive pulmonary disease J44.1 Tachycardia R00.0 AVM (arteriovenous malformation) of small bowel, acquired K55.20 Iron (Fe) deficiency anemia D50.9 Unexplained weight loss R63.4 Caloric malnutrition E46
[2025-05-09] MEDS: dexmedeTOMIDine 0.9 % NaCL 400 MCG/100 ML PREMIX 7.14 MCG IV (21:37)
[2025-05-10] VITALS (112 sets, daily range): BP systolic 74–168; BP diastolic 56–121; PULSE 67–152; RESP 14–38; TEMP 36.7–37.4; O2SAT 65–100
--- NOTE | 2025-05-10 03:24 | XRR_ITS ---
PROCEDURE INFORMATION: Exam: XR Chest Exam date and time: 05/10/2025 3:39 AM Age: 69 years old Clinical indication: Dyspnea; Additional info: Sudden SOB and loss of o2 TECHNIQUE: Imaging protocol: Radiologic exam of the chest. Views: 1 view. COMPARISON: CR (CHEST, ) 05/08/2025 9:06 PM FINDINGS: Lungs: Stable moderate hyperinflation of the lungs. No focal consolidation. No pulmonary edema. Pleural spaces: No pleural effusion. No pneumothorax. Heart/Mediastinum: The cardiac silhouette and mediastinal contours are unremarkable. Vasculature: Stable vascular calcifications in the aorta. Bones/joints: Postsurgical changes consistent with previous fusion in the lower cervical spine. Degenerative changes in the spine and shoulders. Mild scoliosis in the thoracolumbar spine. Osseous findings are stable. XR/XR chest 1V portable [id number] IMPRESSION: 1. No acute cardiopulmonary process. 2. Incidental/nonacute findings are listed in the report.
[2025-05-10] MEDS: FUROsemide 10 mg/mL SDV 4mL 40 MG IVP (03:30)
[2025-05-10 03:37] LABS: ABG PCO2 52.8 mmHg (35-45); ABG PH Result 7.24 (7.35-7.45); Alveolar-Arterial Oxygen Gradi 20.4 mmHg (5-10); Arterial Blood Gas Hematocrit 24.6 % (37-47); Blood Gas Allen Test Pos; Blood Gas LPM 50.0 %; Blood Gas Operator Identificat JDB; Blood Gas Sample Site Brachial, right; Blood Gas Sample Type Arterial; Carboxyhemoglobin 1.5 %THgb (0.4-20.1); Glucose Level-ABG 173.0 mg/dL (70-115); HCO3 ABG 22.6 mmol/L (22-26); Ionized Calcium Level - ABG 1.2 mmol/L (1.1-1.4); Methemoglobin 1.3 % (0.4-1.5); Oxygen Saturation ABG 88.4; PO2 ABG 64.8 mmHg (80.0-100.0); PO2 FiO2 Ratio Arterial Blood 162; Potassium Level - ABG 4.5 mmol/L (3.5-5.0); Sodium Level - ABG 144.0 mmol/L (131-143)
[2025-05-10] MEDS: LORazepam 1 MG/0.5 ML injection IVP ×2 (03:51→15:53)
--- NOTE | 2025-05-10 04:23 | ECG_ITS ---
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 Measurements Intervals [place] Rate: 80 P: 72 MN: 120 QRS: 80 QRSD: 84 T: -48 QT: 365 QTc: 422 Interpretive Statements SINUS RHYTHM ST DEVIATION AND MODERATE T-WAVE ABNORMALITY, CONSIDER INFERIOR ISCHEMIA [-0.1+ mV T-WAVE IN II/aVF] Compared to ECG 05/08/2025 20:29:09 Sinus tachycardia no longer present Short MN interval no longer present T-wave abnormality still present Possible ischemia still present Electronically Signed On 05-10-2025 23:02:50 CDT by Rina Kay M.D. [email or web address]
[2025-05-10 04:51] LABS: Hematocrit 24.4 % (36-47); Hemoglobin 6.90 g/dL (11.27-16.99); Mean Corpuscular HGB Conc 28.3 g/dL (30-55); Mean Corpuscular Hemoglobin 21.6 pg (27-33); Mean Corpuscular Volume 76.3 fl (85-98); Nucleated Red Blood Cells % 0.2 %; Platelet Count 359 10^3/cmm (157-399); Red Blood Count 3.20 10^6/uL (3.85-5.65); White Blood Count 10.49 10^3/uL (3.29-11.43)
[2025-05-10] MEDS: piperacillin-tazobactam 3.375 GM in sodium chloride 0.9% (plus) 50 ML IV ×2 (05:10→20:54)
[2025-05-10 05:11] LABS: Lactic Sepsis W/Reflex 2.5 mmol/L (0.5-2.2)
[2025-05-10 05:13] LABS: Troponin(5th) Baseline 52 ng/L (0-10)
[2025-05-10 05:23] LABS: NT Pro B Type Natriuretic Pept 1194 pg/mL (0-125); Procalcitonin 0.47 ng/mL (0-0.5)
[2025-05-10 05:34] LABS: Alanine Aminotransferase 26 U/L (0-33); Albumin Level 3.7 g/dL (3.5-5.2); Alkaline Phosphatase 131 U/L (35-105); Anion Gap 17.4 (5-19); Aspartate Amino Transferase 29 U/L (0-32); Blood Urea Nitrogen 19 mg/dL (8-23); Calcium 8.7 mg/dL (8.5-10.5); Carbon Dioxide 25 mmol/L (22-29); Chloride 106 mmol/L (98-107); Creatinine Clr Calc Pharmacy 35.6095; Globulin 2.0 g/dL (1.3-4.6); Glucose 144 mg/dL (65-115); Osmolality Calculated 303 mOsm/kg (285-295); Potassium 4.4 mmol/L (3.5-5.1); Sodium 144 mmol/L (136-145); Total Protein 5.7 g/dL (6.6-8.7)
[2025-05-10 05:53] LABS: CRP High Sensitivity Cardiac 1.620 mg/dL (0.0-0.3)
[2025-05-10 06:19] LABS: Troponin 5 2HR 74.94 ng/L (0-10)
[2025-05-10 06:29] LABS: Troponin 5 2HR Delta 22.94 ABS# (0-10)
[2025-05-10 06:36] LABS: Reflex Lactate Order REFLEX LACTIC ORDERD
[2025-05-10 09:34] LABS: Lactic Acid level (Lactate) 1.5 mmol/L (0.5-2.2)
--- NOTE | 2025-05-10 10:12 | ECG_ITS ---
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 Measurements Intervals [place] Rate: 89 P: 80 MN: 110 QRS: 84 QRSD: 91 T: -35 QT: 371 QTc: 452 Interpretive Statements SINUS RHYTHM WITH SHORT MN INTERVAL POSSIBLE LEFT ATRIAL ENLARGEMENT [-0.1mV P-WAVE IN V1/V2] NONSPECIFIC ST & T-WAVE ABNORMALITY Compared to ECG 05/10/2025 04:23:59 Short MN interval now present Possible ischemia no longer present T-wave abnormality still present Electronically Signed On 05-11-2025 09:27:47 CDT by Rina Kay M.D. [email or web address]
[2025-05-10] MEDS: FUROsemide 10 mg/mL SDV 2mL 20 MG IVP (11:04)
[2025-05-10 11:07] LABS: ABG PCO2 43.4 mmHg (35-45); ABG PH Result 7.46 (7.35-7.45); Alveolar-Arterial Oxygen Gradi 3.3 mmHg (5-10); Arterial Blood Gas Hematocrit 24.1 % (37-47); Blood Gas Operator Identificat GD; Blood Gas Sample Site Brachial, left; Blood Gas Sample Type Arterial; Carboxyhemoglobin 1.5 %THgb (0.4-20.1); Glucose Level-ABG 79.0 mg/dL (70-115); HCO3 ABG 30.6 mmol/L (22-26); Ionized Calcium Level - ABG 1.2 mmol/L (1.1-1.4); Methemoglobin 0.4 % (0.4-1.5); Oxygen Saturation ABG 95.9; PO2 ABG 71.4 mmHg (80.0-100.0); Potassium Level - ABG 3.3 mmol/L (3.5-5.0); Sodium Level - ABG 146.0 mmol/L (131-143)
--- NOTE | 2025-05-10 12:10 | PC.OT ---
OT orders received. Patient receiving blood at the moment. Unable to complete evaluation at this time.
--- NOTE | 2025-05-10 12:46 | PC.NURSE ---
Removed arterial line per Dr. Cabrera orders, pressure held, no s/s of bleeding. No hematoma noted. Site clean, dressing applied.
[2025-05-10 13:55] LABS: Troponin 5 6HR 77.59 ng/L (0-10)
[2025-05-10 14:00] LABS: Troponin 5 6HR Delta 25.59 ng/L (0-12)
[2025-05-10] MEDS: dexmedeTOMIDine 0.9 % NaCL 400 MCG/100 ML PREMIX IV (17:41)
[2025-05-10] MEDS: pantoprazole 40 mg SDV IVP (17:59)
--- NOTE | 2025-05-10 19:10 | P.PN_ITS ---
Subjective 2 Subjective: The patient was seen in the morning, she was intubated on 05/09/2025 Overnight the patient had low hemoglobin and was transfused 1 PRBC The patient was kept on BiPAP mask. The patient had also mild agitation signs of some shortness of breath and fluid overload overnight however later improved in the morning. She did not require any intubation Due to her current critical illness, rate current shortness of breath frequent intubations, severe malnourishment and further deterioration, thorough discussion was made with the patient and the for her escalation of care in terms of clinical deterioration in the future. However the and the patient agreed to allow natural in case of future clinical deterioration and also would like to proceed with home hospice Vitals/I&O/Wt Last Vital Signs Temp 99.4 F 05/10/25 11:54 Pulse 110 H 05/10/25 18:00 Resp 23 H 05/10/25 18:00 BP 90/64 05/10/25 18:00 Pulse Ox 99 05/10/25 18:00 O2 Del Method BiPAP 05/10/25 15:27 O2 Flow Rate 50 05/10/25 00:07 FiO2 30 05/10/25 15:29 05/10/25 05/10/25 05/10/25 06:59 14:59 22:59 Intake Total 107.258 / 825.017 474.938 / 474.938 292.007 / 766.945 Output Total 1350 / 1650 1650 / 1650 Balance -1242.742 / -824.983 474.938 / 474.938 -1357.993 / -883.055 Weight last 48 hrs Weight 34.972 kg Weight 36.469 kg Physical Exam 2 Narrative: General: Alert oriented x3, patient was in mild distress however on BiPAP and feeling comfortable HEENT: Normocephalic, atraumatic, EOMI, breathing on high flow nasal cannula Cardio: Regular rhythm with mild tachycardia around early 100s, normal S1-S2, no murmurs rubs gallops, JVD normal Respiratory: Good bilateral air entry, no wheezes no rhonchi appreciated GI: Abdomen soft, nontender, nondistended, normoactive bowel sounds present all 4 quadrants, Neuro: No gross neurological deficit and patient is cooperative Behavior: Appropriate and cooperative Extremities: Pulses 2+, no edema, no cyanosis Skin: Visible skin intact, no rashes Urinary Catheter Management: Macias: Cath Placed During This Visit: yes Reason for Continuing Indwelling Catheter: Accurate Measurement of Urinary Output in Critically Ill Patients Urinary Catheter Date of Insertion: 05/08/25 Data 05/10/25 04:27 05/10/25 04:27 Micro: Microbiology 05/08/25 23:19 Urine Culture - Preliminary Urine,Clean Catch 05/08/25 17:05 Blood Culture - Preliminary Blood NEGATIVE TO DATE 05/08/25 17:05 Blood Culture - Preliminary Blood NEGATIVE TO DATE A&P Assessment and plan 1. Sepsis: 2. Chronic anemia: 3. Acute on chronic respiratory failure with hypoxia and hypercapnia: 4. Acute exacerbation of chronic obstructive pulmonary disease: 5. Tachycardia: 6. AVM (arteriovenous malformation) of small bowel, acquired: 7. Other iron deficiency anemia: 8. Unexplained weight loss: 9. Caloric malnutrition: Plan: Resolving sepsis which was likely secondary to possible pneumonia leading to acute on chronic COPD exacerbation. Continue on Zosyn and azithromycin (last day today) as broad-spectrum coverage for sepsis Preliminary blood cultures 2 set and urine culture did not show any organism yet Titrate norepinephrine and Precedex to continue as needed for agitation. Steroids Short course for management of acute on chronic COPD as outpatient Monitor morning labs VTE prophylaxis with bilateral compression devices considering her low hemoglobin and further worsening Chronic anemia due to iron deficiency and GI loss due to AV malformation. Continue to monitor and keep hemoglobin above 7 Monitor heart rate Dietitian consult for malnourishment and unexplained weight loss PDMP PDMP Reviewed: Not Reviewed Attestations 2 Medical Necessity Statement*: The patient will require more than 2 days for optimization of her condition Time Spent in Patient Care: I spent 60 minutes on this encounter before, during and after the visit, examining the patient, reviewing labs, writing orders and documenting the note and discussing with nursing staff taking care of the patient. The high probability of a clinically significant, sudden or life threatening deterioration of the patient's condition required my full and direct attention, intervention and personal management. The critical care time is as shown. This time is in addition to time spent performing any reported procedures but includes the following: [x] discussion of goals of life with the patient and the after risk and benefits and thorough discussion of her acute current illness and critical condition with preference of the family and the patient to go with DNR/allowing natural to proceed and home hospice [x] Data and vital sign review and interpretation [x] Patient assessment, examination and intervention [x] Documentation [x] Medication orders and management Other Attestations: This documentation was created by [employer] weapons electrical engineering officer software. Every effort was made to ensure accuracy of weapons electrical engineering officer.? Any obvious errors or omissions should be clarified with the author of the document. Procedures Arterial Line Size (Gauge): 20 Coding Level of Care Code Critical Care >/= 30 minutes Diagnoses Sepsis A41.9 Sepsis acute organ dysfunction status: with acute organ dysfunction Severe sepsis acute organ dysfunction type: acute respiratory failure Acute respiratory failure type: with hypercapnia Severe sepsis shock status: with septic shock Chronic anemia D64.9 Acute on chronic respiratory failure with hypoxia and hypercapnia J96.21; J96.22 Acute exacerbation of chronic obstructive pulmonary disease J44.1 Tachycardia R00.0 AVM (arteriovenous malformation) of small bowel, acquired K55.20 Other iron deficiency anemia D50.8 Iron deficiency anemia type: other iron deficiency Unexplained weight loss R63.4 Caloric malnutrition E46
[2025-05-10] MEDS: methylPREDNISolone sod succ 125 mg/2 mL INJ 60 MG IVP (20:53)
[2025-05-11] VITALS (108 sets, daily range): BP systolic 84–139; BP diastolic 51–83; PULSE 72–142; RESP 14–31; TEMP 36.3–37.1; O2SAT 8–100
[2025-05-11 02:44] LABS: Hematocrit 33.0 % (36-47); Hemoglobin 9.90 g/dL (11.27-16.99); Mean Corpuscular HGB Conc 30.0 g/dL (30-55); Mean Corpuscular Hemoglobin 22.6 pg (27-33); Mean Corpuscular Volume 75.3 fl (85-98); Nucleated Red Blood Cells % 0 %; Platelet Count 361 10^3/cmm (157-399); Red Blood Count 4.38 10^6/uL (3.85-5.65); White Blood Count 10.85 10^3/uL (3.29-11.43)
[2025-05-11 03:12] LABS: Alanine Aminotransferase 23 U/L (0-33); Albumin Level 3.8 g/dL (3.5-5.2); Alkaline Phosphatase 124 U/L (35-105); Anion Gap 23.9 (5-19); Aspartate Amino Transferase 20 U/L (0-32); Blood Urea Nitrogen 24 mg/dL (8-23); Calcium 9.2 mg/dL (8.5-10.5); Carbon Dioxide 26 mmol/L (22-29); Chloride 97 mmol/L (98-107); Creatinine Clr Calc Pharmacy 35.6095; Globulin 2.6 g/dL (1.3-4.6); Glucose 98 mg/dL (65-115); Osmolality Calculated 300 mOsm/kg (285-295); Potassium 3.9 mmol/L (3.5-5.1); Sodium 143 mmol/L (136-145); Total Protein 6.4 g/dL (6.6-8.7)
[2025-05-11] MEDS: piperacillin-tazobactam 3.375 GM in sodium chloride 0.9% (plus) 50 ML IV ×3 (04:51→20:46)
--- NOTE | 2025-05-11 09:48 | PC.OT ---
OT orders received, chart reviewed. OT evaluation is placed on hold per RN request. Patient is currently awaiting hospice consultation at this time.
[2025-05-11] MEDS: FUROsemide 10 mg/mL SDV 2mL 20 MG IVP (11:20)
[2025-05-11] MEDS: LORazepam 1 MG/0.5 ML injection IVP ×2 (12:29→17:35)
--- NOTE | 2025-05-11 13:52 | P.PN_ITS ---
Subjective 2 Subjective: The patient was seen in the morning, she was intubated on 05/09/2025 and extubated on 05/10/2025 The patient was kept on BiPAP mask however did not desaturate and put on nasal cannula doing well She was found to have some wheezes, and to give Lasix 20 mg IV stat and nebulizations were given. The patient felt better afterwards Due to her current critical illness, rate current shortness of breath frequent intubations, severe malnourishment and further deterioration, thorough discussion was made with the patient and the for her escalation of care in terms of clinical deterioration in the future. However the and the patient agreed to allow natural in case of future clinical deterioration and also would like to proceed with home hospice Vitals/I&O/Wt Last Vital Signs Temp 97.4 F L 05/11/25 01:00 Pulse 118 H 05/11/25 12:00 Resp 26 H 05/11/25 12:00 BP 111/80 05/11/25 12:00 Pulse Ox 98 05/11/25 12:00 O2 Del Method Nasal Cannula 05/11/25 11:18 O2 Flow Rate 2 05/11/25 11:18 FiO2 40 05/11/25 08:00 05/10/25 05/11/25 05/11/25 22:59 06:59 14:59 Intake Total 292.007 / 766.945 50 / 816.945 122.08 / 122.08 Output Total 1650 / 1650 400 / 2050 Balance -1357.993 / -883.055 -350 / -1233.055 122.08 / 122.08 Weight last 48 hrs Weight 32.477 kg Weight 34.972 kg Physical Exam 2 Narrative: General: Alert oriented x3, patient was in mild distress however on BiPAP with alernative nasal o2 and feeling comfortable HEENT: Normocephalic, atraumatic, EOMI, breathing on high flow nasal cannula Cardio: Regular rhythm with mild tachycardia around early 100s, normal S1-S2, no murmurs rubs gallops, JVD normal Respiratory: Good bilateral air entry, mild wheezes appreciated with coarse crackles on the right side GI: Abdomen soft, nontender, mild distension due BIPA air and passing gases, normoactive bowel sounds present all 4 quadrants, Neuro: No gross neurological deficit and patient is cooperative Behavior: Appropriate and cooperative Extremities: Pulses 2+, no edema, no cyanosis Skin: Visible skin intact, no rashes Resp: OTHER: Normal effort and bilateral movement of chest on inspection, normal vesicular breathing on auscultation on both sides however cannot be commented upon since the patient is on BiPAP and there are some harsh added sounds. Percussion note normal Cardio: OTHER: Patient looked pale, Decreased capillary refill however peripheral pulses appreciated but feeble and mildly decrease in volume. Regular pulses. normal S1 and S2 with no murmurs or any added heart sounds GI: OTHER: Soft nontender abdomen, no organomegaly, normal bowel sounds Extremity: NARRATIVE EXTREMITY EXAM: Unremarkable lower extremity exam Neuro: OTHER: Patient sleepy but alert and able to move all her extremities Urinary Catheter Management: Macias: Cath Placed During This Visit: yes Reason for Continuing Indwelling Catheter: Accurate Measurement of Urinary Output in Critically Ill Patients Urinary Catheter Date of Insertion: 05/08/25 Data 05/11/25 02:26 05/11/25 02:26 Micro: Microbiology 05/08/25 23:19 Urine Culture - Preliminary Urine,Clean Catch Gram Negative Rods A&P Assessment and plan 1. Sepsis: 2. Chronic anemia: 3. Acute on chronic respiratory failure with hypoxia and hypercapnia: 4. Acute exacerbation of chronic obstructive pulmonary disease: 5. Tachycardia: 6. AVM (arteriovenous malformation) of small bowel, acquired: 7. Other iron deficiency anemia: 8. Unexplained weight loss: 9. Caloric malnutrition: Plan: Resolving sepsis which was likely secondary to possible pneumonia due to rhinovirus, on droplet isolation, leading to acute on chronic COPD exacerbation. Continue on Zosyn/abx coverage for total 14 days. till date blood cultures 2 set are negative, urine cultures showed gram negative rods and to follow the results currently off NE and precedex, to give fentanyl patch 25mcg for agitation Steroids Short course for management of acute on chronic COPD total 5 days untill 05/13/25 Monitor morning labs VTE prophylaxis with bilateral compression devices considering her low hemoglobin and further worsening Chronic anemia due to iron deficiency and GI loss due to AV malformation. Continue to monitor and keep hemoglobin above 7 Monitor heart rate home hospice referral and the patient and the agreed for it to keep her DNR, code status discussed Dietitian consult for malnourishment and unexplained weight loss PDMP PDMP Reviewed: Not Reviewed Attestations 2 Medical Necessity Statement*: the patient will continue to stay for further optimisation and safe discharge condition Time Spent in Patient Care: Greater than 35 minutes (>than 50% of time spent in counselling and/or direct pt care on unit) . Critical Care Time: The high probability of a clinically significant, sudden or life threatening deterioration of the patient's [] system(s) required my full and direct attention, intervention and personal management. The critical care time is as shown. This time is in addition to time spent performing any reported procedures but includes the following: [x] Data and vital sign review and interpretation [x] Patient assessment, examination and intervention [x] Documentation [x] Medication orders and management including vaspressors and NIV settings Critical Care Time (min): 60 Other Attestations: This documentation was created by [employer] multi mission helicopter aircrewman software. Every effort was made to ensure accuracy of multi mission helicopter aircrewman.? Any obvious errors or omissions should be clarified with the author of the document. Procedures Arterial Line Size (Gauge): 20 Coding Level of Care Code Acute Code for Chg Fwd Diagnoses Sepsis A41.9 Sepsis acute organ dysfunction status: with acute organ dysfunction Severe sepsis acute organ dysfunction type: acute respiratory failure Acute respiratory failure type: with hypercapnia Severe sepsis shock status: with septic shock Chronic anemia D64.9 Acute on chronic respiratory failure with hypoxia and hypercapnia J96.21; J96.22 Acute exacerbation of chronic obstructive pulmonary disease J44.1 Tachycardia R00.0 AVM (arteriovenous malformation) of small bowel, acquired K55.20 Other iron deficiency anemia D50.8 Iron deficiency anemia type: other iron deficiency Unexplained weight loss R63.4 Caloric malnutrition E46
[2025-05-11] MEDS: pantoprazole 40 mg SDV IVP (17:48)
[2025-05-11] MEDS: methylPREDNISolone sod succ 125 mg/2 mL INJ 60 MG IVP (20:45)
[2025-05-12] VITALS (38 sets, daily range): BP systolic 86–140; BP diastolic 54–83; PULSE 106–140; RESP 16–32; TEMP 36.6; O2SAT 91–100
[2025-05-12] MEDS: LORazepam 1 MG/0.5 ML injection IVP (03:00)
[2025-05-12 03:32] LABS: Hematocrit 33.8 % (36-47); Hemoglobin 10.20 g/dL (11.27-16.99); Mean Corpuscular HGB Conc 30.2 g/dL (30-55); Mean Corpuscular Hemoglobin 22.6 pg (27-33); Mean Corpuscular Volume 74.9 fl (85-98); Nucleated Red Blood Cells % 0 %; Platelet Count 381 10^3/cmm (157-399); Red Blood Count 4.51 10^6/uL (3.85-5.65); White Blood Count 7.50 10^3/uL (3.29-11.43)
[2025-05-12 03:58] LABS: Alanine Aminotransferase 24 U/L (0-33); Albumin Level 4.1 g/dL (3.5-5.2); Alkaline Phosphatase 113 U/L (35-105); Anion Gap 23.3 (5-19); Aspartate Amino Transferase 24 U/L (0-32); Blood Urea Nitrogen 25 mg/dL (8-23); Calcium 9.4 mg/dL (8.5-10.5); Carbon Dioxide 27 mmol/L (22-29); Chloride 99 mmol/L (98-107); Creatinine Clr Calc Pharmacy 33.0690; Globulin 2.6 g/dL (1.3-4.6); Glucose 99 mg/dL (65-115); Osmolality Calculated 306 mOsm/kg (285-295); Potassium 3.3 mmol/L (3.5-5.1); Sodium 146 mmol/L (136-145); Total Protein 6.7 g/dL (6.6-8.7)
[2025-05-12] MEDS: piperacillin-tazobactam 3.375 GM in sodium chloride 0.9% (plus) 50 ML IV (04:54)
[2025-05-12] MEDS: lidocaine 1% 5 ML in potassium chloride premix 100 ML 52.5 ML IV (05:06)
--- NOTE | 2025-05-12 08:50 | PC.OT ---
OT orders cx as patient is going home on hospice care.
--- NOTE | 2025-05-12 10:55 | PC.NURSE ---
sitting up in bed awaiting hospice consult to come talk to her discharge home care with
--- NOTE | 2025-05-12 13:57 | PM.DCS ---
Discharge Providers Date of Admission: 05/08/25 17:28 Date of Discharge: May 12, 2025 Attending Provider at Admission: Analia Gan MD Attending Provider at Discharge: Torsten Cardenas MD Primary Care Provider: Peyton Gibson MD Diagnoses at Discharge Discharge Diagnosis 1. Sepsis: 2. Chronic anemia: 3. Acute on chronic respiratory failure with hypoxia and hypercapnia: 4. Acute exacerbation of chronic obstructive pulmonary disease: 5. Tachycardia: 6. AVM (arteriovenous malformation) of small bowel, acquired: 7. Other iron deficiency anemia: 8. Unexplained weight loss: 9. Caloric malnutrition: Reason for Visit Reason for Visit: RESP. DISTRESS Brief History: History as per the retrospective note and the patient however unable to obtain adequate history since the patient is mild drowsy but able to open eyes upon calling her, moving her all extremities and able to answer few questions. Shayy Mann is a 69 year old female with a past medical history of CAD, last stents placed in June 2024, cecal AV malformation, chronic anemia as a result of GI blood losses and has required transfusion in the past. She was brought in by the EMS secondary to respiratory distress. She has history of multiple hospitalization secondary to acute on chronic COPD exacerbations, intubations in the last 6 months. She was desaturating and received nebulizations with albuterol terbutaline and dexamethasone en route with Ativan as well. Her blood gas showed acidemia with pH of 7.21, hypercapnia with PCO2 around 58 and she was hooked to BiPAP with settings that were seen 23/05. She received approximately total 1 L of fluid bolus. With a MAP improving to 60-65mmhg. upon history taking the patient was sleepy but able to nod and was alert when taking her names and calling her, moving her all limbs. Breathing on her own without any distress with BiPAP. Chest x-ray showed hyper infiltration but no remarkable consolidation or infiltrates appreciated. Repeat blood gas after the treatment showed normalization of pH and resolution of hypercapnia however the patient is still sleepy therefore to be admitted as a case of acute on chronic hypoxemic and hypercapnic respiratory failure with underlying COPD. Hospital Course Hospital Course Her hospital course was complex and complicated due to her underlying severe COPD that worsened and required intubation for optimization of health. The patient was extubated next day after meeting the criteria of spontaneous breathing trial and spontaneous awakening trial. The patient had severe malnourishment and severe COPD with severe muscle wasting and signs of physical deconditioning. She was managed in ICU initially with her vent settings and later NIV settings. She also required vasopressors management and was done accordingly and postextubation she was stable. Her hemoglobin also dropped at 1 point below 7 and required 1 PRBC transfusion without any obvious source of bleeding and likely secondary to her AV malformation and chronic iron deficiency anemia. She did not require any further transfusions during her hospital stay and her hemoglobin stayed stable. She was found to have rhinovirus infection that could be the reason of COPD exacerbation leading to hypoxemic and hypercapnic respiratory failure, acute on chronic hypercapnic respiratory failure. And septic shock as well. Patient care and condition was stabilized however in the long-term considering her quality of life and grim prognosis and also retrospectively reviewing her chart with multiple intubations, the patient's condition was discussed with the and the patient for consideration of home hospice. The patient and the also agreed and showed wishes to proceed with natural and home hospice. Case management was informed and home hospice arrangement was done. a short course of antibiotics considering possible of bacterial superinfection on the top of rhinovirus leading to or deterioration. The patient care was discussed with the family and the patient at every step of management without any language barrier and agreed with the plan of care. She will be discharged with home hospice. Physical Exam Narrative: General: Alert oriented x3, patient lying comfortably with respiratory rate of 22-24 on 2 to 3 L nasal cannula, able to speak in full sentences. And wanted to eat. HEENT: Normocephalic, atraumatic, EOMI, breathing on high flow nasal cannula Cardio: Regular rhythm, normal S1-S2, no murmurs rubs gallops, JVD normal Respiratory: Good bilateral air entry, no wheezes or rhonchi appreciated GI: Abdomen soft, nontender, mild distension due BIPA air and passing gases, normoactive bowel sounds present all 4 quadrants, Neuro: No gross neurological deficit and patient is cooperative Behavior: Appropriate and cooperative Extremities: Pulses 2+, no edema, no cyanosis Skin: Visible skin intact, no rashes Urinary Catheter Management: Macias: Cath Placed During This Visit: yes Reason for Continuing Indwelling Catheter: Accurate Measurement of Urinary Output in Critically Ill Patients Urinary Catheter Date of Insertion: 05/08/25 Discharge Data Studies Completed and Pending Completed Studies During Hospitalization Category Date Time Status XR chest 1V portable [id number] Stat Exams 05/08/25 15:58 Completed XR chest 1V portable [id number] Stat Exams 05/10/25 03:24 Completed XR chest 1V portable [id number] Urgent Exams 05/08/25 20:52 Completed CV. echo complete* [id number] Routine Ultrasound 05/09/25 20:17 Completed Pending at discharge Category Date Time Status Blood Culture Stat Lab 05/08/25 17:05 Results Radiology Impressions Chest X-Ray 05/10/25 03:24 IMPRESSION: 1. No acute cardiopulmonary process. 2. Incidental/nonacute findings are listed in the report. Laboratory Results WBC 7.50 10^3/uL (3.29-11.43) 05/12/25 03:18 RBC 4.51 10^6/uL (3.85-5.65) 05/12/25 03:18 Hgb 10.20 g/dL (11.27-16.99) L 05/12/25 03:18 Hct 33.8 % (36-47) L 05/12/25 03:18 MCV 74.9 fl (85-98) L 05/12/25 03:18 MCH 22.6 pg (27-33) L 05/12/25 03:18 MCHC 30.2 g/dL (30-55) 05/12/25 03:18 RDW 22.8 % (12.1-15.1) H 05/12/25 03:18 Plt Count 381 10^3/cmm (157-399) 05/12/25 03:18 MPV 9.4 fL (7.4-10.4) 05/12/25 03:18 Neut % (Auto) 97.0 % 05/12/25 03:18 Lymph % (Auto) 1.7 % 05/12/25 03:18 Sullivan % (Auto) 0.8 % 05/12/25 03:18 Eos % (Auto) 0.0 % 05/12/25 03:18 Baso % (Auto) 0.1 % 05/12/25 03:18 Neut # (Auto) 7.27 10^3/uL (1.8-7.7) 05/12/25 03:18 Lymph # (Auto) 0.1 10^3/uL (0.8-4.8) L 05/12/25 03:18 Sullivan # (Auto) 0.1 10^3/uL (0.2-0.9) L 05/12/25 03:18 Eos # (Auto) 0.0 10^3/uL (0.0-0.8) 05/12/25 03:18 Baso # (Auto) 0.0 10^3/uL (0.0-0.1) 05/12/25 03:18 Nucleated RBC % (auto) 0 % 05/12/25 03:18 Nucleated RBCs # 0.0 /100WBC 05/12/25 03:18 Specimen Type Arterial 05/10/25 10:51 Sample Site Brachial, left 05/10/25 10:51 ABG pH 7.46 (7.35-7.45) H 05/10/25 10:51 ABG pCO2 43.4 mmHg (35-45) 05/10/25 10:51 ABG pO2 71.4 mmHg (80.0-100.0) L 05/10/25 10:51 ABG PO2/FiO2 Ratio 162 05/10/25 03:24 ABG HCO3 30.6 mmol/L (22-26) H 05/10/25 10:51 ABG O2 Saturation 95.9 05/10/25 10:51 ABG Base Excess 6.2 mmol/L (-2.0-2.0) H 05/10/25 10:51 Sumit Test N/a 05/10/25 10:51 A-a O2 Gradient 3.3 mmHg (5-10) L 05/10/25 10:51 Hematocrit 24.1 % (37-47) L 05/10/25 10:51 Hgb O2 Saturation 94.0 % (95-100) L 05/10/25 10:51 Carboxyhemoglobin 1.5 %THgb (0.4-20.1) 05/10/25 10:51 Methemoglobin 0.4 % (0.4-1.5) 05/10/25 10:51 Total Hemoglobin 7.9 g/dL (12-16) L 05/10/25 10:51 Sodium 146.0 mmol/L (131-143) H 05/10/25 10:51 Potassium 3.3 mmol/L (3.5-5.0) L 05/10/25 10:51 Glucose 79.0 mg/dL (70-115) 05/10/25 10:51 Ionized Calcium 1.2 mmol/L (1.1-1.4) 05/10/25 10:51 O2 Delivery Device Bipap 05/10/25 10:51 O2 Liters/Min 50.0 % 05/10/25 03:24 FiO2 40.0 % 05/10/25 03:24 Tidal Volume 0.42 05/08/25 23:45 PEEP 10.0 cmH20 05/08/25 23:45 Peeled Potato Inspector ID Gd 05/10/25 10:51 Sodium 146 mmol/L (136-145) H 05/12/25 03:18 Potassium 3.3 mmol/L (3.5-5.1) L 05/12/25 03:18 Chloride 99 mmol/L (98-107) 05/12/25 03:18 Carbon Dioxide 27 mmol/L (22-29) 05/12/25 03:18 Anion Gap 23.3 (5-19) H 05/12/25 03:18 BUN 25 mg/dL (8-23) H 05/12/25 03:18 Creatinine 0.6 mg/dL (0.5-0.9) 05/12/25 03:18 GFR Calculation Not Reportable 05/12/25 03:18 Glucose 99 mg/dL (65-115) 05/12/25 03:18 Calculated Osmolality 306 mOsm/kg (285-295) H 05/12/25 03:18 Lactic Acid 2.5 mmol/L (0.5-2.2) H 05/10/25 04:27 Lactic Acid (Sepsis) 1.5 mmol/L (0.5-2.2) 05/10/25 08:50 Calcium 9.4 mg/dL (8.5-10.5) 05/12/25 03:18 Phosphorus 4.1 mg/dL (2.5-4.5) 05/09/25 01:52 Magnesium 2.4 mg/dL (1.7-2.3) H 05/08/25 16:00 Total Bilirubin 0.8 mg/dL (0.15-1.2) 05/12/25 03:18 AST 24 U/L (0-32) 05/12/25 03:18 ALT 24 U/L (0-33) 05/12/25 03:18 Alkaline Phosphatase 113 U/L (35-105) H 05/12/25 03:18 Troponin T Baseline 52 ng/L (0-10) H 05/10/25 04:27 Troponin T 120 Minute 74.94 ng/L (0-10) H 05/10/25 05:40 Delta Troponin T 22.94 ABS# (0-10) H* 05/10/25 05:40 Troponin T Hi Sens 6Hr 77.59 ng/L (0-10) H 05/10/25 11:19 Troponin T Hi Sens 6Hr Delta 25.59 ng/L (0-12) H* 05/10/25 11:19 C-React Prot High Sens 1.620 mg/dL (0.0-0.3) H 05/10/25 04:27 NT-Pro-B Natriuret Pep 1194 pg/mL (0-125) H 05/10/25 04:27 Total Protein 6.7 g/dL (6.6-8.7) 05/12/25 03:18 Albumin 4.1 g/dL (3.5-5.2) 05/12/25 03:18 Globulin 2.6 g/dL (1.3-4.6) 05/12/25 03:18 Procalcitonin 0.47 ng/mL (0-0.5) 05/10/25 04:27 TSH 0.27 uIU/mL (0.27-4.20) 05/09/25 01:52 Urine Color Yellow (Yellow) 05/08/25 23:19 Urine Appearance Clear (CLEAR) 05/08/25 23:19 Urine pH 6.5 (5-7) 05/08/25 23:19 Ur Specific [place] 1.008 (1.005-1.030) 05/08/25 23:19 Urine Protein Negative (Negative) 05/08/25 23:19 Urine Glucose (UA) Negative (Normal) 05/08/25 23:19 Urine Ketones Negative (Negative) 05/08/25 23:19 Urine Blood Negative (Negative) 05/08/25 23:19 Urine Nitrate Positive (Negative) A 05/08/25 23:19 Urine Bilirubin Negative (Negative) 05/08/25 23:19 Urine Urobilinogen 0.2 mg/dL (Negative) 05/08/25 23:19 Ur Leukocyte Esterase 2+ (Negative) A 05/08/25 23:19 Urine RBC 0-2 /hpf (0-2) 05/08/25 23:19 Urine WBC 21-50 /hpf (0-5) H 05/08/25 23:19 Ur Squamous Epith Cells 0-5 /hpf (0-5) 05/08/25 23:19 Amorphous Sediment Not Reportable 05/08/25 23:19 Urine Bacteria 1+ /hpf (NONE) H 05/08/25 23:19 Hyaline Casts 2.87 /lpf 05/08/25 23:19 Adenovirus (PCR) Not detected (NOT DETECT) 05/08/25 18:07 C. pneumoniae DNA (PCR) Not detected (NOT DETECT) 05/08/25 18:07 Coronavirus 229E (PCR) Not detected (NOT DETECT) 05/08/25 18:07 Human Metapneumovir PCR Not detected (NOT DETECT) 05/08/25 18:07 Influenza A (H1) PCR Not detected (NOT DETECT) 05/08/25 18:07 Influ A (H1/09) PCR Not detected (NOT DETECT) 05/08/25 18:07 Influenza A (H3) PCR Not detected (NOT DETECT) 05/08/25 18:07 Influenza Type A (PCR) Not detected (NOT DETECT) 05/08/25 18:07 Influenza Type B (PCR) Not detected (NOT DETECT) 05/08/25 18:07 M. pneumoniae (PCR) Not detected (NOT DETECT) 05/08/25 18:07 Parainfluenza 1 (PCR) Not detected (NOT DETECT) 05/08/25 18:07 Parainfluenza 2 (PCR) Not detected (NOT DETECT) 05/08/25 18:07 Parainfluenza 3 (PCR) Not detected (NOT DETECT) 05/08/25 18:07 Parainfluenza 4 (PCR) Not detected (NOT DETECT) 05/08/25 18:07 RSV Type A (PCR) Not detected (NOT DETECT) 05/08/25 18:07 RSV Type B (PCR) Not detected (NOT DETECT) 05/08/25 18:07 Entero/Rhino (PCR) Detected (NOT DETECT) A 05/08/25 18:07 SARS-CoV-2 (PCR) Not detected (NOT DETECT) 05/08/25 18:07 Blood Type O Negative 05/10/25 05:09 Rho(D) Type Rh negative 05/10/25 05:09 Antibody Screen Negative 05/10/25 05:09 Crossmatch See Detail 05/10/25 05:09 Vitals Last Vital Signs Temp 98 F 05/12/25 12:00 Pulse 140 H 05/12/25 12:00 Resp 27 H 05/12/25 12:00 BP 127/83 05/12/25 12:00 Pulse Ox 99 05/12/25 12:00 O2 Del Method Nasal Cannula 05/12/25 11:23 O2 Flow Rate 2 05/12/25 11:23 FiO2 28 05/11/25 15:57 Discharge Plan Discharge Patient Disposition: Home Condition: Stable Prescriptions: New levofloxacin 750 mg tablet 750 mg PO DAILY 10 Days Qty: 10 0RF Continued albuterol sulfate 90 mcg/actuation HFA aerosol inhaler 2 puff inhalation 6XD PRN (Reason: shortness of breath or wheezing) 30 Days Qty: 17 3RF lamotrigine 100 mg tablet 100 mg PO BID 30 Days Qty: 60 5RF acetaminophen-codeine 300-15 mg tablet 1 tab PO BID PRN (Reason: pain) Qty: 20 0RF Breztri Aerosphere 160-9-4.8 mcg/actuation HFA aerosol inhaler 2 inh inhalation BID 30 Days Qty: 10.7 6RF clopidogrel 75 mg tablet 75 mg PO DAILY Qty: 90 3RF atorvastatin 80 mg tablet 80 mg PO DAILY Qty: 90 0RF nitroglycerin 0.4 mg tablet, sublingual 0.4 mg sublingual Q5M PRN (Reason: chest pain) Qty: 90 0RF Rx Instructions: do not exceed 3 doses per episode tizanidine 2 mg tablet 2 mg PO Q8H PRN (Reason: muscle spasms) pantoprazole 40 mg tablet,delayed release (DR/EC) 40 mg PO BID metoprolol tartrate 25 mg tablet 25 mg PO BID duloxetine 60 mg capsule,delayed release(DR/EC) 60 mg PO DAILY ipratropium-albuterol 0.5 mg-3 mg(2.5 mg base)/3 mL solution for nebulization 3 ml inhalation Q8H Qty: 180 0RF prednisone 10 mg tablet See Taper PO DIRECTED Qty: 42 0RF Taper: predniSONE 60-10 60 mg Daily for 2 Days and 0 Hour 50 mg Daily for 2 Days and 0 Hour 40 mg Daily for 2 Days and 0 Hour 30 mg Daily for 2 Days and 0 Hour 20 mg Daily for 2 Days and 0 Hour 10 mg Daily for 2 Days and 0 Hour Rx Instructions: see taper instructions Discontinued acetaminophen 500 mg Tablet 1,000 mg PO Q6H PRN (Reason: Pain) Discharge Order = DC NOW: Discharge Order (Routine); Ordered 05/12/25 Ordered By: Torsten Cardenas Referrals: [facility] [Occupational Therapist] Discharge Diet: Advance as tolerated Discharge Activity: Resume usual activity and Limit activity as instructed Patient Instructions: Hospice Care, COPD (Chronic Obstructive Pulmonary Disease) (DC), Opioid Safety, Patient Portal & Riana Instructions Discharge Attestations Time Spent in Discharge Care*: critical care time Critical Care Time (min): 60 Specific Discharge Activities: educating patient, educating and/or supporting family/caregiver, discussing with pcp/other providers, discussing with mental health case manager/social workers/dc planners, documenting/other paperwork and evaluating patient/reviewing data Time Spent in Smoking Cessation: more than 10 minutes The high probability of a clinically significant, sudden or life threatening deterioration, as referenced in this documentation, required my full and direct attention, intervention and personal management. The critical care time shown is in addition to time spent performing any reported separately billable procedures and includes the following: [x] Data and vital sign review and interpretation [x] Patient assessment, examination and intervention [x] Medication orders and management [x] Patient/Family updates as able [x] Care Coordination and Documentation. Status at Discharge: Cognitive status at discharge: cognitively intact, Behavioral status at discharge: cooperative, Overall status at discharge: patient is back to baseline Quality Metrics Clinical Quality Measures [ No reported AMI, CVA or VTE this stay] Coding Level of Care Code Critical Care >/= 30 minutes Diagnoses Sepsis A41.9 Sepsis acute organ dysfunction status: with acute organ dysfunction Severe sepsis acute organ dysfunction type: acute respiratory failure Acute respiratory failure type: with hypercapnia Severe sepsis shock status: with septic shock Chronic anemia D64.9 Acute on chronic respiratory failure with hypoxia and hypercapnia J96.21; J96.22 Acute exacerbation of chronic obstructive pulmonary disease J44.1 Tachycardia R00.0 AVM (arteriovenous malformation) of small bowel, acquired K55.20 Other iron deficiency anemia D50.8 Iron deficiency anemia type: other iron deficiency Unexplained weight loss R63.4 Caloric malnutrition E46
--- NOTE | 2025-05-12 14:20 | PC.NURSE ---
hospice here kim[facility] dur[facility] here report done and called discharged home
== END 2025-05-12 14:28 | disposition hospice, home (50) | DRG 871 ==
LOC: ER 17:28 → ER IP 18:25 → CSU 18:39 → ICU 20:19
PROVIDERS: Family Medicine; Admitting Provider Internal Medicine; Emergency Provider Student in an Organized Health Care Education/Training Program; PCP Family Medicine; Visit Provider Student in an Organized Health Care Education/Training Program
DX: A41.9 Sepsis, unspecified organism (principal); E43 Unspecified severe protein-calorie malnutrition; J18.9 Pneumonia, unspecified organism; J96.21 Acute and chronic respiratory failure with hypoxia; R65.21 Severe sepsis with septic shock; J96.22 Acute and chronic respiratory failure with hypercapnia; J44.0 Chronic obstructive pulmonary disease with (acute) lower respiratory infection; J44.1 Chronic obstructive pulmonary disease with (acute) exacerbation; Z68.1 Body mass index [BMI] 19.9 or less, adult; E87.20 Acidosis, unspecified; D50.0 Iron deficiency anemia secondary to blood loss (chronic); B97.89 Other viral agents as the cause of diseases classified elsewhere; K55.20 Angiodysplasia of colon without hemorrhage; I25.10 Atherosclerotic heart disease of native coronary artery without angina pectoris; Z66 Do not resuscitate; M43.6 Torticollis; G89.29 Other chronic pain; F32.A Depression, unspecified; M85.80 Other specified disorders of bone density and structure, unspecified site; I50.9 Heart failure, unspecified; F17.210 Nicotine dependence, cigarettes, uncomplicated; M54.2 Cervicalgia; R91.8 Other nonspecific abnormal finding of lung field; E78.2 Mixed hyperlipidemia; Z51.5 Encounter for palliative care; I25.2 Old myocardial infarction; Z79.51 Long term (current) use of inhaled steroids; Z79.02 Long term (current) use of antithrombotics/antiplatelets; Z86.018 Personal history of other benign neoplasm; Z95.5 Presence of coronary angioplasty implant and graft; Z87.11 Personal history of peptic ulcer disease; Z90.710 Acquired absence of both cervix and uterus; Z98.1 Arthrodesis status
CPT/HCPCS: 36415; 36430; 36600; 51702; 71045; 80051; 80053; 81001; 82330; 82803; 82805; 83605; 83735; 83880; 84100; 84145; 84443; 84484; 85025; 86141; 86850; 86900; 86920; 87040; 87086; 87486; 87581; 87633; 93005; 93306; 94002; 94003; 94640; 94660; 94664; 94799; 96365; 96367; 96375; 96376; 99291; J0456; J0696; J1938; J2060; J2470; J2543; J2704; J2919; J3010; J3475; J3480; J3490; J7040; J7050; J9999; P9016